=== PATIENT | male | born 1940 | race Caucasian/White ===

== ENCOUNTER 2017-12-04 09:25 | Inpatient (IN) ==
[2017-12-04] MEDS ORDERED: Bisacodyl 10 MG Supp RECTAL PRN (14:16)
[2017-12-04] MEDS ORDERED: Acetaminophen 325 MG Tablet PO PRN (14:16)
[2017-12-04] MEDS ORDERED: Morphine Inj 4 MG/ML Vial IV.PUSH PRN ×2 (14:16→15:23)
[2017-12-04 14:20] LABS: ABG Base Excess -2.4 mmol/L (-2-2); ABG PCO2 38 mmHg (38-42); ABG PO2 508 mmHg (61-120)
--- NOTE | 2017-12-04 15:12 | P.HPCC ---
<Joby Celaya P - Last Filed: 12/04/17 14:53> History of Present Illness Service: Critical care medicine. Primary Care Physician: UNKNOWN Chief Complaint: Cardiopulmonary arrest. History of Present Illness: This 77-year-old gentleman with coronary artery disease, chronic heart failure, glucose intolerance, recent pneumonia, and status post lobectomy for lung cancer develop respiratory acidosis culminating in brief cardiac arrest after transport to the [facility] emergency department. He was rapidly resuscitated after 1 amp of epinephrine but did require intubation and mechanical ventilation. He is been on home oxygen following his lobectomy and has underlying COPD which was likely exacerbated prior to this event. At the outside hospital troponin was minimally elevated at 0.15 and initial pH was arterial 7.16. He was transported to the [facility] at [facility] and I met him on his arrival. - Diagnosis (1) Cardiorespiratory arrest (2) COPD (chronic obstructive pulmonary disease) (3) Lung cancer (4) Elevated troponin I level (5) Leukocytosis Inpatient Certification: I certify that the inpatient services were ordered in accordance with Medicare regulations governing the order. This includes certification that hospital inpatient services are reasonable and necessary and in the case of services not specified as inpatient-only under 42 CFR 419.22(n), that they are appropriately provided as inpatient services in accordance to with the 2-midnight benchmark under 43 CFR 412.3(e) Estimated Total Length of Stay (Days): 3 Plans for Post Hospital Care: Home Review of Systems Unobtainable. Patient is intubated and sedated. Family has not arrived yet. [facility] - History History Provided By: Family Member - Medical History Medical History: Medical History (Last Updated 12/04/17 @ 11:47 by Tootie Ospina) Afib COPD (chronic obstructive pulmonary disease) Hypertension Lung cancer Oxygen dependent Pneumonia Port-A-Cath in place - Surgical History Surgical History: Surgical History (Last Updated 12/04/17 @ 11:47 by Tootie Ospina) History of lobectomy of lung - Tobacco History Smoking Status: Unknown if ever smoked - Alcohol History How Often Do You Have a Drink Containing Alcohol: Unable to Obtain - Substance Use History Substance History: No History of Abuse Medications and Allergies Allergies Allergy/AdvReac Type Severity Reaction Status Date / Time No Known Allergies Allergy Verified 12/04/17 09:42 Home Medications Medication Instructions Recorded Confirmed Type albuterol sulfate [ProAir HFA] 2 puff INHALATION Q4-6H PRN 12/04/17 12/04/17 History amlodipine 5 mg PO DAILY 12/04/17 12/04/17 History apixaban [Eliquis] 5 mg PO BID 12/04/17 12/04/17 History aspirin [Aspir-81] 81 mg PO DAILY 12/04/17 12/04/17 History folic acid 1 mg PO DAILY 12/04/17 12/04/17 History furosemide [Lasix] 40 mg PO DAILY 12/04/17 12/04/17 History ipratropium-albuterol 3 ml INHALATION Q6-8H PRN 12/04/17 12/04/17 History lisinopril 20 mg PO DAILY 12/04/17 12/04/17 History lisinopril-hydrochlorothiazide 1 tab PO DAILY 12/04/17 12/04/17 History meclizine 25 mg PO DAILY PRN 12/04/17 12/04/17 History nitroglycerin 0.4 mg SUBLINGUAL Q5-15M PRN 12/04/17 12/04/17 History potassium chloride 20 meq PO DAILY 12/04/17 12/04/17 History pravastatin 20 mg PO DAILY 12/04/17 12/04/17 History prednisone See Taper 12/04/17 History rabeprazole 20 mg PO DAILY 12/04/17 12/04/17 History Active Medications: Active Medications Acetaminophen (Tylenol) 650 mg PO Q6H PRN PRN Reason: PAIN 6-10 AND/OR FEVER >101F Hydrocodone Bitart/Acetaminophen ([place] 5/325) 1 tab PO Q4H PRN PRN Reason: PAIN SCALE 1 TO 5 Al Hydroxide/Mg Hydroxide (Milk Of Magnesia Liq) 30 ml PO Q12H PRN PRN Reason: Mild Constipation Albuterol (Duoneb Neb (Micaela)) 1 ampul NEB Q4HR NEB [facility] Bisacodyl (Dulcolax Supp) 10 mg RECTAL DAILY PRN PRN Reason: SEVERE CONSITIPATION Chlorhexidine Gluconate (Peridex 0.12% Oral Kit) 15 ml OROPHARYNG BID@0800, 2000 [facility] Chlorhexidine Gluconate (Chlorhexidine 2% Cloth) 3 pack TOPICAL DAILY@0400 [facility] Stop: 12/10/17 03:59 Chlorhexidine Gluconate (Chlorhexidine 2% Cloth) 3 pack TOPICAL DAILY@0400 PRN PRN Reason: Extra cloth needed Stop: 12/10/17 03:59 Famotidine (Pepcid Pf Inj) 10 mg IV.PUSH Q12HR MICAELA Potassium Chloride/Sodium Chloride (Ns + Kcl 20 Meq Inj) 1,000 mls @ 20 mls/hr IV.CONT .Q24H MICAELA Lactulose (Lactulose Liq) 30 ml PO DAILY PRN PRN Reason: SEVERE CONSITIPATION Morphine Sulfate (Morphine Inj) 2 mg IV.PUSH Q2H PRN PRN Reason: PAIN SCALE 6 TO 10 Ondansetron HCl (Zofran Odt) 4 mg PO Q6H PRN PRN Reason: NAUSEA OR VOMITING Senna/Docusate Sodium (Jamila-Colace) 1 tab PO BID [facility] Sennosides (Senokot) 17.2 mg PO Q12H PRN PRN Reason: Moderate Constipation Sodium Chloride (Ns Flush) 2 ml IV.FLUSH BID MICAELA Sodium Chloride (Ns Flush) 2 ml IV.FLUSH UNSCH PRN PRN Reason: FLUSH AFTER USING IV ACCESS Exam Vital signs: Vital Signs 12/04/17 14:00 Temperature 97.6 F Pulse Rate 67 Respiratory Rate 24 Blood Pressure 150/72 H Pulse Oximetry 99 Intake & Output 12/03/17 12/04/17 12/04/17 18:59 06:59 18:59 Weight 80.5 kg Other: Weight On Admission 80.5 kg Narrative: Physical exam: Head: Atraumatic, normal Neck: Supple orally intubated Lungs: Light wheezes but good bilateral air movement. Scattered crackles. Neck veins are full. Heart: Irregular regular, 3/6 systolic murmur heard throughout the precordium, present from childhood. Abdomen: Soft, nondistended, no guarding, bowel sounds are few, benign. Extremities: 2+ edema involving both lower legs. Otherwise warm and well- perfused. Neuro: Lightly sedated, opens eyes and nods head to commands. Moves 4 limbs spontaneously. Tracks with eyes. Appears alert. Caprini VTE Risk Assessment Caprini VTE Risk Assessment: Moderate/High Risk (score >= 2) Caprini Risk Assessment Model: Point Value = 1 Point Value = 2 Point Value = 3 Point Value = 5 Age 41-60 Minor surgery BMI > 25 kg/m2 Swollen legs Varicose veins or History of unexplained or recurrent spontaneous Oral contraceptives or hormone replacement Sepsis (< 1 month) Serious lung disease, including pneumonia (< 1 month) Abnormal pulmonary function Acute myocardial infarction Congestive heart failure (< 1 month) History of inflammatory bowel disease Medical patient at bed rest Age 61-74 Arthroscopic surgery Major open surgery (> 45 min) Laparoscopic surgery (> 45 min) Malignancy Confined to bed (> 72 hours) Immobilizing plaster cast Central venous access Age >= 75 History of VTE Family history of VTE Factor V Leiden Prothrombin [id number] Lupus anticoagulant Anticardiolipin antibodies Elevated serum homocysteine Heparin-induced thrombocytopenia Other congenital or acquired thrombophilia Stroke (< 1 month) Elective arthroplasty Hip, pelvis, or leg fracture Acute spinal cord injury (< 1 month) Prophylaxis Regimen: Total Risk Factor Score Risk Level Prophylaxis Regimen 0-1 Low Early ambulation 2 Moderate Order ONE of the following: *Sequential Compression Device (SCD) *Heparin 5000 units SQ BID 3-4 Higher Order ONE of the following medications: *Heparin 5000 units SQ TID *Enoxaparin/Lovenox 40 mg SQ daily (WT < 150 kg, CrCl > 30 mL/min) *Enoxaparin/Lovenox 30 mg SQ daily (WT < 150 kg, CrCl > 10-29 mL/min) *Enoxaparin/Lovenox 30 mg SQ BID (WT < 150 kg, CrCl > 30 mL/min) AND/OR *Sequential Compression Device (SCD) 5 or more Highest Order ONE of the following medications: *Heparin 5000 units SQ TID (Preferred with Epidurals) *Enoxaparin/Lovenox 40 mg SQ daily (WT < 150 kg, CrCl > 30 mL/min) *Enoxaparin/Lovenox 30 mg SQ daily (WT < 150 kg, CrCl > 10-29 mL/min) *Enoxaparin/Lovenox 30 mg SQ BID (WT < 150 kg, CrCl > 30 mL/min) AND *Sequential Compression Device (SCD) Assessment and Plan - Problem List (1) Cardiorespiratory arrest Code(s): I46.9 - Cardiac arrest, cause unspecified Status: Acute (2) COPD (chronic obstructive pulmonary disease) Code(s): J44.9 - Chronic obstructive pulmonary disease, unspecified Status: Acute (3) Lung cancer Code(s): C34.90 - Malignant neoplasm of unspecified part of unspecified bronchus or lung Status: Acute (4) Elevated troponin I level Code(s): R74.8 - Abnormal levels of other serum enzymes Status: Acute (5) Leukocytosis Code(s): D72.829 - Elevated white blood cell count, unspecified Status: Acute - Assessment and Plan Plan: Plan: Cardiovascular: Lasix 80 mg now continue oral diuretic and antihypertensive therapy. Continue antiplatelet therapy for coronary stent. Continue and NOAC for permanent atrial fibrillation. Follow-up troponin. Respiratory: Stat arterial blood gas. Review chest x-ray from outside hospital ; review for residual pneumonia. Bronchodilators. Short-term steroids. Start spontaneous breathing trials if more stable in a.m. Neuro: Serial neurologic exams, minimize sedation. GI: Nasogastric tube to low intermittent suction. : Calix to closed bag drainage. Try to get 2-3 L of urine off tonight. Follow electrolytes closely. Endocrine: Hyperglycemia probably related to his outpatient steroid bolus. [place] sliding scale insulin coverage, may require continuous infusion if he does not respond. Hematology: Leukocytosis now. Possibly related to steroids. He has been on prednisone 20 mg daily as an outpatient. More likely a stress response from today's events. Follow white cell count closely. ID: Continue antibiotic coverage for outpatient pneumonia until confirmed he is over it. Prophylaxis: Continue and NOAC and institute oral GI ulcer coverage. Overall impression: This man is critically ill having sustained a cardiac arrest following an episode of respiratory acidosis. I am trying to piece together the elements of his prehospital course at this time and will adjust my therapy accordingly. Presently: The respiratory acidosis has been corrected and oxygenation is acceptable. Work of breathing remains elevated. Critical CARE 50 minutes aside from procedures. <Josh Rosas - Last Filed: 12/05/17 08:40> History of Present Illness Primary Care Physician: UNKNOWN - Diagnosis (1) Cardiorespiratory arrest (2) COPD (chronic obstructive pulmonary disease) (3) Lung cancer (4) Elevated troponin I level (5) Leukocytosis Inpatient Certification: I certify that the inpatient services were ordered in accordance with Medicare regulations governing the order. This includes certification that hospital inpatient services are reasonable and necessary and in the case of services not specified as inpatient-only under 42 CFR 419.22(n), that they are appropriately provided as inpatient services in accordance to with the 2-midnight benchmark under 43 CFR 412.3(e) [facility] - Medical History Medical History: Medical History (Last Updated 12/04/17 @ 11:47 by Tootie Ospina) Afib COPD (chronic obstructive pulmonary disease) Hypertension Lung cancer Oxygen dependent Pneumonia Port-A-Cath in place - Surgical History Surgical History: Surgical History (Last Updated 12/04/17 @ 11:47 by Tootie Ospina) History of lobectomy of lung Medications and Allergies Active Medications: Active Medications Acetaminophen (Tylenol) 650 mg PO Q6H PRN PRN Reason: PAIN 6-10 AND/OR FEVER >101F Hydrocodone Bitart/Acetaminophen ([place] 5/325) 1 tab PO Q4H PRN PRN Reason: PAIN SCALE 1 TO 5 Al Hydroxide/Mg Hydroxide (Milk Of Magnsrini Liq) 30 ml PO Q12H PRN PRN Reason: Mild Constipation Albuterol (Duoneb Neb ([facility])) 1 ampul NEB Q4HR NEB [facility] Last Admin: 12/05/17 08:14 Dose: 1 ampul Amlodipine Besylate (Norvasc) 5 mg PO DAILY [facility] Last Admin: 12/05/17 08:30 Dose: 5 mg Apixaban (Eliquis) 5 mg PO BID [facility] Last Admin: 12/05/17 08:29 Dose: 5 mg Bisacodyl (Dulcolax Supp) 10 mg RECTAL DAILY PRN PRN Reason: SEVERE CONSITIPATION Chlorhexidine Gluconate (Peridex 0.12% Oral Kit) 15 ml OROPHARYNG BID@0800, 2000 [facility] Chlorhexidine Gluconate (Chlorhexidine 2% Cloth) 3 pack TOPICAL DAILY@0400 [facility] Stop: 12/10/17 03:59 Chlorhexidine Gluconate (Chlorhexidine 2% Cloth) 3 pack TOPICAL DAILY@0400 PRN PRN Reason: Extra cloth needed Stop: 12/10/17 03:59 Dextrose (D50w Vial) 50 ml IV.PUSH UNSCH PRN PRN Reason: PER HYPOGLYCEMIA PROTOCOL Famotidine (Pepcid Pf Inj) 10 mg IV.PUSH Q12HR [facility] Last Admin: 12/05/17 08:30 Dose: 10 mg Glucagon (Glucagon Inj) 1 mg OTHER PRN PRN PRN Reason: for Hypoglycemia Protocol Potassium Chloride/Sodium Chloride (Ns + Kcl 20 Meq Inj) 1,000 mls @ 20 mls/hr IV.CONT .Q24H [facility] Last Admin: 12/04/17 15:02 Dose: 20 mls/hr Insulin Aspart (Novolog Insulin Suppl Scale Inj) 0 unit SQ Q6HR [facility]; Protocol Last Admin: 12/04/17 18:17 Dose: Not Given Lactulose (Lactulose Liq) 30 ml PO DAILY PRN PRN Reason: SEVERE CONSITIPATION Lisinopril (Prinivil) 20 mg PO DAILY [facility] Last Admin: 12/05/17 08:30 Dose: 20 mg Methylprednisolone Sodium Succinate (Solumedrol Inj) 60 mg IV.PUSH Q8HR [facility] Last Admin: 12/05/17 05:43 Dose: 60 mg Morphine Sulfate (Morphine Inj) 2 mg IV.PUSH Q2H PRN PRN Reason: PAIN SCALE 6 TO 10 Morphine Sulfate (Morphine Inj) 2 mg IV.PUSH Q4H PRN PRN Reason: PAIN 6-10;IF UNABLE TO TAKE PO Ondansetron HCl (Zofran Odt) 4 mg PO Q6H PRN PRN Reason: NAUSEA OR VOMITING Senna/Docusate Sodium (Jamila-Colace) 1 tab PO BID [facility] Last Admin: 12/05/17 08:29 Dose: 1 tab Sennosides (Senokot) 17.2 mg PO Q12H PRN PRN Reason: Moderate Constipation Sodium Chloride (Ns Flush) 2 ml IV.FLUSH BID [facility] Last Admin: 12/05/17 08:30 Dose: 2 ml Sodium Chloride (Ns Flush) 2 ml IV.FLUSH UNSCH PRN PRN Reason: FLUSH AFTER USING IV ACCESS Results - Labs CBC & Chem 7: 12/05/17 03:30 12/05/17 03:30 Labs: Short CBC 12/05/17 Range/Units 03:30 WBC 25.9 H (4.0-11.0) th/mm3 Hgb 15.0 (13.0-17.0) gm/dL Hct 46.3 (39.0-51.0) % Plt Count 164 (150-450) th/mm3 BMP 12/04/17 12/05/17 23:16 03:30 Sodium 140 139 Potassium 3.7 3.9 Chloride 102 104 Carbon Dioxide 26.0 23.0 BUN 48 H 48 H Creatinine 1.42 H 1.43 H Calcium 8.1 L 8.0 L Cardiac Enzymes 12/04/17 12/04/17 Range/Units 17:08 23:16 Troponin I 0.12 H 0.11 H (0.02-0.05) ng/mL - Imaging Impressions Chest X-Ray 12/04/17 14:22 CONCLUSION: Bilateral alveolar edema versus pneumonia. There has been no significant change when compared to the prior exam. Enlarging right effusion Exam Vital signs: Vital Signs 12/04/17 14:00 12/04/17 15:24 12/04/17 16:00 Temperature 97.6 F 97.9 F Pulse Rate 67 66 66 Respiratory Rate 24 19 Blood Pressure 150/72 H 118/73 Pulse Oximetry 99 98 12/04/17 16:17 12/04/17 20:00 12/04/17 20:06 Temperature 97.6 F Pulse Rate 65 66 69 Respiratory Rate 14 20 19 Blood Pressure 92/59 L Pulse Oximetry 98 98 12/04/17 22:00 12/05/17 00:00 12/05/17 00:09 Temperature 97.8 F Pulse Rate 72 70 71 Respiratory Rate 18 20 Blood Pressure 126/74 Pulse Oximetry 98 12/05/17 02:00 12/05/17 03:51 12/05/17 04:00 Temperature 97.5 F L Pulse Rate 76 71 74 Respiratory Rate 21 18 Blood Pressure 114/73 Pulse Oximetry 100 12/05/17 08:15 Temperature Pulse Rate 82 Respiratory Rate 21 Blood Pressure Pulse Oximetry 96 Intake & Output 12/04/17 12/05/17 12/05/17 18:59 06:59 18:59 Intake Total 100 / 100 480 / 480 Output Total 2800 / 2800 1350 / 1350 Balance -2700 / -2700 -870 / -870 Weight 80.5 kg 80.7 kg Intake: Oral 100 / 100 480 / 480 Output: Urine Amount (Catheter) 2800 / 2800 1350 / 1350 Indwelling Urethral Catheter 2800 / 2800 1350 / 1350 Other: # Bowel Movements 0 Weight On Admission 80.5 kg Caprini VTE Risk Assessment Caprini Risk Assessment Model: Point Value = 1 Point Value = 2 Point Value = 3 Point Value = 5 Age 41-60 Minor surgery BMI > 25 kg/m2 Swollen legs Varicose veins or History of unexplained or recurrent spontaneous Oral contraceptives or hormone replacement Sepsis (< 1 month) Serious lung disease, including pneumonia (< 1 month) Abnormal pulmonary function Acute myocardial infarction Congestive heart failure (< 1 month) History of inflammatory bowel disease Medical patient at bed rest Age 61-74 Arthroscopic surgery Major open surgery (> 45 min) Laparoscopic surgery (> 45 min) Malignancy Confined to bed (> 72 hours) Immobilizing plaster cast Central venous access Age >= 75 History of VTE Family history of VTE Factor V Leiden Prothrombin [id number] Lupus anticoagulant Anticardiolipin antibodies Elevated serum homocysteine Heparin-induced thrombocytopenia Other congenital or acquired thrombophilia Stroke (< 1 month) Elective arthroplasty Hip, pelvis, or leg fracture Acute spinal cord injury (< 1 month) Prophylaxis Regimen: Total Risk Factor Score Risk Level Prophylaxis Regimen 0-1 Low Early ambulation 2 Moderate Order ONE of the following: *Sequential Compression Device (SCD) *Heparin 5000 units SQ BID 3-4 Higher Order ONE of the following medications: *Heparin 5000 units SQ TID *Enoxaparin/Lovenox 40 mg SQ daily (WT < 150 kg, CrCl > 30 mL/min) *Enoxaparin/Lovenox 30 mg SQ daily (WT < 150 kg, CrCl > 10-29 mL/min) *Enoxaparin/Lovenox 30 mg SQ BID (WT < 150 kg, CrCl > 30 mL/min) AND/OR *Sequential Compression Device (SCD) 5 or more Highest Order ONE of the following medications: *Heparin 5000 units SQ TID (Preferred with Epidurals) *Enoxaparin/Lovenox 40 mg SQ daily (WT < 150 kg, CrCl > 30 mL/min) *Enoxaparin/Lovenox 30 mg SQ daily (WT < 150 kg, CrCl > 10-29 mL/min) *Enoxaparin/Lovenox 30 mg SQ BID (WT < 150 kg, CrCl > 30 mL/min) AND *Sequential Compression Device (SCD) Assessment and Plan - Problem List (1) Cardiorespiratory arrest Code(s): I46.9 - Cardiac arrest, cause unspecified Status: Inactive (2) COPD (chronic obstructive pulmonary disease) Code(s): J44.9 - Chronic obstructive pulmonary disease, unspecified Status: Inactive (3) Lung cancer Code(s): C34.90 - Malignant neoplasm of unspecified part of unspecified bronchus or lung Status: Inactive (4) Elevated troponin I level Code(s): R74.8 - Abnormal levels of other serum enzymes Status: Inactive (5) Leukocytosis Code(s): D72.829 - Elevated white blood cell count, unspecified Status: Inactive
[2017-12-04] MEDS ORDERED: Dextrose 50% in Water 50 ML Vial IV.PUSH PRN (15:13)
[2017-12-04] MEDS: Oral Hygiene Kit OROPHARYNG SCH (15:20)
--- NOTE | 2017-12-04 15:25 | XR ---
EXAM DATE: 12/04/2017 3:05 PM EDT AGE/SEX: 77 years / Male INDICATIONS: Shortness of breath. CLINICAL DATA: This is the patient's subsequent encounter. Patient reports that signs and symptoms h ave been present for 1 day and indicates a pain score of 0/10. MEDICAL/SURGICAL HISTORY: Emphysema. Chronic obstructive pulmonary disease. Carcinoma, lung. . Port for chemotherapy. COMPARISON: [facility], CHEST 1V SINGLE AP, 12/04/2017. . FINDINGS: The cardiac silhouette is enlarged in transverse diameter. There is prominence of the aortic knob is with calcification characteristic of atherosclerotic vascular disease. [id number] is in place via right internal jugular approach with its tip in the superior vena cava. There is patchy alveolar dise ase bilaterally compatible with edema or pneumonia. There has been no significant change when compare d to the prior exam. A small right sided effusion is present. CONCLUSION: Bilateral alveolar edema versus pneumonia. There has been no significant change when compared to the prior exam. Enlarging right effusion Electronically signed by: Mac Bailey MD 12/04/2017 3:24 PM EDT
[2017-12-04] MEDS: MethylPREDNISolone Sod Succinate Inj 125 MG/2 ML Vial IV.PUSH SCH ×2 (15:51→21:37)
[2017-12-04] MEDS: Insulin NovoLOG Aspart Correctional Sugar Inj SQ SCH ×2 (15:53→18:17)
[2017-12-04] MEDS: Senna/Docusate Sodium 8.6/50 MG Tablet PO SCH (21:35)
[2017-12-04] MEDS: Famotidine PF Inj 20 MG/2 ML Vial IV.PUSH SCH (21:35)
[2017-12-05 00:18] LABS: Calcium 8.1 mg/dL (8.5-10.1); Potassium 3.7 meq/L (3.5-5.1)
[2017-12-05 00:22] LABS: Troponin I 0.11 ng/mL (0.02-0.05)
[2017-12-05 04:00] LABS: Baso # (Auto) 0.1 th/mm3 (0.0-0.2); Baso % (Auto) 0.3 % (0.0-2.0); Hematocrit 46.3 % (39.0-51.0); Lymph # (Auto) 0.6 th/mm3 (1.0-4.8); Lymph % (Auto) 2.3 % (9.0-44.0); Mean Corpuscular HGB Conc 32.4 % (32.0-36.0); Mean Corpuscular Hemoglobin 28.3 pg (27.0-34.0); Mean Corpuscular Volume 87.4 fL (80.0-100.0); Mean Platelet Volume 10.2 fL (7.0-11.0); Mono # (Auto) 0.2 th/mm3 (0.0-0.9); Neut % (Auto) 96.4 % (16.0-70.0); Platelet Count 164 th/mm3 (150-450); Red Cell Distribution Width 15.5 % (11.6-17.2); White Blood Count 25.9 th/mm3 (4.0-11.0)
[2017-12-05] MEDS ORDERED: Chlorhexidine Gluconate 2% 1 Pack (2 Cloths) TOPICAL PRN (04:00)
[2017-12-05 04:14] LABS: Phosphorus 3.9 mg/dL (2.5-4.9); Potassium 3.9 meq/L (3.5-5.1)
[2017-12-05] MEDS: MethylPREDNISolone Sod Succinate Inj 125 MG/2 ML Vial IV.PUSH SCH (05:43)
[2017-12-05] MEDS: Senna/Docusate Sodium 8.6/50 MG Tablet PO SCH ×2 (08:29→22:37)
[2017-12-05] MEDS: amLODIPine 5 MG Tablet PO SCH (08:30)
[2017-12-05] MEDS: Lisinopril 20 MG Tablet PO SCH (08:30)
[2017-12-05] MEDS: Famotidine PF Inj 20 MG/2 ML Vial IV.PUSH SCH ×2 (08:30→22:38)
--- NOTE | 2017-12-05 08:39 | P.PNCC ---
Subjective Subjective Remarks/Hospital Course: This 77-year-old gentleman with coronary artery disease, chronic heart failure, glucose intolerance, recent pneumonia, and status post lobectomy for lung cancer develop respiratory acidosis culminating in brief cardiac arrest after transport to the [facility] emergency department. He was rapidly resuscitated after 1 amp of epinephrine but did require intubation and mechanical ventilation. He is been on home oxygen following his lobectomy and has underlying COPD which was likely exacerbated prior to this event. At the outside hospital troponin was minimally elevated at 0.15 and initial pH was arterial 7.16. He was transported to the [facility] and I met him on his arrival. 12/05: Sitting up in bed extubated yesterday breathing comfortably. WBC count is elevated most likely stress related. No arrhythmias reported overnight Objective Vital Signs / I&O: Vital Signs 12/04/17 14:00 12/04/17 15:24 12/04/17 16:00 Temperature 97.6 F 97.9 F Pulse Rate 67 66 66 Respiratory Rate 24 19 Blood Pressure 150/72 H 118/73 Pulse Oximetry 99 98 12/04/17 16:17 12/04/17 20:00 12/04/17 20:06 Temperature 97.6 F Pulse Rate 65 66 69 Respiratory Rate 14 20 19 Blood Pressure 92/59 L Pulse Oximetry 98 98 12/04/17 22:00 12/05/17 00:00 12/05/17 00:09 Temperature 97.8 F Pulse Rate 72 70 71 Respiratory Rate 18 20 Blood Pressure 126/74 Pulse Oximetry 98 12/05/17 02:00 12/05/17 03:51 12/05/17 04:00 Temperature 97.5 F L Pulse Rate 76 71 74 Respiratory Rate 21 18 Blood Pressure 114/73 Pulse Oximetry 100 12/05/17 08:15 Temperature Pulse Rate 82 Respiratory Rate 21 Blood Pressure Pulse Oximetry 96 Intake & Output 12/04/17 12/05/17 12/05/17 18:59 06:59 18:59 Intake Total 100 / 100 480 / 480 Output Total 2800 / 2800 1350 / 1350 Balance -2700 / -2700 -870 / -870 Weight 80.5 kg 80.7 kg Intake: Oral 100 / 100 480 / 480 Output: Urine Amount (Catheter) 2800 / 2800 1350 / 1350 Indwelling Urethral Catheter 2800 / 2800 1350 / 1350 Other: # Bowel Movements 0 Weight On Admission 80.5 kg Result Diagrams: 12/05/17 03:30 12/05/17 03:30 Objective Remarks: Head: Atraumatic, normal Neck: Supple Lungs: Good bilateral air movement. Scattered crackles. Neck veins are full. Heart: I3/6 systolic murmur heard throughout the precordium, S1-S2 normal Abdomen: Soft, nondistended, no guarding, bowel sounds are few, benign. Extremities: 2+ edema involving both lower legs. Otherwise warm and well- perfused. Neuro: Alert awake oriented 3 no focal deficits Assessment and Plan - Problem List (1) Cardiorespiratory arrest Code(s): I46.9 - Cardiac arrest, cause unspecified Status: Acute (2) COPD (chronic obstructive pulmonary disease) Code(s): J44.9 - Chronic obstructive pulmonary disease, unspecified Status: Acute (3) Lung cancer Code(s): C34.90 - Malignant neoplasm of unspecified part of unspecified bronchus or lung Status: Chronic (4) Elevated troponin I level Code(s): R74.8 - Abnormal levels of other serum enzymes Status: Acute (5) Leukocytosis Code(s): D72.829 - Elevated white blood cell count, unspecified Status: Acute - Assessment and Plan Plan: Plan: Cardiovascular: Continue oral diuretic and antihypertensive therapy. Continue antiplatelet therapy for coronary stent. Continue and NOAC for permanent atrial fibrillation. Follow-up troponin-peaked 0.12. Respiratory: Extubated yesterday tolerating well. Bronchodilators. Short-term steroids. Neuro: Serial neurologic exams, minimize sedation. Neurologically remains intact GI: Heart healthy diet : Discontinue Calix. Electrolyte replacement per protocol Endocrine: Hyperglycemia probably related to his outpatient steroid bolus. Sliding scale insulin coverage Hematology: Leukocytosis. Possibly related to steroids and acute distress. He has been on prednisone 20 mg daily as an outpatient. ID: Continue antibiotic coverage for outpatient pneumonia. Prophylaxis: Continue and NOAC and institute oral GI ulcer coverage. Level 2 Consult hospitalist to assume care in a.m. Transferred to [facility] with telemetry Code Status: Full
[2017-12-05] MEDS ORDERED: Nitroglycerin SL (Override) 0.4 MG Tab SL PRN (08:54)
--- NOTE | 2017-12-05 09:33 | XR ---
EXAM DATE: 12/05/2017 9:21 AM EDT AGE/SEX: 77 years / Male INDICATIONS: . Shortness of breath. CLINICAL DATA: This is the patient's subsequent encounter. Patient reports that signs and symptoms h ave been present for 2 days and indicates a pain score of 0/10. MEDICAL/SURGICAL HISTORY: . Emphysema. Chronic obstructive pulmonary disease. Carcinoma, lung. . Port for chemotherapy. COMPARISON: [facility] [place], CHEST 1V SINGLE AP, 12/04/2017. . FINDINGS: Right lung base infiltrate is present with questionable small pleural effusion not significantly reeves ged. [id number] has not changed and is prominence of the interstitial markings not significantly c hanged. CONCLUSION: No appreciable change. Electronically signed by: Libertad Silverio MD 12/05/2017 9:32 AM EDT
[2017-12-05] MEDS: Furosemide 40 MG Tablet PO SCH (10:30)
[2017-12-05] MEDS: Insulin NovoLOG Aspart Correctional Sugar Inj SQ SCH ×3 (11:48→18:09)
[2017-12-05] MEDS: Oral Hygiene Kit OROPHARYNG SCH ×2 (11:48→17:00)
[2017-12-05] MEDS: MethylPREDNISolone Sod Succinate Inj 40 MG/ML Vial IV.PUSH SCH ×2 (13:20→22:37)
--- NOTE | 2017-12-05 18:23 | ECG ---
Date Performed: 12/04/2017 Time Performed: 16:51:58 PTAGE: 77 years EKG: Sinus rhythm Rightward axis Right bundle branch block Abnormal ECG Compared to PREVIOUS TRACING , QRS duration is slightly wider. PREVIOUS TRACIN12/04/2017 09.32.44 DOCTOR: Bill Rodríguez Interpretating Date/Time 12/05/2017 18:32:52
[2017-12-05] MEDS: Chlorhexidine 0.12% Oral Kit 15 ML UDC OROPHARYNG SCH (22:35)
[2017-12-06] MEDS: Insulin NovoLOG Aspart Correctional Sugar Inj SQ SCH ×5 (00:20→18:24)
--- NOTE | 2017-12-06 03:55 | XR ---
EXAM DATE: 12/06/2017 3:25 AM EDT AGE/SEX: 77 years / Male INDICATIONS: . Respiratory Disease. CLINICAL DATA: This is the patient's subsequent encounter. Patient reports that signs and symptoms h ave been present for 3 days and indicates a pain score of 0/10. MEDICAL/SURGICAL HISTORY: . Emphysema. Chronic obstructive pulmonary disease. Carcinoma, lung. . Port for chemotherapy. COMPARISON: . FINDINGS: [id number] in superior vena cava. Bilateral mostly basilar airspace disease and pleural effusions similar to December 05. No pneumothorax. Interstitial prominence stable. CONCLUSION: Bilateral mostly basilar airspace disease with pleural effusions. No pneumothorax. Electronically signed by: Stephen Ascencio MD 12/06/2017 3:53 AM EDT
[2017-12-06] MEDS: Oral Hygiene Kit OROPHARYNG SCH ×3 (04:42→17:13)
[2017-12-06] MEDS: Chlorhexidine Gluconate 2% 1 Pack (2 Cloths) TOPICAL SCH (04:43)
[2017-12-06] MEDS: MethylPREDNISolone Sod Succinate Inj 40 MG/ML Vial IV.PUSH SCH ×3 (05:31→21:43)
[2017-12-06 08:28] LABS: Hematocrit 46.7 % (39.0-51.0); Hemoglobin 14.8 gm/dL (13.0-17.0); Mean Corpuscular HGB Conc 31.8 % (32.0-36.0); Mean Corpuscular Volume 88.3 fL (80.0-100.0); Platelet Count 157 th/mm3 (150-450); Red Blood Count 5.29 mil/mm3 (4.50-5.90); Red Cell Distribution Width 15.7 % (11.6-17.2); White Blood Count 30.5 th/mm3 (4.0-11.0)
[2017-12-06 08:51] LABS: Alanine Aminotransferase 68 U/L (12-78); Albumin 3.1 g/dL (3.4-5.0); Anion Gap 13 meq/L (5-15); Aspartate Aminotransferase 12 U/L (15-37); Blood Urea Nitrogen 59 mg/dL (7-18); Calcium 9.2 mg/dL (8.5-10.1); Carbon Dioxide 25.4 meq/L (21.0-32.0); Chloride 102 meq/L (98-107); Glomerular Filtration Rate 42 mL/min (>89); Glucose,Random 204 mg/dL (74-106); Magnesium 2.6 mg/dL (1.5-2.5); Potassium 3.9 meq/L (3.5-5.1); Sodium 140 meq/L (136-145)
[2017-12-06 08:54] LABS: Alkaline Phosphatase 73 U/L (45-117); Total Protein 6.4 g/dL (6.4-8.2)
[2017-12-06] MEDS: Lisinopril 20 MG Tablet PO SCH (09:12)
[2017-12-06] MEDS: Furosemide 40 MG Tablet PO SCH (09:13)
[2017-12-06] MEDS: amLODIPine 5 MG Tablet PO SCH (09:13)
[2017-12-06] MEDS: Senna/Docusate Sodium 8.6/50 MG Tablet PO SCH ×2 (09:14→21:43)
[2017-12-06] MEDS: Famotidine PF Inj 20 MG/2 ML Vial IV.PUSH SCH ×2 (09:14→21:42)
--- NOTE | 2017-12-06 12:31 | P.PNIM ---
Subjective Interval history: This 77-year-old gentleman with coronary artery disease, chronic heart failure, glucose intolerance, recent pneumonia, and status post lobectomy for lung cancer develop respiratory acidosis culminating in brief cardiac arrest after transport to the [facility] emergency department. He was rapidly resuscitated after 1 amp of epinephrine but did require intubation and mechanical ventilation. He is been on home oxygen following his lobectomy and has underlying COPD which was likely exacerbated prior to this event. At the outside hospital troponin was minimally elevated at 0.15 and initial pH was arterial 7.16. He was transported to the [facility] and I met him on his arrival. 12/05: Sitting up in bed extubated yesterday breathing comfortably. WBC count is elevated most likely stress related. No arrhythmias reported overnight 12-06 TRANSFERRED TO OUR SERVICE TODAY STATES WAS ON HIS WAY HOME FROM [facility] WHEN THIS OCCURRED SHE STATES HE HAD ISSUES WITH BREATHING BEFORE THIS OCCURRED IS CHRONICALLY ON 3L BY NASAL CANULA AND HAD A THORACENTESIS PRIOR TO THEIR VACATION IN [facility] HOME AM LAB PT AND OT CONSULT PULMONARY DW RN AND PT AND CM HAS HOME OXYGEN ALREADY HAS TENDER CHEST FROM CPR HAS SORE THROAT FROM ET TUBE AND PRIOR IRRITATION CONSULT PULMONARY AND CARDIOLOGY GET ECHO PT AND OT AM LABS Physical Exam Vital signs: Vital Signs 12/05/17 13:43 12/05/17 15:15 12/05/17 15:16 Temperature 97.5 F L Pulse Rate 87 94 H Respiratory Rate 18 18 Blood Pressure 111/76 Pulse Oximetry 98 94 L 12/05/17 16:00 12/05/17 19:04 12/05/17 20:00 Temperature 97.3 F L 97.4 F L Pulse Rate 89 89 108 H Respiratory Rate 18 20 20 Blood Pressure 122/58 L 120/76 Pulse Oximetry 98 92 L 12/06/17 00:00 12/06/17 00:24 12/06/17 04:00 Temperature 97.3 F L 98.4 F Pulse Rate 96 H 96 H 64 Respiratory Rate 18 16 18 Blood Pressure 95/62 L 129/70 Pulse Oximetry 95 98 12/06/17 05:00 12/06/17 08:00 12/06/17 09:27 Temperature 97.3 F L Pulse Rate 68 85 90 Respiratory Rate 16 22 26 H Blood Pressure 114/74 Pulse Oximetry 93 L 93 L Intake & Output 07/16/18 07/17/18 07/17/18 18:59 06:59 18:59 Intake Total 360 / 360 120 / 120 Balance 360 / 360 120 / 120 Intake: Oral 360 / 360 120 / 120 Other: # Voids 3 1 # Bowel Movements 0 Narrative: GENERAL: AWAKE AND ALERT AND ORIENTED X3 TALKATIVE AND COOPERATIVE SKIN: Warm and dry. HEAD: Atraumatic. Normocephalic. EYES: Pupils equal and round. No scleral icterus. No injection or drainage. EOMI ENT: No nasal bleeding or discharge. Mucous membranes pink and moist. TONGUE IS MIDLINE NECK: Trachea midline. No JVD. SUPPLE CARDIOVASCULAR: IRRegular rate and rhythm. S1, S2 NO S3 OR S4 TENDER CHEST FROM CPR 2/6 GAB RESPIRATORY: No accessory muscle use. DECREASED BS BL AND SCATTED RHONCHI AND RALES AT BASES Breath sounds equal bilaterally. GASTROINTESTINAL: Abdomen soft, non-tender, nondistended. Hepatic and splenic margins not palpable. MUSCULOSKELETAL: Extremities without clubbing, cyanosis, or edema. No obvious deformities. NEUROLOGICAL: Awake and alert. No obvious cranial nerve deficits. Motor grossly within normal limits. 4 out of 5 muscle strength in the arms and legs. Normal speech. PSYCHIATRIC: Appropriate mood and affect; insight and judgment normal. - Urinary Catheter Management Indwelling Urethral Catheter Cath placed during this visit: no Results - Labs CBC & Chem 7: 12/06/17 07:43 12/06/17 07:43 Laboratory Results - last 24 hr 12/05/17 12/05/17 12/05/17 12:43 17:20 20:25 WBC RBC Hgb Hct MCV MCH MCHC RDW Plt Count MPV Sodium Potassium Chloride Carbon Dioxide Anion Gap BUN Creatinine Estimated GFR POC Glucose 368 H 318 H 302 H Random Glucose Calcium Magnesium Total Bilirubin AST ALT Alkaline Phosphatase Total Protein Albumin 12/05/17 12/06/17 12/06/17 23:45 05:30 07:43 WBC 30.5 H RBC 5.29 Hgb 14.8 Hct 46.7 MCV 88.3 MCH 28.0 MCHC 31.8 L RDW 15.7 Plt Count 157 MPV 11.0 Sodium Potassium Chloride Carbon Dioxide Anion Gap BUN Creatinine Estimated GFR POC Glucose 217 H 210 H Random Glucose Calcium Magnesium Total Bilirubin AST ALT Alkaline Phosphatase Total Protein Albumin 12/06/17 12/06/17 07:43 12:01 WBC RBC Hgb Hct MCV MCH MCHC RDW Plt Count MPV Sodium 140 Potassium 3.9 Chloride 102 Carbon Dioxide 25.4 Anion Gap 13 BUN 59 H Creatinine 1.60 H Estimated GFR 42 L POC Glucose 319 H Random Glucose 204 H Calcium 9.2 D Magnesium 2.6 H D Total Bilirubin 0.8 AST 12 L ALT 68 Alkaline Phosphatase 73 Total Protein 6.4 D Albumin 3.1 L - Imaging Impressions Chest X-Ray 12/06/17 06:00 CONCLUSION: Bilateral mostly basilar airspace disease with pleural effusions. No pneumothorax. Assessment and Plan - Plan Cardiovascular: Continue oral diuretic and antihypertensive therapy. Continue antiplatelet therapy for coronary stent. Continue and NOAC for permanent atrial fibrillation. Follow-up troponin-peaked 0.12. diurese CONSULT CARDIO Respiratory: Extubated on 15 tolerating well. Bronchodilators. Short-term steroids. MUCINEX Neuro: Serial neurologic exams, minimize sedation. Neurologically remains intact GI: Heart healthy diet : Discontinue Calix. Electrolyte replacement per protocol FOLLOW RENAL FUNCTIONS Endocrine: Hyperglycemia probably related to his outpatient steroid bolus. Sliding scale insulin coverage WITH ACCU CHECKS Hematology: Leukocytosis. Possibly related to steroids and acute distress. He has been on prednisone 20 mg daily as an outpatient. ID: Continue antibiotic coverage for outpatient pneumonia. LEUKOCYTOSIS DUE TO STEROIDS CONSULT CARDIO POSITIVE TROPONINS CONSULT PULMONARY FOR LUNG ISSUES Prophylaxis: Continue and NOAC and institute oral GI ulcer coverage. Code Status: FULL CODE Discussed Condition With: RN AND PT AND FAMILY AND CM Discharge Planning: PENDING IMPROVEMENT
[2017-12-06] MEDS: Folic Acid 1 MG Tablet PO SCH (14:39)
[2017-12-06] MEDS: Pantoprazole Sodium 20 MG DR Tablet PO SCH (14:39)
[2017-12-06] MEDS: guaiFENesin 600 MG ER Tablet PO SCH ×2 (14:39→21:42)
--- NOTE | 2017-12-06 16:05 | MB ---
cc: Damian Kim MD DATE: 12/06/2017 HISTORY OF PRESENT ILLNESS: Rodo is a very pleasant 77-year-old gentleman with history of COPD, lung cancer, status post resection. Has not received chemotherapy in the last 3 months. He had a complication from what sounds like a pulmonary artery bleed as described by his son-in-law several months ago. He was traveling en route to [place], developed severe shortness of breath and was seen in the [place] ER, had what was described as a cardiac arrest, received one dose of epinephrine. He was found to have severe respiratory acidosis with a pH of 7.1. Chest x-ray showed airspace disease, possibly pulmonary edema. Echo showed EF of 34%, mean aortic valve gradient of approximately 40 with a peak systolic pressure of around 70. Troponin was mildly elevated post-arrest. Currently, the patient is sitting in a wheelchair, comfortable, in no acute distress. Denies fever, chills, cough, GI or bleeding, orthopnea, syncope or dizziness. PAST MEDICAL HISTORY: As per history of present illness. He has a history of atrial fibrillation, COPD, hypertension, lung cancer, uses home O2, history of pneumonia. PAST SURGICAL HISTORY: Status post lobectomy of the lung. ALLERGIES: NONE. MEDICATIONS: In the hospital: 1. Amlodipine 5 mg a day. 2. Albuterol nebs. 3. Eliquis 5 mg b.i.d. 4. Aspirin 81 mg a day. 5. Folic acid 1 mg daily. 6. Lasix 40 mg daily. 7. Novolog. 8. Prinivil 20 mg daily. 9. Methylprednisolone. 10. Potassium 20 mEq daily. 11. Pravachol 20 mg daily. PHYSICAL EXAMINATION: VITAL SIGNS: Temperature 97.5, pulse 88, blood pressure 121/68, sats 93% on 3.5 liters nasal cannula. GENERAL: He is alert and oriented x3, in no acute distress. NECK: Supple. No JVD. No bruit. CARDIOVASCULAR: S1, S2. No murmurs, rubs or gallops. LUNGS: Clear to auscultation bilaterally. ABDOMEN: Soft, nontender, nondistended, positive bowel sounds. EXTREMITIES: No lower extremity edema. LABORATORY DATA: EKG shows normal sinus rhythm at 67 beats per minute, right bundle-branch block, nonspecific ST-T wave changes. The corrected QT interval was 454 milliseconds. Chest x-ray on 12/04/2017: Bilateral alveolar edema versus pneumonia. White count 30.5, hemoglobin 14.8, hematocrit 46.7, platelet count is 157. Blood gas pH of 7.3, pCO2 of 30, pO2 508 on 100% oxygen, BiPAP. Sodium 140, potassium 3.9, chloride 102, bicarbonate 25.4, BUN 59, creatinine 1.60, magnesium 2.6. DIAGNOSES: 1. Cardiac arrest. 2. Non-ST elevation myocardial infarction. 3. Severe aortic valve stenosis. 4. Severe pulmonary hypertension. 5. Lung cancer. 6. Chronic obstructive pulmonary disease. 7. Respiratory acidosis. 8. Atrial fibrillation. 9. Cardiomyopathy. 10. Decompensated congestive heart failure. 11. Elevated white count. 12. Chronic renal insufficiency. DISCUSSION: I explained to the patient the right heart catheterization, left heart catheterization are medically necessary. The patient is unsure what he wants to do. He asked me to discuss the case with his son-in-law, who is a retired former cafe team member. I explained that multiple etiologies may account for his cardiac arrest and elevated troponin, most likely, however, I suspect that it is the severe aortic valve stenosis. The patient denies any history of heart failure and currently his ejection fraction is 34%. Certainly at his age, he could be at risk for an ischemic etiology as well and he would need a right heart catheterization, left heart catheterization from a guideline standpoint. However, in the context of his lung cancer, it is uncertain what his prognosis is based on his history, so I have advised the son-in-law to get a consult with Dr. Lorenzana to determine risks and benefits of TAVR and also get an oncology consult to determine the patient's prognosis from his lung cancer standpoint. This will also give the patient time to decide whether he wants to stay for further management or leave against medical advice and be a high risk traveler and have his care done by his local physicians. Again, the patient's son-in-law and the patient are undecided. Damian Kim MD AWC/TL , 03:35 PM , 04:03 PM
--- NOTE | 2017-12-06 16:10 | ECHRPT ---
Indication: HYPERTENSIVE HEART DISEASE CONCLUSIONS Normal left ventricular size. Mild concentric left ventricular hypertrophy. The left ventricular systolic function is moderately reduced with an estimated ejection fraction in the range of 40-45%. The right ventricle is moderately dilated. Mild mitral valve regurgitation. Aortic valve sclerosis is present. Mild aortic valve stenosis. Aortic valve mean gradient is 23.6 mmHg. There is mild to moderate tricuspid valve regurgitation. The estimated pulmonary arterial pressure is 94.6 mmHg. BP: / HR: Rhythm: Sinus MEASUREMENTS (Male / Female) Normal Values Technical Quality:Fair 2D ECHO LV Diastolic Diameter PLAX 3.5 cm 4.2 - 5.9 / 3.9 - 5.3 cm LV Systolic Diameter PLAX 3.0 cm IVS Diastolic Thickness 1.3 cm 0.6 - 1.0 / 0.6 - 0.9 cm LVPW Diastolic Thickness 1.3 cm 0.6 - 1.0 / 0.6 - 0.9 cm LV Relative Wall Thickness 0.7 RV Internal Dim ED PLAX 4.2 cm LVOT Diameter 2.3 cm Aortic Root Diameter 3.2 cm LA Systolic Diameter LX 3.6 cm 3.0 - 4.0 / 2.7 - 3.8 cm DOPPLER AV Peak Velocity 330.0 cm/s AV Peak Gradient 43.6 mmHg AV Mean Gradient 23.6 mmHg AV Velocity Time Integral 57.0 cm LVOT Peak Velocity 64.3 cm/s LVOT Peak Gradient 1.7 mmHg LVOT Velocity Time Integral 8.8 cm AV Area Cont Eq vti 0.6 cm AV Area Cont Eq pk 0.8 cm Mitral E Point Velocity 72.1 cm/s LV E' Lateral Velocity 18.3 cm/s Mitral E to LV E' Lateral Ratio 3.9 LV E' Septal Velocity 8.0 cm/s Mitral E to LV E' Septal Ratio 9.0 TR Peak Velocity 460.0 cm/s TR Peak Gradient 85.0 mmHg Right Atrial Pressure 10.0 mmHg Pulmonary Artery Systolic Pressu 94.6 mmHg Right Ventricular Systolic Press 94.6 mmHg PV Peak Velocity 57.1 cm/s PV Peak Gradient 1.3 mmHg FINDINGS LEFT VENTRICLE Normal left ventricular size. Mild concentric left ventricular hypertrophy. The left ventricular systolic function is moderately reduced with an estimated ejection fraction in the range of 40-45%. RIGHT VENTRICLE The right ventricle is moderately dilated. LEFT ATRIUM The left atrial size is normal. RIGHT ATRIUM The right atrial size is normal. ATRIAL SEPTUM No atrial level shunt is demonstrated by color flow Doppler interrogation. AORTA The aortic root and proximal ascending aorta are normal in size on limited imaging. MITRAL VALVE Mild mitral valve regurgitation. AORTIC VALVE Aortic valve sclerosis is present. Mild aortic valve stenosis. Aortic valve mean gradient is 23.6 mmHg. TRICUSPID VALVE There is mild to moderate tricuspid valve regurgitation. The estimated pulmonary arterial pressure is 94.6 mmHg. PULMONARY VALVE No pulmonary valve regurgitation or stenosis. VESSELS The inferior vena cava was not well visualized. PERICARDIUM No pericardial effusion. Damian Kim MD, FACC, [facility] [place] (Electronically Signed) Final Date:06 December 2017 16:09
--- NOTE | 2017-12-06 18:33 | MB ---
cc: Nazario Newman MD DATE: 12/06/2017 REFERRING PHYSICIAN: Dr. Damian Kim REASON FOR CONSULTATION: Oncology consult, render an opinion regarding patient with history of lung cancer, admitted with cardiac arrest. HISTORY OF PRESENT ILLNESS: The patient is a very pleasant 77-year-old male brought into the hospital 2 days ago, after cardiac arrest. He has a very complicated medical history. His and multiple family members are in his room. Apparently, the whole family is vacationing in [place]. They were about to drive back to [place]. They stopped for a break and the patient suffered a cardiac arrest at that time. Apparently, the patient went into asystole and he was given epinephrine on the field. He was resuscitated and brought to the emergency room in [place]. He was then subsequently transferred to [place]. He was extubated on 12/04. Oncology was consulted for evaluation of the patient's lung cancer. Apparently, the patient was diagnosed with first lung cancer in 2009. He underwent left lower lobe lobectomy. Reportedly it was non-small cell lung cancer with involvement of lymph node and it was stage III. He was given adjuvant chemotherapy. Two years later, in 2011, he was found to have metastatic disease in the right upper lobe. He underwent a resection again. He was then started on chemotherapy and stay on chemotherapy until 10/2016. His oncologist is Dr. Hayes in [place]. The patient stated that his CAT scan in September did not show any evidence of recurrent disease. Earlier this month, he developed worsening shortness of breath, admitted to the hospital in [place]. He was thought to have pneumonia. Apparently, he was found to have a large left pleural effusion and had thoracentesis at that time. The patient did not know the result of the pleural fluid analysis. At this time, he denies any fever or chills. He has no constitutional symptoms. He has pain in the chest wall from the CPR. He still has dyspnea on exertion. He has occasional cough. Denies any nausea, vomiting. Has a headache. Denies any focal numbness or weakness. PAST MEDICAL HISTORY: 1. Non-small cell lung cancer metastasis. 2. Coronary artery disease. 3. Congestive heart failure, history of chronic obstructive pulmonary disease, oxygen dependent. 4. Chronic atrial fibrillation. 5. Hypertension. 6. Pneumonia. 7. History of cardiac arrest during his first lung surgery in 2009. PAST SURGICAL HISTORY: 1. Left lower lobectomy and resection of right upper lobe lung mass, port placement, left lung thoracentesis. 2. Coronary stent placement. FAMILY HISTORY: One brother had lung cancer. Two sister of some sort of cancer. Father had colon cancer. Mother had throat cancer. SOCIAL HISTORY: Quit smoking 30 years ago. Denies alcohol use. ALLERGIES: NO KNOWN DRUG ALLERGIES. CURRENT MEDICATIONS: Protonix, potassium, Pravachol, chandni-Colace, Senokot, DuoNebs, Norvasc, Eliquis, aspirin, folic acid, Lasix, Prinivil, Solu-Medrol. REVIEW OF SYSTEMS: CONSTITUTIONAL: Negative. EYES: Negative. ENT: Negative. CARDIOVASCULAR: As above. RESPIRATORY: As above. GASTROINTESTINAL: Denies nausea, vomiting, diarrhea, abdominal pain. GENITOURINARY: Negative. MUSCULOSKELETAL: As above. HEMATOLOGIC: Negative. ENDOCRINE: Negative. DERMATOLOGY: Negative. PSYCHIATRIC: Negative. NEUROLOGIC: Negative. PHYSICAL EXAMINATION: VITAL SIGNS: Temperature 97.5, pulse 104, blood pressure 121/68, O2 saturation 96% on oxygen. GENERAL: He is alert and oriented x 3, in no acute distress. He is sitting in a chair. HEENT: Atraumatic, normocephalic. Pupils are equal, round, reactive to light. Extraocular muscles intact. No scleral icterus. Oropharynx, dry mucosa. No lesion, no thrush or mucositis. NECK: No thyromegaly. No palpable mass. LYMPHATIC: No palpable cervical, clavicular, axillary lymph node. CARDIOVASCULAR: Irregularly irregular, S1, S2, has positive ejection murmur. LUNGS: Slight decreased breath sounds in lung bases. No significant wheezing. ABDOMEN: Soft, nontender. I could not palpate a . EXTREMITIES: No cyanosis. He has 2+ lower extremity edema. No calf tenderness. SKIN: No rash or petechiae. NEUROLOGIC: Nonfocal. LABORATORY DATA: Dated 12/06/2017 was reviewed. ASSESSMENT AND PLAN: 1. Metastatic lung cancer. He was first diagnosed with non-small cell lung cancer in 2009. He underwent left lower lobectomy. Reportedly, there were lymph node involvement and it was stage III lung cancer. During surgery, he developed bleeding from pulmonary artery and had a cardiac arrest, but was resuscitated. When he recovered, he received adjuvant chemotherapy. In 2011, he noted to have metastatic disease in the right upper lobe. The lesion was resected. He was then started on chemotherapy. He stayed on chemotherapy until 10/2016. His oncologist stopped the chemotherapy because the patient had no evidence of progression of disease. The patient stated that he saw Dr. Hayes, his oncologist, in September and CT scan did not show any evidence of recurrent disease. He stated that Dr. Hayes is concerned about his shortness of breath and she told him that his shortness of breath was not cancer related. The patient was admitted to the hospital earlier this month for shortness of breath and thought to have pneumonia. He was found to have a left pleural effusion, had thoracentesis. The patient, however, did not know the result of the fluid analysis. On admission this time, a chest x-ray showed right lung basilar infiltrate, with possible small pleural effusion, but no significant reaccumulation of pleural fluid noted. It is unclear at this point if the patient has recurring lung cancer. I am going to try to get in touch with Dr. Hayes tomorrow to see if she would have any result from the recent pleural fluid cytology. I doubt that the cardiac arrest is due to the lung cancer. The patient otherwise has good performance status. The history of lung cancer should not preclude him from his cardiac workup and intervention. 2. Cardiac arrest. He reportedly went into asystole. He was given epinephrine and was resuscitated. He was evaluated by Dr. Kim and felt that this could be possibly due to aortic stenosis versus ischemia. The patient and family have decided to proceed with further cardiac workup at [place]. 3. Chronic obstructive pulmonary disease, he is oxygen dependent. 4. Chronic atrial fibrillation, on anticoagulation. 5. Hypertension. RECOMMENDATIONS: 1. I had an extensive discussion with the patient and family. 2. We will try to get records and get in touch with the patient's oncologist, Dr. Hayes in [place]. 3. I think the patient's history of lung cancer should not preclude him from aggressive cardiac workup and intervention. I doubt that the cardiac arrest is due to his lung cancer. Thank you, Dr. Kim for asking to see this patient. MD CARRIE Dick/HALLIE , 05:44 PM , 06:32 PM ANIYAH
[2017-12-06] MEDS: Chlorhexidine 0.12% Oral Kit 15 ML UDC OROPHARYNG SCH (21:55)
[2017-12-07] MEDS: Insulin NovoLOG Aspart Correctional Sugar Inj SQ SCH ×4 (00:25→18:20)
[2017-12-07] MEDS: MethylPREDNISolone Sod Succinate Inj 40 MG/ML Vial IV.PUSH SCH ×3 (05:58→21:54)
[2017-12-07] MEDS: Chlorhexidine Gluconate 2% 1 Pack (2 Cloths) TOPICAL SCH (06:49)
[2017-12-07] MEDS: Oral Hygiene Kit OROPHARYNG SCH ×2 (06:50→17:19)
[2017-12-07 07:01] LABS: Baso % (Auto) 0.2 % (0.0-2.0); Hematocrit 44.1 % (39.0-51.0); Hemoglobin 14.1 gm/dL (13.0-17.0); Lymph # (Auto) 0.5 th/mm3 (1.0-4.8); Lymph % (Auto) 1.7 % (9.0-44.0); Mean Corpuscular Hemoglobin 28.5 pg (27.0-34.0); Mean Platelet Volume 10.7 fL (7.0-11.0); Mono # (Auto) 0.8 th/mm3 (0.0-0.9); Mono % (Auto) 2.9 % (0.0-8.0); Neut # (Auto) 25.3 th/mm3 (1.8-7.7); Neut % (Auto) 95.2 % (16.0-70.0); Platelet Count 120 th/mm3 (150-450); Red Blood Count 4.95 mil/mm3 (4.50-5.90); Red Cell Distribution Width 15.6 % (11.6-17.2); White Blood Count 26.6 th/mm3 (4.0-11.0)
[2017-12-07 07:35] LABS: Anion Gap 9 meq/L (5-15); Aspartate Aminotransferase 27 U/L (15-37); Blood Urea Nitrogen 59 mg/dL (7-18); Calcium 8.4 mg/dL (8.5-10.1); Carbon Dioxide 25.6 meq/L (21.0-32.0); Chloride 106 meq/L (98-107); Cholesterol 115 mg/dL (120-200); Glomerular Filtration Rate 45 mL/min (>89); Glucose,Random 238 mg/dL (74-106); Magnesium 2.4 mg/dL (1.5-2.5); Potassium 4.5 meq/L (3.5-5.1); Sodium 141 meq/L (136-145)
[2017-12-07 07:41] LABS: Alanine Aminotransferase 69 U/L (12-78); Alkaline Phosphatase 68 U/L (45-117); Chol/HDL Ratio 2.86 Ratio; Free T4 (Free Thyroxine) 0.89 ng/dL (0.76-1.46); HDL Cholesterol 40.2 mg/dL (40.0-60.0); LDL Cholesterol,Calculated 58 mg/dL (0-99); Thyroid Stimulating Hormone 0.282 uIU/mL (0.358-3.740); Total Protein 5.9 g/dL (6.4-8.2); Triglycerides 84 mg/dL (42-150)
--- NOTE | 2017-12-07 07:50 | MB ---
cc: Lino Dykes MD DATE: 12/06/2017 REQUESTING PHYSICIAN: Dr. Wheeler REASON FOR CONSULTATION: COPD and lung cancer. HISTORY OF PRESENT ILLNESS: Mr. Felix is a pleasant 77-year-old white male from [place]. He was vacationing at [place]. They were driving back when he certainly had a cardiac arrest. The patient was resuscitated, brought to the hospital. He is being seen by Cardiology, Dr. Vega, and he is being planned for cardiac catheterization. He has history of CA of the lung. He had resection of the lung done before and had recurrence of the cancer and had resection again. Recently was admitted at [facility]. He had a thoracentesis done and has significant improvement in his shortness of breath. He has history of COPD, uses oxygen most of the time, has laser treatment. PAST MEDICAL HISTORY: Non-small cell carcinoma of the lung, status post resection and metastatic disease, coronary artery disease, status post stent placed before, congestive heart failure, COPD, chronic atrial fibrillation, hypertension, now status post cardiac arrest. MEDICATIONS: He is currently [place] 5/325, DuoNeb nebulizer treatment, Norvasc 5 mg, Eliquis 5 mg twice a day, aspirin 81 mg a day, famotidine 10 mg q. 12 hours, folic acid 1 mg, Lasix 40 mg a day, he is on insulin, lisinopril 20 mg a day, Solu-Medrol 40 mg IV, morphine p.r.n., nitroglycerin sublingual, Protonix 40 mg a day, pravastatin 20 mg a day. ALLERGIES: NO KNOWN DRUG ALLERGIES. SOCIAL HISTORY: He is for 54 years. 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 History of smoking for 30 years, which he quit about 30 years ago. FAMILY HISTORY: He has 4 children. REVIEW OF SYSTEMS: Normally, he is up around and active. After thoracentesis, shortness of breath did improve. Weight is stable. No DVT or pulmonary embolism. No seizure, epilepsy. PHYSICAL EXAMINATION: GENERAL: Elderly male, mild short of breath. VITAL SIGNS: Blood pressure 116/71, heart rate 86, respirations , temperature 97.3. HEENT: Pupils are equal and reactive. He has bilateral cataracts. Oral mucosa and nasal mucosa normal. NECK: Supple. JVP not raised. CHEST: Equal air entry bilaterally, has a few basilar rales. CARDIOVASCULAR: S1, S2 normal. ABDOMEN: Benign. EXTREMITIES: No edema. IMPRESSION: 1. Chronic obstructive pulmonary disease . 2. Coronary artery disease, status post cardiac arrest. 3. Carcinoma of the lung with metastasis. 4. Recent pleural effusion, status post thoracentesis. 5. Atrial fibrillation. PLAN: I discussed with the patient and his family at the bedside. He is being planned for thoracentesis. We will continue aerosol treatments, supplement his oxygen. Cardiac workup is underway. When he is discharged, he will followup with his composition instructor when he goes back to [place]. Further treatment pending the course in the hospital. Thank you, Dr. Wheeler, for this consult. MD POLY Beal/HALLIE , 08:03 PM , 08:33 PM ANIYAH
--- NOTE | 2017-12-07 08:32 | P.PNONC ---
Subjective Interval history: Patient is feeling better. He denies any chest pain or shortness of breath. He denies any headache or bone pain. Objective Vital Signs/Intake & Output: Vital Signs 12/06/17 09:27 12/06/17 12:00 12/06/17 15:46 Temperature 97.5 F L Pulse Rate 90 102 H 104 H Respiratory Rate 26 H 20 Blood Pressure 121/68 Pulse Oximetry 93 L 96 12/06/17 16:00 12/06/17 19:59 12/06/17 20:00 Temperature 97.3 F L 97.1 F L Pulse Rate 86 81 98 H Respiratory Rate 20 22 20 Blood Pressure 116/71 119/65 Pulse Oximetry 94 L 93 L 12/07/17 00:00 12/07/17 04:00 Temperature 97.1 F L 97.2 F L Pulse Rate 107 H 74 Respiratory Rate 18 18 Blood Pressure 117/58 L 113/69 Pulse Oximetry 94 L 98 Intake & Output 12/06/17 12/07/17 12/07/17 18:59 06:59 18:59 Intake Total 380 / 380 480 / 480 Output Total 1800 / 1800 800 / 800 Balance -1420 / -1420 -320 / -320 Weight 81.6 kg Intake: Oral 380 / 380 480 / 480 Output: Urine 1800 / 1800 800 / 800 Other: Date of Last Bowel Movement 12/06/17 # Bowel Movements 0 1 Result Diagrams: 12/07/17 06:05 12/07/17 06:00 Laboratory Results: Laboratory Results - last 24 hr 12/06/17 12/06/17 12/06/17 07:43 07:43 12:01 WBC 30.5 H RBC 5.29 Hgb 14.8 Hct 46.7 MCV 88.3 MCH 28.0 MCHC 31.8 L RDW 15.7 Plt Count 157 MPV 11.0 Neut % (Auto) Lymph % (Auto) [place] % (Auto) Eos % (Auto) Baso % (Auto) Neut # (Auto) Lymph # (Auto) [place] # (Auto) Eos # (Auto) Baso # (Auto) WBC Differential Differential Comment Sodium 140 Potassium 3.9 Chloride 102 Carbon Dioxide 25.4 Anion Gap 13 BUN 59 H Creatinine 1.60 H Estimated GFR 42 L POC Glucose 319 H Random Glucose 204 H Calcium 9.2 D Phosphorus Magnesium 2.6 H D Total Bilirubin 0.8 AST 12 L ALT 68 Alkaline Phosphatase 73 Total Protein 6.4 D Albumin 3.1 L Triglycerides Cholesterol LDL Cholesterol, Calc HDL Cholesterol Cholesterol/HDL Ratio TSH Free T4 12/06/17 12/07/17 12/07/17 18:18 00:18 05:48 WBC RBC Hgb Hct MCV MCH MCHC RDW Plt Count MPV Neut % (Auto) Lymph % (Auto) [place] % (Auto) Eos % (Auto) Baso % (Auto) Neut # (Auto) Lymph # (Auto) [place] # (Auto) Eos # (Auto) Baso # (Auto) WBC Differential Differential Comment Sodium Potassium Chloride Carbon Dioxide Anion Gap BUN Creatinine Estimated GFR POC Glucose 237 H 194 H 222 H Random Glucose Calcium Phosphorus Magnesium Total Bilirubin AST ALT Alkaline Phosphatase Total Protein Albumin Triglycerides Cholesterol LDL Cholesterol, Calc HDL Cholesterol Cholesterol/HDL Ratio TSH Free T4 12/07/17 12/07/17 06:00 06:05 WBC 26.6 H RBC 4.95 Hgb 14.1 Hct 44.1 MCV 89.0 MCH 28.5 MCHC 32.0 RDW 15.6 Plt Count 120 L MPV 10.7 Neut % (Auto) 95.2 H Lymph % (Auto) 1.7 L [place] % (Auto) 2.9 Eos % (Auto) 0.0 Baso % (Auto) 0.2 Neut # (Auto) 25.3 H Lymph # (Auto) 0.5 L [place] # (Auto) 0.8 Eos # (Auto) 0.0 Baso # (Auto) 0.0 WBC Differential . Differential Comment Auto diff final Sodium 141 Potassium 4.5 Chloride 106 Carbon Dioxide 25.6 Anion Gap 9 BUN 59 H Creatinine 1.52 H Estimated GFR 45 L POC Glucose Random Glucose 238 H Calcium 8.4 L D Phosphorus 4.0 Magnesium 2.4 Total Bilirubin 0.9 AST 27 ALT 69 Alkaline Phosphatase 68 Total Protein 5.9 L Albumin 3.0 L Triglycerides 84 Cholesterol 115 L LDL Cholesterol, Calc 58 HDL Cholesterol 40.2 Cholesterol/HDL Ratio 2.86 TSH 0.282 L Free T4 0.89 Medications: Active Medications Generic Name Dose Route Start Last Admin Trade Name Freq PRN Reason Stop Dose Admin Albuterol 1 ampul 12/04/17 16:00 12/06/17 19:52 Duoneb Neb (Micaela) NEB 1 ampul Q4HR NEB MICAELA Administration Amlodipine Besylate 5 mg 12/05/17 09:00 12/06/17 09:13 Norvasc PO 5 mg DAILY MICAELA Administration Apixaban 5 mg 12/04/17 21:00 12/06/17 21:41 Eliquis PO 5 mg BID MICAELA Administration Aspirin 81 mg 12/05/17 09:00 12/06/17 09:11 Ecotrin PO 81 mg DAILY MICAELA Administration Chlorhexidine Gluconate 15 ml 12/04/17 20:00 12/06/17 21:55 Peridex 0.12% Oral Kit OROPHARYNG Not Given BID@0800,1999 [facility] Chlorhexidine Gluconate 3 pack 12/05/17 04:00 12/07/17 06:49 Chlorhexidine 2% Cloth TOPICAL 12/10/17 03:59 Not Given DAILY@0400 [facility] Famotidine 10 mg 12/04/17 21:00 12/06/17 21:42 Pepcid Pf Inj IV.PUSH 10 mg Q12HR MICAELA Administration Folic Acid 1 mg 12/06/17 12:30 12/06/17 14:39 Folic Acid PO 1 mg DAILY [facility] Administration Furosemide 40 mg 12/05/17 09:00 12/06/17 09:13 Lasix PO 40 mg DAILY [facility] Administration Guaifenesin 600 mg 12/06/17 12:30 12/06/17 21:42 Mucinex Er PO 600 mg BID [facility] Administration Insulin Aspart 0 unit 12/04/17 16:00 12/07/17 05:58 Novolog Insulin Suppl Scale Inj SQ 10 unit Q6HR [facility] Administration Protocol Lisinopril 20 mg 12/05/17 09:00 12/06/17 09:12 Prinivil PO 20 mg DAILY [facility] Administration Methylprednisolone Sodium Succinate 40 mg 12/05/17 08:53 12/07/17 05:58 Solumedrol Inj IV.PUSH 40 mg Q8HR [facility] Administration Pantoprazole Sodium 20 mg 12/06/17 12:30 12/06/17 14:39 Protonix PO 20 mg DAILY [facility] Administration Potassium Chloride 20 meq 12/05/17 09:00 12/06/17 09:13 K-Dur PO 20 meq DAILY MICAELA Administration Pravastatin Sodium 20 mg 12/05/17 09:00 12/06/17 09:13 Pravachol PO 20 mg DAILY [facility] Administration Senna/Docusate Sodium 1 tab 12/04/17 21:00 12/06/17 21:43 Jamila-Colace PO Not Given BID MICAELA Sodium Chloride 2 ml 12/04/17 21:00 12/06/17 21:55 Ns Flush IV.FLUSH 2 ml BID MICAELA Administration Objective Remarks: GENERAL: Well-nourished, well-developed patient. Sitting in the chair. SKIN: Warm and dry. HEAD: Normocephalic. EYES: No scleral icterus. No injection or drainage. NECK: Supple, trachea midline. No JVD or lymphadenopathy. LYMPHATIC: No adenopathy. CARDIOVASCULAR: Regular rate and rhythm without murmurs. RESPIRATORY: Breath sounds decreased bilateral bases. . No accessory muscle use. GASTROINTESTINAL: Abdomen soft, non-tender, nondistended. EXTREMITIES: No cyanosis, 1+ edema. MUSCULOSKELETAL: Adequate muscle tone. NEUROLOGICAL: No obvious focal deficit. Awake, alert, and oriented x3. PSYCHIATRIC: Appropriate mood and affect; insight and judgment normal. Assessment/Plan (1) Cardiorespiratory arrest Code(s): I46.9 - Cardiac arrest, cause unspecified Status: Acute (2) COPD (chronic obstructive pulmonary disease) Code(s): J44.9 - Chronic obstructive pulmonary disease, unspecified Status: Acute (3) Lung cancer Code(s): C34.90 - Malignant neoplasm of unspecified part of unspecified bronchus or lung Status: Chronic (4) Leukocytosis Code(s): D72.829 - Elevated white blood cell count, unspecified Status: Acute - Plan 1. Metastatic lung cancer. He was first diagnosed with non-small cell lung cancer in 2009. He underwent left lower lobectomy. Reportedly, there were lymph node involvement and it was stage III lung cancer. During surgery, he developed bleeding from pulmonary artery and had a cardiac arrest, but was resuscitated. When he recovered, he received adjuvant chemotherapy. In 2011, he noted to have metastatic disease in the right upper lobe. The lesion was resected. He was then started on chemotherapy. He stayed on chemotherapy until 10/2016. His oncologist stopped the chemotherapy because the patient had no evidence of progression of disease. The patient stated that he saw Dr. Hayes, his oncologist, in September and CT scan did not show any evidence of recurrent disease. He stated that Dr. Hayes is concerned about his shortness of breath and she told him that his shortness of breath was not cancer related. The patient was admitted to the hospital earlier this month for shortness of breath and thought to have pneumonia. He was found to have a left pleural effusion, had thoracentesis. The patient, however, did not know the result of the fluid analysis. On admission this time, a chest x-ray showed right lung basilar infiltrate, with possible small pleural effusion, but no significant reaccumulation of pleural fluid noted. It is unclear at this point if the patient has recurring lung cancer. I am going to try to get in touch with Dr. Hayes tomorrow to see if she would have any result from the recent pleural fluid cytology. I doubt that the cardiac arrest is due to the lung cancer. The patient otherwise has good performance status. The history of lung cancer should not preclude him from his cardiac workup and intervention. 2. Cardiac arrest. He reportedly went into asystole. He was given epinephrine and was resuscitated. He was evaluated by Dr. Kim and felt that this could be possibly due to aortic stenosis versus ischemia. The patient and family have decided to proceed with further cardiac workup at [facility]. 3. Chronic obstructive pulmonary disease, he is oxygen dependent. 4. Chronic atrial fibrillation, on anticoagulation. 5. Hypertension. December 07, 2017: Patient is feeling better and has no new pulmonary symptom. Pleural fluid has not reaccumulated. I will try to reach his oncologist Dr. Hayes to get more information regarding his lung cancer status. Patient can proceed with cardiac workup from oncology standpoint.
[2017-12-07] MEDS: Famotidine PF Inj 20 MG/2 ML Vial IV.PUSH SCH ×2 (09:01→21:55)
[2017-12-07] MEDS: Furosemide 40 MG Tablet PO SCH (09:01)
[2017-12-07] MEDS: guaiFENesin 600 MG ER Tablet PO SCH ×2 (09:02→21:54)
[2017-12-07] MEDS: Lisinopril 20 MG Tablet PO SCH (09:02)
[2017-12-07] MEDS: Pantoprazole Sodium 20 MG DR Tablet PO SCH (09:03)
[2017-12-07] MEDS: Folic Acid 1 MG Tablet PO SCH (09:03)
[2017-12-07] MEDS: amLODIPine 5 MG Tablet PO SCH (09:03)
[2017-12-07] MEDS: Senna/Docusate Sodium 8.6/50 MG Tablet PO SCH ×2 (09:03→21:54)
[2017-12-07] MEDS: Chlorhexidine 0.12% Oral Kit 15 ML UDC OROPHARYNG SCH ×2 (12:19→20:07)
--- NOTE | 2017-12-07 12:40 | P.PNCA ---
Subjective Interval history: alert in nad Physical Exam Vital signs: Vital Signs 12/06/17 15:46 12/06/17 16:00 12/06/17 19:59 Temperature 97.3 F L Pulse Rate 104 H 86 81 Respiratory Rate 20 22 Blood Pressure 116/71 Pulse Oximetry 94 L 12/06/17 20:00 12/07/17 00:00 12/07/17 04:00 Temperature 97.1 F L 97.1 F L 97.2 F L Pulse Rate 98 H 107 H 74 Respiratory Rate 20 18 18 Blood Pressure 119/65 117/58 L 113/69 Pulse Oximetry 93 L 94 L 98 12/07/17 08:00 12/07/17 09:36 Temperature 97.2 F L Pulse Rate 87 81 Respiratory Rate 14 18 Blood Pressure 125/70 Pulse Oximetry 95 92 L Intake & Output 12/06/17 12/07/17 12/07/17 18:59 06:59 18:59 Intake Total 380 / 380 480 / 480 Output Total 1800 / 1800 800 / 800 Balance -1420 / -1420 -320 / -320 Weight 81.6 kg Intake: Oral 380 / 380 480 / 480 Output: Urine 1800 / 1800 800 / 800 Other: Date of Last Bowel Movement 12/06/17 # Bowel Movements 0 1 - Urinary Catheter Management Indwelling Urethral Catheter Cath placed during this visit: no Assessment and Plan - Assessment (1) Aortic stenosis Code(s): I35.0 - Nonrheumatic aortic (valve) stenosis Status: Acute (2) Cardiomyopathy Code(s): I42.9 - Cardiomyopathy, unspecified Status: Acute (3) CHF (congestive heart failure) Code(s): I50.9 - Heart failure, unspecified Status: Acute (4) Atrial fibrillation Code(s): I48.91 - Unspecified atrial fibrillation Status: Acute (5) NSTEMI (non-ST elevated myocardial infarction) Code(s): I21.4 - Non-ST elevation (NSTEMI) myocardial infarction Status: Acute (6) COPD (chronic obstructive pulmonary disease) Code(s): J44.9 - Chronic obstructive pulmonary disease, unspecified Status: Acute (7) Cardiorespiratory arrest Code(s): I46.9 - Cardiac arrest, cause unspecified Status: Acute (8) Elevated troponin I level Code(s): R74.8 - Abnormal levels of other serum enzymes Status: Acute (9) Lung cancer Code(s): C34.90 - Malignant neoplasm of unspecified part of unspecified bronchus or lung Status: Chronic - Plan 1.) NSTEMI - cath 12/08/17, eliquis held 2.) CHF - rhc 12/08/17
--- NOTE | 2017-12-07 14:21 | P.PNIM ---
Subjective Interval history: This 77-year-old gentleman with coronary artery disease, chronic heart failure, glucose intolerance, recent pneumonia, and status post lobectomy for lung cancer develop respiratory acidosis culminating in brief cardiac arrest after transport to the [facility] emergency department. He was rapidly resuscitated after 1 amp of epinephrine but did require intubation and mechanical ventilation. He is been on home oxygen following his lobectomy and has underlying COPD which was likely exacerbated prior to this event. At the outside hospital troponin was minimally elevated at 0.15 and initial pH was arterial 7.16. He was transported to the [facility] and I met him on his arrival. 12/05: Sitting up in bed extubated yesterday breathing comfortably. WBC count is elevated most likely stress related. No arrhythmias reported overnight 12-06 TRANSFERRED TO OUR SERVICE TODAY STATES WAS ON HIS WAY HOME FROM [facility] WHEN THIS OCCURRED SHE STATES HE HAD ISSUES WITH BREATHING BEFORE THIS OCCURRED IS CHRONICALLY ON 3L BY NASAL CANULA AND HAD A THORACENTESIS PRIOR TO THEIR VACATION IN [place] AT HOME AM LAB PT AND OT CONSULT PULMONARY DW RN AND PT AND CM HAS HOME OXYGEN ALREADY HAS TENDER CHEST FROM CPR HAS SORE THROAT FROM ET TUBE AND PRIOR IRRITATION CONSULT PULMONARY AND CARDIOLOGY GET ECHO PT AND OT AM LABS 12-07 TO HAVE CARDIAC CATH TOMORROW DW CARDIOLOGY AND FAMILY AND CM AND RN AM LABS BREATHING MUCH BETTER SEEN BY PULMONARY, ONCOLOGY AND CARDIOLOGY Physical Exam Vital signs: Vital Signs 12/06/17 15:46 12/06/17 16:00 12/06/17 19:59 Temperature 97.3 F L Pulse Rate 104 H 86 81 Respiratory Rate 20 22 Blood Pressure 116/71 Pulse Oximetry 94 L 12/06/17 20:00 12/07/17 00:00 12/07/17 04:00 Temperature 97.1 F L 97.1 F L 97.2 F L Pulse Rate 98 H 107 H 74 Respiratory Rate 20 18 18 Blood Pressure 119/65 117/58 L 113/69 Pulse Oximetry 93 L 94 L 98 12/07/17 08:00 12/07/17 09:36 12/07/17 12:00 Temperature 97.2 F L 97.0 F L Pulse Rate 87 81 88 Respiratory Rate 14 18 14 Blood Pressure 125/70 138/94 H Pulse Oximetry 95 92 L 96 12/07/17 12:57 Temperature Pulse Rate 89 Respiratory Rate 18 Blood Pressure Pulse Oximetry Intake & Output 12/06/17 12/07/17 12/07/17 18:59 06:59 18:59 Intake Total 380 / 380 480 / 480 Output Total 1800 / 1800 800 / 800 Balance -1420 / -1420 -320 / -320 Weight 81.6 kg Intake: Oral 380 / 380 480 / 480 Output: Urine 1800 / 1800 800 / 800 Other: Date of Last Bowel Movement 12/06/17 # Bowel Movements 0 1 Narrative: GENERAL: AWAKE AND ALERT AND ORIENTED X3 TALKATIVE AND COOPERATIVE SKIN: Warm and dry. HEAD: Atraumatic. Normocephalic. EYES: Pupils equal and round. No scleral icterus. No injection or drainage. EOMI ENT: No nasal bleeding or discharge. Mucous membranes pink and moist. TONGUE IS MIDLINE NECK: Trachea midline. No JVD. SUPPLE CARDIOVASCULAR: IRRegular rate and rhythm. S1, S2 NO S3 OR S4 TENDER CHEST FROM CPR 2/6 GAB RESPIRATORY: No accessory muscle use. DECREASED BS BL AND SCATTED RHONCHI AND RALES AT BASES Breath sounds equal bilaterally. GASTROINTESTINAL: Abdomen soft, non-tender, nondistended. Hepatic and splenic margins not palpable. MUSCULOSKELETAL: Extremities without clubbing, cyanosis, or edema. No obvious deformities. NEUROLOGICAL: Awake and alert. No obvious cranial nerve deficits. Motor grossly within normal limits. 4 out of 5 muscle strength in the arms and legs. Normal speech. PSYCHIATRIC: Appropriate mood and affect; insight and judgment normal. - Urinary Catheter Management Indwelling Urethral Catheter Cath placed during this visit: no Results - Labs CBC & Chem 7: 12/07/17 06:05 12/07/17 06:00 Laboratory Results - last 24 hr 12/06/17 12/07/17 12/07/17 18:18 00:18 05:48 WBC RBC Hgb Hct MCV MCH MCHC RDW Plt Count MPV Neut % (Auto) Lymph % (Auto) [place] % (Auto) Eos % (Auto) Baso % (Auto) Neut # (Auto) Lymph # (Auto) [place] # (Auto) Eos # (Auto) Baso # (Auto) WBC Differential Differential Comment Sodium Potassium Chloride Carbon Dioxide Anion Gap BUN Creatinine Estimated GFR POC Glucose 237 H 194 H 222 H Random Glucose Calcium Phosphorus Magnesium Total Bilirubin AST ALT Alkaline Phosphatase Total Protein Albumin Triglycerides Cholesterol LDL Cholesterol, Calc HDL Cholesterol Cholesterol/HDL Ratio TSH Free T4 12/07/17 12/07/17 12/07/17 06:00 06:05 12:31 WBC 26.6 H RBC 4.95 Hgb 14.1 Hct 44.1 MCV 89.0 MCH 28.5 MCHC 32.0 RDW 15.6 Plt Count 120 L MPV 10.7 Neut % (Auto) 95.2 H Lymph % (Auto) 1.7 L [place] % (Auto) 2.9 Eos % (Auto) 0.0 Baso % (Auto) 0.2 Neut # (Auto) 25.3 H Lymph # (Auto) 0.5 L [place] # (Auto) 0.8 Eos # (Auto) 0.0 Baso # (Auto) 0.0 WBC Differential . Differential Comment Auto diff final Sodium 141 Potassium 4.5 Chloride 106 Carbon Dioxide 25.6 Anion Gap 9 BUN 59 H Creatinine 1.52 H Estimated GFR 45 L POC Glucose 177 H Random Glucose 238 H Calcium 8.4 L D Phosphorus 4.0 Magnesium 2.4 Total Bilirubin 0.9 AST 27 ALT 69 Alkaline Phosphatase 68 Total Protein 5.9 L Albumin 3.0 L Triglycerides 84 Cholesterol 115 L LDL Cholesterol, Calc 58 HDL Cholesterol 40.2 Cholesterol/HDL Ratio 2.86 TSH 0.282 L Free T4 0.89 - Imaging Chest X-Ray 12/04/17 14:22 CONCLUSION: Bilateral alveolar edema versus pneumonia. There has been no significant change when compared to the prior exam. Enlarging right effusion Chest X-Ray 12/05/17 11:20 CONCLUSION: No appreciable change. Chest X-Ray 12/06/17 06:00 CONCLUSION: Bilateral mostly basilar airspace disease with pleural effusions. No pneumothorax. Assessment and Plan - Plan Cardiovascular: Continue oral diuretic and antihypertensive therapy. Continue antiplatelet therapy for coronary stent. Continue and NOAC for permanent atrial fibrillation. Follow-up troponin-peaked 0.12. [email or web address] CONSULT CARDIO FOR CARDIAC CATH 12-08 HAD ECHO EF 45 % Respiratory: Extubated on 12-04 tolerating well. Bronchodilators. Short-term steroids. MUCINEX CONTINUE CURRENT MEDS Neuro: Serial neurologic exams, minimize sedation. Neurologically remains intact GI: Heart healthy diet : Discontinue Calix. Electrolyte replacement per protocol FOLLOW RENAL FUNCTIONS Endocrine: Hyperglycemia probably related to his outpatient steroid bolus. Sliding scale insulin coverage WITH ACCU CHECKS Hematology: Leukocytosis. Possibly related to steroids and acute distress. He has been on prednisone 20 mg daily as an outpatient. ID: Continue antibiotic coverage for outpatient pneumonia. LEUKOCYTOSIS DUE TO STEROIDS CONSULT CARDIO POSITIVE TROPONINS CONSULT PULMONARY FOR LUNG ISSUES Prophylaxis: Continue and NOAC and institute oral GI ulcer coverage. Code Status: FULL CODE Discussed Condition With: RN AND PATIENT AND FAMILY AND CASE MANAGEMENT Discharge Planning: PENDING IMPROVEMENT
[2017-12-07 19:06] LABS: Hemoglobin A1c 8.9 % (4.3-6.0)
--- NOTE | 2017-12-07 20:55 | P.PNPL ---
Subjective Interval history: 77 YOWM from [place] with cardiac arrest,ca lung Breathing better Mild sob No CP Physical Exam Vital signs: Vital Signs 12/07/17 00:00 12/07/17 04:00 12/07/17 08:00 Temperature 97.1 F L 97.2 F L 97.2 F L Pulse Rate 107 H 74 87 Respiratory Rate 18 18 14 Blood Pressure 117/58 L 113/69 125/70 Pulse Oximetry 94 L 98 95 12/07/17 09:36 12/07/17 12:00 12/07/17 12:57 Temperature 97.0 F L Pulse Rate 81 88 89 Respiratory Rate 18 14 18 Blood Pressure 138/94 H Pulse Oximetry 92 L 96 12/07/17 16:00 12/07/17 19:25 12/07/17 19:26 Temperature 97.2 F L Pulse Rate 92 H 82 Respiratory Rate 14 20 Blood Pressure 146/76 H Pulse Oximetry 93 L 93 L Intake & Output 12/07/17 12/07/17 12/08/17 06:59 18:59 06:59 Intake Total 480 / 480 Output Total 800 / 800 600 / 600 Balance -320 / -320 -600 / -600 Weight 81.6 kg Intake: Oral 480 / 480 Output: Urine 800 / 800 600 / 600 Other: # Voids 3 Date of Last Bowel Movement 12/07/17 # Bowel Movements 1 2 GENERAL: Elderly WM,NAD SKIN: Warm and dry. HEAD: Normocephalic. EYES: No scleral icterus. No injection or drainage. NECK: Supple, trachea midline. No JVD or lymphadenopathy. CARDIOVASCULAR: Regular rate and rhythm without murmurs, gallops, or rubs. RESPIRATORY: Breath sounds equal bilaterally. No accessory muscle use. GASTROINTESTINAL: Abdomen soft, non-tender, nondistended. MUSCULOSKELETAL: No cyanosis, or edema. BACK: Nontender without obvious deformity. No CVA tenderness. - Urinary Catheter Management Indwelling Urethral Catheter Cath placed during this visit: no Assessment and Plan - Plan IMPRESSION: 1. Chronic obstructive pulmonary disease . 2. Coronary artery disease, status post cardiac arrest. 3. Carcinoma of the lung with metastasis. 4. Recent pleural effusion, status post thoracentesis. 5. Atrial fibrillation. PLAN: Aerosol nebs Supplement 02 Plans for cardiac cath in AM monitor pl eff
[2017-12-08] MEDS: Insulin NovoLOG Aspart Correctional Sugar Inj SQ SCH ×5 (00:08→23:46)
[2017-12-08] MEDS: Oral Hygiene Kit OROPHARYNG SCH ×4 (00:09→19:04)
[2017-12-08] MEDS: Chlorhexidine Gluconate 2% 1 Pack (2 Cloths) TOPICAL SCH (05:32)
[2017-12-08] MEDS: MethylPREDNISolone Sod Succinate Inj 40 MG/ML Vial IV.PUSH SCH ×2 (05:49→21:18)
[2017-12-08] MEDS: Chlorhexidine 0.12% Oral Kit 15 ML UDC OROPHARYNG SCH ×2 (07:33→23:48)
--- NOTE | 2017-12-08 07:42 | P.PNONC ---
Subjective Interval history: Patient denies any chest pain. His shortness of breath is stable. He has mild cough. He is awaiting to go down for cardiac catheterization. Objective Vital Signs/Intake & Output: Vital Signs 12/07/17 08:00 12/07/17 09:36 12/07/17 12:00 Temperature 97.2 F L 97.0 F L Pulse Rate 87 81 88 Respiratory Rate 14 18 14 Blood Pressure 125/70 138/94 H Pulse Oximetry 95 92 L 96 12/07/17 12:57 12/07/17 16:00 12/07/17 19:25 Temperature 97.2 F L Pulse Rate 89 92 H 82 Respiratory Rate 18 14 20 Blood Pressure 146/76 H Pulse Oximetry 93 L 12/07/17 19:26 12/07/17 20:00 12/08/17 00:00 Temperature 97.1 F L 97.5 F L Pulse Rate 88 80 Respiratory Rate 20 20 Blood Pressure 121/70 Pulse Oximetry 93 L 96 12/08/17 00:33 12/08/17 04:00 Temperature 97.2 F L Pulse Rate 80 82 Respiratory Rate 20 Blood Pressure 134/83 Pulse Oximetry 95 Intake & Output 12/07/17 12/08/17 12/08/17 18:59 06:59 18:59 Output Total 600 / 600 Balance -600 / -600 Weight 81.2 kg Output: Urine 600 / 600 Other: # Voids 3 Date of Last Bowel Movement 12/07/17 12/07/17 # Bowel Movements 2 Result Diagrams: 12/07/17 06:05 12/07/17 06:00 Laboratory Results: Laboratory Results - last 24 hr 12/07/17 12/07/17 12/07/17 06:00 06:05 12:31 POC Glucose 177 H Hemoglobin A1c 8.9 H Phosphorus 4.0 Total Bilirubin 0.9 ALT 69 Alkaline Phosphatase 68 Total Protein 5.9 L Triglycerides 84 LDL Cholesterol, Calc 58 HDL Cholesterol 40.2 Cholesterol/HDL Ratio 2.86 TSH 0.282 L Free T4 0.89 12/07/17 12/07/17 12/08/17 18:15 23:34 05:40 POC Glucose 270 H 308 H 158 H Hemoglobin A1c Phosphorus Total Bilirubin ALT Alkaline Phosphatase Total Protein Triglycerides LDL Cholesterol, Calc HDL Cholesterol Cholesterol/HDL Ratio TSH Free T4 Medications: Active Medications Generic Name Dose Route Start Last Admin Trade Name Freq PRN Reason Stop Dose Admin Albuterol 1 ampul 12/06/17 14:00 12/07/17 19:23 Duoneb Neb ([facility]) NEB 1 ampul Q6HR WHILE AWAKE NEB [facility] Administration Amlodipine Besylate 5 mg 12/05/17 09:00 12/07/17 09:03 Norvasc PO 5 mg DAILY [facility] Administration Aspirin 81 mg 12/05/17 09:00 12/07/17 09:03 Ecotrin PO 81 mg DAILY [facility] Administration Chlorhexidine Gluconate 15 ml 12/04/17 20:00 12/08/17 07:33 Peridex 0.12% Oral Kit OROPHARYNG Not Given BID@0800,1999 [facility] Chlorhexidine Gluconate 3 pack 12/05/17 04:00 12/08/17 05:32 Chlorhexidine 2% Cloth TOPICAL 12/10/17 03:59 Not Given DAILY@0400 [facility] Famotidine 10 mg 12/04/17 21:00 12/07/17 21:55 Pepcid Pf Inj IV.PUSH 10 mg Q12HR [facility] Administration Folic Acid 1 mg 12/06/17 12:30 12/07/17 09:03 Folic Acid PO 1 mg DAILY [facility] Administration Furosemide 40 mg 12/05/17 09:00 12/07/17 09:01 Lasix PO 40 mg DAILY [facility] Administration Guaifenesin 600 mg 12/06/17 12:30 12/07/17 21:54 Mucinex Er PO 600 mg BID [facility] Administration Insulin Aspart 0 unit 12/04/17 16:00 12/08/17 05:48 Novolog Insulin Suppl Scale Inj SQ 5 unit Q6HR [facility] Administration Protocol Lisinopril 20 mg 12/05/17 09:00 12/07/17 09:02 Prinivil PO 20 mg DAILY [facility] Administration Methylprednisolone Sodium Succinate 40 mg 12/05/17 08:53 12/08/17 05:49 Solumedrol Inj IV.PUSH 40 mg Q8HR [facility] Administration Pantoprazole Sodium 20 mg 12/06/17 12:30 12/07/17 09:03 Protonix PO 20 mg DAILY [facility] Administration Potassium Chloride 20 meq 12/05/17 09:00 12/07/17 09:02 K-Dur PO 20 meq DAILY [facility] Administration Pravastatin Sodium 20 mg 12/05/17 09:00 12/07/17 09:03 Pravachol PO 20 mg DAILY [facility] Administration Senna/Docusate Sodium 1 tab 12/04/17 21:00 12/07/17 21:54 Jamila-Colace PO 1 tab BID [facility] Administration Sodium Chloride 2 ml 12/04/17 21:00 12/07/17 23:16 Ns Flush IV.FLUSH 2 ml BID [facility] Administration Objective Remarks: GENERAL: Well-nourished, well-developed patient. SKIN: Warm and dry. HEAD: Normocephalic. EYES: No scleral icterus. No injection or drainage. NECK: Supple, trachea midline. No JVD or lymphadenopathy. LYMPHATIC: No adenopathy. CARDIOVASCULAR: Irregular rate and rhythm,+ murmurs. RESPIRATORY: Breath sounds decreased at bases. No accessory muscle use. On oxygen. GASTROINTESTINAL: Abdomen soft, non-tender, nondistended. EXTREMITIES: No cyanosis, or edema. MUSCULOSKELETAL: Adequate muscle tone. NEUROLOGICAL: No obvious focal deficit. Awake, alert, and oriented x3. PSYCHIATRIC: Appropriate mood and affect; insight and judgment normal. Assessment/Plan (1) Cardiorespiratory arrest Code(s): I46.9 - Cardiac arrest, cause unspecified Status: Acute (2) COPD (chronic obstructive pulmonary disease) Code(s): J44.9 - Chronic obstructive pulmonary disease, unspecified Status: Acute (3) Lung cancer Code(s): C34.90 - Malignant neoplasm of unspecified part of unspecified bronchus or lung Status: Chronic (4) Leukocytosis Code(s): D72.829 - Elevated white blood cell count, unspecified Status: Acute - Plan 1. Metastatic lung cancer. He was first diagnosed with non-small cell lung cancer in 2009. He underwent left lower lobectomy. Reportedly, there were lymph node involvement and it was stage III lung cancer. During surgery, he developed bleeding from pulmonary artery and had a cardiac arrest, but was resuscitated. When he recovered, he received adjuvant chemotherapy. In 2011, he noted to have metastatic disease in the right upper lobe. The lesion was resected. He was then started on chemotherapy. He stayed on chemotherapy until 10/2016. His oncologist stopped the chemotherapy because the patient had no evidence of progression of disease. The patient stated that he saw Dr. Hayes, his oncologist, in September and CT scan did not show any evidence of recurrent disease. He stated that Dr. Hayes is concerned about his shortness of breath and she told him that his shortness of breath was not cancer related. The patient was admitted to the hospital earlier this month for shortness of breath and thought to have pneumonia. He was found to have a left pleural effusion, had thoracentesis. The patient, however, did not know the result of the fluid analysis. On admission this time, a chest x-ray showed right lung basilar infiltrate, with possible small pleural effusion, but no significant reaccumulation of pleural fluid noted. It is unclear at this point if the patient has recurring lung cancer. I am going to try to get in touch with Dr. Hayes tomorrow to see if she would have any result from the recent pleural fluid cytology. I doubt that the cardiac arrest is due to the lung cancer. The patient otherwise has good performance status. The history of lung cancer should not preclude him from his cardiac workup and intervention. 2. Cardiac arrest. He reportedly went into asystole. He was given epinephrine and was resuscitated. He was evaluated by Dr. Kim and felt that this could be possibly due to aortic stenosis versus ischemia. The patient and family have decided to proceed with further cardiac workup at [place]. 3. Chronic obstructive pulmonary disease, he is oxygen dependent. 4. Chronic atrial fibrillation, on anticoagulation. 5. Hypertension. December 07, 2017: Patient is feeling better and has no new pulmonary symptom. Pleural fluid has not reaccumulated. I will try to reach his oncologist Dr. Hayes to get more information regarding his lung cancer status. Patient can proceed with cardiac workup from oncology standpoint. December 08, 2017: Patient has no new symptom. No obvious reaccumulation of pleural fluid noted. He is awaiting for cardiac catheterization. I have called his primary oncologist Dr. Hayes and left message, but I have not hear from her office yet. I do not thing his lung cancer is the cause of his cardiac symptoms.
[2017-12-08 07:45] LABS: Baso % (Auto) 0.1 % (0.0-2.0); Eos % (Auto) 0.1 % (0.0-4.0); Hemoglobin 14.2 gm/dL (13.0-17.0); Lymph # (Auto) 0.4 th/mm3 (1.0-4.8); Lymph % (Auto) 1.7 % (9.0-44.0); Mean Corpuscular HGB Conc 32.3 % (32.0-36.0); Mean Corpuscular Hemoglobin 28.8 pg (27.0-34.0); Mean Corpuscular Volume 89.1 fL (80.0-100.0); Mean Platelet Volume 10.6 fL (7.0-11.0); Mono # (Auto) 0.6 th/mm3 (0.0-0.9); Mono % (Auto) 2.8 % (0.0-8.0); Neut # (Auto) 20.1 th/mm3 (1.8-7.7); Neut % (Auto) 95.3 % (16.0-70.0); Platelet Count 111 th/mm3 (150-450); Red Blood Count 4.94 mil/mm3 (4.50-5.90); Red Cell Distribution Width 15.8 % (11.6-17.2); White Blood Count 21.1 th/mm3 (4.0-11.0)
[2017-12-08 08:27] LABS: Alanine Aminotransferase 69 U/L (12-78); Albumin 2.7 g/dL (3.4-5.0); Alkaline Phosphatase 67 U/L (45-117); Anion Gap 6 meq/L (5-15); Aspartate Aminotransferase 16 U/L (15-37); Blood Urea Nitrogen 57 mg/dL (7-18); Calcium 8.4 mg/dL (8.5-10.1); Chloride 109 meq/L (98-107); Glomerular Filtration Rate 52 mL/min (>89); Glucose,Random 135 mg/dL (74-106); Magnesium 2.5 mg/dL (1.5-2.5); Phosphorus 3.4 mg/dL (2.5-4.9); Potassium 4.2 meq/L (3.5-5.1); Sodium 144 meq/L (136-145); Total Protein 5.9 g/dL (6.4-8.2)
[2017-12-08] MEDS: Furosemide 40 MG Tablet PO SCH (09:44)
[2017-12-08] MEDS: Pantoprazole Sodium 20 MG DR Tablet PO SCH (09:44)
[2017-12-08] MEDS: guaiFENesin 600 MG ER Tablet PO SCH ×2 (09:44→21:18)
[2017-12-08] MEDS: Famotidine PF Inj 20 MG/2 ML Vial IV.PUSH SCH ×2 (09:44→21:17)
[2017-12-08] MEDS: Folic Acid 1 MG Tablet PO SCH (09:44)
[2017-12-08] MEDS: amLODIPine 5 MG Tablet PO SCH (09:44)
[2017-12-08] MEDS: Lisinopril 20 MG Tablet PO SCH (09:44)
[2017-12-08] MEDS: Senna/Docusate Sodium 8.6/50 MG Tablet PO SCH ×2 (09:44→21:18)
--- NOTE | 2017-12-08 11:57 | P.PNIM ---
Subjective Interval history: This 77-year-old gentleman with coronary artery disease, chronic heart failure, glucose intolerance, recent pneumonia, and status post lobectomy for lung cancer develop respiratory acidosis culminating in brief cardiac arrest after transport to the [facility] emergency department. He was rapidly resuscitated after 1 amp of epinephrine but did require intubation and mechanical ventilation. He is been on home oxygen following his lobectomy and has underlying COPD which was likely exacerbated prior to this event. At the outside hospital troponin was minimally elevated at 0.15 and initial pH was arterial 7.16. He was transported to the [facility] at [facility] and I met him on his arrival. 12/05: Sitting up in bed extubated yesterday breathing comfortably. WBC count is elevated most likely stress related. No arrhythmias reported overnight - TRANSFERRED TO OUR SERVICE TODAY STATES WAS ON HIS WAY HOME FROM [facility] WHEN THIS OCCURRED SHE STATES HE HAD ISSUES WITH BREATHING BEFORE THIS OCCURRED IS CHRONICALLY ON 3L BY NASAL CANULA AND HAD A THORACENTESIS PRIOR TO THEIR VACATION [place] AM LAB PT AND OT CONSULT PULMONARY DW RN AND PT AND CM HAS HOME OXYGEN ALREADY HAS TENDER CHEST FROM CPR HAS SORE THROAT FROM ET TU[place] AND PRIOR IRRITATION CONSULT PULMONARY AND CARDIOLOGY GET ECHO PT AND OT AM LABS 12-07 TO HAVE CARDIAC CATH TOMORROW DW CARDIOLOGY AND FAMILY AND CM AND RN AM LABS BREATHING MUCH BETTER SEEN BY PULMONARY, ONCOLOGY AND CARDIOLOGY 12-08 TO HAVE CARDIAC CATH TODAY BREATHING MUCH BETTER SEEN BY PULMONARY AND CARDIOLOGY AND ONCOLOGY AM LABS DEPENDING ON RESULTS OF CATH HOME IN NEXT 24 TO 48 HOURS Physical Exam Vital signs: Vital Signs 12/07/17 12:00 12/07/17 12:57 12/07/17 16:00 Temperature 97.0 F L 97.2 F L Pulse Rate 88 89 92 H Respiratory Rate 14 18 14 Blood Pressure 138/94 H 146/76 H Pulse Oximetry 96 93 L 12/07/17 19:25 12/07/17 19:26 12/07/17 20:00 Temperature 97.1 F L Pulse Rate 82 88 Respiratory Rate 20 20 Blood Pressure 121/70 Pulse Oximetry 93 L 96 12/08/17 00:00 12/08/17 00:33 12/08/17 04:00 Temperature 97.5 F L 97.2 F L Pulse Rate 80 80 82 Respiratory Rate 20 20 Blood Pressure 134/83 Pulse Oximetry 95 07/19/18 07:52 12/08/17 08:00 Temperature 97.1 F L Pulse Rate 89 Respiratory Rate 22 Blood Pressure 157/94 H Pulse Oximetry 97 95 Intake & Output 12/07/17 12/08/17 12/08/17 18:59 06:59 18:59 Intake Total 240 / 240 Output Total 600 / 600 400 / 400 Balance -600 / -600 -160 / -160 Weight 81.2 kg Intake: Oral 240 / 240 Output: Urine 600 / 600 400 / 400 Other: # Voids 3 Date of Last Bowel Movement 12/07/17 12/07/17 # Bowel Movements 2 0 Narrative: GENERAL: AWAKE AND ALERT AND ORIENTED X3 TALKATIVE AND COOPERATIVE SKIN: Warm and dry. HEAD: Atraumatic. Normocephalic. EYES: Pupils equal and round. No scleral icterus. No injection or drainage. EOMI ENT: No nasal bleeding or discharge. Mucous membranes pink and moist. TONGUE IS MIDLINE NECK: Trachea midline. No JVD. SUPPLE CARDIOVASCULAR: IRRegular rate and rhythm. S1, S2 NO S3 OR S4 TENDER CHEST FROM CPR 2/6 GAB RESPIRATORY: No accessory muscle use. DECREASED BS BL AND SCATTED RHONCHI Breath sounds equal bilaterally. GASTROINTESTINAL: Abdomen soft, non-tender, nondistended. Hepatic and splenic margins not palpable. MUSCULOSKELETAL: Extremities without clubbing, cyanosis, or edema. No obvious deformities. NEUROLOGICAL: Awake and alert. No obvious cranial nerve deficits. Motor grossly within normal limits. 4 out of 5 muscle strength in the arms and legs. Normal speech. PSYCHIATRIC: Appropriate mood and affect; insight and judgment normal. - Urinary Catheter Management Indwelling Urethral Catheter Cath placed during this visit: no Results - Labs CBC & Chem 7: 12/08/17 07:00 12/08/17 07:00 Laboratory Results - last 24 hr 12/07/17 12/07/17 12/07/17 06:05 12:31 18:15 WBC RBC Hgb Hct MCV MCH MCHC RDW Plt Count MPV Neut % (Auto) Lymph % (Auto) [place] % (Auto) Eos % (Auto) Baso % (Auto) Neut # (Auto) Lymph # (Auto) [place] # (Auto) Eos # (Auto) Baso # (Auto) WBC Differential Differential Comment Sodium Potassium Chloride Carbon Dioxide Anion Gap BUN Creatinine Estimated GFR POC Glucose 177 H 270 H Random Glucose Hemoglobin A1c 8.9 H Calcium Phosphorus Magnesium Total Bilirubin AST ALT Alkaline Phosphatase Total Protein Albumin 12/07/17 12/08/17 12/08/17 23:34 05:40 07:00 WBC 21.1 H RBC 4.94 Hgb 14.2 Hct 44.0 MCV 89.1 MCH 28.8 MCHC 32.3 RDW 15.8 Plt Count 111 L MPV 10.6 Neut % (Auto) 95.3 H Lymph % (Auto) 1.7 L [place] % (Auto) 2.8 Eos % (Auto) 0.1 Baso % (Auto) 0.1 Neut # (Auto) 20.1 H Lymph # (Auto) 0.4 L [place] # (Auto) 0.6 Eos # (Auto) 0.0 Baso # (Auto) 0.0 WBC Differential . Differential Comment Auto diff final Sodium Potassium Chloride Carbon Dioxide Anion Gap BUN Creatinine Estimated GFR POC Glucose 308 H 158 H Random Glucose Hemoglobin A1c Calcium Phosphorus Magnesium Total Bilirubin AST ALT Alkaline Phosphatase Total Protein Albumin 12/08/17 07:00 WBC RBC Hgb Hct MCV MCH MCHC RDW Plt Count MPV Neut % (Auto) Lymph % (Auto) [place] % (Auto) Eos % (Auto) Baso % (Auto) Neut # (Auto) Lymph # (Auto) [place] # (Auto) Eos # (Auto) Baso # (Auto) WBC Differential Differential Comment Sodium 144 Potassium 4.2 Chloride 109 H Carbon Dioxide 29.0 Anion Gap 6 BUN 57 H Creatinine 1.33 H Estimated GFR 52 L POC Glucose Random Glucose 135 H D Hemoglobin A1c Calcium 8.4 L Phosphorus 3.4 Magnesium 2.5 Total Bilirubin 0.7 AST 16 ALT 69 Alkaline Phosphatase 67 Total Protein 5.9 L Albumin 2.7 L - Imaging Chest X-Ray 12/04/17 14:22 CONCLUSION: Bilateral alveolar edema versus pneumonia. There has been no significant change when compared to the prior exam. Enlarging right effusion Chest X-Ray 12/05/17 11:20 CONCLUSION: No appreciable change. Chest X-Ray 12/06/17 06:00 CONCLUSION: Bilateral mostly basilar airspace disease with pleural effusions. No pneumothorax. Assessment and Plan - Plan Cardiovascular: Continue oral diuretic and antihypertensive therapy. Continue antiplatelet therapy for coronary stent. Continue and NOAC for permanent atrial fibrillation. Follow-up troponin-peaked 0.12. diurese CONSULT CARDIO FOR CARDIAC CATH 7-19 HAD ECHO EF 45 % Respiratory: Extubated on 12-04 tolerating well. Bronchodilators. Short-term steroids. MUCINEX CONTINUE CURRENT MEDS Neuro: Serial neurologic exams, minimize sedation. Neurologically remains intact GI: Heart healthy diet : Discontinue Calix. Electrolyte replacement per protocol FOLLOW RENAL FUNCTIONS Endocrine: Hyperglycemia probably related to his outpatient steroid bolus. Sliding scale insulin coverage WITH ACCU CHECKS Hematology: Leukocytosis. Possibly related to steroids and acute distress. He has been on prednisone 20 mg daily as an outpatient. ID: Continue antibiotic coverage for outpatient pneumonia. LEUKOCYTOSIS DUE TO STEROIDS CONSULT CARDIO POSITIVE TROPONINS CONSULT PULMONARY FOR LUNG ISSUES Prophylaxis: Continue ON NOAC and institute oral GI ulcer coverage. Code Status: FULL CODE Discussed Condition With: RN AND PT AND FAMILY Discharge Planning: PENDING IMPROVEMENT AWAIT CARDIAC CATH
[2017-12-08] MEDS ORDERED: fentaNYL Citrate Inj 100 MCG/2 ML Ampul ONE (16:21)
[2017-12-08] MEDS ORDERED: Heparin/NS PF Inj 1,000 ML ONE (16:21)
[2017-12-08] MEDS ORDERED: Iohexol 350 MG/ML 100 ML Vial (for Cath Lab) IVCONTRAST ONE (17:15)
--- NOTE | 2017-12-08 17:27 | CATHPROC ---
"[employer] HIS Report Study Information Study Number Admission Scheduled Start Study Start [id number] Dec 04 2017 1:41PM 12/08/2017 Dec 08 2017 4:09PM [place] Service Cardiac Catheterization Admit Source Facility Department Other [facility] - Pool Cleaner Physician and Clinical Staff Initial Damian Smith [employer] Anette Grover,RN Recorder Hali Alonzo ,RT(R) Scrub Abhishek Stevens,RT(R) Procedures Performed Procedure Location (Site) Vessel Name Coronary Angiograms LCA Left Coronary Coronary Angiograms RCA Right Coronary LV Gram-hand inj. LV LV Ventricle Equipment Time President And Ceo Description Size Mfg Part Number Used/Scraped CATHETER, FR5 SWAN VICTORIANO 16:13 Mik[employer] Odeme | 3pay FR 5 [id number] *[id number] Used MONITOR TRANSDUCER, TRUWAVE [id number] 16:13 [employer] MACK * Used W/STOCKCOCK *[id number] [id number] *[id number] [id number] *[id number] [id number] *[id number] 16:13 [employer] BLANKET,WARM AIR CCL * Used *[id number] 16:13 [employer] PACK, CCL CUSTOM * Used *[id number] 16:13 [employer] PACER PEN, SKIN DUAL W/ RULER * Used *[id number] 16:13 [employer] MEDICAL SHEATH, FR5.5 PRELUDE 11CM FR 5.5 Used 038ACT# [id number] 16:13 [employer] MEDICAL WIRE, 3MMJ .035 180CM 180CM Used *[id number] 16:13 NAMIC MANIFOLD, 4 PORT * Used *[id number] 16:13 [employer] OMNIPAQUE, 350 MG, 150ML 150ML [id number] Used [id number] 16:13 TERUMO MEDICAL SHEATH, FR4 TERUMO (10CM) FR 4 Used *[id number] History: Current Medications Medication Dosage/Unit Route Frequency Last Date/Time Taken Statins (any) NORVASC ASA ELIQUIS LISINOPRIL History: Allergies Allergy Reaction No Known Allergies History: Risk Factors Family History of Hypertension Dyslipidemia Previous [place] Previous Heart Failure Premature CAD Yes No No No Yes Prior Valve Prior PCI Prior CABG Surgery No No No Cerebrovascular Peripheral Artery Chronic Lung On Dialysis Diabetes Disease Disease Disease No No No Yes No History: Other Current Smoker Quit Packs a Day Years Used Pack Years No 30 Years Ago 1 30 30 Labs Hgb (g/dl) Hct (%) WBC (l/cumm) Platelets (thousands) 11.60-17.00 35.00-51.00 4.00-11.00 150.00-450.00 14.2 44 21.1 111 Glucose (mg/dl) BUN (mg/dl) Creatinine (mg/dl) BUN:Creatinine (1:x) 74.00-106.00 7.00-18.00 0.50-1.30 10.00-20.00 135 57 1.3 43.8 Na (meq/l) K (meq/l) 136.00-145.00 3.50-5.10 144 4.2 Troponin I (ng/ml) CPK-MB (ng/ML) 0.02-0.05 0.50-3.60 0.11 Not Drawn Medication Medication Total Dose (Bolus/Oral) Medication Total Dosage/Unit 1% XYLOCAINE 20 mL Medications (Bolus/Oral) Medication Time Given Dosage/Unit Administered By Reason 1% XYLOCAINE 12/08/2017 4:39:22 PM 20 mL Damian Kim 20 mL 1% XYLOCAINE given in lab by Damian Kim in Right Groin via Subcutaneous. Ordered by Damian Diggs. Medication (Drip) Medication Time Given Dosage/Unit Concentration/Unit Diluent (ml) Solution IV Solutions 12/08/2017 4:13:13 PM 50 mL (IV) NaCl .9 Patient arrived on IV Solutions via Peripheral IV. Pump/Drip Flow using NaCl .9. Initial Case Assessment Cardiovascular HR NIBP Chest Pain 88 121/90 0 Edema Present Skin color Skin None Normal Warm Dry Circulatory - Right Pulses Dorsalis Pedis Femoral 1 1 Scale (0,1,2,3,4,d) Circulatory - Left Pulses Dorsalis Pedis Femoral 1 1 Scale (0,1,2,3,4,d) Neurological State Oriented to time-place- Alert Moves all extremities person Respiration - General Respiration Rate SpO2 (%) (B/min) 23 93 Final Case Assessment Cardiovascular HR NIBP Chest Pain 88 121/90 0 Edema Present Skin color Skin None Normal Warm Dry Circulatory - Right Pulses Dorsalis Pedis Femoral 1 1 Scale (0,1,2,3,4,d) Circulatory - Left Pulses Dorsalis Pedis Femoral 1 1 Scale (0,1,2,3,4,d) Neurological State Oriented to time-place- Alert Moves all extremities person Respiration - General Respiration Rate SpO2 (%) (B/min) 23 93 Chronological Log Time Study Chronological Log 16:11:10 Patient arrived via Bed. 16:11:10 Patient Name, D.O.B, / Armband Verified By R.N. 16:13:04 Consent signed by the physician and the patient and verified by the Pool Cleaner staff. 16:13:05 Pre-op and post- op instructions given; patient acknowledges understanding of instructions. 16:13:06 Verbal Stimulation=2 Physical Stimulation=2 Airway=2 Respiration=2 TOTAL=8. (0=absent, 1=li mited, 2=present) 16:13:08 Patient has been NPO for More than 6Hrs. 16:13:09 Skin Breakdown- none per patient 16:13:10 Patient Warmer Placed on the Table. 16:13:12 Pradip Prominences Protected 16:13:13 A # 18 IV was noted in the Hand (left). Grade = 0 16:13:13 Patient arrived on IV Solutions via Peripheral IV. Pump/Drip Flow using NaCl .9. 16:13:15 History and physical on the chart or being dictated. Assessment: Initial Case, HR=88 BPM, QXZF=079/90 mmhg, Chest Pain=0, Edema=None, Color=Normal, Skin = Warm, Dry Right Pulses: Flavio Ped=1, Femoral=1 16:13:16 Left Pulses: Flavio Ped=1, Femoral=1 Neurological: State=Alert, Ox3, SULTANA Respiration: Resp=23 B/min, SpO2=93 % 16:13:39 MD arrived. 16:14:27 A # 20 IV was noted in the Antecubital (left). Grade = 0 Vitals capture started with the following parameters, Patient=Adult, Interval=5 min, Initial Pr xxsztd=212 mmHg, 16:18:05 Deflation Rate=5 mmHg, Cuff placed on Left Arm 16:18:44 HR=77 bpm, WFQQ=568/80 mmhg, SpO2=90.0 %, Pain=0, Steffi=10, Moncada=2 16:21:34 Reference ECG taken 16:23:26 Bilateral groins prepped with 2% chlorhexidine, and draped after a 3 minute waiting time. 16:23:45 UU=030 bpm, ZZMS=930/90 mmhg, SpO2=93.0 %, Resp=23 B/min, Pain=0, Steffi=10, Moncada=2 16:28:40 Pressure channel 1 zeroed. 16:29:12 HR=91 bpm, INYR=416/95 mmhg, SpO2=98.0 %, Resp=17 B/min, Pain=0, Steffi=10, Moncada=2 16:34:15 HR=96 bpm, MZTP=698/88 mmhg, SpO2=99.0 %, Resp=19 B/min, Pain=0, Steffi=10, Moncada=2 Time Out. Correct patient, correct procedure, correct physician, labs, allergies, and equipment verified with blood bank laboratory professional 16:36:52 team present. Fire risk assesment completed (see hard stop sheet for coding). Time Out Conc urred by MD and individual staff in procedure. 16:38:46 HR=90 bpm, BHQX=622/91 mmhg, SpO2=99.0 %, Resp=20 B/min, Pain=0, Steffi=10, Moncada=2 16:39:19 Case Start 20 mL 1% XYLOCAINE given in lab by Damian Kim in Right Groin via Subcutaneous. Ordered by Julio, 16:39:22 Damian. 16:41:26 Access site was Right Femoral Artery. 16:41:50 A SHEATH, FR4 TERUMO (10CM) FR 4 was advanced into the Fem Art (right) using the Percutaneo us technique. 16:42:21 Saturation: Site=Ao (Aorta) , O2=92.6 %, Hgb=14.2 gm/dl, Condition=Condition 1. Used in tamara culation. 16:43:45 HR=91 bpm, IWIG=014/104 mmhg, SpO2=95.0 %, Resp=29 B/min, Pain=0, Steffi=10, Moncada=2 16:43:45 Access site was Right Femoral Vein. 16:43:51 A SHEATH, FR5.5 PRELUDE 11CM FR 5.5 was advanced into the Fem Vein (right) using the Percut aneous technique. A CATHETER, FR5 SWAN VICTORIANO MONITOR FR 5 was advanced over a wire. OMNIPAQUE, 350 MG, 150ML 150ML was 16:44:50 used for injections. Recorded Pressure: MPA, HR=99, Condition=Condition 1 16:46:10 (Main Pulmonary Artery) MPA 92/41/64 16:46:41 Saturation: Site=PA (Pulmonary Artery) , O2=62.6 %, Hgb=14.2 gm/dl, Condition=Condition 1. Used in calculation. Recorded Pressure: RV, HR=97, Condition=Condition 1 16:47:30 (Right Ventricle) RV 76/2/21 Recorded Pressure: RA, HR=91, Condition=Condition 1 16:47:44 (Right Atrium) RA 29/23/20 16:48:20 Saturation: Site=RA (Right Atrium) , O2=62.3 %, Hgb=14.2 gm/dl, Condition=Condition 1. Used in calculation. 16:48:36 [place] Victoriano Catheter Removed A JR 4.0 INFINITI CATHETER FR 4 was advanced over a wire. OMNIPAQUE, 350 MG, 150ML 150ML was us ed for 16:48:38 injections. 16:48:48 HR=85 bpm, OFJM=748/87 mmhg, SpO2=97.0 %, Resp=30 B/min, Pain=0, Steffi=10, Moncada=2 Recorded Pressure: LV, MN=882, Condition=Condition 1 16:49:46 (Left Ventricle) LV 166/16/25 Recorded Pressure: LV, Ao, HR=84, Condition=Condition 1 16:51:35 (Left Ventricle) LV 158/3/26, (Aorta) Ao 159/79/122 16:51:44 The LV was manually injected with 10 cc's and visualized. OMNIPAQUE, 350 MG, 150ML 150ML us ed. 16:52:20 The RCA was injected and visualized at various angles. OMNIPAQUE, 350 MG, 150ML 150ML used . After removing the current catheter a JL 4.0 INFINITI CATHETER FR 4 was advanced over a WIRE, 3 MMJ .035 180CM 16:52:29 180CM. 16:53:49 FP=737 bpm, HIJF=642/81 mmhg, SpO2=98.0 %, Resp=20 B/min Recorded Pressure: Ao, SM=279, Condition=Condition 1 16:53:58 (Aorta) Ao 139/89/111 16:54:45 The LCA was injected and visualized at various angles. OMNIPAQUE, 350 MG, 150ML 150ML used . 16:56:10 Catheter was removed A JL 5.0 INFINITI CATHETER FR 4 was advanced over a wire. OMNIPAQUE, 350 MG, 150ML 150ML was u sed for 16:56:45 injections. 16:58:46 HR=97 bpm, ONOU=458/98 mmhg, SpO2=99.0 %, Resp=15 B/min 17:03:45 HR=89 bpm, JSOY=886/88 mmhg, IjR0=644.0 %, Resp=20 B/min 17:05:09 Catheter was removed 17:05:13 Case End (Physician broke scrub) Assessment: Final Case, HR=88 BPM, ENLU=037/90 mmhg, Chest Pain=0, Edema=None, Color=Normal, S kin = Warm, Dry Right Pulses: Flaivo Ped=1, Femoral=1 17:11:11 Left Pulses: Flavio Ped=1, Femoral=1 Neurological: State=Alert, Ox3, SULTANA Respiration: Resp=23 B/min, SpO2=93 % 17:11:19 Catheter(s) removed without difficulty 17:11:22 Sheath(s) left in place, will be removed in Holding Area 17:11:26 Sterile dressing applied to site 17:11:26 No case complications noted. 17:11:27 Cine recording checked. 17:11:28 Bedside Report will be given. 17:11:33 A Left and Right Heart Cath was performed. 17:13:40 Patient moved to [facility] End Study - Contrast Media Used In Study Contrast Total Opened (mL) Total Used (mL) Total Wasted (mL) Omnipaque 80 80 0 End Study - Maximum Contrast Load Max Contrast Load (mL) 312.9 End Study - Radiation Exposure Fluoro Time (minutes) 4.5 End Study - Patient Disposition Complications Transferred To Interventional Outcome No Critical Care Bed No attempt made"
--- NOTE | 2017-12-08 19:17 | P.PNPL ---
Subjective Interval history: 77 YOWM from [place] with cardiac arrest,ca lung Breathing better Mild sob No CP Had cardiac cath Physical Exam Vital signs: Vital Signs 12/07/17 19:25 12/07/17 19:26 12/07/17 20:00 Temperature 97.1 F L Pulse Rate 82 88 Respiratory Rate 20 20 Blood Pressure 121/70 Pulse Oximetry 93 L 96 12/08/17 00:00 12/08/17 00:33 12/08/17 04:00 Temperature 97.5 F L 97.2 F L Pulse Rate 80 80 82 Respiratory Rate 20 20 Blood Pressure 134/83 Pulse Oximetry 95 12/08/17 07:52 12/08/17 08:00 12/08/17 12:00 Temperature 97.1 F L 97.1 F L Pulse Rate 89 94 H Respiratory Rate 22 20 Blood Pressure 157/94 H 152/95 H Pulse Oximetry 97 95 91 L Intake & Output 12/08/17 12/08/17 12/09/17 06:59 18:59 06:59 Intake Total 240 / 240 100 / 100 Output Total 400 / 400 Balance -160 / -160 100 / 100 Weight 81.2 kg Intake: IV 100 / 100 Heparin/NS PF Inj 1,000 ML @ 0 100 / 100 mls/hr .ROUTE .[employer] [facility] ONE Rx#: [id number] Oral 240 / 240 Output: Urine 400 / 400 Other: Date of Last Bowel Movement 12/07/17 # Bowel Movements 0 GENERAL: Elderly WM,NAD SKIN: Warm and dry. HEAD: Normocephalic. EYES: No scleral icterus. No injection or drainage. NECK: Supple, trachea midline. No JVD or lymphadenopathy. CARDIOVASCULAR: Regular rate and rhythm without murmurs, gallops, or rubs. RESPIRATORY: Breath sounds equal bilaterally. No accessory muscle use. GASTROINTESTINAL: Abdomen soft, non-tender, nondistended. MUSCULOSKELETAL: No cyanosis, or edema. BACK: Nontender without obvious deformity. No CVA tenderness. - Urinary Catheter Management Indwelling Urethral Catheter Cath placed during this visit: no Assessment and Plan - Plan IMPRESSION: 1. Chronic obstructive pulmonary disease . 2. Coronary artery disease, status post cardiac arrest. 3. Carcinoma of the lung with metastasis. 4. Recent pleural effusion, status post thoracentesis. 5. Atrial fibrillation. PLAN: Aerosol nebs Supplement [address] eff DW CTS consulted
[2017-12-09] MEDS: Oral Hygiene Kit OROPHARYNG SCH ×5 (02:12→23:25)
[2017-12-09] MEDS: Chlorhexidine Gluconate 2% 1 Pack (2 Cloths) TOPICAL SCH (03:30)
[2017-12-09] MEDS: MethylPREDNISolone Sod Succinate Inj 40 MG/ML Vial IV.PUSH SCH ×4 (05:46→21:03)
[2017-12-09] MEDS: Insulin NovoLOG Aspart Correctional Sugar Inj SQ SCH ×2 (05:47→14:12)
--- NOTE | 2017-12-09 07:03 | MA ---
cc: Damian Kim MD, Arthur W MD DATE: 12/08/2017 PROCEDURE: Right heart catheterization, left heart catheterization, left ventriculography, coronary angiography INDICATION: Non-STEMI, cardiomyopathy, cardiac arrest, pulmonary hypertension, congestive heart failure, decompensated congestive heart failure, coronary artery disease. PROCEDURAL STATEMENT: The patient was brought to the cardiac catheterization lab. He was prepped and draped in the usual sterile fashion. 10 mL of 1% lidocaine was used to locally anesthetize the right common femoral artery. A 4-Malay sheath placed in right common femoral artery. A 5.5 sheath was placed in the right common femoral vein. Right heart catheterization was performed first with the following findings. LV pressure 92/41/64, RV pressure 76-2-21, RA pressure of 29/23/20. The patient was on oxygen. His FA sat was 92.6%, PA sat 62.6%, RA sat 62.3%, cardiac output 4.2 liters per minute by El. Cardiac index was 2.2 liters per meter square per minute by El. SVR is 1748 Dynes Left heart catheterization was then performed with a 4-Malay JR4 and JL5 catheter with the following findings: The LV pressure is 58/5/18, EF 50%. No wall motion abnormality. Right coronary artery is dominant, has mild disease in the distal segment up to 10-20% angiographically. Left main coronary artery has no significant disease angiographically. The left circumflex vessel has 50% stenosis in the ostium, first obtuse marginal vessel is a small vessel 1.5-2 mm in diameter, mild disease in the proximal segment up to 20% angiographically. Second obtuse marginal vessel has an ostial bifurcation. In the more medial branch there is a 2.75 to 3 mm reference vessel diameter with mild diffuse disease in the proximal segment up to about 20% angiographically. The more lateral branch is a 1.5 mm vessel with a proximal 40-50% stenosis. In one of the caudal views, there does appear to be an AV fistula to what appears to be an aneurysm measuring about 10 mm in diameter. LAD is transapical. There is again what appears to be an aneurysm in the proximal segment measuring about 10 mm in diameter at least, appears to be relatively circular. The shortness diameter is probably 7 or 8 mm. It is very difficult to image, but in the extreme AP caudal view at about 45 degrees there appears to be a 60% to 70% stenosis just proximal to this aneurysm. There is also a medium to large diagonal vessel just at the origin of the aneurysm, which is probably 3 mm reference vessel diameter. CONCLUSION: 1. Angiographically moderate to severe 2 vessel coronary artery disease in a right dominant system as detailed above. 2. 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 3. Low and normal left ventricular systolic function, ejection fraction 50% with cardiac index of 2.2 liters per meters square per minute. 4. Coronary aneurysmal disease as detailed above. RECOMMENDATIONS: Recommend CT surgery consult to consider risks and benefits of bypassing the left anterior descending and diagonal vessel. I discussed the case on the phone with Dr. Newsome. Otherwise, recommend continued medical management of coronary artery disease, cardiac risk factor modification. MD TIMBO Seymour/ , 05:41 PM , 06:13 PM
[2017-12-09] MEDS: Pantoprazole Sodium 20 MG DR Tablet PO SCH (09:52)
[2017-12-09] MEDS: amLODIPine 5 MG Tablet PO SCH (09:52)
[2017-12-09] MEDS: guaiFENesin 600 MG ER Tablet PO SCH ×2 (09:53→21:04)
[2017-12-09] MEDS: Folic Acid 1 MG Tablet PO SCH (09:53)
[2017-12-09] MEDS: Lisinopril 20 MG Tablet PO SCH (09:53)
[2017-12-09] MEDS: Furosemide 40 MG Tablet PO SCH (09:53)
[2017-12-09] MEDS: Famotidine PF Inj 20 MG/2 ML Vial IV.PUSH SCH ×2 (09:53→21:04)
[2017-12-09] MEDS: Chlorhexidine 0.12% Oral Kit 15 ML UDC OROPHARYNG SCH ×2 (09:55→21:00)
[2017-12-09 10:13] LABS: Baso % (Auto) 0.1 % (0.0-2.0); Eos % (Auto) 0.1 % (0.0-4.0); Hematocrit 47.5 % (39.0-51.0); Lymph # (Auto) 0.4 th/mm3 (1.0-4.8); Lymph % (Auto) 1.9 % (9.0-44.0); Mean Corpuscular HGB Conc 31.7 % (32.0-36.0); Mean Corpuscular Hemoglobin 28.4 pg (27.0-34.0); Mean Corpuscular Volume 89.6 fL (80.0-100.0); Mean Platelet Volume 10.9 fL (7.0-11.0); Mono # (Auto) 0.5 th/mm3 (0.0-0.9); Mono % (Auto) 2.6 % (0.0-8.0); Neut # (Auto) 19.8 th/mm3 (1.8-7.7); Neut % (Auto) 95.3 % (16.0-70.0); Platelet Count 114 th/mm3 (150-450); Red Blood Count 5.29 mil/mm3 (4.50-5.90); Red Cell Distribution Width 16.5 % (11.6-17.2); White Blood Count 20.8 th/mm3 (4.0-11.0)
--- NOTE | 2017-12-09 10:47 | P.PNIM ---
Subjective Interval history: f/u; CAD/lung cancer with some sob/ on oxygen via N/C. denies chest pain. no other new complaints. d/w at the bedside. Physical Exam Vital signs: Vital Signs 12/08/17 12:00 12/08/17 18:00 12/08/17 19:58 Temperature 97.1 F L 97.2 F L Pulse Rate 78 95 H 93 H Respiratory Rate 20 20 16 Blood Pressure 152/95 H 156/84 H Pulse Oximetry 91 L 92 L 12/08/17 19:59 12/08/17 20:00 12/09/17 00:00 Temperature 98.2 F 98.3 F Pulse Rate 82 91 H Respiratory Rate 20 20 Blood Pressure 130/76 165/63 H Pulse Oximetry 92 L 91 L 97 12/09/17 04:00 12/09/17 07:40 Temperature 98.1 F Pulse Rate 98 H 81 Respiratory Rate 20 20 Blood Pressure 145/96 H Pulse Oximetry 92 L 90 L Intake & Output 12/08/17 12/09/17 12/09/17 18:59 06:59 18:59 Intake Total 100 / 100 120 / 120 Output Total 425 / 425 500 / 500 Balance -325 / -325 -380 / -380 Weight 82.8 kg Intake: IV 100 / 100 Heparin/NS PF Inj 1,000 ML @ 0 100 / 100 mls/hr .ROUTE .STK-MED ONE Rx#: [id number] Oral 0 / 0 120 / 120 Output: Urine 425 / 425 500 / 500 Stool 0 / 0 Other: Date of Last Bowel Movement 12/07/17 # Bowel Movements 0 - Constitutional mild distress - Routine Respiratory Exam Present: diminished air movement (in bases.) - Routine Cardiovascular Exam Present: RRR - Routine Abdominal Exam Present: soft - Routine Extremities Exam Comments: no pedal edema. - Routine Neurological Exam Present: alert, oriented X3 - Urinary Catheter Management Indwelling Urethral Catheter Cath placed during this visit: no Results - Labs CBC & Chem 7: 12/09/17 08:33 12/08/17 07:00 Laboratory Results - last 24 hr 12/08/17 12/08/17 12/08/17 12:24 19:01 23:21 WBC RBC Hgb Hct MCV MCH MCHC RDW Plt Count MPV Neut % (Auto) Lymph % (Auto) [place] % (Auto) Eos % (Auto) Baso % (Auto) Neut # (Auto) Lymph # (Auto) [place] # (Auto) Eos # (Auto) Baso # (Auto) WBC Differential Differential Comment POC Glucose 129 H 291 H 259 H 12/09/17 12/09/17 05:25 08:33 WBC 20.8 H RBC 5.29 Hgb 15.0 Hct 47.5 MCV 89.6 MCH 28.4 MCHC 31.7 L RDW 16.5 Plt Count 114 L MPV 10.9 Neut % (Auto) 95.3 H Lymph % (Auto) 1.9 L [place] % (Auto) 2.6 Eos % (Auto) 0.1 Baso % (Auto) 0.1 Neut # (Auto) 19.8 H Lymph # (Auto) 0.4 L [place] # (Auto) 0.5 Eos # (Auto) 0.0 Baso # (Auto) 0.0 WBC Differential . Differential Comment Auto diff final POC Glucose 153 H Assessment and Plan - Plan A/P CAD- s/p cardiac cath with moderate to severe two-vessel disease continue aspirin and statin-oral anticoagulation oh hold till CT surgery evaluation. CT surgery consulted. respiratory failure/ with history of lung cancer- keep on oxygen to keep O2 sat >90%-continue Bronchodilators. Short-term steroids. MUCINEX continue neb treatment pulmonary and oncology following. Hyperglycemia probably related to his outpatient steroid bolus. Sliding scale insulin coverage . Continue ON NOAC and institute oral GI ulcer coverage. Discharge Planning: awaiting CT surgery evaluation. not ready for discharge.
[2017-12-09 10:48] LABS: Alanine Aminotransferase 64 U/L (12-78); Albumin 3.1 g/dL (3.4-5.0); Alkaline Phosphatase 69 U/L (45-117); Anion Gap 8 meq/L (5-15); Aspartate Aminotransferase 14 U/L (15-37); Blood Urea Nitrogen 57 mg/dL (7-18); Calcium 8.6 mg/dL (8.5-10.1); Chloride 109 meq/L (98-107); Glomerular Filtration Rate 51 mL/min (>89); Glucose,Random 97 mg/dL (74-106); Magnesium 2.6 mg/dL (1.5-2.5); Phosphorus 3.3 mg/dL (2.5-4.9); Potassium 5.2 meq/L (3.5-5.1); Sodium 146 meq/L (136-145); Total Protein 6.3 g/dL (6.4-8.2)
--- NOTE | 2017-12-09 11:02 | P.PNPL ---
Subjective Interval history: 77 YOWM from [place] with cardiac arrest,ca lung Breathing better Mild sob No CP Had cardiac cath Up in chair,anxious Physical Exam Vital signs: Vital Signs 12/08/17 12:00 12/08/17 18:00 12/08/17 19:58 Temperature 97.1 F L 97.2 F L Pulse Rate 78 95 H 93 H Respiratory Rate 20 20 16 Blood Pressure 152/95 H 156/84 H Pulse Oximetry 91 L 92 L 12/08/17 19:59 12/08/17 20:00 12/09/17 00:00 Temperature 98.2 F 98.3 F Pulse Rate 82 91 H Respiratory Rate 20 20 Blood Pressure 130/76 165/63 H Pulse Oximetry 92 L 91 L 97 12/09/17 04:00 12/09/17 07:40 12/09/17 08:00 Temperature 98.1 F 97.4 F L Pulse Rate 98 H 81 104 H Respiratory Rate 20 20 20 Blood Pressure 145/96 H 144/78 H Pulse Oximetry 92 L 90 L 94 L Intake & Output 12/08/17 12/09/17 12/09/17 18:59 06:59 18:59 Intake Total 100 / 100 120 / 120 Output Total 425 / 425 500 / 500 Balance -325 / -325 -380 / -380 Weight 82.8 kg Intake: IV 100 / 100 Heparin/NS PF Inj 1,000 ML @ 0 100 / 100 mls/hr .ROUTE .[email or web address] ONE Rx#: [id number] Oral 0 / 0 120 / 120 Output: Urine 425 / 425 500 / 500 Stool 0 / 0 Other: Date of Last Bowel Movement 12/07/17 # Bowel Movements 0 GENERAL: Elderly Wm. NAD SKIN: Warm and dry. HEAD: Normocephalic. EYES: No scleral icterus. No injection or drainage. NECK: Supple, trachea midline. No JVD or lymphadenopathy. CARDIOVASCULAR: Regular rate and rhythm without murmurs, gallops, or rubs. RESPIRATORY: Breath sounds equal bilaterally. No accessory muscle use. GASTROINTESTINAL: Abdomen soft, non-tender, nondistended. MUSCULOSKELETAL: No cyanosis, or edema. BACK: Nontender without obvious deformity. No CVA tenderness. - Urinary Catheter Management Indwelling Urethral Catheter Cath placed during this visit: no Assessment and Plan - Plan IMPRESSION: 1. Chronic obstructive pulmonary disease . 2. Coronary artery disease, status post cardiac arrest. 3. Carcinoma of the lung with metastasis. 4. Recent pleural effusion, status post thoracentesis. 5. Atrial fibrillation. PLAN: Aerosol nebs Supplement [address] eff CTS consulted DW pt and his
--- NOTE | 2017-12-09 12:12 | P.PNONC ---
Subjective Interval history: Afebrile Patient sitting up in chair at bedside talking with visitors in no obvious distress Denies chest pain Reports his breathing feels about the same No bleeding Still waiting to speak with CV surgeon Objective Vital Signs/Intake & Output: Vital Signs 12/08/17 18:00 12/08/17 19:58 12/08/17 19:59 Temperature 97.2 F L Pulse Rate 95 H 93 H Respiratory Rate 20 16 Blood Pressure 156/84 H Pulse Oximetry 92 L 92 L 12/08/17 20:00 12/09/17 00:00 12/09/17 04:00 Temperature 98.2 F 98.3 F 98.1 F Pulse Rate 82 91 H 98 H Respiratory Rate 20 20 20 Blood Pressure 130/76 165/63 H 145/96 H Pulse Oximetry 91 L 97 92 L 12/09/17 07:40 12/09/17 08:00 Temperature 97.4 F L Pulse Rate 81 104 H Respiratory Rate 20 20 Blood Pressure 144/78 H Pulse Oximetry 90 L 94 L Intake & Output 12/08/17 12/09/17 12/09/17 18:59 06:59 18:59 Intake Total 100 / 100 120 / 120 Output Total 425 / 425 500 / 500 Balance -325 / -325 -380 / -380 Weight 182 lb 8.684 oz Intake: IV 100 / 100 Heparin/NS PF Inj 1,000 ML @ 0 100 / 100 mls/hr .ROUTE .[facility] ONE Rx#: [id number] Oral 0 / 0 120 / 120 Output: Urine 425 / 425 500 / 500 Stool 0 / 0 Other: Date of Last Bowel Movement 12/07/17 # Bowel Movements 0 Result Diagrams: 12/09/17 08:33 12/09/17 08:33 Laboratory Results: Laboratory Results - last 24 hr 12/08/17 12/08/17 12/08/17 12:24 19:01 23:21 WBC RBC Hgb Hct MCV MCH MCHC RDW Plt Count MPV Neut % (Auto) Lymph % (Auto) [place] % (Auto) Eos % (Auto) Baso % (Auto) Neut # (Auto) Lymph # (Auto) [place] # (Auto) Eos # (Auto) Baso # (Auto) WBC Differential Differential Comment Sodium Potassium Chloride Carbon Dioxide Anion Gap BUN Creatinine Estimated GFR POC Glucose 129 H 291 H 259 H Random Glucose Calcium Phosphorus Magnesium Total Bilirubin AST ALT Alkaline Phosphatase Total Protein Albumin 12/09/17 12/09/17 12/09/17 05:25 08:33 08:33 WBC 20.8 H RBC 5.29 Hgb 15.0 Hct 47.5 MCV 89.6 MCH 28.4 MCHC 31.7 L RDW 16.5 Plt Count 114 L MPV 10.9 Neut % (Auto) 95.3 H Lymph % (Auto) 1.9 L [place] % (Auto) 2.6 Eos % (Auto) 0.1 Baso % (Auto) 0.1 Neut # (Auto) 19.8 H Lymph # (Auto) 0.4 L [place] # (Auto) 0.5 Eos # (Auto) 0.0 Baso # (Auto) 0.0 WBC Differential . Differential Comment Auto diff final Sodium 146 H Potassium 5.2 H D Chloride 109 H Carbon Dioxide 29.0 Anion Gap 8 BUN 57 H Creatinine 1.36 H Estimated GFR 51 L POC Glucose 153 H Random Glucose 97 Calcium 8.6 Phosphorus 3.3 Magnesium 2.6 H Total Bilirubin 1.0 AST 14 L ALT 64 Alkaline Phosphatase 69 Total Protein 6.3 L Albumin 3.1 L Medications: Active Medications Generic Name Dose Route Start Last Admin Trade Name Freq PRN Reason Stop Dose Admin Albuterol 1 ampul 12/06/17 14:00 12/08/17 19:55 Duoneb Neb ([facility]) NEB 1 ampul Q6HR WHILE AWAKE NEB [facility] Administration Amlodipine Besylate 5 mg 12/05/17 09:00 12/09/17 09:52 Norvasc PO 5 mg DAILY SAJI Administration Aspirin 81 mg 12/05/17 09:00 12/09/17 09:54 Ecotrin PO 81 mg DAILY [facility] Administration Chlorhexidine Gluconate 15 ml 12/04/17 20:00 12/09/17 09:55 Peridex 0.12% Oral Kit OROPHARYNG Not Given BID@0800,2000 [facility] Chlorhexidine Gluconate 3 pack 12/05/17 04:00 12/09/17 03:30 Chlorhexidine 2% Cloth TOPICAL 12/10/17 03:59 Not Given DAILY@0400 [facility] Famotidine 10 mg 12/04/17 21:00 12/09/17 09:53 Pepcid Pf Inj IV.PUSH 10 mg Q12HR SAJI Administration Folic Acid 1 mg 12/06/17 12:30 07/20/18 09:53 Folic Acid PO 1 mg DAILY SAJI Administration Furosemide 40 mg 12/05/17 09:00 12/09/17 09:53 Lasix PO 40 mg DAILY SAJI Administration Guaifenesin 600 mg 12/06/17 12:30 12/09/17 09:53 Mucinex Er PO 600 mg BID SAJI Administration Insulin Aspart 0 unit 12/04/17 16:00 12/09/17 05:47 Novolog Insulin Suppl Scale Inj SQ 5 unit Q6HR SAJI Administration Protocol Lisinopril 20 mg 12/05/17 09:00 12/09/17 09:53 Prinivil PO 20 mg DAILY SAJI Administration Meclizine HCl 25 mg 12/08/17 11:58 12/09/17 09:58 Antivert PO 25 mg Q8HR PRN Administration Dizziness Methylprednisolone Sodium Succinate 40 mg 12/05/17 08:53 12/09/17 06:50 Solumedrol Inj IV.PUSH 40 mg Q8HR SAJI Administration Pantoprazole Sodium 20 mg 12/06/17 12:30 12/09/17 09:52 Protonix PO 20 mg DAILY SAJI Administration Potassium Chloride 20 meq 12/05/17 09:00 12/09/17 09:52 K-Dur PO 20 meq DAILY SAJI Administration Pravastatin Sodium 20 mg 12/05/17 09:00 12/09/17 09:53 Pravachol PO 20 mg DAILY SAJI Administration Senna/Docusate Sodium 1 tab 12/04/17 21:00 12/08/17 21:18 Jamila-Colace PO 1 tab BID SAJI Administration Sodium Chloride 2 ml 12/04/17 21:00 12/09/17 09:54 Ns Flush IV.FLUSH 2 ml BID SAJI Administration Sodium Chloride 2 ml 12/08/17 21:00 12/09/17 09:58 Ns Flush IV.FLUSH Not Given BID [facility] Objective Remarks: GENERAL: Elderly male sitting in chair at bedside in no obvious distress. He is smiling and joking throughout exam. HEAD: Normocephalic. EYES: No scleral icterus. No injection or drainage. NECK: Supple, trachea midline. No JVD or lymphadenopathy. CARDIOVASCULAR: Irregular rhythm. Tachycardic. RESPIRATORY: Clear but diminished posteriorly. On 3 L nasal cannula. GASTROINTESTINAL: Abdomen soft, non-tender, nondistended. EXTREMITIES: No cyanosis, or edema. MUSCULOSKELETAL: Adequate muscle tone. NEUROLOGICAL: No obvious focal deficit. Awake, alert, and oriented x3. Assessment/Plan (1) Cardiorespiratory arrest Code(s): I46.9 - Cardiac arrest, cause unspecified Status: Acute (2) COPD (chronic obstructive pulmonary disease) Code(s): J44.9 - Chronic obstructive pulmonary disease, unspecified Status: Acute (3) Lung cancer Code(s): C34.90 - Malignant neoplasm of unspecified part of unspecified bronchus or lung Status: Chronic (4) Leukocytosis Code(s): D72.829 - Elevated white blood cell count, unspecified Status: Acute - Plan 1. Metastatic lung cancer. He was first diagnosed with non-small cell lung cancer in 2009. He underwent left lower lobectomy. Reportedly, there were lymph node involvement and it was stage III lung cancer. During surgery, he developed bleeding from pulmonary artery and had a cardiac arrest, but was resuscitated. When he recovered, he received adjuvant chemotherapy. In 2011, he noted to have metastatic disease in the right upper lobe. The lesion was resected. He was then started on chemotherapy. He stayed on chemotherapy until 10/2016. His oncologist stopped the chemotherapy because the patient had no evidence of progression of disease. The patient stated that he saw Dr. Hayes, his oncologist, in September and CT scan did not show any evidence of recurrent disease. He stated that Dr. Hayes is concerned about his shortness of breath and she told him that his shortness of breath was not cancer related. The patient was admitted to the hospital earlier this month for shortness of breath and thought to have pneumonia. He was found to have a left pleural effusion, had thoracentesis. The patient, however, did not know the result of the fluid analysis. On admission this time, a chest x-ray showed right lung basilar infiltrate, with possible small pleural effusion, but no significant reaccumulation of pleural fluid noted. It is unclear at this point if the patient has recurring lung cancer. I am going to try to get in touch with Dr. Hayes tomorrow to see if she would have any result from the recent pleural fluid cytology. I doubt that the cardiac arrest is due to the lung cancer. The patient otherwise has good performance status. The history of lung cancer should not preclude him from his cardiac workup and intervention. 2. Cardiac arrest. He reportedly went into asystole. He was given epinephrine and was resuscitated. He was evaluated by Dr. Kim and felt that this could be possibly due to aortic stenosis versus ischemia. The patient and family have decided to proceed with further cardiac workup at [place]. 3. Chronic obstructive pulmonary disease, he is oxygen dependent. 4. Chronic atrial fibrillation, on anticoagulation. 5. Hypertension. December 07, 2017: Patient is feeling better and has no new pulmonary symptom. Pleural fluid has not reaccumulated. I will try to reach his oncologist Dr. Hayes to get more information regarding his lung cancer status. Patient can proceed with cardiac workup from oncology standpoint. December 08, 2017: Patient has no new symptom. No obvious reaccumulation of pleural fluid noted. He is awaiting for cardiac catheterization. I have called his primary oncologist Dr. Hayes and left message, but I have not hear from her office yet. I do not thing his lung cancer is the cause of his cardiac symptoms. 12/09/17: The patient is doing well in good spirits after cardiac catheterization yesterday. He was found to have moderate to severe 2 vessel coronary artery disease and cardiovascular surgery has been consulted for their recommendation. In terms of his lung cancer no therapy is needed at this time. Patient can follow-up with his oncologist after discharge. Continue supportive care. - Attending Statement The exam, history, and the medical decision-making described in the above note were completed with the assistance of the mid-level provider. I reviewed and agree with the findings presented. I attest that I had a [id number] encounter with the patient on the same day, and personally performed and documented my assessment and findings in the medical record. Denies CP. SOB stable. Cardiac cath showed mod CAD and await CT surgery evaluation. No oncologic intervention at this time. He can f/u with his primary oncologist after d/c. (2) 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
--- NOTE | 2017-12-09 12:23 | P.PNCA ---
Subjective Interval history: alert in nad Physical Exam Vital signs: Vital Signs 12/08/17 18:00 12/08/17 19:58 12/08/17 19:59 Temperature 97.2 F L Pulse Rate 95 H 93 H Respiratory Rate 20 16 Blood Pressure 156/84 H Pulse Oximetry 92 L 92 L 12/08/17 20:00 12/09/17 00:00 12/09/17 04:00 Temperature 98.2 F 98.3 F 98.1 F Pulse Rate 82 91 H 98 H Respiratory Rate 20 20 20 Blood Pressure 130/76 165/63 H 145/96 H Pulse Oximetry 91 L 97 92 L 12/09/17 07:40 12/09/17 08:00 Temperature 97.4 F L Pulse Rate 81 104 H Respiratory Rate 20 20 Blood Pressure 144/78 H Pulse Oximetry 90 L 94 L Intake & Output 12/08/17 12/09/17 12/09/17 18:59 06:59 18:59 Intake Total 100 / 100 120 / 120 Output Total 425 / 425 500 / 500 Balance -325 / -325 -380 / -380 Weight 82.8 kg Intake: IV 100 / 100 Heparin/NS PF Inj 1,000 ML @ 0 100 / 100 mls/hr .ROUTE .K-[facility] ONE Rx#: [id number] Oral 0 / 0 120 / 120 Output: Urine 425 / 425 500 / 500 Stool 0 / 0 Other: Date of Last Bowel Movement 12/07/17 # Bowel Movements 0 - Urinary Catheter Management Indwelling Urethral Catheter Cath placed during this visit: no Assessment and Plan - Assessment (1) Aortic stenosis Code(s): I35.0 - Nonrheumatic aortic (valve) stenosis Status: Acute (2) Cardiomyopathy Code(s): I42.9 - Cardiomyopathy, unspecified Status: Acute (3) CHF (congestive heart failure) Code(s): I50.9 - Heart failure, unspecified Status: Acute (4) Atrial fibrillation Code(s): I48.91 - Unspecified atrial fibrillation Status: Acute (5) NSTEMI (non-ST elevated myocardial infarction) Code(s): I21.4 - Non-ST elevation (NSTEMI) myocardial infarction Status: Acute (6) COPD (chronic obstructive pulmonary disease) Code(s): J44.9 - Chronic obstructive pulmonary disease, unspecified Status: Acute (7) Cardiorespiratory arrest Code(s): I46.9 - Cardiac arrest, cause unspecified Status: Acute (8) Elevated troponin I level Code(s): R74.8 - Abnormal levels of other serum enzymes Status: Acute (9) Lung cancer Code(s): C34.90 - Malignant neoplasm of unspecified part of unspecified bronchus or lung Status: Chronic - Plan 1.) NSTEMI - 70% prox lad @ 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
[2017-12-09] MEDS ORDERED: Dextrose 50% in Water 50 ML Vial IV.PUSH PRN (14:04)
[2017-12-09] MEDS: Senna/Docusate Sodium 8.6/50 MG Tablet PO SCH ×2 (14:13→21:05)
--- NOTE | 2017-12-09 14:54 | P.CON ---
History of Present Illness Service: CT Surgery Consult date: 12/09/17 Requesting Physician: Damian Kim Reason for Consult: Shortness of breath, CAD, syncope Primary Care Provider: UNKNOWN Chief Complaint: Cardiopulmonary arrest. History of Present Illness: 77y/o male visiting from [place], [place] experienced a syncopal episode while stopping at a rest room near [place]. He was reported to be in asystole at some point. He presented to [facility] and ruled-in for NSTEMI based on troponin of 0.11. He underwent ECHO and LHC/RHC. He has a h/o LAD stent placement in the past. He has a h/o lung cancer s/p lung resection x 2 6 and 8 yrs ago. He has class 4 symptoms with dyspnea after walking ~8 feet. He smoked in the past , but quit ~20 yrs ago. His LHC/RHC is remarkable for moderate pulmonary HTN with an EF ~40%. He has ~50% stenosis in the LCx and ~60-70% lesion in the LAD. His ECHO is notable for severe with a calculated JOSE~0.6-0.8cm2. He has a h/o chronic AFIB and takes Eliquis. He denies chest pain, PND, orthopnea. The patient has significant COPD and is on steroids. He denies diabetes, but has been very hyperglycemic here. His HbA1c is ~9%. Review of Systems Constitutional: Reports fatigue, Denies anorexia, Denies body ache(s), Denies chills, Denies daytime sleepiness, Denies excessive sweating, Denies fever(s), Denies headache(s), Denies increased appetite, Denies lack of energy, Denies malaise, Denies night sweats, Denies weakness, Denies weight gain, Denies weight loss, Denies other Eyes: Denies blind spots, Denies blurry vision, Denies bulging eyes, Denies change in vision, Denies double vision, Denies discharge, Denies dry eyes, Denies floaters, Denies irritation, Denies itchy eyes, Denies loss of vision, Denies pain, Denies requires corrective lenses, Denies sensitivity to light, Denies other Ears, Nose, Mouth, and Throat: Denies abnormal hearing, Denies bleeding gums, Denies bad breath, Denies change in voice, Denies dental pain, Denies difficulty swallowing, Denies dizziness, Denies dry mouth, Denies ear discharge , Denies ear pain, Denies facial pain, Denies headache(s), Denies hearing loss, Denies hoarseness, Denies lip swelling, Denies nosebleed, Denies mouth lesions, Denies mouth pain, Denies nasal congestion, Denies nasal discharge, Denies nasal obstruction, Denies nasal trauma, Denies neck lump, Denies neck pain, Denies nose pain, Denies pain with swallowing, Denies poor balance, Denies post nasal drip, Denies ringing in the ears, Denies sinus pain, Denies sinus pressure , Denies sore throat, Denies throat swelling, Denies tongue swelling, Denies other Cardiovascular: Reports shortness of breath, Reports shortness of breath with activity, Denies chest pain, Denies chest pain at rest, Denies chest pain with activity, Denies excessive sweating, Denies fainting, Denies fast heart rate, Denies foot swelling, Denies generalized swelling, Denies irregular heart rhythm , Denies leg pain with activity, Denies leg sores, Denies leg swelling, Denies lightheadedness, Denies radiating jaw, neck or arm pain, Denies rapid, pounding , or irregular heartbeat, Denies shortness of breath when lying down, Denies shortness of breath causing sudden awakening, Denies slow heart rate, Denies other Respiratory: Reports cough, Reports shortness of breath, Reports shortness of breath with activity, Denies change in phlegm color, Denies chest congestion, Denies coughing up blood, Denies excessive phlegm production, Denies pain on inspiration, Denies pain with cough, Denies snoring, Denies stridor, Denies wheezing, Denies other Gastrointestinal: Denies abdominal pain, Denies belching, Denies black, tarry stools, Denies bloating, Denies bright, red blood in stools, Denies change in bowel habits, Denies constant urge to pass stool, Denies change in stools, Denies coffee ground vomit, Denies constipation, Denies cramping, Denies difficulty swallowing, Denies excessive passing of gas, Denies feeling full early, Denies heartburn, Denies incontinent of stools, Denies loose stools, Denies nausea, Denies pain with swallowing, Denies vomiting, Denies vomiting blood, Denies other Genitourinary: Denies blood in semen, Denies blood in urine, Denies decreased urination, Denies difficulty urinating, Denies difficulty with ejaculations, Denies erectile dysfunction, Denies genital lesions, Denies genital pain, Denies painful urination, Denies side pain, Denies frequent nighttime urination , Denies painful ejaculations, Denies penile discharge, Denies scrotal swelling , Denies testicle lump, Denies testicle pain, Denies urinary frequency, Denies urinary hesitancy, Denies urinary incontinence, Denies urinary urgency, Denies other Musculoskeletal: Denies abnormal walking, Denies back pain, Denies body aches, Denies decreased muscle mass, Denies deformity, Denies joint pain, Denies joint swelling, Denies limited joint movement, Denies loss of height, Denies muscle cramps, Denies muscle weakness, Denies neck pain, Denies numbness, Denies radiating pain into limb, Denies stiffness, Denies tingling, Denies other Skin/Breast: Denies acne, Denies bleeding lesions, Denies boil, Denies breast swelling, Denies breast skin changes, Denies breast pain, Denies breast lump, Denies change in breast shape, Denies change in hair, Denies change in skin color, Denies changing lesions, Denies dry skin, Denies excessive hair growth, Denies hair loss, Denies itching, Denies lesions, Denies nail changes, Denies new lesions, Denies nipple discharge, Denies non-healing lesions, Denies redness , Denies sensitivity to light, Denies rash, Denies skin pain, Denies skin ulcer , Denies sores, Denies stretch ahuja, Denies unusual bruising, Denies wounds, Denies yellowing of the skin, Denies other Neurologic: Denies abnormal hearing, Denies abnormal movements, Denies abnormal speech, Denies abnormal walking, Denies behavioral changes, Denies burning sensations, Denies confusion, Denies dizziness, Denies fainting, Denies frequent falls, Denies headache(s), Denies lack of coordination, Denies localized weakness, Denies loss of vision, Denies memory loss, Denies numbness, Denies other visual disturbances, Denies radiating pain, Denies restless legs, Denies convulsions, Denies seizure-like activity, Denies sensory deficit, Denies tingling, Denies tingling/numbness/burning sensations, Denies tremor(s), Denies unsteadiness, Denies weakness, Denies other Psychiatric: Denies abnormal sleep pattern, Denies anxiety, Denies behavioral changes, Denies change in appetite, Denies change in sex drive, Denies confusion , Denies depression, Denies difficulty concentrating, Denies hearing things others do not hear, Denies hopelessness, Denies irritability, Denies lack of enjoyment, Denies memory loss, Denies mood swings, Denies panic attacks, Denies paranoia, Denies seeing things others do not see, Denies sensing things others do not sense, Denies tactile hallucinations, Denies thoughts of hurting/killing others, Denies thoughts of hurting/killing yourself, Denies other Endocrine: Denies cold intolerance, Denies excessive sweating, Denies flushing, Denies heat intolerance, Denies increased hunger, Denies increased thirst, Denies increased urination, Denies rapid, pounding, or irregular heartbeat, Denies other Hematologic/Lymphatic: Denies easy bleeding, Denies easy bruising, Denies enlarged lymph nodes, Denies other Allergic/Immunologic: Denies GI upset with certain foods, Denies hives, Denies itchy eyes, Denies lip swelling, Denies seasonal runny nose, Denies throat swelling, Denies tongue swelling, Denies wheezing, Denies other PMFSH - History History Provided By: Patient - Medical History Medical History: Medical History (Last Updated 12/09/17 @ 14:38 by Venus Newsome MD) CAD (coronary artery disease) CHF (congestive heart failure) Chronic atrial fibrillation Diabetes mellitus Port-A-Cath in place Afib COPD (chronic obstructive pulmonary disease) Hypertension Lung cancer Oxygen dependent Pneumonia - Surgical History Surgical History: Surgical History (Last Reviewed 12/09/17 @ 14:33 by Venus Newsome MD) History of lobectomy of lung - Tobacco History Second Hand Smoke Exposure: No Tobacco Use In Past 30 Days: No Smoking Status: Former smoker Tobacco Type: Cigarettes - Alcohol History How Often Do You Have a Drink Containing Alcohol: Never - Substance Use History Substance History: No History of Abuse - Travel History History of Recent Travel: Yes Recent Travel in the [place] Within the Last 8 Weeks: Yes Recent Travel Out of the Country Within the Last 8 Weeks: No Medications and Allergies Active Medications: Active Medications Acetaminophen (Tylenol) 650 mg PO Q6H PRN PRN Reason: PAIN 6-10 AND/OR FEVER >101F Hydrocodone Bitart/Acetaminophen ([place] 5/325) 1 tab PO Q4H PRN PRN Reason: PAIN SCALE 1 TO 5 Al Hydroxide/Mg Hydroxide (Milk Of Alejandro Liq) 30 ml PO Q12H PRN PRN Reason: Mild Constipation Albuterol (Duoneb Neb (Micaela)) 1 ampul NEB Q6HR WHILE AWAKE NEB [facility] Last Admin: 12/09/17 13:12 Dose: 1 ampul Albuterol (Duoneb Neb (Prn)) 1 ampul NEB Q2HR NEB PRN PRN Reason: SHORTNESS OF BREATH/WHEEZING Amlodipine Besylate (Norvasc) 5 mg PO DAILY [facility] Last Admin: 12/09/17 09:52 Dose: 5 mg Aspirin (Ecotrin) 81 mg PO DAILY [facility] Last Admin: 12/09/17 09:54 Dose: 81 mg Bisacodyl (Dulcolax Supp) 10 mg RECTAL DAILY PRN PRN Reason: SEVERE CONSITIPATION Chlorhexidine Gluconate (Peridex 0.12% Oral Kit) 15 ml OROPHARYNG BID@0800, 2000 [facility] Last Admin: 12/09/17 09:55 Dose: Not Given Chlorhexidine Gluconate (Chlorhexidine 2% Cloth) 3 pack TOPICAL DAILY@0400 [facility] Stop: 12/10/17 03:59 Last Admin: 12/09/17 03:30 Dose: Not Given Chlorhexidine Gluconate (Chlorhexidine 2% Cloth) 3 pack TOPICAL DAILY@0400 PRN PRN Reason: Extra cloth needed Stop: 12/10/17 03:59 Dextrose (D50w Vial) 50 ml IV.PUSH UNSCH PRN PRN Reason: PER HYPOGLYCEMIA PROTOCOL Dextrose (D50w Vial) 50 ml IV.PUSH UNSCH PRN PRN Reason: PER HYPOGLYCEMIA PROTOCOL Famotidine (Pepcid Pf Inj) 10 mg IV.PUSH Q12HR [facility] Last Admin: 12/09/17 09:53 Dose: 10 mg Folic Acid (Folic Acid) 1 mg PO DAILY [facility] Last Admin: 12/09/17 09:53 Dose: 1 mg Furosemide (Lasix) 40 mg PO DAILY [facility] Last Admin: 12/09/17 09:53 Dose: 40 mg Glucagon (Glucagon Inj) 1 mg OTHER PRN PRN PRN Reason: for Hypoglycemia Protocol Guaifenesin (Mucinex Er) 600 mg PO BID [facility] Last Admin: 12/09/17 09:53 Dose: 600 mg Insulin Aspart (Novolog Insulin Suppl Scale Inj) 0 unit SQ Q6HR [facility]; Protocol Last Admin: 12/09/17 14:12 Dose: 15 unit Lactulose (Lactulose Liq) 30 ml PO DAILY PRN PRN Reason: SEVERE CONSITIPATION Lisinopril (Prinivil) 20 mg PO DAILY [facility] Last Admin: 12/09/17 09:53 Dose: 20 mg Meclizine HCl (Antivert) 25 mg PO Q8HR PRN PRN Reason: Dizziness Last Admin: 12/09/17 09:58 Dose: 25 mg Methylprednisolone Sodium Succinate (Solumedrol Inj) 40 mg IV.PUSH Q8HR [facility] Last Admin: 12/09/17 14:11 Dose: 40 mg Morphine Sulfate (Morphine Inj) 2 mg IV.PUSH Q2H PRN PRN Reason: PAIN SCALE 6 TO 10 Morphine Sulfate (Morphine Inj) 2 mg IV.PUSH Q4H PRN PRN Reason: PAIN 6-10;IF UNABLE TO TAKE PO Nitroglycerin (Nitrostat Sl (Override)) 0.4 mg SL Q5M PRN PRN Reason: Chest Pain Ondansetron HCl (Zofran Odt) 4 mg PO Q6H PRN PRN Reason: NAUSEA OR VOMITING Pantoprazole Sodium (Protonix) 20 mg PO DAILY [facility] Last Admin: 12/09/17 09:52 Dose: 20 mg Potassium Chloride (K-Dur) 20 meq PO DAILY [facility] Last Admin: 12/09/17 09:52 Dose: 20 meq Pravastatin Sodium (Pravachol) 20 mg PO DAILY [facility] Last Admin: 12/09/17 09:53 Dose: 20 mg Senna/Docusate Sodium (Jamila-Colace) 1 tab PO BID [facility] Last Admin: 12/09/17 14:13 Dose: Not Given Sennosides (Senokot) 17.2 mg PO Q12H PRN PRN Reason: Moderate Constipation Sodium Chloride (Ns Flush) 2 ml IV.FLUSH BID [facility] Last Admin: 12/09/17 09:54 Dose: 2 ml Sodium Chloride (Ns Flush) 2 ml IV.FLUSH UNSCH PRN PRN Reason: FLUSH AFTER USING IV ACCESS Sodium Chloride (Ns Flush) 2 ml IV.FLUSH BID [facility] Last Admin: 12/09/17 09:58 Dose: Not Given Sodium Chloride (Ns Flush) 2 ml IV.FLUSH PRN PRN PRN Reason: FLUSH AFTER USING IV ACCESS Sodium Chloride (Ns Flush) 2 ml IV.FLUSH PRN PRN PRN Reason: FLUSH AFTER USING IV ACCESS Sodium Chloride (Ns Flush) 2 ml IV.FLUSH BID [facility] Allergies Allergy/AdvReac Type Severity Reaction Status Date / Time No Known Allergies Allergy Verified 12/04/17 09:42 Home Medications Medication Instructions Recorded Confirmed Type albuterol sulfate [ProAir HFA] 2 puff INHALATION Q4-6H PRN 12/04/17 12/08/17 History amlodipine 5 mg PO DAILY 12/04/17 12/05/17 History apixaban [Eliquis] 5 mg PO BID 12/04/17 12/08/17 History aspirin [Aspir-81] 81 mg PO DAILY 12/04/17 12/05/17 History folic acid 1 mg PO DAILY 12/04/17 12/05/17 History furosemide [Lasix] 40 mg PO DAILY 12/04/17 12/08/17 History ipratropium-albuterol 3 ml INHALATION Q6-8H PRN 12/04/17 12/08/17 History lisinopril 20 mg PO HS 12/04/17 12/05/17 History lisinopril-hydrochlorothiazide 1 tab PO DAILY 12/04/17 12/05/17 History meclizine 25 mg PO DAILY PRN 12/04/17 12/05/17 History nitroglycerin 0.4 mg SUBLINGUAL Q5-15M PRN 12/04/17 12/08/17 History potassium chloride 20 meq PO DAILY 12/04/17 12/05/17 History pravastatin 20 mg PO HS 12/04/17 12/05/17 History prednisone See Taper PO DIRECTED 12/04/17 12/08/17 History rabeprazole 20 mg PO DAILY 12/04/17 12/05/17 History Physical Exam Vital signs: Vital Signs 12/08/17 18:00 12/08/17 19:58 12/08/17 19:59 Temperature 97.2 F L Pulse Rate 95 H 93 H Respiratory Rate 20 16 Blood Pressure 156/84 H Pulse Oximetry 92 L 92 L 12/08/17 20:00 12/09/17 00:00 12/09/17 04:00 Temperature 98.2 F 98.3 F 98.1 F Pulse Rate 82 91 H 98 H Respiratory Rate 20 20 20 Blood Pressure 130/76 165/63 H 145/96 H Pulse Oximetry 91 L 97 92 L 12/09/17 07:40 12/09/17 08:00 12/09/17 13:13 Temperature 97.4 F L Pulse Rate 81 104 H 99 H Respiratory Rate 20 20 20 Blood Pressure 144/78 H Pulse Oximetry 90 L 94 L Intake & Output 12/08/17 12/09/17 12/09/17 18:59 06:59 18:59 Intake Total 100 / 100 120 / 120 Output Total 425 / 425 500 / 500 Balance -325 / -325 -380 / -380 Weight 82.8 kg Intake: IV 100 / 100 Heparin/NS PF Inj 1,000 ML @ 0 100 / 100 mls/hr .ROUTE .Spot formerly [facility] ONE Rx#: [id number] Oral 0 / 0 120 / 120 Output: Urine 425 / 425 500 / 500 Stool 0 / 0 Other: Date of Last Bowel Movement 12/07/17 # Bowel Movements 0 - Constitutional no acute distress - Routine HEENT Exam Head: Present: normocephalic, atraumatic Eye: Present: EOMI, PERRL, normal accommodation. Absent: conjunctival icterus ENT: Present: mucous membranes moist - Routine Neck Exam Present: supple, full ROM, trachea midline. Absent: JVD, carotid bruit - Routine Respiratory Exam Present: decreased breath sounds, rales, diminished air movement - Routine Cardiovascular Exam Present: irregularly irregular - Detailed Cardiovascular Exam: Murmur 1 Type: Present: holosystolic Location: Present: right sternal border Characteristics: Present: soft - Routine Abdominal Exam Present: soft, normoactive bowel sounds. Absent: tenderness, distended - Routine Extremities Exam Present: pulses intact. Absent: cyanosis, clubbing, edema - Routine Neurological Exam Present: alert, oriented X3, CN II-XII intact, vision grossly intact, hearing grossly intact - Routine Psychiatric Exam Present: normal affect, normal thought process - Urinary Catheter Management Indwelling Urethral Catheter Cath placed during this visit: no Assessment and Plan - Assessment (1) CAD (coronary artery disease) Code(s): I25.10 - Atherosclerotic heart disease of [place] coronary artery without angina pectoris Status: Acute (2) Combined systolic and diastolic congestive heart failure, NYHA class 4 Code(s): I50.40 - Unspecified combined systolic (congestive) and diastolic ( congestive) heart failure Status: Acute (3) Diabetes mellitus Code(s): E11.9 - Type 2 diabetes mellitus without complications Status: Acute (4) Pulmonary hypertension Code(s): I27.20 - Pulmonary hypertension, unspecified Status: Acute (5) COPD (chronic obstructive pulmonary disease) Code(s): J44.9 - Chronic obstructive pulmonary disease, unspecified Status: Acute (6) Aortic stenosis Code(s): I35.0 - Nonrheumatic aortic (valve) stenosis Status: Acute (7) Atrial fibrillation Code(s): I48.91 - Unspecified atrial fibrillation Status: Acute (8) NSTEMI (non-ST elevated myocardial infarction) Code(s): I21.4 - Non-ST elevation (NSTEMI) myocardial infarction Status: Acute - Plan Complex 77y/o male presents with NSTEMI and syncopal episode (? arrest). He has significant dyspnea with minimal exertion and is very frail. He also has significant COPD with steroid requirement, new Diabetes mellitus, and severe As on recent ECHO. His CAD is largely not obstructive with the LAD being the worst at 60-70%. His STS Risk for open AVR/CABG is: Risk Model and Variables - STS Adult Cardiac Surgery Database Version 2.81 RISK SCORES About the STS Risk Calculator Procedure: AV Replacement + CAB Risk of Mortality: 14.244% Morbidity or Mortality: 54.612% Long Length of Stay: 36.205% Short Length of Stay: 5.54% Permanent Stroke: 2.618% Prolonged Ventilation: 44.554% DSW Infection: 1.487% Renal Failure: 25.079% Reoperation: 18.567% Based on this risk assessment and his frailty, I would not consider open AVR/ CABG initially. I have requested PFTs. I will discuss further with Drs. Kim and Salomón, with regard to TAVR. Will follow. (1) CAD (coronary artery disease) Qualifiers: Coronary Disease-Associated Artery/Lesion type: [place] artery [place] vs. transplanted heart: [place] heart Associated angina: with other forms of angina Qualified Code(s): I25.118 - Atherosclerotic heart disease of [place] coronary artery with other forms of angina pectoris (2) Combined systolic and diastolic congestive heart failure, NYHA class 4 Qualifiers: Congestive heart failure chronicity: acute on chronic Qualified Code(s): I50.43 - Acute on chronic combined systolic (congestive) and diastolic ( congestive) heart failure (3) Diabetes mellitus Qualifiers: Diabetes mellitus type: type 2 Diabetes mellitus complication status: with hyperglycemia (5) 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 (6) Aortic stenosis Qualifiers: Cardiac valve disease etiology: etiology unspecified Qualified Code(s): I35.0 - Nonrheumatic aortic (valve) stenosis (7) Atrial fibrillation Qualifiers: Atrial fibrillation type: chronic Qualified Code(s): I48.2 - Chronic atrial fibrillation
--- NOTE | 2017-12-09 19:35 | US ---
EXAM DATE: 12/09/2017 6:53 PM EDT AGE/SEX: 77 years / Male INDICATIONS: Preop cardiac surgery. CLINICAL DATA: This is the patient's initial encounter. Patient reports that signs and symptoms have been present for 1 day and indicates a pain score of 0/10. MEDICAL/SURGICAL HISTORY: . CAD. CHF. Afib. COPD. HTN. Lung cancer. . Port a cath. Lobe ctomy; lung. COMPARISON: No prior exams available for comparison. TECHNIQUE: Venous ultrasound of both lower extremities was performed from the inguinal ligament to t he proximal calf. Real-time, color Doppler and spectral tracing, compression and augmentation techni ques were used. FINDINGS: Right Leg: Normal compression of the deep venous system from the inguinal region to the proximal tamara f. No echogenic clot is seen. Normal response of the venous system to augmentation and respiration. Left Leg: Normal compression of the deep venous system from the inguinal region to the proximal calf . No echogenic clot is seen. Normal response of the venous system to augmentation and respiration. Other: None. CONCLUSION: 1. The study is negative for bilateral lower extremity deep venous thrombosis. Electronically signed by: Andrez Gentile MD 12/09/2017 7:34 PM EDT
--- NOTE | 2017-12-09 19:36 | US ---
EXAM DATE: 12/09/2017 7:00 PM EDT AGE/SEX: 77 years / Male INDICATIONS: Preop cardiac surgery. CLINICAL DATA: This is the patient's initial encounter. Patient reports that signs and symptoms have been present for 1 day and indicates a pain score of 0/10. MEDICAL/SURGICAL HISTORY: . CAD. CHF. Afib. COPD. HTN. Lung cancer. . Port a cath. Lobe ctomy; lung. COMPARISON: No prior exams available for comparison. MEASUREMENTS: RIGHT THIGH: Proximal:__9 mm Mid:__ 4 mm Distal:__2 mm LEFT THIGH: Proximal:__8 mm Mid:__3 mm Distal:__2 mm RIGHT CALF: Proximal:__1 mm Mid:__Non-visualized Distal:__Non-visualized LEFT CALF: Proximal:__Non-visualized Mid:__Non-visualized Distal:__Non-visualized FINDINGS: The venous system of the lower extremities are patent by color Doppler imaging. Measurements of the leg veins (in mm) are listed above. CONCLUSION: 1. Greater saphenous vein venous mapping with measurements as above. Electronically signed by: Andrez Gentile MD 12/09/2017 7:35 PM EDT
[2017-12-09 19:54] LABS: Bilirubin,Urine Negative (Negative); Clarity,Urine Clear (Clear); Color,Urine Yellow (Yellw/Straw); Glucose,Urine (UA) 50 mg/dL (Negative); Leukocyte Esterase,Urine Negative (Negative); Nitrite,Urine Negative (Negative)
--- NOTE | 2017-12-09 19:54 | US ---
EXAM DATE: 12/09/2017 6:58 PM EDT AGE/SEX: 77 years / Male INDICATIONS: Occlusion. Preop cardiac surgery. CLINICAL DATA: This is the patient's initial encounter. Patient reports that signs and symptoms have been present for 1 day and indicates a pain score of 0/10. MEDICAL/SURGICAL HISTORY: . CAD. CHF. Afib. COPD. HTN. Lung cancer. . Port a cath. Lobe ctomy; lung. COMPARISON: No prior exams available for comparison. VELOCITY PARAMETERS: ICA/CCA Ratio: Right 1.0 , Left 1.3 ICA: Right 54.5 cm/sec, Left 61.5 cm/sec CCA: Right 52.8 cm/sec, Left 46.6 cm/sec ECA: Right 39.3 cm/sec, Left 46.6 cm/sec Vertebral: Right Not visualized. , Left 34.5 cm/sec antegrade FINDINGS: Right Carotid: Mild arteriosclerotic plaque is visualized.The waveforms are within normal limits. Left Carotid: Mild arteriosclerotic plaque is visualized. The waveforms are within normal limits. Other: None. CONCLUSION: 1. Right Internal Carotid Artery: Findings indicate <50% stenosis. 2. Left Internal Carotid Artery: Findings indicate <50% stenosis. 3. No flow documented in the right vertebral artery. Electronically signed by: Andrez Gentile MD 12/09/2017 7:52 PM EDT
[2017-12-10] MEDS: Oral Hygiene Kit OROPHARYNG SCH ×2 (04:55→21:15)
[2017-12-10] MEDS: MethylPREDNISolone Sod Succinate Inj 40 MG/ML Vial IV.PUSH SCH ×3 (05:14→21:17)
[2017-12-10 07:40] LABS: Calcium 8.6 mg/dL (8.5-10.1); Carbon Dioxide 26.5 meq/L (21.0-32.0)
[2017-12-10] MEDS: Furosemide 40 MG Tablet PO SCH (10:01)
[2017-12-10] MEDS: Senna/Docusate Sodium 8.6/50 MG Tablet PO SCH ×2 (10:01→21:17)
[2017-12-10] MEDS: amLODIPine 5 MG Tablet PO SCH (10:01)
[2017-12-10] MEDS: Folic Acid 1 MG Tablet PO SCH (10:01)
[2017-12-10] MEDS: Lisinopril 20 MG Tablet PO SCH (10:01)
[2017-12-10] MEDS: guaiFENesin 600 MG ER Tablet PO SCH ×2 (10:01→21:17)
[2017-12-10] MEDS: Famotidine PF Inj 20 MG/2 ML Vial IV.PUSH SCH ×2 (10:02→21:17)
[2017-12-10] MEDS: Pantoprazole Sodium 20 MG DR Tablet PO SCH (10:02)
--- NOTE | 2017-12-10 10:56 | P.PNIM ---
Subjective Interval history: f/u; CAD in no acute distress but still with some sob. denies chest pain. no fever. no new complaints. Physical Exam Vital signs: Vital Signs 12/09/17 12:00 12/09/17 13:13 12/09/17 16:00 Temperature 97.1 F L 97.3 F L Pulse Rate 108 H 99 H 111 H Respiratory Rate 20 20 20 Blood Pressure 124/70 130/62 Pulse Oximetry 92 L 91 L 12/09/17 20:00 12/10/17 00:00 12/10/17 04:00 Temperature 97.3 F L 97.1 F L 97.5 F L Pulse Rate 97 H 101 H 88 Respiratory Rate 20 20 20 Blood Pressure 114/61 108/63 114/72 Pulse Oximetry 95 92 L 92 L 12/10/17 07:53 12/10/17 08:00 Temperature 97.5 F L Pulse Rate 53 L 97 H Respiratory Rate 18 20 Blood Pressure 120/69 Pulse Oximetry 97 91 L Intake & Output 12/09/17 12/10/17 12/10/17 18:59 06:59 18:59 Intake Total 1200 / 1200 120 / 120 Output Total 300 / 300 600 / 600 Balance 900 / 900 -480 / -480 Weight 82.1 kg Intake: Oral 1200 / 1200 120 / 120 Output: Urine 300 / 300 600 / 600 Other: # Voids 1 Date of Last Bowel Movement 12/07/17 # Bowel Movements 1 - Constitutional mild distress - Routine Respiratory Exam Present: diminished air movement (bases bilaterally.) - Routine Cardiovascular Exam Present: RRR - Routine Abdominal Exam Present: soft - Routine Extremities Exam Comments: no pedal edema. - Routine Neurological Exam Present: alert, oriented X3 - Urinary Catheter Management Indwelling Urethral Catheter Cath placed during this visit: no Results - Labs CBC & Chem 7: 12/09/17 08:33 12/10/17 06:25 Laboratory Results - last 24 hr 12/09/17 12/09/17 12/09/17 12:38 18:54 19:28 Sodium Potassium Chloride Carbon Dioxide Anion Gap BUN Creatinine Estimated GFR POC Glucose 295 H 236 H Random Glucose Calcium Urine Color Yellow Urine Clarity Clear Urine pH 5.0 Ur Specific [place] 1.020 Urine Protein Negative Urine Glucose (UA) 50 Urine Ketones Negative Urine Occult Blood Negative Urine Nitrate Negative Urine Bilirubin Negative Urine Urobilinogen Less than 2 Ur Leukocyte Esterase Negative Urine RBC 1 Urine WBC 2 Micro UA Comment Culture not ind Urine Culture Comments Culture not ind Nasal Screen MRSA (PCR) 12/09/17 12/09/17 12/10/17 19:48 21:00 06:25 Sodium 141 Potassium 5.0 Chloride 105 Carbon Dioxide 26.5 Anion Gap 10 BUN 52 H Creatinine 1.79 H Estimated GFR 37 L POC Glucose 258 H Random Glucose 359 H D Calcium 8.6 Urine Color Urine Clarity Urine pH Ur Specific [place] Urine Protein Urine Glucose (UA) Urine Ketones Urine Occult Blood Urine Nitrate Urine Bilirubin Urine Urobilinogen Ur Leukocyte Esterase Urine RBC Urine WBC Micro UA Comment Urine Culture Comments Nasal Screen MRSA (PCR) Not detected - Imaging Impressions Carotid Doppler Study 12/09/17 14:04 CONCLUSION: 1. Right Internal Carotid Artery: Findings indicate <50% stenosis. 2. Left Internal Carotid Artery: Findings indicate <50% stenosis. 3. No flow documented in the right vertebral artery. Lower Extremity Ultrasound 12/09/17 14:04 CONCLUSION: 1. Greater saphenous vein venous mapping with measurements as above. Venous Doppler Study 12/09/17 14:04 CONCLUSION: 1. The study is negative for bilateral lower extremity deep venous thrombosis. Assessment and Plan - Plan A/P CAD- cardiomyopathy/ s/p cardiac cath with moderate to severe two-vessel disease / aortic stenosis on echo continue aspirin and statin-oral anticoagulation oh hold till CT surgery recommendations. CT surgery consult appreciated; possible TAVR. respiratory failure/ with history of lung cancer- keep on oxygen to keep O2 sat >90%-continue Bronchodilators. Short-term steroids. MUCINEX continue neb treatment pulmonary and oncology following. Hyperglycemia probably related to his outpatient steroid bolus. Sliding scale insulin coverage . leukocytosis- likely due to steroids- no fever- will monitor. resume NOAC - pending CT surgery recommendations- Discharge Planning: awaiting CT surgery recommendations. not ready for discharge.
--- NOTE | 2017-12-10 13:06 | P.PNCA ---
Subjective Interval history: alert in nad Physical Exam Vital signs: Vital Signs 12/09/17 13:13 12/09/17 16:00 12/09/17 20:00 Temperature 97.3 F L 97.3 F L Pulse Rate 99 H 111 H 97 H Respiratory Rate 20 20 20 Blood Pressure 130/62 114/61 Pulse Oximetry 91 L 95 12/10/17 00:00 12/10/17 04:00 12/10/17 07:53 Temperature 97.1 F L 97.5 F L Pulse Rate 101 H 88 53 L Respiratory Rate 20 20 18 Blood Pressure 108/63 114/72 Pulse Oximetry 92 L 92 L 97 12/10/17 08:00 Temperature 97.5 F L Pulse Rate 97 H Respiratory Rate 20 Blood Pressure 120/69 Pulse Oximetry 91 L Intake & Output 12/09/17 12/10/17 12/10/17 18:59 06:59 18:59 Intake Total 1200 / 1200 120 / 120 Output Total 300 / 300 600 / 600 Balance 900 / 900 -480 / -480 Weight 82.1 kg Intake: Oral 1200 / 1200 120 / 120 Output: Urine 300 / 300 600 / 600 Other: # Voids 1 Date of Last Bowel Movement 12/07/17 # Bowel Movements 1 - Urinary Catheter Management Indwelling Urethral Catheter Cath placed during this visit: no Assessment and Plan - Assessment (1) Aortic stenosis Code(s): I35.0 - Nonrheumatic aortic (valve) stenosis Status: Acute (2) Cardiomyopathy Code(s): I42.9 - Cardiomyopathy, unspecified Status: Acute (3) CHF (congestive heart failure) Code(s): I50.9 - Heart failure, unspecified Status: Acute (4) Atrial fibrillation Code(s): I48.91 - Unspecified atrial fibrillation Status: Acute (5) NSTEMI (non-ST elevated myocardial infarction) Code(s): I21.4 - Non-ST elevation (NSTEMI) myocardial infarction Status: Acute (6) COPD (chronic obstructive pulmonary disease) Code(s): J44.9 - Chronic obstructive pulmonary disease, unspecified Status: Acute (7) Cardiorespiratory arrest Code(s): I46.9 - Cardiac arrest, cause unspecified Status: Acute (8) Elevated troponin I level Code(s): R74.8 - Abnormal levels of other serum enzymes Status: Acute (9) Lung cancer Code(s): C34.90 - Malignant neoplasm of unspecified part of unspecified bronchus or lung Status: Chronic - Plan 1.) NSTEMI - 70% prox lad @ 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 2.) CHF - euvolemic 3.) - mean gradient on echo =23 mmhg, pull back gradient @ 20 on cath, difficult to ascertain due frequent ectopy; i alex d/w Minor echo findings and a mean av gradient =20 is moderate as and therefore tavr not indicated (1) Aortic stenosis Qualifiers: Cardiac valve disease etiology: etiology unspecified Qualified Code(s): I35.0 - Nonrheumatic aortic (valve) stenosis (4) Atrial fibrillation Qualifiers: Atrial fibrillation type: chronic Qualified Code(s): I48.2 - Chronic atrial fibrillation (6) 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
--- NOTE | 2017-12-10 13:43 | P.PNPL ---
Subjective Interval history: 77 YOWM from [place] with cardiac arrest,ca lung Breathing better Mild sob No CP Had cardiac cath Seen by Up in chair,anxious Physical Exam Vital signs: Vital Signs 12/09/17 16:00 12/09/17 20:00 12/10/17 00:00 Temperature 97.3 F L 97.3 F L 97.1 F L Pulse Rate 111 H 97 H 101 H Respiratory Rate 20 20 20 Blood Pressure 130/62 114/61 108/63 Pulse Oximetry 91 L 95 92 L 12/10/17 04:00 12/10/17 07:53 12/10/17 08:00 Temperature 97.5 F L 97.5 F L Pulse Rate 88 53 L 97 H Respiratory Rate 20 18 20 Blood Pressure 114/72 120/69 Pulse Oximetry 92 L 97 91 L 12/10/17 12:00 Temperature 97.2 F L Pulse Rate 78 Respiratory Rate 20 Blood Pressure 126/67 Pulse Oximetry 98 Intake & Output 12/09/17 12/10/17 12/10/17 18:59 06:59 18:59 Intake Total 1200 / 1200 120 / 120 Output Total 300 / 300 600 / 600 Balance 900 / 900 -480 / -480 Weight 82.1 kg Intake: Oral 1200 / 1200 120 / 120 Output: Urine 300 / 300 600 / 600 Other: # Voids 1 Date of Last Bowel Movement 12/07/17 # Bowel Movements 1 GENERAL: Eldelry WM,NAD SKIN: Warm and dry. HEAD: Normocephalic. EYES: No scleral icterus. No injection or drainage. NECK: Supple, trachea midline. No JVD or lymphadenopathy. CARDIOVASCULAR: Regular rate and rhythm without murmurs, gallops, or rubs. RESPIRATORY: Breath sounds equal bilaterally. No accessory muscle use. GASTROINTESTINAL: Abdomen soft, non-tender, nondistended. MUSCULOSKELETAL: No cyanosis, or edema. BACK: Nontender without obvious deformity. No CVA tenderness. - Urinary Catheter Management Indwelling Urethral Catheter Cath placed during this visit: no Assessment and Plan - Plan IMPRESSION: 1. Chronic obstructive pulmonary disease . 2. Coronary artery disease, status post cardiac arrest. 3. Carcinoma of the lung with metastasis. 4. Recent pleural effusion, status post thoracentesis. 5. Atrial fibrillation. PLAN: Aerosol nebs Supplement [address] eff Check PFT DW pt and his
[2017-12-10] MEDS: Nystatin Liq 500,000 UNIT/5 ML UDC SWISH-SWAL SCH ×2 (19:39→21:17)
[2017-12-10] MEDS: Chlorhexidine 0.12% Oral Kit 15 ML UDC OROPHARYNG SCH (21:16)
[2017-12-11] MEDS: Oral Hygiene Kit OROPHARYNG SCH ×3 (03:43→13:23)
[2017-12-11] MEDS: MethylPREDNISolone Sod Succinate Inj 40 MG/ML Vial IV.PUSH SCH (05:25)
[2017-12-11] MEDS: guaiFENesin 600 MG ER Tablet PO SCH ×2 (09:42→20:56)
[2017-12-11] MEDS: Nystatin Liq 500,000 UNIT/5 ML UDC SWISH-SWAL SCH ×4 (09:42→20:57)
[2017-12-11] MEDS: Lisinopril 20 MG Tablet PO SCH (09:42)
[2017-12-11] MEDS: amLODIPine 5 MG Tablet PO SCH (09:42)
[2017-12-11] MEDS: Pantoprazole Sodium 20 MG DR Tablet PO SCH (09:42)
[2017-12-11] MEDS: Folic Acid 1 MG Tablet PO SCH (09:43)
[2017-12-11] MEDS: Famotidine PF Inj 20 MG/2 ML Vial IV.PUSH SCH ×2 (09:43→20:57)
[2017-12-11] MEDS: Furosemide 40 MG Tablet PO SCH (09:43)
--- NOTE | 2017-12-11 10:22 | P.PNCA ---
Subjective Interval history: alert in nad Physical Exam Vital signs: Vital Signs 12/10/17 12:00 12/10/17 16:00 12/10/17 20:00 Temperature 97.2 F L 97.2 F L 97.9 F Pulse Rate 78 104 H 112 H Respiratory Rate 20 20 19 Blood Pressure 126/67 106/75 117/87 Pulse Oximetry 98 92 L 93 L 12/11/17 00:00 12/11/17 04:00 12/11/17 08:00 Temperature 97.8 F 97.6 F 96.5 F L Pulse Rate 89 82 85 Respiratory Rate 18 18 20 Blood Pressure 116/76 103/83 114/57 L Pulse Oximetry 97 95 99 Intake & Output 12/10/17 12/11/17 12/11/17 18:59 06:59 18:59 Intake Total 420 / 420 Output Total 400 / 400 1400 / 1400 Balance -400 / -400 -980 / -980 Weight 84.7 kg Intake: Oral 420 / 420 Output: Urine 400 / 400 1400 / 1400 - Urinary Catheter Management Indwelling Urethral Catheter Cath placed during this visit: no Assessment and Plan - Assessment (1) Aortic stenosis Code(s): I35.0 - Nonrheumatic aortic (valve) stenosis Status: Acute (2) Cardiomyopathy Code(s): I42.9 - Cardiomyopathy, unspecified Status: Acute (3) CHF (congestive heart failure) Code(s): I50.9 - Heart failure, unspecified Status: Acute (4) Atrial fibrillation Code(s): I48.91 - Unspecified atrial fibrillation Status: Acute (5) NSTEMI (non-ST elevated myocardial infarction) Code(s): I21.4 - Non-ST elevation (NSTEMI) myocardial infarction Status: Acute (6) COPD (chronic obstructive pulmonary disease) Code(s): J44.9 - Chronic obstructive pulmonary disease, unspecified Status: Acute (7) Cardiorespiratory arrest Code(s): I46.9 - Cardiac arrest, cause unspecified Status: Acute (8) Elevated troponin I level Code(s): R74.8 - Abnormal levels of other serum enzymes Status: Acute (9) Lung cancer Code(s): C34.90 - Malignant neoplasm of unspecified part of unspecified bronchus or lung Status: Chronic - Plan 1.) NSTEMI - 70% prox lad @ 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, f/u CT surgery final recommendations for cabg to lad and diagonal 2.) CHF - euvolemic, continue lasix and lisinopril, beta william held due to copd, f/u bmp, bnp 3.) - mean gradient on echo =23 mmhg, pull back gradient @ 20 on cath, difficult to ascertain due frequent ectopy; taz johnson d/w Minor echo findings and a mean av gradient =20 is moderate as and therefore tavr not indicated (1) Aortic stenosis Qualifiers: Cardiac valve disease etiology: etiology unspecified Qualified Code(s): I35.0 - Nonrheumatic aortic (valve) stenosis (4) Atrial fibrillation Qualifiers: Atrial fibrillation type: chronic Qualified Code(s): I48.2 - Chronic atrial fibrillation (6) 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
--- NOTE | 2017-12-11 10:30 | P.PNIM ---
Subjective Interval history: with mild sob/ on three liters of oxygen via [place]. denies chest pain. no fever. no new complaints. Physical Exam Vital signs: Vital Signs 12/10/17 12:00 12/10/17 16:00 12/10/17 20:00 Temperature 97.2 F L 97.2 F L 97.9 F Pulse Rate 78 104 H 112 H Respiratory Rate 20 20 19 Blood Pressure 126/67 106/75 117/87 Pulse Oximetry 98 92 L 93 L 12/11/17 00:00 12/11/17 04:00 12/11/17 08:00 Temperature 97.8 F 97.6 F 96.5 F L Pulse Rate 89 82 85 Respiratory Rate 18 18 20 Blood Pressure 116/76 103/83 114/57 L Pulse Oximetry 97 95 99 12/11/17 10:20 Temperature Pulse Rate Respiratory Rate Blood Pressure Pulse Oximetry 92 L Intake & Output 12/10/17 12/11/17 12/11/17 18:59 06:59 18:59 Intake Total 420 / 420 Output Total 400 / 400 1400 / 1400 Balance -400 / -400 -980 / -980 Weight 84.7 kg Intake: Oral 420 / 420 Output: Urine 400 / 400 1400 / 1400 - Constitutional mild distress - Routine Respiratory Exam Present: CTA bilaterally - Routine Cardiovascular Exam Present: RRR - Routine Abdominal Exam Present: soft - Routine Extremities Exam Comments: no pedal edema. - Routine Neurological Exam Present: alert, oriented X3 - Urinary Catheter Management Indwelling Urethral Catheter Cath placed during this visit: no Results - Labs CBC & Chem 7: 12/09/17 08:33 12/10/17 06:25 Laboratory Results - last 24 hr 12/11/17 05:27 POC Glucose 453 H* Assessment and Plan - Plan A/P CAD- cardiomyopathy/ s/p cardiac cath with moderate to severe two-vessel disease / aortic stenosis on echo continue aspirin and statin-oral anticoagulation oh hold till CT surgery recommendations. cardiology following. respiratory failure/ with history of lung cancer- keep on oxygen to keep O2 sat >90%-continue Bronchodilators. Short-term steroids; will taper down the IV steroids. continue neb treatment pulmonary and oncology following. Hyperglycemia probably related to his outpatient steroid bolus. Sliding scale insulin coverage . blood sugar levels expected to improve as steroid is being tapered down. leukocytosis- likely due to steroids- no fever- will monitor. resume NOAC - pending CT surgery recommendations- Discharge Planning: awaiting CT surgery recommendations.
--- NOTE | 2017-12-11 11:15 | P.PNPL ---
Subjective Interval history: 77 YOWM from [place] with cardiac arrest,ca lung Breathing better Mild sob No CP Up in chair,anxious No new complaint Physical Exam Vital signs: Vital Signs 12/10/17 12:00 12/10/17 16:00 12/10/17 20:00 Temperature 97.2 F L 97.2 F L 97.9 F Pulse Rate 78 104 H 112 H Respiratory Rate 20 20 19 Blood Pressure 126/67 106/75 117/87 Pulse Oximetry 98 92 L 93 L 12/11/17 00:00 12/11/17 04:00 12/11/17 08:00 Temperature 97.8 F 97.6 F 96.5 F L Pulse Rate 89 82 85 Respiratory Rate 18 18 20 Blood Pressure 116/76 103/83 114/57 L Pulse Oximetry 97 95 99 12/11/17 10:20 Temperature Pulse Rate Respiratory Rate Blood Pressure Pulse Oximetry 92 L Intake & Output 12/10/17 12/11/17 12/11/17 18:59 06:59 18:59 Intake Total 420 / 420 Output Total 400 / 400 1400 / 1400 Balance -400 / -400 -980 / -980 Weight 84.7 kg Intake: Oral 420 / 420 Output: Urine 400 / 400 1400 / 1400 GENERAL: Eldely Wm,NAD SKIN: Warm and dry. HEAD: Normocephalic. EYES: No scleral icterus. No injection or drainage. NECK: Supple, trachea midline. No JVD or lymphadenopathy. CARDIOVASCULAR: Regular rate and rhythm without murmurs, gallops, or rubs. RESPIRATORY: Breath sounds equal bilaterally. No accessory muscle use. GASTROINTESTINAL: Abdomen soft, non-tender, nondistended. MUSCULOSKELETAL: No cyanosis, or edema. BACK: Nontender without obvious deformity. No CVA tenderness. - Urinary Catheter Management Indwelling Urethral Catheter Cath placed during this visit: no Assessment and Plan - Plan IMPRESSION: 1. Chronic obstructive pulmonary disease . 2. Coronary artery disease, status post cardiac arrest. 3. Carcinoma of the lung with metastasis. 4. Recent pleural effusion, status post thoracentesis. 5. Atrial fibrillation. PLAN: Aerosol nebs Supplement [address] eff Check PFT DW pt and his
[2017-12-11] MEDS: Senna/Docusate Sodium 8.6/50 MG Tablet PO SCH ×2 (12:17→21:01)
[2017-12-11] MEDS: Chlorhexidine 0.12% Oral Kit 15 ML UDC OROPHARYNG SCH ×2 (12:17→21:00)
[2017-12-11] MEDS: Insulin NovoLOG Aspart Correctional Sugar Inj SQ SCH ×2 (13:19→18:47)
[2017-12-11] MEDS ORDERED: MethylPREDNISolone Sod Succinate Inj 40 MG/ML Vial IV.PUSH SCH (18:00)
[2017-12-12] MEDS: Oral Hygiene Kit OROPHARYNG SCH ×5 (00:11→23:03)
[2017-12-12] MEDS: Insulin NovoLOG Aspart Correctional Sugar Inj SQ SCH ×5 (03:52→23:30)
[2017-12-12] MEDS: Chlorhexidine 0.12% Oral Kit 15 ML UDC OROPHARYNG SCH ×2 (09:40→20:20)
[2017-12-12] MEDS: Folic Acid 1 MG Tablet PO SCH (09:43)
[2017-12-12] MEDS: Pantoprazole Sodium 20 MG DR Tablet PO SCH (09:43)
[2017-12-12] MEDS: Nystatin Liq 500,000 UNIT/5 ML UDC SWISH-SWAL SCH ×4 (09:43→20:21)
[2017-12-12] MEDS: Lisinopril 20 MG Tablet PO SCH (09:44)
[2017-12-12] MEDS: amLODIPine 5 MG Tablet PO SCH (09:44)
[2017-12-12] MEDS: guaiFENesin 600 MG ER Tablet PO SCH ×2 (09:44→20:21)
[2017-12-12] MEDS: Senna/Docusate Sodium 8.6/50 MG Tablet PO SCH ×2 (09:45→20:24)
[2017-12-12] MEDS: Famotidine PF Inj 20 MG/2 ML Vial IV.PUSH SCH ×2 (09:45→20:20)
[2017-12-12] MEDS: Furosemide 40 MG Tablet PO SCH (09:46)
--- NOTE | 2017-12-12 11:02 | P.PNIM ---
Subjective Interval history: in no acute distress. looks and feels better today. sob seems better. no chest pain. no new complaints. Physical Exam Vital signs: Vital Signs 12/11/17 12:00 12/11/17 12:59 12/11/17 16:00 Temperature 97.1 F L 97.1 F L 97.3 F L Pulse Rate 86 86 90 Respiratory Rate 20 20 20 Blood Pressure 111/65 111/65 127/78 Pulse Oximetry 92 L 92 L 95 12/11/17 17:31 12/11/17 20:00 12/11/17 20:45 Temperature 97.3 F L Pulse Rate 95 H 95 H Respiratory Rate 21 Blood Pressure 141/75 H Pulse Oximetry 95 93 L 12/12/17 00:00 12/12/17 04:00 Temperature 97.2 F L 97.6 F Pulse Rate 71 77 Respiratory Rate 18 19 Blood Pressure 106/70 145/72 H Pulse Oximetry 97 94 L Intake & Output 12/11/17 12/12/17 12/12/17 18:59 06:59 18:59 Intake Total 240 / 240 Output Total 1401 / 1401 450 / 450 Balance -1401 / -1401 -210 / -210 Weight 83.1 kg Intake: Oral 240 / 240 Output: Urine 1400 / 1400 450 / 450 Stool 1 / Other: Date of Last Bowel Movement 12/11/17 - Constitutional no acute distress - Routine Respiratory Exam Present: CTA bilaterally - Routine Cardiovascular Exam Present: RRR - Routine Abdominal Exam Present: soft - Routine Extremities Exam Comments: mild bilateral pedal edema. - Routine Neurological Exam Present: alert, oriented X3 - Urinary Catheter Management Indwelling Urethral Catheter Cath placed during this visit: no Results - Labs CBC & Chem 7: 12/12/17 12:30 12/10/17 06:25 Laboratory Results - last 24 hr 12/11/17 12/11/17 12/11/17 06:25 12:13 16:46 POC Glucose 372 H 253 H Magnesium 2.5 B-Natriuretic Peptide 12/11/17 12/12/17 12/12/17 23:41 05:10 05:52 POC Glucose 178 H 135 H Magnesium B-Natriuretic Peptide 524 H Assessment and Plan - Plan A/P CAD- cardiomyopathy/ s/p cardiac cath with moderate to severe two-vessel disease / aortic stenosis on echo continue aspirin and statin-oral anticoagulation oh hold till CT surgery recommendations. cardiology following; spoke with and plan for stress-echo tomorrow. CT surgery following. respiratory failure/ with history of lung cancer- keep on oxygen to keep O2 sat >90%-continue Bronchodilators. will continue to taper down the IV steroids. continue neb treatment pulmonary and oncology following. diabetes mellitis; A1c 8.9 Sliding scale insulin coverage . will consider adding Levemir- blood sugar levels expected to improve as steroid is being tapered down. will continue to monitor. will consult critical care educator. leukocytosis- likely due to steroids- no fever- will monitor. resume NOAC - pending CT surgery recommendations- Discharge Planning: awaiting CT surgery f/u and recommendations.
[2017-12-12 12:56] LABS: Baso % (Auto) 0.1 % (0.0-2.0); Eos % (Auto) 0.2 % (0.0-4.0); Lymph # (Auto) 0.5 th/mm3 (1.0-4.8); Lymph % (Auto) 2.9 % (9.0-44.0); Mean Corpuscular HGB Conc 32.6 % (32.0-36.0); Mean Corpuscular Hemoglobin 28.9 pg (27.0-34.0); Mean Corpuscular Volume 88.6 fL (80.0-100.0); Mean Platelet Volume 10.7 fL (7.0-11.0); Mono # (Auto) 0.3 th/mm3 (0.0-0.9); Neut # (Auto) 15.2 th/mm3 (1.8-7.7); Neut % (Auto) 94.8 % (16.0-70.0); Platelet Count 111 th/mm3 (150-450); Red Blood Count 5.19 mil/mm3 (4.50-5.90); Red Cell Distribution Width 16.1 % (11.6-17.2)
--- NOTE | 2017-12-12 12:56 | MB ---
cc: Jasvir Lorenzana MD DATE: 12/12/2017 INDICATIONS: Aortic stenosis. REQUESTING PHYSICIAN: Dr. Venus Newsome. HISTORY OF PRESENT ILLNESS: This is a 77-year-old gentleman who is visiting here on vacation from [place], [place]. The patient has what sounds like a complicated past medical history with lung cancer, status post resection about 6 and 8 years ago. The patient has severe pulmonary hypertension in addition to known aortic stenosis. 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 Apparently, the patient was at a [employer] in [place]. He began to develop worsening shortness of breath walking in and out, sat down on a bench and that is the last thing he remembers. Apparently, there was a witnessed syncopal/cardiac arrest. He was reportedly in asystole and had to be resuscitated. He was brought directly to [facility]. There, he had a small troponin elevation. A transthoracic echocardiogram was performed, which showed reduced left ventricular systolic function and reduced aortic valve area. The patient was seen by Dr. Damian Kim of cardiology. He briefly discussed the case with me at the time of presentation. The patient has a history of chronic atrial fibrillation, on anticoagulation. 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 Dr. Venus Newsome, cardiothoracic surgery, was consulted for consideration of coronary artery bypass surgery. On evaluation of the patient, he was found to have very severe progressive shortness of breath over the course of the past few months and now can only walk about 8 feet without becoming terribly dyspneic. He also had at least moderate pulmonary hypertension noted. He reviewed the echocardiogram and felt that his aortic valve stenosis was more consistent with severe stenosis along with the reduced calculated aortic valve area. We were consulted for consideration of transcatheter aortic valve replacement. PAST MEDICAL HISTORY: 1. History of coronary artery disease as mentioned above. 2. History of acute on chronic systolic and diastolic congestive heart failure. 3. Chronic atrial fibrillation on anticoagulation. 4. Diabetes. 5. Atrial fibrillation. 6. COPD. 7. Hypertension. 8. Lung cancer, oxygen dependent. 9. Pneumonia. 10. Cardiac arrest as mentioned in history of present illness. SOCIAL HISTORY: Longtime tobacco user, but quit about 20 years ago. Denies any drug use or alcohol use. FAMILY HISTORY: Denies any family history of early coronary disease or sudden cardiac . MEDICATIONS: Please see medication reconciliation. ALLERGIES: NO KNOWN DRUG ALLERGIES. REVIEW OF SYSTEMS: A 12-point review of systems was performed and is negative otherwise as noted in the history of present illness. PHYSICAL EXAMINATION: VITAL SIGNS: Temperature is 97, pulse is 77, blood pressure 145/72 mmHg. GENERAL: Alert and oriented x 3, no acute distress. HEENT: Exam shows pupils reactive to light and accommodation. Extraocular movements are intact. NECK: Jugular veins minimally distended. No carotid bruits. No carotid bruits or lymphadenopathy. LUNGS: Clear to auscultation bilaterally. Decreased breath sounds throughout. No significant wheeze. CARDIOVASCULAR: Irregularly irregular with a 2/6 crescendo/decrescendo murmur at the right sternal border. ABDOMEN: Nontender, nondistended. Good bowel sounds. No hepatosplenomegaly. EXTREMITIES: Show no clubbing, cyanosis or edema. Good peripheral pulses. NEUROLOGIC: Cranial nerves intact. Motor and sensory grossly intact. LABORATORY DATA: WBC 20.7, hemoglobin 15.0, platelet count 114. Sodium 141, potassium 5.0, BUN 52, creatinine is 1.79. Electrocardiogram, normal sinus rhythm, incomplete right bundle branch block, nonspecific inferior T-wave abnormality. ASSESSMENT: 1. Aortic stenosis. 2. Coronary artery disease. 3. Coronary aneurysm. 4. Acute on chronic systolic/diastolic congestive heart failure. 5. Chronic obstructive pulmonary disease and lung cancer. 6. Pulmonary hypertension. PLAN: This is a complicated case. From an aortic valve perspective, the patient appears to have low flow, low gradient aortic valve stenosis. It is unclear whether the aortic valve severity is moderate or severe based on the aortic valve area alone due to decreased ejection fraction. A dobutamine echo would help to identify whether there is an increased gradient with augmented contractility consistent with severe aortic valve stenosis or whether the aortic valve area improves with increased stroke volume. We will make him n.p.o. and plan for a dobutamine echo tomorrow. We will have to monitor him closely given his atrial fibrillation and known coronary disease, but I think it is critical for decision making whether or not he has significant aortic valve stenosis, which requires intervention. From a transcatheter aortic valve replacement perspective, he obviously is not a good surgical candidate for either coronary bypass or aortic valve surgery due to his pulmonary hypertension and comorbidities, but his coronary artery disease is not amenable to percutaneous coronary intervention given the bifurcation location right at the level of the moderate to size aneurysm. Not repairing the coronary aneurysm does leave him at an increased risk for coronary rupture and/or thromboembolism. I discussed the case briefly with Dr. Newsome, in addition to Dr. Batista whether he would be a candidate at all for coronary bypass surgery without aortic valve replacement at that time. I think if his aortic valve has severe stenosis, we may have to consider transcatheter aortic valve replacement and a staged coronary bypass surgery down the road, which may be potentially a consideration in [place]. We will have to have a further discussion in the structural heart committee meeting tomorrow morning and help to decide what would be the best plan for this gentleman. Lastly, as a final alternative, we would optimize his medical regimen and have him try to get back to [place] for surgery or intervention given the anticipated long recovery time. He also may have to be a candidate for consideration of hospice or palliative type care. MD GAB Bradshaw/DL , 12:01 PM , 12:55 PM
--- NOTE | 2017-12-12 13:31 | P.PNCA ---
Subjective Interval history: alert in nad Physical Exam Vital signs: Vital Signs 12/11/17 16:00 12/11/17 17:31 12/11/17 20:00 Temperature 97.3 F L 97.3 F L Pulse Rate 90 95 H Respiratory Rate 20 21 Blood Pressure 127/78 141/75 H Pulse Oximetry 95 95 93 L 12/11/17 20:45 12/12/17 00:00 12/12/17 04:00 Temperature 97.2 F L 97.6 F Pulse Rate 95 H 71 77 Respiratory Rate 18 19 Blood Pressure 106/70 145/72 H Pulse Oximetry 97 94 L 12/12/17 08:00 12/12/17 12:34 Temperature 97.3 F L Pulse Rate 92 H Respiratory Rate 18 Blood Pressure 124/72 Pulse Oximetry 94 L 94 L Intake & Output 12/11/17 12/12/17 12/12/17 18:59 06:59 18:59 Intake Total 240 / 240 Output Total 1401 / 1401 450 / 450 Balance -1401 / -1401 -210 / -210 Weight 83.1 kg Intake: Oral 240 / 240 Output: Urine 1400 / 1400 450 / 450 Stool Other: Date of Last Bowel Movement 12/11/17 - Urinary Catheter Management Indwelling Urethral Catheter Cath placed during this visit: no Assessment and Plan - Assessment (1) Aortic stenosis Code(s): I35.0 - Nonrheumatic aortic (valve) stenosis Status: Acute (2) Cardiomyopathy Code(s): I42.9 - Cardiomyopathy, unspecified Status: Acute (3) CHF (congestive heart failure) Code(s): I50.9 - Heart failure, unspecified Status: Acute (4) Atrial fibrillation Code(s): I48.91 - Unspecified atrial fibrillation Status: Acute (5) NSTEMI (non-ST elevated myocardial infarction) Code(s): I21.4 - Non-ST elevation (NSTEMI) myocardial infarction Status: Acute (6) COPD (chronic obstructive pulmonary disease) Code(s): J44.9 - Chronic obstructive pulmonary disease, unspecified Status: Acute (7) Cardiorespiratory arrest Code(s): I46.9 - Cardiac arrest, cause unspecified Status: Acute (8) Elevated troponin I level Code(s): R74.8 - Abnormal levels of other serum enzymes Status: Acute (9) Lung cancer Code(s): C34.90 - Malignant neoplasm of unspecified part of unspecified bronchus or lung Status: Chronic - Plan 1.) NSTEMI - 70% prox lad @ 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, f/u CT surgery final recommendations for cabg to lad and diagonal 2.) CHF - euvolemic, continue lasix and lisinopril, beta william held due to copd, f/u bmp, bnp 3.) - mean gradient on echo =23 mmhg, pull back gradient @ 20 on cath, difficult to ascertain due frequent ectopy; taz johnson d/w Minor echo findings and a mean av gradient =20 is moderate as and therefore tavr not indicated (1) Aortic stenosis Qualifiers: Cardiac valve disease etiology: etiology unspecified Qualified Code(s): I35.0 - Nonrheumatic aortic (valve) stenosis (4) Atrial fibrillation Qualifiers: Atrial fibrillation type: chronic Qualified Code(s): I48.2 - Chronic atrial fibrillation (6) 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
[2017-12-12] MEDS: MethylPREDNISolone Sod Succinate Inj 40 MG/ML Vial IV.PUSH SCH (17:38)
--- NOTE | 2017-12-12 18:57 | P.PNPL ---
Subjective Interval history: 77 YOWM from [place] with cardiac arrest,ca lung Breathing better Mild sob No CP Family at BS Physical Exam Vital signs: Vital Signs 12/11/17 20:00 12/11/17 20:45 12/12/17 00:00 Temperature 97.3 F L 97.2 F L Pulse Rate 95 H 95 H 71 Respiratory Rate 21 18 Blood Pressure 141/75 H 106/70 Pulse Oximetry 93 L 97 12/12/17 04:00 12/12/17 08:00 12/12/17 12:00 Temperature 97.6 F Pulse Rate 77 103 H Respiratory Rate 19 Blood Pressure 145/72 H Pulse Oximetry 94 L 94 L 12/12/17 12:34 12/12/17 16:00 12/12/17 16:15 Temperature 97.3 F L 97.5 F L Pulse Rate 92 H 86 75 Respiratory Rate 18 18 Blood Pressure 124/72 115/68 Pulse Oximetry 94 L 91 L Intake & Output 12/11/17 12/12/17 12/12/17 18:59 06:59 18:59 Intake Total 240 / 240 240 / 240 Output Total 1401 / 1401 450 / 450 800 / 800 Balance -1401 / -1401 -210 / -210 -560 / -560 Weight 83.1 kg Intake: Oral 240 / 240 240 / 240 Output: Urine 1400 / 1400 450 / 450 800 / 800 Stool / Other: Date of Last Bowel Movement 12/11/17 GENERAL: Elderly WM,Mild sob SKIN: Warm and dry. HEAD: Normocephalic. EYES: No scleral icterus. No injection or drainage. NECK: Supple, trachea midline. No JVD or lymphadenopathy. CARDIOVASCULAR: Regular rate and rhythm without murmurs, gallops, or rubs. RESPIRATORY: Breath sounds equal bilaterally. No accessory muscle use. GASTROINTESTINAL: Abdomen soft, non-tender, nondistended. MUSCULOSKELETAL: No cyanosis, or edema. BACK: Nontender without obvious deformity. No CVA tenderness. - Urinary Catheter Management Indwelling Urethral Catheter Cath placed during this visit: no Assessment and Plan - Plan IMPRESSION: 1. Chronic obstructive pulmonary disease . 2. Coronary artery disease, status post cardiac arrest. 3. Carcinoma of the lung with metastasis. 4. Recent pleural effusion, status post thoracentesis. 5. Atrial fibrillation. PLAN: Aerosol nebs Supplement [address] eff Check PFT DW pt and his Cardiac gregorio underway.
[2017-12-13] MEDS: Oral Hygiene Kit OROPHARYNG SCH ×3 (04:30→18:03)
[2017-12-13] MEDS: MethylPREDNISolone Sod Succinate Inj 40 MG/ML Vial IV.PUSH SCH ×2 (04:46→18:17)
[2017-12-13] MEDS: Insulin NovoLOG Aspart Correctional Sugar Inj SQ SCH ×3 (05:03→18:17)
[2017-12-13 10:11] LABS: Calcium 8.1 mg/dL (8.5-10.1); Carbon Dioxide 28.3 meq/L (21.0-32.0); Potassium 4.2 meq/L (3.5-5.1)
[2017-12-13] MEDS ORDERED: DOBUTamine 250 MG/250 ML Premx 250 MG/250 ML BAG IV.CONT ONE (10:37)
[2017-12-13] MEDS ORDERED: Labetalol HCl Inj 100 MG/20 ML Vial ONE (10:40)
[2017-12-13] MEDS ORDERED: Nitroglycerin SL (Override) 0.4 MG Tab SL ONE (10:40)
--- NOTE | 2017-12-13 12:17 | ECHRPT ---
Indication: SHORTNESS OF BREATH, SEVERITY OF CONCLUSIONS Severe aortic valve stenosis confirmed with dobutamine stress echocardiography in the setting of low flow, low gradient aortic stenosis with reduced resting left ventricular systolic function. STRESS TEST Protocol: Dobutamine Duration (m:s): Dobutamine Dose: 5 mcg/kg/min Atropine Dose: Resting HR (bpm): Resting BP (mmHg): / MPHR: 143 Target HR: 122 Peak HR (bpm): Peak BP (mmHg): / % MPHR: Double Product: Target HR Summary: Test was terminated after reaching target heart rate (85% max predicted) BP Response: Normal blood pressure augementation Termination Reason:Target heart rate response was reached Cardiac Symptoms: None ECG ANALYSIS Resting ECG: Atrial fibrillation Stress ECG: No abnormal ST/T wave changes with exercise Arrhythmias: Atrial fibrillation REST ECHO FINDINGS Reduced left ventricular ejection fraction visually estimated between 40 and 45%. Aortic valve is t rileaflet and heavily calcified with reduced mobility. Resting mean gradient between 20 and 25 mmHg with a calculated aortic valve area less than 0.8 cm. STRESS ECHO FINDINGS Administration of dobutamine continuous drip was performed. There was appropriate augmentation of c ontractility and heart rate. We were able to obtain a peak velocity greater than 4.0 m/s with calculated aortic valve area less than 0.5 cm. Findings consistent with severe aortic valve stenosis. MEASUREMENTS (Male/Female) Normal Values 2D ECHO LV Diastolic Diameter EDIN 3.9 cm 4.2 - 5.9 / 3 RV Internal Dim ED PLAX 5.0 cm LV Systolic Diameter PLAX 3.5 cm LVOT Diameter 1.8 cm IVS Diastolic Thickness 1.0 cm 0.6 - 1.0 / 0 Aortic Root Diameter 3.1 cm LVPW Diastolic Thickness 1.0 cm 0.6 - 1.0 / 0 LA Systolic Diameter LX 3.6 cm 3.0 - 4 .0 / 2.7 - 3.8 cm LV Relative Wall Thicknes 0.5 DOPPLER AV Peak Velocity 371.6 cm/s LVOT Peak Gradient 0.8 mmHg AV Peak Gradient 55.2 mmHg LVOT Velocity Time Integr 7.3 cm AV Mean Gradient 26.6 mmHg AV Area Cont Eq vti 0.2 cm AV Velocity Time Integral 75.8 cm AV Area Cont Eq pk 0.3 cm LVOT Peak Velocity 43.4 cm/s Jasvir Lorenzana MD, FACC (Electronically Signed) Final Date:13 December 2017 12:16
[2017-12-13] MEDS: Chlorhexidine 0.12% Oral Kit 15 ML UDC OROPHARYNG SCH ×2 (12:50→21:35)
[2017-12-13] MEDS: Famotidine PF Inj 20 MG/2 ML Vial IV.PUSH SCH ×2 (13:09→21:34)
[2017-12-13] MEDS: Nystatin Liq 500,000 UNIT/5 ML UDC SWISH-SWAL SCH ×4 (13:09→21:32)
[2017-12-13] MEDS: Pantoprazole Sodium 20 MG DR Tablet PO SCH (13:10)
[2017-12-13] MEDS: Lisinopril 20 MG Tablet PO SCH (13:10)
[2017-12-13] MEDS: amLODIPine 5 MG Tablet PO SCH (13:10)
[2017-12-13] MEDS: guaiFENesin 600 MG ER Tablet PO SCH ×2 (13:10→21:32)
[2017-12-13] MEDS: Folic Acid 1 MG Tablet PO SCH (13:10)
[2017-12-13] MEDS: Furosemide 40 MG Tablet PO SCH (13:10)
[2017-12-13] MEDS: Senna/Docusate Sodium 8.6/50 MG Tablet PO SCH ×2 (13:11→21:33)
--- NOTE | 2017-12-13 13:41 | P.PNIM ---
Subjective Interval history: in no acute distress. sob seems to be improving. no chest pain. family at the bedside. d/w the RN. Physical Exam Vital signs: Vital Signs 12/12/17 16:00 12/12/17 16:15 12/12/17 19:50 Temperature 97.5 F L Pulse Rate 86 75 88 Respiratory Rate 18 Blood Pressure 115/68 Pulse Oximetry 91 L 12/12/17 20:00 12/13/17 00:00 12/13/17 03:50 Temperature 97.3 F L 98.1 F Pulse Rate 70 74 84 Respiratory Rate 20 20 Blood Pressure 115/79 130/74 Pulse Oximetry 98 98 12/13/17 04:00 12/13/17 08:00 Temperature 98.5 F 97.2 F L Pulse Rate 75 88 Respiratory Rate 20 18 Blood Pressure 120/86 136/90 Pulse Oximetry 96 98 Intake & Output 12/12/17 12/13/17 12/13/17 18:59 06:59 18:59 Intake Total 240 / 240 120 / 120 Output Total 800 / 800 550 / 550 Balance -560 / -560 -430 / -430 Weight 82 kg Intake: Oral 240 / 240 120 / 120 Output: Urine 800 / 800 550 / 550 Other: Date of Last Bowel Movement 12/12/17 - Constitutional no acute distress - Routine Respiratory Exam Present: CTA bilaterally - Routine Cardiovascular Exam Present: RRR - Routine Abdominal Exam Present: soft - Routine Extremities Exam Comments: no pedal edema. swelling of the left upper extremity. - Routine Neurological Exam Present: alert, oriented X3 - Urinary Catheter Management Indwelling Urethral Catheter Cath placed during this visit: no Results - Labs CBC & Chem 7: 12/12/17 12:30 12/13/17 08:50 Laboratory Results - last 24 hr 12/12/17 12/12/17 12/13/17 16:50 23:07 04:43 Sodium Potassium Chloride Carbon Dioxide Anion Gap BUN Creatinine Estimated GFR POC Glucose 291 H 258 H 205 H Random Glucose Calcium 12/13/17 12/13/17 08:50 12:36 Sodium 141 Potassium 4.2 Chloride 105 Carbon Dioxide 28.3 Anion Gap 8 BUN 47 H Creatinine 0.95 Estimated GFR 77 L POC Glucose 191 H Random Glucose 198 H Calcium 8.1 L Assessment and Plan - Plan A/P CAD- cardiomyopathy/ s/p cardiac cath with moderate to severe two-vessel disease / aortic stenosis on echo continue aspirin and statin-oral anticoagulation oh hold till CT surgery recommendations. cardiology following; follow the stress-echo . CT surgery following. respiratory failure/ with history of lung cancer- keep on oxygen to keep O2 sat >90%-continue Bronchodilators. will continue with IV steroids today; will switch to po tomorrow. continue neb treatment pulmonary and oncology following. swelling of the left upper extremity; will check venous doppler. diabetes mellitis; A1c 8.9 Sliding scale insulin coverage . blood sugar levels expected to improve as steroid is being tapered down. will continue to monitor. breastfeeding educator consulted. leukocytosis-improving- likely due to steroids- no fever- will monitor. resume NOAC - pending CT surgery recommendations- Discharge Planning: awaiting CT surgery f/u and recommendations.
--- NOTE | 2017-12-13 13:56 | P.PNCA ---
Subjective Interval history: symptoms stable still SOB Physical Exam Vital signs: Vital Signs 12/12/17 16:00 12/12/17 16:15 12/12/17 19:50 Temperature 97.5 F L Pulse Rate 86 75 88 Respiratory Rate 18 Blood Pressure 115/68 Pulse Oximetry 91 L 12/12/17 20:00 12/13/17 00:00 12/13/17 03:50 Temperature 97.3 F L 98.1 F Pulse Rate 70 74 84 Respiratory Rate 20 20 Blood Pressure 115/79 130/74 Pulse Oximetry 98 98 12/13/17 04:00 12/13/17 08:00 Temperature 98.5 F 97.2 F L Pulse Rate 75 88 Respiratory Rate 20 18 Blood Pressure 120/86 136/90 Pulse Oximetry 96 98 Intake & Output 12/12/17 12/13/17 12/13/17 18:59 06:59 18:59 Intake Total 240 / 240 120 / 120 Output Total 800 / 800 550 / 550 Balance -560 / -560 -430 / -430 Weight 82 kg Intake: Oral 240 / 240 120 / 120 Output: Urine 800 / 800 550 / 550 Other: Date of Last Bowel Movement 12/12/17 - Constitutional no acute distress - Routine HEENT Exam Eye: Present: PERRL ENT: Present: mucous membranes moist - Routine Neck Exam Present: JVD - Routine Respiratory Exam Present: CTA bilaterally - Routine Cardiovascular Exam Present: irregularly irregular - Urinary Catheter Management Indwelling Urethral Catheter Cath placed during this visit: no Assessment and Plan - Plan dobutamine echo consistent with severe aortic valve stenosis 2 vessel CAD with coronary aneurysm CT chest pending PFTs noted will discuss consideration TAVR CABG
--- NOTE | 2017-12-13 14:21 | CT ---
EXAM DATE: 12/13/2017 1:59 PM EDT AGE/SEX: 77 years / Male INDICATIONS: Transaortic valve replacement work up CLINICAL DATA: This is the patient's initial encounter. Patient reports that signs and symptoms have been present for 1 day and indicates a pain score of 1/10. MEDICAL/SURGICAL HISTORY: Hypertension. Cardiovascular disease. Chronic obstructive pulmonary dis ease. Lung cancer a-fib Lobectomy. RADIATION DOSE: 36.79 CTDI (mGy) COMPARISON: None. TECHNIQUE: Volumetric scanning was performed using a multi-row detector CT scanner during bolus infu alice of 74 ml Omnipaque 350 (iohexol) nonionic water-soluble contrast as a single exam dose. The da ta was post processed with a variety of visualization algorithms including full volume maximum intens ity projection, multi-planar sliding thin slab reformation, curved planar reformation, and surface re ndering techniques. Using automated exposure control and adjustment of the mA and/or kV according to patient size, radiation dose was kept as low as reasonably achievable to obtain optimal diagnostic q uality images. DICOM format image data is available electronically for review and comparison. FINDINGS: CARDIAC: The coronary system is right dominant. Significant atherosclerotic calcifications noted mos t pronounced within the proximal LAD. There is no pericardial effusion AORTIC ROOT/VALVE: 3 cusps are evident with significant calcifications. The aortic root measures 3.1 cm. Mid thoracic aorta measures 2.8 cm with scattered calcifications. THORACIC AORTA: The thoracic aortic root is normal with normal branching of the great vessels. Ther e is no evidence of aneurysm or dissection. ABDOMINAL AORTA: The aorta is normal in caliber without aneurysm or dissection. The renal arteries are patent bilaterally. The proximal celiac and superior mesenteric arteries are patent and normal i n diameter. CELIAC ARTERY: Celiac artery is widely patent. SMA: Superior mesenteric artery is widely patent. RIGHT RENAL ARTERY: A main right renal artery with a small accessory lower pole renal artery. Both a re patent.. LEFT RENAL ARTERY: Left renal artery shows calcified plaque at its origin generating a 10% stenosis. . RIGHT COMMON ILIAC: No evidence of aneurysm, mural thrombus, dissection, or stenosis. The common femoral measures 9 mm with moderate calcified plaque. LEFT COMMON ILIAC: No evidence of aneurysm, mural thrombus, dissection, or stenosis. The common f emoral measures 9 mm with moderate calcified plaque. THORAX: Prior left upper lobe lobectomy. Multiple pulmonary nodules worrisome for metastatic disease scattered throughout both lungs. These measure between 5 and 12 mm. Underlying emphysematous change and chronic interstitial change. Small posterior layering pleural effusions bilaterally. Tiny anterio r mediastinal lymph nodes. No bulky adenopathy. ABDOMEN: A small cortical cyst involving the upper pole the right kidney. Scattered sigmoid divertic sil without acute inflammation. A degenerative lumbar spine. PELVIS: The prostate is normal in size. Urinary bladder is unremarkable. CONCLUSION: 1. Significant coronary artery atherosclerotic calcifications. 2. Multiple pulmonary masses consistent with metastatic disease. 3. Pronounced emphysematous change with prior left upper lobe lobectomy. 4. Small bilateral pleural effusions. Electronically signed by: Andrez Marley MD 12/13/2017 2:20 PM EDT
--- NOTE | 2017-12-13 14:40 | P.PNCA ---
Subjective Interval history: alert in nad Physical Exam Vital signs: Vital Signs 12/12/17 16:00 12/12/17 16:15 12/12/17 19:50 Temperature 97.5 F L Pulse Rate 86 75 88 Respiratory Rate 18 Blood Pressure 115/68 Pulse Oximetry 91 L 12/12/17 20:00 12/13/17 00:00 12/13/17 03:50 Temperature 97.3 F L 98.1 F Pulse Rate 70 74 84 Respiratory Rate 20 20 Blood Pressure 115/79 130/74 Pulse Oximetry 98 98 12/13/17 04:00 12/13/17 08:00 Temperature 98.5 F 97.2 F L Pulse Rate 75 88 Respiratory Rate 20 18 Blood Pressure 120/86 136/90 Pulse Oximetry 96 98 Intake & Output 12/12/17 12/13/17 12/13/17 18:59 06:59 18:59 Intake Total 240 / 240 120 / 120 Output Total 800 / 800 550 / 550 Balance -560 / -560 -430 / -430 Weight 82 kg Intake: Oral 240 / 240 120 / 120 Output: Urine 800 / 800 550 / 550 Other: Date of Last Bowel Movement 12/12/17 - Urinary Catheter Management Indwelling Urethral Catheter Cath placed during this visit: no Assessment and Plan - Assessment (1) Aortic stenosis Code(s): I35.0 - Nonrheumatic aortic (valve) stenosis Status: Acute (2) Cardiomyopathy Code(s): I42.9 - Cardiomyopathy, unspecified Status: Acute (3) CHF (congestive heart failure) Code(s): I50.9 - Heart failure, unspecified Status: Acute (4) Atrial fibrillation Code(s): I48.91 - Unspecified atrial fibrillation Status: Acute (5) NSTEMI (non-ST elevated myocardial infarction) Code(s): I21.4 - Non-ST elevation (NSTEMI) myocardial infarction Status: Acute (6) COPD (chronic obstructive pulmonary disease) Code(s): J44.9 - Chronic obstructive pulmonary disease, unspecified Status: Acute (7) Cardiorespiratory arrest Code(s): I46.9 - Cardiac arrest, cause unspecified Status: Acute (8) Elevated troponin I level Code(s): R74.8 - Abnormal levels of other serum enzymes Status: Acute (9) Lung cancer Code(s): C34.90 - Malignant neoplasm of unspecified part of unspecified bronchus or lung Status: Chronic - Plan dobutamine echo consistent with severe aortic valve stenosis 2 vessel CAD with coronary aneurysm CT chest pending PFTs noted will discuss consideration TAVR CABG (1) Aortic stenosis Qualifiers: Cardiac valve disease etiology: etiology unspecified Qualified Code(s): I35.0 - Nonrheumatic aortic (valve) stenosis (4) Atrial fibrillation Qualifiers: Atrial fibrillation type: chronic Qualified Code(s): I48.2 - Chronic atrial fibrillation (6) 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
--- NOTE | 2017-12-13 15:58 | US ---
EXAM DATE: 12/13/2017 3:51 PM EDT AGE/SEX: 77 years / Male INDICATIONS: Edema. CLINICAL DATA: This is the patient's initial encounter. Patient reports that signs and symptoms have been present for 2 days and indicates a pain score of 0/10. MEDICAL/SURGICAL HISTORY: Congestive heart failure. Chronic obstructive pulmonary disease. Cor onary artery disease. Chronic atrial fibrillation. Diabetes. Hypertension. Lung cancer. Oxygen depend ent. Pneumonia. Port-A-Cath in place. . . Lung lobectomy. Right heart catheterization. Left heart c atheterization. Left ventriculography. Coronary angiography. COMPARISON: No prior exams available for comparison. FINDINGS: There is superficial venous thrombosis in the cephalic vein. The jugular vein, subclavian vein and axillary veins are patent and demonstrate normal venous waveforms. The basilic, brachial and radial veins are patent. Other: None. CONCLUSION: 1. Superficial venous thrombosis in the cephalic vein. Electronically signed by: Ridge Sparks MD 12/13/2017 3:57 PM EDT
--- NOTE | 2017-12-13 18:18 | P.PNPL ---
Subjective Interval history: 77 YOWM from [place] with cardiac arrest,ca lung Breathing better Mild sob No CP Family at Had Dobutamine stress test PFT Severe COPD Physical Exam Vital signs: Vital Signs 12/12/17 19:50 12/12/17 20:00 12/13/17 00:00 Temperature 97.3 F L 98.1 F Pulse Rate 88 70 74 Respiratory Rate 20 20 Blood Pressure 115/79 130/74 Pulse Oximetry 98 98 12/13/17 03:50 12/13/17 04:00 12/13/17 08:00 Temperature 98.5 F 97.2 F L Pulse Rate 84 75 88 Respiratory Rate 20 18 Blood Pressure 120/86 136/90 Pulse Oximetry 96 98 12/13/17 16:00 Temperature Pulse Rate 93 H Respiratory Rate Blood Pressure Pulse Oximetry Intake & Output 12/12/17 12/13/17 12/13/17 18:59 06:59 18:59 Intake Total 240 / 240 120 / 120 Output Total 800 / 800 550 / 550 Balance -560 / -560 -430 / -430 Weight 82 kg Intake: Oral 240 / 240 120 / 120 Output: Urine 800 / 800 550 / 550 Other: Date of Last Bowel Movement 12/12/17 12/12/17 GENERAL: Elderly WM,NAD SKIN: Warm and dry. HEAD: Normocephalic. EYES: No scleral icterus. No injection or drainage. NECK: Supple, trachea midline. No JVD or lymphadenopathy. CARDIOVASCULAR: Regular rate and rhythm without murmurs, gallops, or rubs. RESPIRATORY: Breath sounds equal bilaterally. No accessory muscle use. GASTROINTESTINAL: Abdomen soft, non-tender, nondistended. MUSCULOSKELETAL: No cyanosis, or edema. BACK: Nontender without obvious deformity. No CVA tenderness. - Urinary Catheter Management Indwelling Urethral Catheter Cath placed during this visit: no Assessment and Plan - Plan IMPRESSION: 1. Chronic obstructive pulmonary disease . 2. Coronary artery disease, status post cardiac arrest. 3. Carcinoma of the lung with metastasis. 4. Recent pleural effusion, status post thoracentesis. 5. Atrial fibrillation. 6. Aortic Stenosis PLAN: Aerosol nebs Supplement [address] eff Check PFT DW pt and his Cardiac gregorio underway.
[2017-12-14] MEDS: Insulin NovoLOG Aspart Correctional Sugar Inj SQ SCH ×4 (00:58→18:06)
[2017-12-14] MEDS: Oral Hygiene Kit OROPHARYNG SCH ×4 (01:01→17:38)
[2017-12-14] MEDS: MethylPREDNISolone Sod Succinate Inj 40 MG/ML Vial IV.PUSH SCH ×2 (03:28→17:31)
--- NOTE | 2017-12-14 08:28 | P.PNCA ---
Subjective Interval history: still short of breath no new complaints no chest pain eager to have something done so he can go home Physical Exam Vital signs: Vital Signs 12/13/17 12:00 12/13/17 16:00 12/13/17 19:50 Temperature 97.3 F L 97.4 F L Pulse Rate 96 H 73 79 Respiratory Rate 18 18 Blood Pressure 123/84 141/79 H Pulse Oximetry 94 L 97 12/13/17 20:00 12/13/17 23:53 12/14/17 00:00 Temperature 97.5 F L 98.4 F Pulse Rate 64 82 76 Respiratory Rate 18 18 Blood Pressure 118/84 133/89 Pulse Oximetry 97 97 12/14/17 03:44 12/14/17 04:00 Temperature 98.0 F Pulse Rate 84 58 L Respiratory Rate 18 Blood Pressure 131/88 Pulse Oximetry 95 Intake & Output 12/13/17 12/14/17 12/14/17 18:59 06:59 18:59 Intake Total 0 / 0 Output Total 800 / 800 500 / 500 Balance -800 / -800 -500 / -500 Weight 81.5 kg Intake: Oral 0 / 0 Output: Urine 800 / 800 500 / 500 Other: Date of Last Bowel Movement 12/12/17 # Bowel Movements 1 - Constitutional mild distress - Routine HEENT Exam Head: Present: normocephalic Eye: Present: EOMI, PERRL - Routine Neck Exam Present: JVD - Routine Cardiovascular Exam Present: RRR, murmur - Routine Abdominal Exam Present: normoactive bowel sounds - Routine Neurological Exam Present: alert. Absent: sensory deficit, motor deficit - Urinary Catheter Management Indwelling Urethral Catheter Cath placed during this visit: no Assessment and Plan - Plan dobutamine echo consistent with severe aortic valve stenosis 2 vessel CAD with coronary aneurysm CT chest shows multiple nodule consistent with lung cancer. Apparently, patient states this is unchanged compared to prior scans. Will contact outside hospital desizing machine back tender to obtain report for comparison. If unchanged, will consider moving forward. PFTs noted Depending upon remaining workup, may consider TAVR followed by staged CABG ( which will likely be done in [place]) Will discuss further with Dr. Batista. Possible TAVR tuesday?
[2017-12-14] MEDS: Chlorhexidine 0.12% Oral Kit 15 ML UDC OROPHARYNG SCH ×2 (08:34→21:12)
[2017-12-14] MEDS: Lisinopril 20 MG Tablet PO SCH (08:35)
[2017-12-14] MEDS: Pantoprazole Sodium 20 MG DR Tablet PO SCH (08:36)
[2017-12-14] MEDS: amLODIPine 5 MG Tablet PO SCH (08:36)
[2017-12-14] MEDS: Senna/Docusate Sodium 8.6/50 MG Tablet PO SCH ×2 (08:36→21:13)
[2017-12-14] MEDS: Folic Acid 1 MG Tablet PO SCH (08:36)
[2017-12-14] MEDS: Nystatin Liq 500,000 UNIT/5 ML UDC SWISH-SWAL SCH ×4 (08:36→21:12)
[2017-12-14] MEDS: guaiFENesin 600 MG ER Tablet PO SCH ×2 (08:37→21:12)
[2017-12-14] MEDS: Famotidine PF Inj 20 MG/2 ML Vial IV.PUSH SCH ×2 (08:38→21:12)
--- NOTE | 2017-12-14 10:14 | P.PNIM ---
Subjective Interval history: f/u; aortic stenosis in no acute distress. but he says that ' he's frustrated'. no chest pain. afebrile. family at the bedside. Physical Exam Vital signs: Vital Signs 12/13/17 12:00 12/13/17 16:00 12/13/17 19:50 Temperature 97.3 F L 97.4 F L Pulse Rate 96 H 73 79 Respiratory Rate 18 18 Blood Pressure 123/84 141/79 H Pulse Oximetry 94 L 97 12/13/17 20:00 12/13/17 23:53 12/14/17 00:00 Temperature 97.5 F L 98.4 F Pulse Rate 64 82 76 Respiratory Rate 18 18 Blood Pressure 118/84 133/89 Pulse Oximetry 97 97 12/14/17 03:44 12/14/17 04:00 12/14/17 08:00 Temperature 98.0 F 97.2 F L Pulse Rate 84 58 L 78 Respiratory Rate 18 18 Blood Pressure 131/88 138/75 Pulse Oximetry 95 92 L Intake & Output 12/13/17 12/14/17 12/14/17 18:59 06:59 18:59 Intake Total 0 / 0 Output Total 800 / 800 500 / 500 Balance -800 / -800 -500 / -500 Weight 81.5 kg Intake: Oral 0 / 0 Output: Urine 800 / 800 500 / 500 Other: Date of Last Bowel Movement 12/12/17 # Bowel Movements 1 - Constitutional no acute distress - Routine Respiratory Exam Present: CTA bilaterally, diminished air movement - Routine Cardiovascular Exam Present: RRR - Routine Abdominal Exam Present: soft - Routine Extremities Exam Comments: no pedal edema. - Routine Neurological Exam Present: alert, oriented X3 - Urinary Catheter Management Indwelling Urethral Catheter Cath placed during this visit: no Results - Labs CBC & Chem 7: 12/12/17 12:30 12/13/17 08:50 Laboratory Results - last 24 hr 12/13/17 12/13/17 12/13/17 08:50 12:36 16:39 Sodium 141 Potassium 4.2 Chloride 105 Carbon Dioxide 28.3 Anion Gap 8 BUN 47 H Creatinine 0.95 Estimated GFR 77 L POC Glucose 191 H 205 H Random Glucose 198 H Calcium 8.1 L 12/14/17 12/14/17 00:23 05:29 Sodium Potassium Chloride Carbon Dioxide Anion Gap BUN Creatinine Estimated GFR POC Glucose 207 H 191 H Random Glucose Calcium - Imaging Impressions Chest CT 12/13/17 00:00 CONCLUSION: 1. Significant coronary artery atherosclerotic calcifications. 2. Multiple pulmonary masses consistent with metastatic disease. 3. Pronounced emphysematous change with prior left upper lobe lobectomy. 4. Small bilateral pleural effusions. Venous Doppler Study 12/13/17 00:00 CONCLUSION: 1. Superficial venous thrombosis in the cephalic vein. Assessment and Plan - Plan A/P CAD- cardiomyopathy/ s/p cardiac cath with moderate to severe two-vessel disease / severe aortic stenosis continue aspirin and statin-oral anticoagulation oh hold till CT surgery recommendations. cardiology and CT surgery following. possible TAVR on Tuesday. d/w . respiratory failure/ with history of lung cancer- keep on oxygen to keep O2 sat >90%-continue Bronchodilators. will continue with IV steroids today; will switch to po tomorrow. continue neb treatment pulmonary and oncology following. superficial phlebitis of the left upper extremity- continue supportive care. diabetes mellitis; A1c 8.9 Sliding scale insulin coverage . blood sugar levels expected to improve as steroid is being tapered down. will continue to monitor. [place] machine operator consulted. leukocytosis-improving- likely due to steroids- no fever- will monitor. resume NOAC - pending CT surgery recommendations- Discharge Planning: awaiting CT surgery f/u and recommendations; possible TAVR on Tuesday.
--- NOTE | 2017-12-14 11:58 | P.CON ---
History of Present Illness Service: Cardiothoracic surgery Primary Care Provider: UNKNOWN Chief Complaint: Cardiopulmonary arrest. History of Present Illness: 77-year-old gentleman with a known history of coronary artery disease status post previous angioplasty and stenting, cardiomyopathy with moderate left ventricular dysfunction, as well as severe oxygen dependent COPD, stage IV lung cancer status post previous left upper lobectomy, who presents with new syncopal episode with questionable cardiac arrest. Patient was admitted and has undergone further workup including evaluation by Dr. Diaz and Dr. mendze for his cardiac pathology. Workup has included an echocardiogram as well as a coronary angiography which has revealed severe aortic stenosis, moderate left ventricular dysfunction, as well as LAD-diagonal stenosis following an aneurysmal portion. I am now being consulted for a second surgical opinion regarding his valvular pathology. At the present time he remains hemodynamically stable, with no evidence of ongoing ischemia or decompensation. He is comfortable on supplemental oxygen therapy with no progressive dyspnea. CT of his chest does reveal bilateral multiple pulmonary nodules suspicious for underlying metastatic disease from his initial malignancy. The patient and his family report that this is not a new finding and he has had these multiple nodules for quite some time which have been stable in the prior 2 CTs examinations of his chest. The TAVR team has communicated with the patient's primary oncologist, Dr. Hayes, in [place] and it appears that, in fact, they are aware of these multiple nodules, and that they have remained stable from the prior CTs. He does have stage IV disease however there is no progression of his disease at this point. He is presently on no chemotherapy. Review of Systems All other systems reviewed negative except as stated in HPI PMFSH - History History Provided By: Patient, Family Member - Medical History Medical History: Medical History (Last Reviewed 12/14/17 @ 11:19 by Carolina Naranjo) CAD (coronary artery disease) CHF (congestive heart failure) Chronic atrial fibrillation Diabetes mellitus Port-A-Cath in place Afib COPD (chronic obstructive pulmonary disease) Hypertension Lung cancer Oxygen dependent Pneumonia - Surgical History Surgical History: Surgical History (Last Reviewed 12/12/17 @ 12:13 by Carolina Naranjo) History of lobectomy of lung - Tobacco History Second Hand Smoke Exposure: No Tobacco Use In Past 30 Days: No Smoking Status: Former smoker Tobacco Type: Cigarettes - Alcohol History How Often Do You Have a Drink Containing Alcohol: Never - Substance Use History Substance History: No History of Abuse - Travel History History of Recent Travel: Yes Recent Travel in the [place] Within the Last 8 Weeks: Yes Recent Travel Out of the Country Within the Last 8 Weeks: No Medications and Allergies Active Medications: Active Medications Acetaminophen (Tylenol) 650 mg PO Q6H PRN PRN Reason: PAIN 6-10 AND/OR FEVER >101F Hydrocodone Bitart/Acetaminophen (Arma 5/325) 1 tab PO Q4H PRN PRN Reason: PAIN SCALE 1 TO 5 Al Hydroxide/Mg Hydroxide (Milk Of Magnesia Liq) 30 ml PO Q12H PRN PRN Reason: Mild Constipation Albuterol (Duoneb Neb (Prn)) 1 ampul NEB Q2HR NEB PRN PRN Reason: SHORTNESS OF BREATH/WHEEZING Amlodipine Besylate (Norvasc) 5 mg PO DAILY [facility] Last Admin: 12/14/17 08:36 Dose: 5 mg Aspirin (Ecotrin) 81 mg PO DAILY [facility] Last Admin: 12/14/17 08:37 Dose: 81 mg Bisacodyl (Dulcolax Supp) 10 mg RECTAL DAILY PRN PRN Reason: SEVERE CONSITIPATION Chlorhexidine Gluconate (Peridex 0.12% Oral Kit) 15 ml OROPHARYNG BID@0800, 2000 [facility] Last Admin: 12/14/17 08:34 Dose: Not Given Dextrose (D50w Vial) 50 ml IV.PUSH UNSCH PRN PRN Reason: PER HYPOGLYCEMIA PROTOCOL Famotidine (Pepcid Pf Inj) 20 mg IV.PUSH Q12HR [facility] Folic Acid (Folic Acid) 1 mg PO DAILY [facility] Last Admin: 12/14/17 08:36 Dose: 1 mg Furosemide (Lasix) 40 mg PO DAILY [facility] Last Admin: 12/13/17 13:10 Dose: 40 mg Glucagon (Glucagon Inj) 1 mg IV.PUSH PRN PRN PRN Reason: for Hypoglycemia Protocol Guaifenesin (Mucinex Er) 600 mg PO BID [facility] Last Admin: 12/14/17 08:37 Dose: 600 mg Insulin Aspart (Novolog Insulin Correctional Sugar Inj) 0 unit SQ Q6HR [facility]; Protocol Last Admin: 12/14/17 05:34 Dose: 1 unit Lactulose (Lactulose Liq) 30 ml PO DAILY PRN PRN Reason: SEVERE CONSITIPATION Lisinopril (Prinivil) 20 mg PO DAILY [facility] Last Admin: 12/14/17 08:35 Dose: 20 mg Meclizine HCl (Antivert) 25 mg PO Q8HR PRN PRN Reason: Dizziness Last Admin: 12/13/17 08:30 Dose: 25 mg Methylprednisolone Sodium Succinate (Solumedrol Inj) 20 mg IV.PUSH Q12H [facility] Last Admin: 12/14/17 03:28 Dose: 20 mg Morphine Sulfate (Morphine Inj) 2 mg IV.PUSH Q2H PRN PRN Reason: PAIN SCALE 6 TO 10 Morphine Sulfate (Morphine Inj) 2 mg IV.PUSH Q4H PRN PRN Reason: PAIN 6-10;IF UNABLE TO TAKE PO Nitroglycerin (Nitrostat Sl (Override)) 0.4 mg SL Q5M PRN PRN Reason: Chest Pain Nystatin (Mycostatin Liq) 5 ml SWISH-SWAL QID [facility] Last Admin: 12/14/17 08:36 Dose: 5 ml Ondansetron HCl (Zofran Odt) 4 mg PO Q6H PRN PRN Reason: NAUSEA OR VOMITING Pantoprazole Sodium (Protonix) 20 mg PO DAILY [facility] Last Admin: 12/14/17 08:36 Dose: 20 mg Potassium Chloride (K-Dur) 20 meq PO DAILY [facility] Last Admin: 12/09/17 09:52 Dose: 20 meq Pravastatin Sodium (Pravachol) 20 mg PO DAILY [facility] Last Admin: 12/14/17 08:36 Dose: 20 mg Senna/Docusate Sodium (Jamila-Colace) 1 tab PO BID [facility] Last Admin: 12/14/17 08:36 Dose: Not Given Sennosides (Senokot) 17.2 mg PO Q12H PRN PRN Reason: Moderate Constipation Sodium Chloride (Ns Flush) 2 ml IV.FLUSH BID [facility] Last Admin: 12/14/17 08:37 Dose: 2 ml Sodium Chloride (Ns Flush) 2 ml IV.FLUSH PRN PRN PRN Reason: FLUSH AFTER USING IV ACCESS Last Admin: 12/14/17 03:28 Dose: 2 ml Sodium Chloride (Ns Flush) 2 ml IV.FLUSH PRN PRN PRN Reason: FLUSH AFTER USING IV ACCESS Sodium Chloride (Ns Flush) 2 ml IV.FLUSH BID [facility] Last Admin: 12/14/17 08:38 Dose: Not Given Allergies Allergy/AdvReac Type Severity Reaction Status Date / Time No Known Allergies Allergy Verified 12/04/17 09:42 Home Medications Medication Instructions Recorded Confirmed Type albuterol sulfate [ProAir HFA] 2 puff INHALATION Q4-6H PRN 12/04/17 12/08/17 History amlodipine 5 mg PO DAILY 12/04/17 12/05/17 History apixaban [Eliquis] 5 mg PO BID 12/04/17 12/08/17 History aspirin [Aspir-81] 81 mg PO DAILY 12/04/17 12/05/17 History folic acid 1 mg PO DAILY 12/04/17 12/05/17 History furosemide [Lasix] 40 mg PO DAILY 12/04/17 12/08/17 History ipratropium-albuterol 3 ml INHALATION Q6-8H PRN 12/04/17 12/08/17 History lisinopril 20 mg PO HS 12/04/17 12/05/17 History lisinopril-hydrochlorothiazide 1 tab PO DAILY 12/04/17 12/05/17 History meclizine 25 mg PO DAILY PRN 12/04/17 12/05/17 History nitroglycerin 0.4 mg SUBLINGUAL Q5-15M PRN 12/04/17 12/08/17 History potassium chloride 20 meq PO DAILY 12/04/17 12/05/17 History pravastatin 20 mg PO HS 12/04/17 12/05/17 History prednisone See Taper PO DIRECTED 12/04/17 12/08/17 History rabeprazole 20 mg PO DAILY 12/04/17 12/05/17 History Physical Exam Vital signs: Vital Signs 12/13/17 12:00 12/13/17 16:00 12/13/17 19:50 Temperature 97.3 F L 97.4 F L Pulse Rate 96 H 73 79 Respiratory Rate 18 18 Blood Pressure 123/84 141/79 H Pulse Oximetry 94 L 97 12/13/17 20:00 12/13/17 23:53 12/14/17 00:00 Temperature 97.5 F L 98.4 F Pulse Rate 64 82 76 Respiratory Rate 18 18 Blood Pressure 118/84 133/89 Pulse Oximetry 97 97 12/14/17 03:44 12/14/17 04:00 12/14/17 08:00 Temperature 98.0 F 97.2 F L Pulse Rate 84 58 L 78 Respiratory Rate 18 18 Blood Pressure 131/88 138/75 Pulse Oximetry 95 92 L 12/14/17 10:19 Temperature Pulse Rate 76 Respiratory Rate Blood Pressure Pulse Oximetry Intake & Output 12/13/17 12/14/17 12/14/17 18:59 06:59 18:59 Intake Total 0 / 0 Output Total 800 / 800 500 / 500 Balance -800 / -800 -500 / -500 Weight 81.5 kg Intake: Oral 0 / 0 Output: Urine 800 / 800 500 / 500 Other: Date of Last Bowel Movement 12/12/17 # Bowel Movements 1 - Constitutional no acute distress - Routine HEENT Exam Head: Present: normocephalic, atraumatic - Routine Neck Exam Present: supple, full ROM. Absent: JVD, carotid bruit, lymphadenopathy - Routine Respiratory Exam Present: rhonchi. Absent: wheezes - Routine Cardiovascular Exam Present: S1, S2, murmur, irregularly irregular - Detailed Cardiovascular Exam: Murmur 4 Type: Present: systolic Location: Present: right sternal border Characteristics: Present: crescendo - Routine Abdominal Exam Present: soft, normoactive bowel sounds. Absent: tenderness, distended - Routine Extremities Exam Present: full ROM, pulses intact. Absent: cyanosis, clubbing, edema - Routine Skin Exam Present: intact. Absent: cyanosis, erythema - Routine Neurological Exam Present: alert, oriented X3, CN II-XII intact - Routine Psychiatric Exam Present: normal affect, normal thought process, cooperative - Urinary Catheter Management Indwelling Urethral Catheter Cath placed during this visit: no Assessment and Plan - Assessment (1) Aortic stenosis Code(s): I35.0 - Nonrheumatic aortic (valve) stenosis Status: Acute (2) CAD (coronary artery disease) Code(s): I25.10 - Atherosclerotic heart disease of [place] coronary artery without angina pectoris Status: Acute (3) Combined systolic and diastolic congestive heart failure, NYHA class 4 Code(s): I50.40 - Unspecified combined systolic (congestive) and diastolic ( congestive) heart failure Status: Acute (4) Diabetes mellitus Code(s): E11.9 - Type 2 diabetes mellitus without complications Status: Acute (5) Pulmonary hypertension Code(s): I27.20 - Pulmonary hypertension, unspecified Status: Acute (6) COPD (chronic obstructive pulmonary disease) Code(s): J44.9 - Chronic obstructive pulmonary disease, unspecified Status: Acute (7) Atrial fibrillation Code(s): I48.91 - Unspecified atrial fibrillation Status: Acute (8) NSTEMI (non-ST elevated myocardial infarction) Code(s): I21.4 - Non-ST elevation (NSTEMI) myocardial infarction Status: Acute - Plan The clinical and ECHO findings were discussed in detail with the patient and family. Therapeutic options available including TAVR versus SAVR was discussed. I agree that he will maximally benefit from TAVR given his frailty and significant medical comorbidities. The risks, complications including but not limited to bleeding, infection, stroke, myocardial injury and , and benefits of the procedure were discussed in details and all questions answered. The patient understands the provided information and agrees to proceed with the planned operation. Proceed with TAVR on Tuesday as planned. Thank you allowing me to participate in the care of this patient. (1) Aortic stenosis Qualifiers: Cardiac valve disease etiology: etiology unspecified Qualified Code(s): I35.0 - Nonrheumatic aortic (valve) stenosis (2) CAD (coronary artery disease) Qualifiers: Coronary Disease-Associated Artery/Lesion type: [place] artery [place] vs. transplanted heart: [place] heart Associated angina: with other forms of angina Qualified Code(s): I25.118 - Atherosclerotic heart disease of [place] coronary artery with other forms of angina pectoris (3) Combined systolic and diastolic congestive heart failure, NYHA class 4 Qualifiers: Congestive heart failure chronicity: acute on chronic Qualified Code(s): I50.43 - Acute on chronic combined systolic (congestive) and diastolic ( congestive) heart failure (4) Diabetes mellitus Qualifiers: Diabetes mellitus type: type 2 Diabetes mellitus complication status: with hyperglycemia (6) 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 (7) Atrial fibrillation Qualifiers: Atrial fibrillation type: chronic Qualified Code(s): I48.2 - Chronic atrial fibrillation
[2017-12-14] MEDS: Furosemide 40 MG Tablet PO SCH (12:51)
--- NOTE | 2017-12-14 15:55 | P.PNCA ---
Subjective Interval history: alert in nad Physical Exam Vital signs: Vital Signs 12/13/17 16:00 12/13/17 19:50 12/13/17 20:00 Temperature 97.4 F L 97.5 F L Pulse Rate 73 79 64 Respiratory Rate 18 18 Blood Pressure 141/79 H 118/84 Pulse Oximetry 97 97 12/13/17 23:53 12/14/17 00:00 12/14/17 03:44 Temperature 98.4 F Pulse Rate 82 76 84 Respiratory Rate 18 Blood Pressure 133/89 Pulse Oximetry 97 12/14/17 04:00 12/14/17 08:00 12/14/17 10:19 Temperature 98.0 F 97.2 F L Pulse Rate 58 L 78 76 Respiratory Rate 18 18 Blood Pressure 131/88 138/75 Pulse Oximetry 95 92 L 12/14/17 12:00 Temperature 98.0 F Pulse Rate 89 Respiratory Rate 18 Blood Pressure 110/56 L Pulse Oximetry 91 L Intake & Output 12/13/17 12/14/17 12/14/17 18:59 06:59 18:59 Intake Total 0 / 0 Output Total 800 / 800 500 / 500 Balance -800 / -800 -500 / -500 Weight 81.5 kg Intake: Oral 0 / 0 Output: Urine 800 / 800 500 / 500 Other: Date of Last Bowel Movement 12/12/17 # Bowel Movements 1 - Urinary Catheter Management Indwelling Urethral Catheter Cath placed during this visit: no Assessment and Plan - Assessment (1) Aortic stenosis Code(s): I35.0 - Nonrheumatic aortic (valve) stenosis Status: Acute (2) Cardiomyopathy Code(s): I42.9 - Cardiomyopathy, unspecified Status: Acute (3) CHF (congestive heart failure) Code(s): I50.9 - Heart failure, unspecified Status: Acute (4) Atrial fibrillation Code(s): I48.91 - Unspecified atrial fibrillation Status: Acute (5) NSTEMI (non-ST elevated myocardial infarction) Code(s): I21.4 - Non-ST elevation (NSTEMI) myocardial infarction Status: Acute (6) COPD (chronic obstructive pulmonary disease) Code(s): J44.9 - Chronic obstructive pulmonary disease, unspecified Status: Acute (7) Cardiorespiratory arrest Code(s): I46.9 - Cardiac arrest, cause unspecified Status: Acute (8) Elevated troponin I level Code(s): R74.8 - Abnormal levels of other serum enzymes Status: Acute (9) Lung cancer Code(s): C34.90 - Malignant neoplasm of unspecified part of unspecified bronchus or lung Status: Chronic - Plan dobutamine echo consistent with severe aortic valve stenosis 2 vessel CAD with coronary aneurysm CT chest shows multiple nodule consistent with lung cancer. Apparently, patient states this is unchanged compared to prior scans. Will contact outside hospital tribunal member to obtain report for comparison. If unchanged, will consider moving forward. PFTs noted Depending upon remaining workup, may consider TAVR followed by staged CABG ( which will likely be done in [place]) Will discuss further with Dr. Batista. Possible TAVR tuesday? (1) Aortic stenosis Qualifiers: Cardiac valve disease etiology: etiology unspecified Qualified Code(s): I35.0 - Nonrheumatic aortic (valve) stenosis (4) Atrial fibrillation Qualifiers: Atrial fibrillation type: chronic Qualified Code(s): I48.2 - Chronic atrial fibrillation (6) 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
--- NOTE | 2017-12-14 17:12 | P.PNWCN ---
Wound Care Nurse Consult Description: Verbal Consult for Pressure Ulcer of buttocks per Dr Batista/Emre Arango Communicated with: TEO Mccormick Patient Sarah Peguero RN Recommendation: Strongly encourage patient to reposition himself frequently while in bed, mostly from left to right sides only Apply Calazime skin protectant paste BID and PRN for moisture and tearing of skin. Additional information: Patient seen on [facility] for wounds on bilateral buttocks and gluteal cleft. Wound/Pressure Injury - Wound Gluteal Cleft Is This a Chronic Wound: Yes Requested from Provider a Wound Care Consult: Yes Length: 0.7 (cm) Width: 0.3 (cm) Depth: 0.3 (cm) Wound Bed Appearance: Mamers, White Wound Bed Appearance: Gluteal fissure is full thickness skin loss Surrounding Tissue Appearance: Erythema (blanching erythema noted to bilateral buttocks with moisture related partial thickness skin loss ) Surrounding Tissue Temperature: Warm Drainage Amount: None Drainage Odor: No Odor Dressing Status: Open to Air Topical: Calazime
--- NOTE | 2017-12-14 17:30 | P.PNPL ---
Subjective Interval history: 77 YOWM from [place] with cardiac arrest,ca lung Breathing better Mild sob No CP Family at Had Dobutamine stress test PFT Severe COPD Seen By Dr.Sohit Batista, plans for TAVR Physical Exam Vital signs: Vital Signs 12/13/17 19:50 12/13/17 20:00 12/13/17 23:53 Temperature 97.5 F L Pulse Rate 79 64 82 Respiratory Rate 18 Blood Pressure 118/84 Pulse Oximetry 97 12/14/17 00:00 12/14/17 03:44 12/14/17 04:00 Temperature 98.4 F 98.0 F Pulse Rate 76 84 58 L Respiratory Rate 18 18 Blood Pressure 133/89 131/88 Pulse Oximetry 97 95 12/14/17 08:00 12/14/17 10:19 12/14/17 12:00 Temperature 97.2 F L 98.0 F Pulse Rate 78 76 89 Respiratory Rate 18 18 Blood Pressure 138/75 110/56 L Pulse Oximetry 92 L 91 L 12/14/17 16:00 Temperature Pulse Rate 81 Respiratory Rate Blood Pressure Pulse Oximetry Intake & Output 12/13/17 12/14/17 12/14/17 18:59 06:59 18:59 Intake Total 0 / 0 Output Total 800 / 800 500 / 500 Balance -800 / -800 -500 / -500 Weight 81.5 kg Intake: Oral 0 / 0 Output: Urine 800 / 800 500 / 500 Other: Date of Last Bowel Movement 12/12/17 # Bowel Movements 1 GENERAL: Elderly WM, mild sob SKIN: Warm and dry. HEAD: Normocephalic. EYES: No scleral icterus. No injection or drainage. NECK: Supple, trachea midline. No JVD or lymphadenopathy. CARDIOVASCULAR: Regular rate and rhythm without murmurs, gallops, or rubs. RESPIRATORY: Breath sounds equal bilaterally. No accessory muscle use. GASTROINTESTINAL: Abdomen soft, non-tender, nondistended. MUSCULOSKELETAL: No cyanosis, or edema. BACK: Nontender without obvious deformity. No CVA tenderness. - Urinary Catheter Management Indwelling Urethral Catheter Cath placed during this visit: no Assessment and Plan - Plan IMPRESSION: 1. Chronic obstructive pulmonary disease . 2. Coronary artery disease, status post cardiac arrest. 3. Carcinoma of the lung with metastasis. 4. Recent pleural effusion, status post thoracentesis. 5. Atrial fibrillation. 6. Aortic Stenosis PLAN: Aerosol nebs Supplement [address] eff Check PFT DW pt and his Plans for TAVR on Tuesday.
[2017-12-15] MEDS: Insulin NovoLOG Aspart Correctional Sugar Inj SQ SCH ×4 (00:42→18:21)
[2017-12-15] MEDS: Oral Hygiene Kit OROPHARYNG SCH ×3 (04:36→16:09)
[2017-12-15] MEDS: MethylPREDNISolone Sod Succinate Inj 40 MG/ML Vial IV.PUSH SCH ×2 (05:16→16:51)
--- NOTE | 2017-12-15 09:15 | P.PNCA ---
Subjective Interval history: symptomatically unchanged frustrated "things are taking so long" Physical Exam Vital signs: Vital Signs 12/14/17 10:19 12/14/17 12:00 12/14/17 16:00 Temperature 98.0 F 97.5 F L Pulse Rate 76 89 89 Respiratory Rate 18 18 Blood Pressure 110/56 L 118/74 Pulse Oximetry 91 L 96 12/14/17 20:00 12/14/17 20:03 12/15/17 00:00 Temperature 97.6 F 97.6 F Pulse Rate 84 78 Respiratory Rate 16 18 Blood Pressure 111/81 132/85 Pulse Oximetry 97 97 97 12/15/17 04:00 Temperature 97.4 F L Pulse Rate 86 Respiratory Rate 16 Blood Pressure 120/80 Pulse Oximetry 94 L Intake & Output 12/14/17 12/15/17 12/15/17 18:59 06:59 18:59 Intake Total 120 / 120 480 / 480 Output Total 1000 / 1000 900 / 900 Balance -880 / -880 -420 / -420 Weight 79.4 kg Intake: Oral 120 / 120 480 / 480 Output: Urine 1000 / 1000 900 / 900 Other: Date of Last Bowel Movement 12/14/17 # Bowel Movements 1 0 - Constitutional mild distress - Routine HEENT Exam Head: Present: normocephalic Eye: Present: EOMI, PERRL ENT: Present: mucous membranes moist - Routine Neck Exam Present: JVD - Routine Respiratory Exam Present: decreased breath sounds, CTA bilaterally - Routine Cardiovascular Exam Present: RRR, murmur - Routine Abdominal Exam Present: normoactive bowel sounds - Routine Extremities Exam Absent: edema - Urinary Catheter Management Indwelling Urethral Catheter Cath placed during this visit: no Assessment and Plan - Plan dobutamine echo consistent with severe aortic valve stenosis 2 vessel CAD with coronary aneurysm CT chest shows multiple nodule consistent with lung cancer. Discussed case with oncologist Dr. Hayes. She confirmed his cancer has been relatively stable over the course of 4 years and he is no longer receiving therapy. She is going to overnight deliver his most recent CT chest images to my office to review in comparison to our study. Discussed his case in detail with the TAVR team including anesthesia and CT surgery. His pulmonary hypertension is a concern for anesthesia. It is also likely contributing to his symptoms in addition to the severe aortic valve stenosis. Plan for transfer to CVICU for monitoring and bedside swan placement. LVEDP on [facility] was 20-30 mmHg. Will consider pulmonary vasoreactivity challenge with inhaled flolan to reduce perioperative risk and contribute to future treatment strategy (correction oral agent). Tenative plan is for TAVR tuesday.
[2017-12-15] MEDS: Chlorhexidine 0.12% Oral Kit 15 ML UDC OROPHARYNG SCH ×2 (09:23→21:01)
[2017-12-15] MEDS: amLODIPine 5 MG Tablet PO SCH (09:24)
[2017-12-15] MEDS: Lisinopril 20 MG Tablet PO SCH (09:24)
[2017-12-15] MEDS: Folic Acid 1 MG Tablet PO SCH (09:24)
[2017-12-15] MEDS: Furosemide 40 MG Tablet PO SCH (09:24)
[2017-12-15] MEDS: Pantoprazole Sodium 20 MG DR Tablet PO SCH (09:24)
[2017-12-15] MEDS: guaiFENesin 600 MG ER Tablet PO SCH ×2 (09:24→21:35)
[2017-12-15] MEDS: Famotidine PF Inj 20 MG/2 ML Vial IV.PUSH SCH ×2 (09:25→21:36)
[2017-12-15] MEDS: Senna/Docusate Sodium 8.6/50 MG Tablet PO SCH ×2 (09:25→21:37)
[2017-12-15] MEDS: Nystatin Liq 500,000 UNIT/5 ML UDC SWISH-SWAL SCH ×4 (09:31→21:35)
--- NOTE | 2017-12-15 10:40 | P.PNIM ---
Subjective Interval history: f/u; aortic stenosis in no acute distress. no chest pain or worsening sob. no new complaints. Physical Exam Vital signs: Vital Signs 12/14/17 12:00 12/14/17 16:00 12/14/17 20:00 Temperature 98.0 F 97.5 F L 97.6 F Pulse Rate 89 89 84 Respiratory Rate 18 18 16 Blood Pressure 110/56 L 118/74 111/81 Pulse Oximetry 91 L 96 97 12/14/17 20:03 12/15/17 00:00 12/15/17 04:00 Temperature 97.6 F 97.4 F L Pulse Rate 78 86 Respiratory Rate 18 16 Blood Pressure 132/85 120/80 Pulse Oximetry 97 97 94 L 12/15/17 08:00 Temperature Pulse Rate 87 Respiratory Rate Blood Pressure Pulse Oximetry Intake & Output 12/14/17 12/15/17 12/15/17 18:59 06:59 18:59 Intake Total 120 / 120 480 / 480 Output Total 1000 / 1000 900 / 900 Balance -880 / -880 -420 / -420 Weight 79.4 kg Intake: Oral 120 / 120 480 / 480 Output: Urine 1000 / 1000 900 / 900 Other: Date of Last Bowel Movement 12/14/17 # Bowel Movements 1 0 - Constitutional no acute distress - Routine Respiratory Exam Present: CTA bilaterally - Routine Cardiovascular Exam Present: RRR - Routine Abdominal Exam Present: soft - Routine Extremities Exam Comments: no pedal edema. - Routine Neurological Exam Present: alert, oriented X3 - Urinary Catheter Management Indwelling Urethral Catheter Cath placed during this visit: no Results - Labs CBC & Chem 7: 12/12/17 12:30 12/13/17 08:50 Laboratory Results - last 24 hr 12/14/17 12/14/17 12/15/17 11:41 17:05 00:36 POC Glucose 183 H 205 H 300 H 12/15/17 12/15/17 05:15 05:17 POC Glucose 162 H 166 H Assessment and Plan - Plan A/P CAD- cardiomyopathy/ s/p cardiac cath with moderate to severe two-vessel disease / severe aortic stenosis continue aspirin and statin-oral anticoagulation oh hold till CT surgery recommendations. cardiology and CT surgery following. possible TAVR on Tuesday. respiratory failure/pulmonary hypertension/ with history of lung cancer- keep on oxygen to keep O2 sat >90%-continue Bronchodilators. will continue with IV steroids today. continue neb treatment patient to be transferred to CVICU today for bedside Bentley placement. pulmonary following. evaluated by oncology. superficial phlebitis of the left upper extremity- continue supportive care. diabetes mellitis; A1c 8.9 Sliding scale insulin coverage . blood sugar levels expected to improve as steroid is being tapered down. will continue to monitor. nurse informatics educator consulted. leukocytosis-improving- likely due to steroids- no fever- will monitor. resume NOAC - pending CT surgery intervention. Discharge Planning: awaiting CT surgery f/u and recommendations; possible TAVR on Tuesday.
[2017-12-15] MEDS ORDERED: Heparin/NS PF Inj 1,000 ML ONE (12:25)
[2017-12-15] MEDS ORDERED: EPOPROSTENOL NEB SCH ×2 (15:00)
[2017-12-15] MEDS ORDERED: SODIUM CHLOR 0.9% NEB SCH ×2 (15:00)
[2017-12-15 15:28] LABS: Baso % (Auto) 0.2 % (0.0-2.0); Eos % (Auto) 0.2 % (0.0-4.0); Hematocrit 47.5 % (39.0-51.0); Hemoglobin 15.3 gm/dL (13.0-17.0); Lymph # (Auto) 0.7 th/mm3 (1.0-4.8); Lymph % (Auto) 3.6 % (9.0-44.0); Mean Corpuscular HGB Conc 32.2 % (32.0-36.0); Mean Corpuscular Hemoglobin 28.5 pg (27.0-34.0); Mean Corpuscular Volume 88.6 fL (80.0-100.0); Mean Platelet Volume 10.3 fL (7.0-11.0); Mono # (Auto) 0.7 th/mm3 (0.0-0.9); Mono % (Auto) 3.7 % (0.0-8.0); Neut # (Auto) 17.8 th/mm3 (1.8-7.7); Neut % (Auto) 92.3 % (16.0-70.0); Platelet Count 127 th/mm3 (150-450); Red Blood Count 5.36 mil/mm3 (4.50-5.90); White Blood Count 19.3 th/mm3 (4.0-11.0)
[2017-12-15] MEDS: SODIUM CHLOR NEB SCH ×2 (15:56→17:11)
[2017-12-15] MEDS: EPOPROSTENOL NEB SCH ×2 (15:56→17:11)
[2017-12-15 16:01] LABS: Activated Partial Thrombo Time 20.7 sec (24.3-30.1); INR 1.1 Ratio; Prothrombin Time 11.6 sec (9.8-11.6)
[2017-12-15] MEDS: Milrinone Inj 20 MG in Sodium Chlor 0.9% Inj 80 ML IV.CONT SCH (16:05)
[2017-12-15 16:07] LABS: Calcium 8.3 mg/dL (8.5-10.1); Potassium 3.8 meq/L (3.5-5.1)
--- NOTE | 2017-12-15 18:55 | P.CONCC ---
History of Present Illness Service: Critical Care Medicine Consult date: 12/15/17 Requesting Physician: Jasvir Mendez Reason for Consult: perioperative optimization of medical comorbidities Primary Care Provider: UNKNOWN Chief Complaint: Cardiopulmonary arrest. History of Present Illness: This is a 77-year-old male with a history of oxygen dependent COPD on 3 L nasal cannula at home. In addition, he has a diagnosis of stage IV lung cancer that he was diagnosed with 4 years ago and is now status post left upper lobectomy. Of note, his left upper lobectomy thoracotomy operation was complicated by a pulmonary artery injury and emergent repair with significant blood loss at that time. After his operation he underwent chemotherapy. Although he carries a diagnosis of stage IV lung cancer, it is been for years and he has had no progression of his pulmonary nodules or infiltrates, and is very likely that the radiographic findings were not consistent with metastatic disease, and that he is in remission. He was visiting us from [place] where he had a cardiac arrest/ventricular fibrillation episode and was brought into the emergency department. 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 In addition, the patient has low flow/low gradient aortic stenosis which on dobutamine stress echo proves to be critical aortic stenosis with a peak velocity greater than 4 m/s and a calculated valve area less than 0.5. 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 This was unknown to the patient had never been diagnosed with this before. The patient has severe dyspnea symptoms at rest which have been unchanged over many days despite forced diuresis. Structural heart team met and recommends him for transcatheter aortic valve replacement, however our recommendations also that he be medically optimized prior to undertaking such an operation. I was asked to evaluate the patient and additionally to perform right heart catheterization to evaluate central pressures and medically optimized patient. The patient was taken to the [facility] where I performed right heart catheterization, please see separate procedure note for the details of this operation. From here the PA catheter was left in place and the patient was taken to the cardiovascular intensive care unit for further optimization. I started the patient on milrinone 0.25 mcg/kg/min IV and inhaled Flolan at 50 ng/kg/min through a facemask. Patient has no additional symptoms or complaints and his review of systems is unchanged from prior days. Review of Systems All other systems reviewed negative except as stated in HPI [facility] - History History Provided By: Patient, Family Member - Medical History Medical History: Medical History (Last Reviewed 12/14/17 @ 11:19 by Carolina Naranjo) CAD (coronary artery disease) CHF (congestive heart failure) Chronic atrial fibrillation Diabetes mellitus Port-A-Cath in place Afib COPD (chronic obstructive pulmonary disease) Hypertension Lung cancer Oxygen dependent Pneumonia - Surgical History Surgical History: Surgical History (Last Reviewed 12/12/17 @ 12:13 by Carolina Naranjo) History of lobectomy of lung - Tobacco History Second Hand Smoke Exposure: No Tobacco Use In Past 30 Days: No Smoking Status: Former smoker Tobacco Type: Cigarettes - Alcohol History How Often Do You Have a Drink Containing Alcohol: Never - Substance Use History Substance History: No History of Abuse - Travel History History of Recent Travel: Yes Recent Travel in the [place] Within the Last 8 Weeks: Yes Recent Travel Out of the Country Within the Last 8 Weeks: No Medications and Allergies Active Medications: Active Medications Acetaminophen (Tylenol) 650 mg PO Q6H PRN PRN Reason: PAIN 6-10 AND/OR FEVER >101F Hydrocodone Bitart/Acetaminophen (Hamilton 5/325) 1 tab PO Q4H PRN PRN Reason: PAIN SCALE 1 TO 5 Al Hydroxide/Mg Hydroxide (Milk Of Alejandro Graham) 30 ml PO Q12H PRN PRN Reason: Mild Constipation Albuterol (Duoneb Neb (Prn)) 1 ampul NEB Q2HR NEB PRN PRN Reason: SHORTNESS OF BREATH/WHEEZING Amlodipine Besylate (Norvasc) 5 mg PO DAILY [facility] Last Admin: 12/15/17 09:24 Dose: 5 mg Aspirin (Ecotrin) 81 mg PO DAILY [facility] Last Admin: 12/15/17 09:24 Dose: 81 mg Bisacodyl (Dulcolax Supp) 10 mg RECTAL DAILY PRN PRN Reason: SEVERE CONSITIPATION Chlorhexidine Gluconate (Peridex 0.12% Oral Kit) 15 ml OROPHARYNG BID@0800, 2000 [facility] Last Admin: 12/15/17 09:23 Dose: Not Given Dextrose (D50w Vial) 50 ml IV.PUSH UNSCH PRN PRN Reason: PER HYPOGLYCEMIA PROTOCOL Famotidine (Pepcid Pf Inj) 20 mg IV.PUSH Q12HR [facility] Last Admin: 12/15/17 09:25 Dose: 20 mg Folic Acid (Folic Acid) 1 mg PO DAILY [facility] Last Admin: 12/15/17 09:24 Dose: 1 mg Furosemide (Lasix) 40 mg PO DAILY [facility] Last Admin: 12/15/17 09:24 Dose: 40 mg Glucagon (Glucagon Inj) 1 mg IV.PUSH PRN PRN PRN Reason: for Hypoglycemia Protocol Guaifenesin (Mucinex Er) 600 mg PO BID [facility] Last Admin: 12/15/17 09:24 Dose: 600 mg Milrinone Lactate 20 mg/ (Sodium Chloride) 100 mls @ 5.95 mls/hr IV.CONT .[id number] [facility]; Protocol Last Admin: 12/15/17 16:05 Dose: 0.25 mcg/kg/min, 5.95 mls/hr Epoprostenol Sodium 87.5 ml/ (Sodium Chloride) 100 mls @ 5 mls/hr NEB Q8H [facility] Last Admin: 12/15/17 17:11 Dose: Not Given Insulin Aspart (Novolog Insulin Correctional Sugar Inj) 0 unit SQ Q6HR [facility]; Protocol Last Admin: 12/15/17 18:21 Dose: 1 unit Lactulose (Lactulose Liq) 30 ml PO DAILY PRN PRN Reason: SEVERE CONSITIPATION Lisinopril (Prinivil) 20 mg PO DAILY [facility] Last Admin: 12/15/17 09:24 Dose: 20 mg Meclizine HCl (Antivert) 25 mg PO Q8HR PRN PRN Reason: Dizziness Last Admin: 12/13/17 08:30 Dose: 25 mg Methylprednisolone Sodium Succinate (Solumedrol Inj) 20 mg IV.PUSH Q12H [facility] Last Admin: 12/15/17 16:51 Dose: 20 mg Morphine Sulfate (Morphine Inj) 2 mg IV.PUSH Q2H PRN PRN Reason: PAIN SCALE 6 TO 10 Morphine Sulfate (Morphine Inj) 2 mg IV.PUSH Q4H PRN PRN Reason: PAIN 6-10;IF UNABLE TO TAKE PO Nitroglycerin (Nitrostat Sl (Override)) 0.4 mg SL Q5M PRN PRN Reason: Chest Pain Nystatin (Mycostatin Liq) 5 ml SWISH-SWAL QID [facility] Last Admin: 12/15/17 17:12 Dose: Not Given Ondansetron HCl (Zofran Odt) 4 mg PO Q6H PRN PRN Reason: NAUSEA OR VOMITING Pantoprazole Sodium (Protonix) 20 mg PO DAILY [facility] Last Admin: 12/15/17 09:24 Dose: 20 mg Potassium Chloride (K-Dur) 20 meq PO DAILY [facility] Last Admin: 12/09/17 09:52 Dose: 20 meq Pravastatin Sodium (Pravachol) 20 mg PO DAILY [facility] Last Admin: 12/15/17 09:24 Dose: 20 mg Senna/Docusate Sodium (Jamila-Colace) 1 tab PO BID [facility] Last Admin: 12/15/17 09:25 Dose: Not Given Sennosides (Senokot) 17.2 mg PO Q12H PRN PRN Reason: Moderate Constipation Sodium Chloride (Ns Flush) 2 ml IV.FLUSH BID [facility] Last Admin: 12/15/17 09:25 Dose: 2 ml Sodium Chloride (Ns Flush) 2 ml IV.FLUSH PRN PRN PRN Reason: FLUSH AFTER USING IV ACCESS Last Admin: 12/14/17 03:28 Dose: 2 ml Sodium Chloride (Ns Flush) 2 ml IV.FLUSH PRN PRN PRN Reason: FLUSH AFTER USING IV ACCESS Sodium Chloride (Ns Flush) 2 ml IV.FLUSH BID [facility] Last Admin: 12/15/17 09:25 Dose: 2 ml Allergies Allergy/AdvReac Type Severity Reaction Status Date / Time No Known Allergies Allergy Verified 12/04/17 09:42 Home Medications Medication Instructions Recorded Confirmed Type albuterol sulfate [ProAir HFA] 2 puff INHALATION Q4-6H PRN 12/04/17 12/08/17 History amlodipine 5 mg PO DAILY 12/04/17 12/05/17 History apixaban [Eliquis] 5 mg PO BID 12/04/17 12/08/17 History aspirin [Aspir-81] 81 mg PO DAILY 12/04/17 12/05/17 History folic acid 1 mg PO DAILY 12/04/17 12/05/17 History furosemide [Lasix] 40 mg PO DAILY 12/04/17 12/08/17 History ipratropium-albuterol 3 ml INHALATION Q6-8H PRN 12/04/17 12/08/17 History lisinopril 20 mg PO HS 12/04/17 12/05/17 History lisinopril-hydrochlorothiazide 1 tab PO DAILY 12/04/17 12/05/17 History meclizine 25 mg PO DAILY PRN 12/04/17 12/05/17 History nitroglycerin 0.4 mg SUBLINGUAL Q5-15M PRN 12/04/17 12/08/17 History potassium chloride 20 meq PO DAILY 12/04/17 12/05/17 History pravastatin 20 mg PO HS 12/04/17 12/05/17 History prednisone See Taper PO DIRECTED 12/04/17 12/08/17 History rabeprazole 20 mg PO DAILY 12/04/17 12/05/17 History Physical Exam Vital signs: Vital Signs 12/14/17 20:00 12/14/17 20:03 12/15/17 00:00 Temperature 36.4 C 36.4 C Pulse Rate 84 78 Respiratory Rate 16 18 Blood Pressure 111/81 132/85 Pulse Oximetry 97 97 97 12/15/17 04:00 12/15/17 08:00 12/15/17 14:40 Temperature 36.3 C L 36.3 C L Pulse Rate 86 87 96 H Respiratory Rate 16 20 Blood Pressure 120/80 122/82 Pulse Oximetry 94 L 92 L 12/15/17 15:20 12/15/17 16:00 12/15/17 16:57 Temperature 36.4 C Pulse Rate 89 90 97 H Respiratory Rate 20 18 Blood Pressure 136/87 Pulse Oximetry 96 100 Intake & Output 12/14/17 12/15/17 12/15/17 18:59 06:59 18:59 Intake Total 120 / 120 480 / 480 Output Total 1000 / 1000 900 / 900 2451 / 2451 Balance -880 / -880 -420 / -420 -2451 / -2451 Weight 79.4 kg Intake: Oral 120 / 120 480 / 480 Output: Urine 1000 / 1000 900 / 900 1100 / 1100 Stool 1 / Urine Amount (Catheter) 1350 / 1350 Indwelling Urethral Catheter 1350 / 1350 Other: # Voids 1 Date of Last Bowel Movement 12/14/17 12/14/17 # Bowel Movements 1 0 0 Narrative: GENERAL: Elderly male, lying in bed, mildly tachypneic. HEENT: Normocephalic. Atraumatic. Pupils equal, round, reactive, conjugate. Mucous membranes are moist NECK: Trachea is midline. Slight JVD. Right IJ 9 Ghanaian introducer sheath with PA catheter in place, site clean dry and intact. CHEST: Facemask Flolan in place. Evidence of right chest wall port in place, not currently accessed. Only mildly tachypneic. 3 L nasal cannula oxygen. SPO2 96%. CARDIOVASCULAR: Normal rate, irregularly irregular rhythm. A. fib by telemetry. ABDOMEN: Soft, nontender, nondistended. No guarding. MUSCULOSKELETAL: Pulses 2+. 1+ edema. NEUROLOGICAL: RASS 0. CAM -. Follows commands. - Urinary Catheter Management Indwelling Urethral Catheter Cath placed during this visit: no Assessment and Plan - Problem List (1) Cardiorespiratory arrest Code(s): I46.9 - Cardiac arrest, cause unspecified Status: Acute (2) COPD (chronic obstructive pulmonary disease) Code(s): J44.9 - Chronic obstructive pulmonary disease, unspecified Status: Acute (3) Lung cancer Code(s): C34.90 - Malignant neoplasm of unspecified part of unspecified bronchus or lung Status: Chronic (4) Elevated troponin I level Code(s): R74.8 - Abnormal levels of other serum enzymes Status: Acute (5) Leukocytosis Code(s): D72.829 - Elevated white blood cell count, unspecified Status: Acute - Assessment and Plan Plan: Assessment: 77-year-old male with critical aortic stenosis which is complicated by a depressed left ventricular systolic function and severe right ventricular dysfunction with dilation. By right heart cath numbers, he has severe pulmonary hypertension with a severely elevated PVR at 9 Mccray units. We will attempt to improve his pulmonary hypertension and at least get him down to half systemic or two thirds systemic pressures in an effort to mitigate his anesthesia risk. At this point, his CVP is right around 10 and his wedge is 16 and I do not think we will get significantly more diuresis out of him. I think he is very close to being optimized from a volume standpoint. Will make patient n.p.o. and plan on transcatheter aortic valve replacement in the morning. Of note, I do not think that the transcatheter aortic valve replacement will significantly improve his dyspnea symptoms, and I think the greatest part of his dyspnea is his right ventricular dysfunction and pulmonary hypertension. However, all the therapies that we can offer the patient for his right heart dysfunction and pulmonary hypertension will likely negatively impact to severe aortic stenosis and his coronary artery lesion, and I think without fixing his aortic valve lesion, we will not have any options to treat his pulmonary hypertension. In addition, I do think we may get some mild improvements in dyspnea from the valve alone, and I think it is worthwhile to proceed with valve replacement, understanding that our biggest benefit in valve replacement is the opportunity to medically manage his pulmonary hypertension more aggressively. He is very clearly high risk for any procedures given his multiple medical comorbidities, and the patient has had a discussion with myself , Dr. mendez, Dr. Batista, and other members of the structural heart team, and the patient and his family are fully aware of the high risks of any operation for this patient. They have expressed to me on more than one occasion that they understand the risks, and they wish to proceed with any procedure that will offer them the hope of symptomatic relief from his current severe dyspnea. Plan: near-Systemic severe Pulmonary Hypertension severe Right heart dysfunction - milrinone 0.25 mcg/kg/min - flolan 50 ng/kg/min - mild additional diuresis - leave PA catheter in place - will need sildenafil in the future when he is s/p TAVR Severe aortic stenosis - now that his volume status is optimized, after we optimize his PVR as best we can, he is stable and cleared for TAVR LV systolic dysfunction - diuresis as above - LVEDP ~16mmHg: he appears reasonably euvolemic at this time Atrial fibrillation - rate controlled - anticoagulation per Dr. Mendez COPD - o2 as needed for goal spo2 > 90% - nebs NPO @ [place] for procedure SCDs Discussed at length with the entire structural heart team. (2) 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
--- NOTE | 2017-12-15 18:59 | P.PCN ---
Date of procedure: 12/15/17 Pre-op diagnosis: Severe right ventricular dysfunction Post-op diagnosis: same Procedure: Right heart catheterization procedure Note Diagnosis: Severe right ventricular dysfunction with near systemic pulmonary hypertension Indications: Perioperative optimization for transcatheter aortic valve replacement, and diagnosis of etiology for severe pulmonary hypertension and right ventricular dysfunction. In brief, this is a 77-year-old male with severe aortic stenosis who also presents with newly diagnosed severe right ventricular dysfunction. The structural heart team has met and prior to proceeding with transcatheter aortic valve replacement, recommends evaluation of the patient's pulmonary hypertension and right ventricular dysfunction to rule out reversible and fixable causes prior to replacing the patient's aortic valve, and in addition medically optimizing the patient for undergoing the aforementioned procedure. Consent: Consent was obtained by the patient. Anesthesia: Due to near systemic nature of the patient's pulmonary hypertension , no anesthesia was given intravenously. The patient remained calm. The patient was given 1% lidocaine locally for local anesthetic. Description of the Procedure: The patient was transported to the heart catheterization lab. The patient was placed in the supine, mild-Reverse- Trendelenburg position. The area was prepped and draped sterilely. A 9 Libyan introducer sheath was placed, see separate procedure note for these details. Through this sheath, a 6 Fr pulmonary artery catheter was flushed, and all ports were checked, including PA, CVP, infusion port. The balloon was tested and inflated and deflated easily. Through an existing introducer sheath, the catheter was inserted to a depth of 20 cm and the balloon was inflated without resistance. The PA catheter was advanced under continuous waveform hemodynamic monitoring and appropriate RA, RV, PA, and PCWP waveforms were achieved. The balloon was deflated. The line was secured to the introducer sheath using a sterile cover. There were no immediate complications noted. There was minimal EBL. The patient tolerated the procedure well. PA catheter secured at: 56 cm. Hemodynamic Data: RAP: 11 mmHg RV: 76/7(11) mmHg PAP: 76/29(47) mmHg PCWP: 16 mmHg achieved at 59 cm Mixed Venous SvO2: 63 % Cardiac Output: 3.3 L/min (El) Cardiac Index: 1.8 A Chest x-ray has been ordered. I personally performed the procedure. Anesthesia: local Surgeon: Kristian Bhatti Estimated blood loss (mL): 5 Pathology: none sent Condition: stable Disposition: ICU
--- NOTE | 2017-12-15 19:01 | P.PCN ---
Date of procedure: 12/15/17 Pre-op diagnosis: Severe aortic stenosis Post-op diagnosis: same Procedure: Central Line Procedure Note Right IJ 9 Greenlandic introducer sheath Diagnosis: Severe aortic stenosis Indications: Need for central pressure monitoring Consent: Obtained from the patient Anesthesia: 1% lidocaine locally Description of the Procedure: The patient was placed in the supine, mild- Trendelenburg position. The area was prepped and draped sterilely. A 19g needle was inserted under negative pressure aspiration and dark venous blood was obtained. A guidewire was inserted easily without resistance. A small incision was made using a #11 blade. Using a modified Seldinger technique, the dilator and 9 Greenlandic, 10 cm catheter were advanced over the guidewire without resistance. All ports were aspirated and flushed, and had brisk blood return. The line was secured at the skin using 2-0 silk interrupted sutures. Suture was used instead of a non-suture StatLock device due to the configuration of the introducer sheath. A Biopatch and Transparent sterile dressing were applied. There were no immediate complications noted. There was minimal EBL. The patient tolerated the procedure well. Ultrasound Guidance: Ultrasound guidance was used to identify the right internal jugular vein. The vascular anatomy of the right anterior neck was normal. The vessel was cannulated under direct, real-time ultrasound visualization. After placement of the guidewire, confirmation of the guidewire was made using fluoroscopic visualization, before dilation of the tract. A Chest x-ray has been ordered. I personally performed the procedure.
--- NOTE | 2017-12-15 19:09 | P.PNPL ---
Subjective Interval history: 77 YOWM from [place] with cardiac arrest,ca lung Breathing better Mild sob No CP Family at PFT Severe COPD Had RHC,Severe PHTN Started on Flolan On Milrinone drip Physical Exam Vital signs: Vital Signs 12/14/17 20:00 12/14/17 20:03 12/15/17 00:00 Temperature 97.6 F 97.6 F Pulse Rate 84 78 Respiratory Rate 16 18 Blood Pressure 111/81 132/85 Pulse Oximetry 97 97 97 12/15/17 04:00 12/15/17 08:00 12/15/17 14:40 Temperature 97.4 F L 97.4 F L Pulse Rate 86 87 96 H Respiratory Rate 16 20 Blood Pressure 120/80 122/82 Pulse Oximetry 94 L 92 L 12/15/17 15:20 12/15/17 16:00 12/15/17 16:57 Temperature 97.6 F Pulse Rate 89 90 97 H Respiratory Rate 20 18 Blood Pressure 136/87 Pulse Oximetry 96 100 Intake & Output 12/15/17 12/15/17 12/16/17 06:59 18:59 06:59 Intake Total 480 / 480 Output Total 900 / 900 2451 / 2451 Balance -420 / -420 -2451 / -2451 Weight 79.4 kg Intake: Oral 480 / 480 Output: Urine 900 / 900 1100 / 1100 Stool 1 / 1 Urine Amount (Catheter) 1350 / 1350 Indwelling Urethral Catheter 1350 / 1350 Other: # Voids 1 Date of Last Bowel Movement 12/14/17 12/14/17 # Bowel Movements 0 0 GENERAL: Elderly Wm, Mild sob SKIN: Warm and dry. HEAD: Normocephalic. EYES: No scleral icterus. No injection or drainage. NECK: Supple, trachea midline. No JVD or lymphadenopathy. CARDIOVASCULAR: Regular rate and rhythm without murmurs, gallops, or rubs. RESPIRATORY: Breath sounds equal bilaterally. No accessory muscle use. GASTROINTESTINAL: Abdomen soft, non-tender, nondistended. MUSCULOSKELETAL: No cyanosis, or edema. BACK: Nontender without obvious deformity. No CVA tenderness. - Urinary Catheter Management Indwelling Urethral Catheter Cath placed during this visit: no Assessment and Plan - Plan IMPRESSION: 1. Chronic obstructive pulmonary disease . 2. Coronary artery disease, status post cardiac arrest. 3. Carcinoma of the lung with metastasis. 4. Recent pleural effusion, status post thoracentesis. 5. Atrial fibrillation. 6. Aortic Stenosis PLAN: Aerosol nebs Supplement [address] eff On Milrinone drip and Flolan via Face mask DW pt and his Plans for TAVR on Tuesday.
--- NOTE | 2017-12-15 20:50 | P.PNCA ---
Subjective Interval history: alert in nad Physical Exam Vital signs: Vital Signs 12/15/17 00:00 12/15/17 04:00 12/15/17 08:00 Temperature 97.6 F 97.4 F L Pulse Rate 78 86 87 Respiratory Rate 18 16 Blood Pressure 132/85 120/80 Pulse Oximetry 97 94 L 12/15/17 14:40 12/15/17 15:20 12/15/17 16:00 Temperature 97.4 F L 97.6 F Pulse Rate 96 H 89 90 Respiratory Rate 20 20 Blood Pressure 122/82 136/87 Pulse Oximetry 92 L 96 12/15/17 16:57 Temperature Pulse Rate 97 H Respiratory Rate 18 Blood Pressure Pulse Oximetry 100 Intake & Output 12/15/17 12/15/17 12/16/17 06:59 18:59 06:59 Intake Total 480 / 480 Output Total 900 / 900 2451 / 2451 Balance -420 / -420 -2451 / -2451 Weight 79.4 kg Intake: Oral 480 / 480 Output: Urine 900 / 900 1100 / 1100 Stool 1 / 1 Urine Amount (Catheter) 1350 / 1350 Indwelling Urethral Catheter 1350 / 1350 Other: # Voids 1 Date of Last Bowel Movement 12/14/17 12/14/17 # Bowel Movements 0 0 - Urinary Catheter Management Indwelling Urethral Catheter Cath placed during this visit: no Assessment and Plan - Assessment (1) Aortic stenosis Code(s): I35.0 - Nonrheumatic aortic (valve) stenosis Status: Acute (2) Cardiomyopathy Code(s): I42.9 - Cardiomyopathy, unspecified Status: Acute (3) CHF (congestive heart failure) Code(s): I50.9 - Heart failure, unspecified Status: Acute (4) Atrial fibrillation Code(s): I48.91 - Unspecified atrial fibrillation Status: Acute (5) NSTEMI (non-ST elevated myocardial infarction) Code(s): I21.4 - Non-ST elevation (NSTEMI) myocardial infarction Status: Acute (6) COPD (chronic obstructive pulmonary disease) Code(s): J44.9 - Chronic obstructive pulmonary disease, unspecified Status: Acute (7) Cardiorespiratory arrest Code(s): I46.9 - Cardiac arrest, cause unspecified Status: Acute (8) Elevated troponin I level Code(s): R74.8 - Abnormal levels of other serum enzymes Status: Acute (9) Lung cancer Code(s): C34.90 - Malignant neoplasm of unspecified part of unspecified bronchus or lung Status: Chronic - Plan dobutamine echo consistent with severe aortic valve stenosis 2 vessel CAD with coronary aneurysm CT chest shows multiple nodule consistent with lung cancer. Discussed case with oncologist Dr. Hayes. She confirmed his cancer has been relatively stable over the course of 4 years and he is no longer receiving therapy. She is going to overnight deliver his most recent CT chest images to my office to review in comparison to our study. Discussed his case in detail with the TAVR team including anesthesia and CT surgery. His pulmonary hypertension is a concern for anesthesia. It is also likely contributing to his symptoms in addition to the severe aortic valve stenosis. Plan for transfer to CVICU for monitoring and bedside swan placement. LVEDP on [facility] was 20-30 mmHg. Will consider pulmonary vasoreactivity challenge with inhaled flolan to reduce perioperative risk and contribute to future treatment strategy (halfway oral agent). Tenative plan is for TAVR tuesday. (1) Aortic stenosis Qualifiers: Cardiac valve disease etiology: etiology unspecified Qualified Code(s): I35.0 - Nonrheumatic aortic (valve) stenosis (4) Atrial fibrillation Qualifiers: Atrial fibrillation type: chronic Qualified Code(s): I48.2 - Chronic atrial fibrillation (6) 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
[2017-12-16] MEDS: Insulin NovoLOG Aspart Correctional Sugar Inj SQ SCH ×3 (00:18→19:19)
[2017-12-16] MEDS: Oral Hygiene Kit OROPHARYNG SCH ×4 (00:19→16:34)
[2017-12-16] MEDS: EPOPROSTENOL NEB SCH ×2 (00:54→14:08)
[2017-12-16] MEDS: SODIUM CHLOR NEB SCH ×2 (00:54→14:08)
[2017-12-16] MEDS ORDERED: EPINEPHrine (1:1000) Inj 2 MG in Sodium Chlor 0.9% Inj 248 ML IV.CONT PRN (05:06)
[2017-12-16] MEDS ORDERED: Vasopressin Inj 40 UNIT in Sodium Chlor 0.9% Inj 98 ML IV.CONT PRN (05:06)
[2017-12-16] MEDS: MethylPREDNISolone Sod Succinate Inj 40 MG/ML Vial IV.PUSH SCH ×2 (05:13→16:36)
[2017-12-16] MEDS ORDERED: Chlorhexidine Gluconate 2% 1 Pack (2 Cloths) TOPICAL SCH (05:15)
[2017-12-16] MEDS ORDERED: Sodium Chlor 0.9% Inj 500 ML IV.SIG SCH (06:00)
--- NOTE | 2017-12-16 06:14 | P.PCN ---
Date of procedure: 12/16/17 Pre-op diagnosis: Severe aortic stenosis Post-op diagnosis: same Procedure: Procedure: Arterial Line Placement Right radial arterial line Diagnosis: Severe aortic stenosis Indications: Need for beat to beat hemodynamic monitoring Consent: Obtained from the patient Description of the Procedure: The right wrist was prepped and draped sterilely. 1% lidocaine was used for local anesthesia. The pulse was located and a needle was advanced into the artery. A 20 gauge, 12 cm catheter was advanced into the artery using a modified Seldinger technique. The catheter was sutured to the skin and a sterile dressing was applied. The catheter was connected to a pressure transducer and an arterial waveform was noted. There were no immediate complications noted. There was minimal EBL. I personally performed the procedure.
[2017-12-16] MEDS ORDERED: Protamine Sulfate Inj 50 MG/5 ML Vial ONE ×3 (06:37→09:05)
[2017-12-16] MEDS ORDERED: Heparin 10,000 UNITS/10 ML Vial (for IV use) ONE ×3 (06:37→09:21)
[2017-12-16] MEDS ORDERED: fentaNYL Citrate Inj 100 MCG/2 ML Ampul ONE (07:25)
[2017-12-16] MEDS ORDERED: Etomidate Inj 40 MG/20 ML Vial IV.PUSH ONE (07:38)
--- NOTE | 2017-12-16 08:15 | P.PNCA ---
Subjective Interval history: Events from yesterday noted. Patient was moved to the cardiovascular intensive care unit and initiated on milrinone continuous infusion and inhaled epoprostenol with right heart catheterization to document pulmonary arterial pressures in anticipation of upcoming anesthesia. Computed tomography scan from outside hospital was received from his oncologist at home and reviewed in detail. The results of the CT scan were similar to the observe results from the CAT scan personally reviewed with the TAVR team No new complaints. Patient states breathing is slightly improved. Physical Exam Vital signs: Vital Signs 12/15/17 14:40 12/15/17 15:20 12/15/17 16:00 Temperature 97.4 F L 97.6 F Pulse Rate 96 H 89 90 Respiratory Rate 20 20 Blood Pressure 122/82 136/87 Pulse Oximetry 92 L 96 12/15/17 16:57 12/15/17 19:00 12/15/17 20:00 Temperature 97.1 F L Pulse Rate 97 H 96 H 98 H Respiratory Rate 18 28 H Blood Pressure 107/73 Pulse Oximetry 100 98 12/15/17 21:41 12/15/17 23:50 12/16/17 00:00 Temperature 97.0 F L Pulse Rate 96 H 104 H Respiratory Rate 24 Blood Pressure 115/69 Pulse Oximetry 98 97 12/16/17 03:00 12/16/17 03:45 12/16/17 04:00 Temperature 96.4 F L Pulse Rate 81 79 Respiratory Rate 24 Blood Pressure 115/76 Pulse Oximetry 98 98 Intake & Output 12/15/17 12/16/17 12/16/17 18:59 06:59 18:59 Intake Total 340 / 340 Output Total 2451 / 2451 700 / 700 Balance -2451 / -2451 -360 / -360 Weight 74.5 kg Intake: IV 100 / 100 Flolan (30,000 ng/mL) Neb 87.5 100 / 100 ML In NS Inj 12.5 ML @ 5 mls/hr NEB Q8H [facility] Rx#:[id number] Oral 240 / 240 Output: Urine 1100 / 1100 700 / 700 Stool 1 / 1 Urine Amount (Catheter) 1350 / 1350 Indwelling Urethral Catheter 1350 / 1350 Other: # Voids 1 Date of Last Bowel Movement 12/14/17 # Bowel Movements 0 0 - Constitutional mild distress - Routine HEENT Exam Head: Present: normocephalic Eye: Present: EOMI, PERRL ENT: Present: mucous membranes moist - Routine Neck Exam Absent: JVD - Routine Respiratory Exam Present: decreased breath sounds, CTA bilaterally - Routine Cardiovascular Exam Present: RRR, murmur - Routine Abdominal Exam Present: soft, normoactive bowel sounds - Routine Neurological Exam Present: alert, oriented X3, sensory deficit, motor deficit - Urinary Catheter Management Indwelling Urethral Catheter Cath placed during this visit: no Assessment and Plan - Plan Dobutamine stress echocardiogram confirms low gradient, low flow severe aortic valve stenosis Hernia catheterization reveals moderate to severe bifurcation left anterior descending and diagonal branch disease with 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 Computed tomography scan of the chest was compared to prior scan earlier this year without significant change. Patient has underlying severe pulmonary hypertension and was taken to the cardiovascular intensive care unit for preoperative optimization with inhaled epoprostenol and milrinone continuous infusion. Preoperative evaluation STS score 14.2% [place] [employer] functional class IV Body mass index 28.1 Frailty score 1 out of 4 Electrocardiogram shows normal sinus rhythm with right axis deviation and incomplete right bundle branch block Pulmonary function testing from October 24, 2017 shows FEV1 of 0.9 consistent with severe restrictive disease Dobutamine stress echo from December 13, 2017 at 5 mcg of dobutamine infusion reveals a jet velocity of 4.2 m/s, mean gradient 34 mmHg, calculated aortic valve area 0.25 cm with an ejection fraction between 40 and 45%. There is mild aortic and mitral regurgitation with moderate tricuspid regurgitation. 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 The sinus of Valsalva diameter is 30.0 mm and sinotubular junction is 28.3 mm. Left coronary height is 12.2 mm and right coronary height is 15.7 mm. There is an adequate aortic arch implant angle of right anterior oblique 4 an caudal 15 Computed tomography angiography of bilateral lower extremities reveals minimal luminal diameter of 6.5 mm on the right and 7.6 mm on the left. Is a 77-year-old gentleman with history of coronary artery disease, cardiomyopathy, diabetes, non-small cell lung cancer, prior left wedge and lobectomy, COPD oxygen dependence, chronic atrial fibrillation, hypertension, and recent cardiac arrest with severe aortic valve stenosis and [place] [employer] functional class IV symptoms. After lengthy review and discussion with the transcatheter aortic valve replacement team, given his critical valve stenosis in the setting of cardiomyopathy, it was felt that this was significantly contributing to his symptoms and also his cardiovascular sudden cardiac risk. There is an obvious pulmonary component with underlying pulmonary hypertension, which appears to be combined intrinsic (possibly related to his lobectomy) & left sided disease related to his aortic valve stenosis. Patient is considered very high risk for any surgical intervention and also would be considered a high risk for transcatheter aortic valve replacement. After lengthy discussion with the patient and family, the patient is agreeable to proceed forward with attempted transcatheter aortic valve replacement. We have taken all precautions to optimize his right ventricle in anticipation of undergoing anesthesia. Patient is aware of high surgical risk and risk for , bleeding , and stroke, and prolonged ventilatory requirement. For any unforeseen catastrophic intraoperative events, patient does not wish to proceed with open sternotomy. Following transcatheter aortic valve replacement, patient may potentially benefit from a pulmonary vasodilator during recovery. At some point in the future, patient would have to consider staged surgical intervention for his coronary aneurysm should his clinical status improved, which [place].
[2017-12-16] MEDS: Milrinone Inj 20 MG in Sodium Chlor 0.9% Inj 80 ML IV.CONT SCH (08:54)
[2017-12-16] MEDS ORDERED: Sugammadex Inj 200 MG/2 ML Vial IV.PUSH ONE (09:11)
[2017-12-16] MEDS ORDERED: Heparin - SQ 10,000 UNITS/ML Vial ONE (09:20)
--- NOTE | 2017-12-16 09:28 | P.OP ---
Date of procedure: 12/16/17 Anesthesia: GETA Surgeon: Connor Batista MD Operation and Findings: PREOPERATIVE DIAGNOSIS: 1. Severe Symptomatic Aortic stenosis. 2. CHF 3. Mild aortic Insufficiency 4. Stage IV lung cancer 5. Moderate left ventricular dysfunction 6. Severe pulmonary hypertension 7. Severe pulmonary insufficiency POSTOPERATIVE DIAGNOSIS: Same OPERATION PERFORMED: 1. Transcatheter Aortic Valve Replacement (TAVR) with a Medtronic 29 mm Evolut Pro Tissue Valve. 2. Aortogram. 3. Percutaneous left femoral Vein Access and Bilateral Common Femoral Artery Access 4. Perclose (x2) closure of right common Femoral artery. 5. Vascade closure of left common femoral Artery and Vein. 6. Fluoroscopy SURGEON: Connor Batista MD CO-SURGEON: Jasvir Lorenznaa MD PATIENT CARE TECHNICIAN SURGEON: None SALES APPRENTICE: EMELIA Rodriguez MD ANESTHESIA: GETA PROCEDURE: The risks, benefits, complications, treatment options, and expected outcomes were discussed with the patient. The possibilities of reaction to medication, pulmonary aspiration, perforation of viscus, bleeding, recurrent infection, the need for additional procedures, failure to diagnose a condition, and creating a complication requiring transfusion or operation were discussed with the patient. The patient concurred with the proposed plan, giving informed consent. The site of surgery properly noted/marked. The patient was taken to the hybrid operating room and the procedure verified as Transcatheter Aortic Valve Replacement. A Time Out was held and the above information confirmed. Standard monitoring lines and Calix catheter were placed. General anesthesia was induced. The patient was prepped and draped in a sterile fashion. Initially, the left femoral arterial and venous access was acquired using a Seldinger percutaneous technique. The details of this procedure were dictated under separate note by cardiology. Once a pigtail was positioned in the aortic annulus and a temporary transvenous pacemaker wire was placed in the right ventricular apex and tested, the right femoral artery was accessed using a needle followed by a guidewire under fluoroscopic guidance. The patient was heparinized and two Perclose devices deployed at a 45 degree angle for later closure. Serial dilators were used to dilate the left femoral artery to 16 Prydeinig caliber. The Medtronic sheath was then inserted into the external iliac artery up to the distal abdominal aorta. Arch aortography was performed to define the implant view. A 29 mm Medtronic Evolut Pro transcatheter aortic valve was then positioned in the annulus and deployed with the patient being rapidly paced. Following deployment, the valve apparatus was withdrawn and arch aortography and HILTON were performed to assess the valve. The valve had no perivalvular leak. Gradients were then measured and the sheath was removed with securing the Perclose sutures for hemostasis. Protamine was administered. The left arterial and Venous access sites were closed using the Vascade device. Sterile dressings were placed. At the end of the operation, all sponge, instruments, and needle counts were correct. The patient was transferred to the CVICU in stable condition. Findings: No PVL Implants: 29 Evolut Pro Medtronic Valve Complications: None Disposition: CVICU in stable condition
[2017-12-16] MEDS ORDERED: Iohexol Inj 350 MG/ML 100 ML Bottle (for RAD Diag) IVCONTRAST ONE (09:43)
--- NOTE | 2017-12-16 10:31 | P.PNCA ---
Subjective Interval history: sedated in nad Physical Exam Vital signs: Vital Signs 12/15/17 14:40 12/15/17 15:20 12/15/17 16:00 Temperature 97.4 F L 97.6 F Pulse Rate 96 H 89 90 Respiratory Rate 20 20 Blood Pressure 122/82 136/87 Pulse Oximetry 92 L 96 12/15/17 16:57 12/15/17 19:00 12/15/17 20:00 Temperature 97.1 F L Pulse Rate 97 H 96 H 98 H Respiratory Rate 18 28 H Blood Pressure 107/73 Pulse Oximetry 100 98 12/15/17 21:41 12/15/17 23:50 12/16/17 00:00 Temperature 97.0 F L Pulse Rate 96 H 104 H Respiratory Rate 24 Blood Pressure 115/69 Pulse Oximetry 98 97 12/16/17 03:00 12/16/17 03:45 12/16/17 04:00 Temperature 96.4 F L Pulse Rate 81 79 Respiratory Rate 24 Blood Pressure 115/76 Pulse Oximetry 98 98 Intake & Output 12/15/17 12/16/17 12/16/17 18:59 06:59 18:59 Intake Total 340 / 340 1100 / 1100 Output Total 2451 / 2451 700 / 700 375 / 375 Balance -2451 / -2451 -360 / -360 725 / 725 Weight 74.5 kg Intake: IV 100 / 100 Flolan (30,000 ng/mL) Neb 87.5 100 / 100 ML In NS Inj 12.5 ML @ 5 mls/hr NEB Q8H [facility] Rx#:[id number] Oral 240 / 240 Anesthesia Amount 1100 / 1100 Output: Urine 1100 / 1100 700 / 700 Stool 1 / 1 Estimated Blood Loss 50 / 50 Urine Amount (Catheter) 1350 / 1350 325 / 325 Indwelling Temp Sensing 325 / 325 Catheter Indwelling Urethral Catheter 1350 / 1350 Other: # Voids 1 Date of Last Bowel Movement 12/14/17 # Bowel Movements 0 0 - Urinary Catheter Management Indwelling Temp Sensing Catheter Cath placed during this visit: yes Reason for continuing: Hourly intake/output Insertion date: 12/16/17 Insertion time: 08:00 Indwelling Urethral Catheter Cath placed during this visit: no Reason for continuing: Hourly intake/output Assessment and Plan - Assessment (1) Aortic stenosis Code(s): I35.0 - Nonrheumatic aortic (valve) stenosis Status: Acute (2) Cardiomyopathy Code(s): I42.9 - Cardiomyopathy, unspecified Status: Acute (3) CHF (congestive heart failure) Code(s): I50.9 - Heart failure, unspecified Status: Acute (4) Atrial fibrillation Code(s): I48.91 - Unspecified atrial fibrillation Status: Acute (5) NSTEMI (non-ST elevated myocardial infarction) Code(s): I21.4 - Non-ST elevation (NSTEMI) myocardial infarction Status: Acute (6) COPD (chronic obstructive pulmonary disease) Code(s): J44.9 - Chronic obstructive pulmonary disease, unspecified Status: Acute (7) Cardiorespiratory arrest Code(s): I46.9 - Cardiac arrest, cause unspecified Status: Acute (8) Elevated troponin I level Code(s): R74.8 - Abnormal levels of other serum enzymes Status: Acute (9) Lung cancer Code(s): C34.90 - Malignant neoplasm of unspecified part of unspecified bronchus or lung Status: Chronic - Plan Dobutamine stress echocardiogram confirms low gradient, low flow severe aortic valve stenosis Hernia catheterization reveals moderate to severe bifurcation left anterior descending and diagonal branch disease with 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 Computed tomography scan of the chest was compared to prior scan earlier this year without significant change. Patient has underlying severe pulmonary hypertension and was taken to the cardiovascular intensive care unit for preoperative optimization with inhaled epoprostenol and milrinone continuous infusion. Preoperative evaluation STS score 14.2% [place] [employer] functional class IV Body mass index 28.1 Frailty score 1 out of 4 Electrocardiogram shows normal sinus rhythm with right axis deviation and incomplete right bundle branch block Pulmonary function testing from October 24, 2017 shows FEV1 of 0.9 consistent with severe restrictive disease Dobutamine stress echo from December 13, 2017 at 5 mcg of dobutamine infusion reveals a jet velocity of 4.2 m/s, mean gradient 34 mmHg, calculated aortic valve area 0.25 cm with an ejection fraction between 40 and 45%. There is mild aortic and mitral regurgitation with moderate tricuspid regurgitation. 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 The sinus of Valsalva diameter is 30.0 mm and sinotubular junction is 28.3 mm. Left coronary height is 12.2 mm and right coronary height is 15.7 mm. There is an adequate aortic arch implant angle of right anterior oblique 4 an caudal 15 Computed tomography angiography of bilateral lower extremities reveals minimal luminal diameter of 6.5 mm on the right and 7.6 mm on the left. Is a 77-year-old gentleman with history of coronary artery disease, cardiomyopathy, diabetes, non-small cell lung cancer, prior left wedge and lobectomy, COPD oxygen dependence, chronic atrial fibrillation, hypertension, and recent cardiac arrest with severe aortic valve stenosis and [place] [employer] functional class IV symptoms. After lengthy review and discussion with the transcatheter aortic valve replacement team, given his critical valve stenosis in the setting of cardiomyopathy, it was felt that this was significantly contributing to his symptoms and also his cardiovascular sudden cardiac risk. There is an obvious pulmonary component with underlying pulmonary hypertension, which appears to be combined intrinsic (possibly related to his lobectomy) & left sided disease related to his aortic valve stenosis. Patient is considered very high risk for any surgical intervention and also would be considered a high risk for transcatheter aortic valve replacement. After lengthy discussion with the patient and family, the patient is agreeable to proceed forward with attempted transcatheter aortic valve replacement. We have taken all precautions to optimize his right ventricle in anticipation of undergoing anesthesia. Patient is aware of high surgical risk and risk for , bleeding , and stroke, and prolonged ventilatory requirement. For any unforeseen catastrophic intraoperative events, patient does not wish to proceed with open sternotomy. Following transcatheter aortic valve replacement, patient may potentially benefit from a pulmonary vasodilator during recovery. At some point in the future, patient would have to consider staged surgical intervention for his coronary aneurysm should his clinical status improved, [place] (1) Aortic stenosis Qualifiers: Cardiac valve disease etiology: etiology unspecified Qualified Code(s): I35.0 - Nonrheumatic aortic (valve) stenosis (4) Atrial fibrillation Qualifiers: Atrial fibrillation type: chronic Qualified Code(s): I48.2 - Chronic atrial fibrillation (6) 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
[2017-12-16] MEDS: Chlorhexidine 0.12% Oral Kit 15 ML UDC OROPHARYNG SCH (10:53)
[2017-12-16] MEDS: guaiFENesin 600 MG ER Tablet PO SCH ×2 (11:09→22:17)
[2017-12-16] MEDS: Folic Acid 1 MG Tablet PO SCH (11:09)
[2017-12-16] MEDS: Senna/Docusate Sodium 8.6/50 MG Tablet PO SCH ×2 (11:10→22:17)
[2017-12-16] MEDS ORDERED: Phenylephrine/NS 1000 MCG/10ML Syringe IV.PUSH ONE (12:00)
[2017-12-16] MEDS ORDERED: Lidocaine PF 1% Inj 5 ML Syringe INFILTRATN ONE (12:00)
[2017-12-16] MEDS ORDERED: EPINEPHrine (1:1000) Inj 4 MG in Sodium Chlor 0.9% Inj 246 ML IV.CONT PRN (12:03)
--- NOTE | 2017-12-16 12:24 | ECG ---
Date Performed: 12/15/2017 Time Performed: 18:01:32 PTAGE: 77 years EKG: Atrial fibrillation with PVC(s) or aberrant ventricular conduction Indeterminate axis Right bundle branch block Lateral T wave changes are nonspecific Abnormal ECG PREVIOUS TRACING : 12/04/2017 16.51 Since the previous tracing, no significant change noted DOCTOR: Fran Glover Interpretating Date/Time 12/16/2017 12:23:50
[2017-12-16] MEDS: Furosemide 40 MG Tablet PO SCH (13:26)
[2017-12-16] MEDS: Nystatin Liq 500,000 UNIT/5 ML UDC SWISH-SWAL SCH ×4 (13:26→22:17)
[2017-12-16] MEDS: EPINEPHrine (1:1000) Inj 4 MG in Sodium Chlor 0.9% Inj 246 ML IV.CONT PRN (13:42)
--- NOTE | 2017-12-16 13:48 | P.PNCC ---
Subjective Subjective Remarks/Hospital Course: This 77-year-old gentleman with coronary artery disease, chronic heart failure, glucose intolerance, recent pneumonia, and status post lobectomy for lung cancer develop respiratory acidosis culminating in brief cardiac arrest after transport to the [facility] emergency department. He was rapidly resuscitated after 1 amp of epinephrine but did require intubation and mechanical ventilation. He is been on home oxygen following his lobectomy and has underlying COPD which was likely exacerbated prior to this event. At the outside hospital troponin was minimally elevated at 0.15 and initial pH was arterial 7.16. He was transported to the [facility] at [facility] and I met him on his arrival. 12/05: Sitting up in bed extubated yesterday breathing comfortably. WBC count is elevated most likely stress related. No arrhythmias reported overnight This is a 77-year-old male with a history of oxygen dependent COPD on 3 L nasal cannula at home. In addition, he has a diagnosis of stage IV lung cancer that he was diagnosed with 4 years ago and is now status post left upper lobectomy. Of note, his left upper lobectomy thoracotomy operation was complicated by a pulmonary artery injury and emergent repair with significant blood loss at that time. After his operation he underwent chemotherapy. Although he carries a diagnosis of stage IV lung cancer, it is been for years and he has had no progression of his pulmonary nodules or infiltrates, and is very likely that the radiographic findings were not consistent with metastatic disease, and that he is in remission. He was visiting us from [place] where he had a cardiac arrest/ventricular fibrillation episode and was brought into the emergency department. 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 In addition, the patient has low flow/low gradient aortic stenosis which on dobutamine stress echo proves to be critical aortic stenosis with a peak velocity greater than 4 m/s and a calculated valve area less than 0.5. 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 This was unknown to the patient had never been diagnosed with this before. The patient has severe dyspnea symptoms at rest which have been unchanged over many days despite forced diuresis. Structural heart team met and recommends him for transcatheter aortic valve replacement, however our recommendations also that he be medically optimized prior to undertaking such an operation. I was asked to evaluate the patient and additionally to perform right heart catheterization to evaluate central pressures and medically optimized patient. The patient was taken to the [facility] where I performed right heart catheterization, please see separate procedure note for the details of this operation. From here the PA catheter was left in place and the patient was taken to the cardiovascular intensive care unit for further optimization. I started the patient on milrinone 0.25 mcg/kg/min IV and inhaled Flolan at 50 ng/kg/min through a facemask. Patient has no additional symptoms or complaints and his review of systems is unchanged from prior days. 12/16: no changes in PVR with initiation of milrinone or inhaled flolan. successfully underwent TAVR. extubated at the conclusion of the case. hemodynamics appear to be back to baseline, however, in the perioperative period , now on epinephrine at 3mcg/min, vasopressin at 0.02 units/min, milrinone 0.25 mcg/kg/min. received 40mg lasix iv in the OR. Objective Vital Signs / I&O: Vital Signs 12/15/17 14:40 12/15/17 15:20 12/15/17 16:00 Temperature 36.3 C L 36.4 C Pulse Rate 96 H 89 90 Respiratory Rate 20 20 Blood Pressure 122/82 136/87 Pulse Oximetry 92 L 96 12/15/17 16:57 12/15/17 19:00 12/15/17 20:00 Temperature 36.2 C L Pulse Rate 97 H 96 H 98 H Respiratory Rate 18 28 H Blood Pressure 107/73 Pulse Oximetry 100 98 12/15/17 21:41 12/15/17 23:50 12/16/17 00:00 Temperature 36.1 C L Pulse Rate 96 H 104 H Respiratory Rate 24 Blood Pressure 115/69 Pulse Oximetry 98 97 12/16/17 03:00 12/16/17 03:45 12/16/17 04:00 Temperature 35.8 C L Pulse Rate 81 79 Respiratory Rate 24 Blood Pressure 115/76 Pulse Oximetry 98 98 12/16/17 10:00 12/16/17 10:15 12/16/17 10:36 Temperature 36.1 C L Pulse Rate 87 Respiratory Rate Blood Pressure 119/48 L Pulse Oximetry 100 97 12/16/17 11:55 12/16/17 12:03 12/16/17 12:04 Temperature 36.5 C Pulse Rate 110 H 108 H Respiratory Rate 14 Blood Pressure 98/48 L 95/43 L Pulse Oximetry 99 98 Intake & Output 12/15/17 12/16/17 12/16/17 18:59 06:59 18:59 Intake Total 340 / 340 1700 / 1700 Output Total 2451 / 2451 700 / 700 375 / 375 Balance -2451 / -2451 -360 / -360 1325 / 1325 Weight 74.5 kg Intake: IV 100 / 100 600 / 600 Primacor Inj 20 MG In NS Inj 80 100 / 100 ML @ 0.25 MCG/KG/MIN 5.95 mls/ hr IV.CONT .[id number] [facility] Rx#: [id number] LR 1000 mL Inj 1,000 ML @ 30 500 / 500 mls/hr IV.SIG .Q24H [facility] Rx#: [id number] Flolan (30,000 ng/mL) Neb 87.5 100 / 100 ML In NS Inj 12.5 ML @ 5 mls/hr NEB Q8H [facility] Rx#:[id number] Oral 240 / 240 Anesthesia Amount 1100 / 1100 Output: Urine 1100 / 1100 700 / 700 Stool 1 / 1 Estimated Blood Loss 50 / 50 Urine Amount (Catheter) 1350 / 1350 325 / 325 Indwelling Temp Sensing 325 / 325 Catheter Indwelling Urethral Catheter 1350 / 1350 Other: # Voids 1 Date of Last Bowel Movement 12/14/17 12/14/17 # Bowel Movements 0 0 Result Diagrams: 12/15/17 15:12 12/15/17 14:55 Objective Remarks: GENERAL: Elderly male, lying in bed, arousing from anesthesia. HEENT: Normocephalic. Atraumatic. Pupils equal, round, reactive, conjugate. Mucous membranes are moist NECK: Trachea is midline. Slight JVD. Right IJ 9 Bulgarian introducer sheath with PA catheter in place, site clean dry and intact. left IJ 6Fr sheath in place with transvenous pacer, site c/d/i. CHEST: Facemask Flolan in place. Evidence of right chest wall port in place, not currently accessed. 3 L nasal cannula oxygen. SPO2 96%. CARDIOVASCULAR: Normal rate, irregularly irregular rhythm. A. fib by telemetry. epi @ 3 mcg/min, milrinone at 0.25mcg/kg/min, vaso at 0.02 units/min ABDOMEN: Soft, nontender, nondistended. No guarding. MUSCULOSKELETAL: Pulses 2+. 1+ edema. bilateral groin sites with dressings intact, no evidence of hematoma. NEUROLOGICAL: RASS -1/-2. CAM -. arousing from anesthesia. Follows commands. Assessment and Plan - Problem List (1) Cardiorespiratory arrest Code(s): I46.9 - Cardiac arrest, cause unspecified Status: Acute (2) COPD (chronic obstructive pulmonary disease) Code(s): J44.9 - Chronic obstructive pulmonary disease, unspecified Status: Acute (3) Lung cancer Code(s): C34.90 - Malignant neoplasm of unspecified part of unspecified bronchus or lung Status: Chronic (4) Elevated troponin I level Code(s): R74.8 - Abnormal levels of other serum enzymes Status: Acute (5) Leukocytosis Code(s): D72.829 - Elevated white blood cell count, unspecified Status: Acute - Assessment and Plan Plan: Assessment: 77-year-old male with critical aortic stenosis which is complicated by a depressed left ventricular systolic function and severe right ventricular dysfunction with dilation. POD 0 s/p TAVR, complicated by ongoing right ventricular dysfunction and cor pulmonale. highly complex and high risk. critically ill with high risk of from RV failure. needs to remain on inotropes in the setting of recent aortic valve replacement percutaneously. Plan: near-Systemic severe Pulmonary Hypertension severe Right heart dysfunction Cor pulmonale - milrinone 0.25 mcg/kg/min - flolan 50 ng/kg/min - continue epi - wean vaso as needed for goal map > 65 mmHg. - lasix: goal diuresis to improve PCWP and CVP. - leave PA catheter in place - will need sildenafil in the future when he is s/p TAVR, though to be honest, does not appear to have any reversibility component to his pulmonary hypertension. Severe aortic stenosis s/p TAVR 12/16 - anticoagulation per Dr. Lorenzana - no mivf today - diuresis as above - OOB after flat time - frequent neurovascular checks LV systolic dysfunction - diuresis as above - LVEDP ~28 mmHg post op (from 16 yesterday). required some element of volume loading during the intra-operative course and general anesthesia. will now pursue forced diuresis to optimize filling pressures. Atrial fibrillation - rate controlled - anticoagulation per Dr. Lorenzana COPD - o2 as needed for goal spo2 > 90% - nebs advance diet after flat time. SCDs Discussed at length with the entire structural heart team. Critical care time: 69 minutes, exclusive of separately billable procedures. this includes time I spent in active hemodynamic management of the patient during the pre-op, intra-op, and post-operative course. I was present for the entire operation to assist the structural heart team. (2) 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
[2017-12-16] MEDS: Sod Chloride 0.9% Inj 1,000 ML IV.SIG SCH (13:49)
[2017-12-16] MEDS: Famotidine PF Inj 20 MG/2 ML Vial IV.PUSH SCH ×2 (13:50→22:16)
[2017-12-16] MEDS: Pantoprazole Sodium 20 MG DR Tablet PO SCH (13:51)
--- NOTE | 2017-12-16 13:52 | P.PCN ---
Date of procedure: 12/16/17 Pre-op diagnosis: Severe aortic stenosis Post-op diagnosis: same Procedure: Procedure: Transesophageal Echocardiography Diagnosis: Severe aortic stenosis Indications: Need for perioperative planning for transcatheter aortic valve replacement Consent: Obtained from the patient Anesthesia: General endotracheal anesthesia Description of the Procedure: The patient was sedated and mechanically ventilated. The echo probe was inserted easily and without resistance. At the conclusion of the procedure, the echo probe was removed. Please see detailed echocardiogram report for formal findings. Preliminary Findings (not confirmed): pre-procedure: 1) mildly reduced LV systolic function 2) [id number] reduced RV systolic function 3) severely dilated RV 4) severe aortic stenosis 5) mild aortic insufficiency 6) mild mitral regurgitation 7) no evidence of intra-atrial shunting by color flow Doppler 8) no pericardial effusion Post-procedure: 1) s/p successful placement of transcatheter aortic valve 2) no evidence of bioprosthetic valve stenosis 3) no perivalvular leak 4) it should be noted that during the course of the operation, RV function worsened and at one point was severe, however at the conclusion of the case, the RV function appeared to be back to baseline, described as [id number] dysfunction, as above. 5) no pericardial effusion The patient tolerated the procedure well. There were no immediate complications noted. There was minimal EBL. I personally performed the procedure.
[2017-12-16] MEDS ORDERED: Iohexol 350 MG/ML 50 ML Vial (for Cath Lab) IV.SIG ONE (14:06)
[2017-12-16] MEDS ORDERED: Iohexol 350 MG/ML 100 ML Vial (for Cath Lab) IV.SIG ONE (14:06)
--- NOTE | 2017-12-16 14:57 | MA ---
cc: Jasvir Lorenzana MD, Sohit K MD DATE: 12/16/2017 PROCEDURE: Transcatheter aortic valve replacement. YARD STOCKER: Jasvir Lorenzana MD, [facility] PRIMARY SURGEON: Connor Batista MD PROCEDURES PERFORMED: 1. Fluoroscopy with interpretation. 2. Ascending aortography. 3. Left heart catheterization. 4. Transvenous temporary pacemaker placement. 5. Transesophageal echocardiogram. METHOD: Risks, benefits, and alternatives discussed with the patient. The patient understood and consented to the procedure. The patient was brought to the catheterization lab and placed on the catheterization table. Bilateral groins were prepped and draped in sterile fashion. The left groin was anesthetized with 2% lidocaine. Left common femoral artery was cannulated and a 5-[place] Islander, 11 cm sheath was placed without difficulty. Left femoral vein was accessed and a 5-[place] Islander, 11 cm sheath was placed without difficulty. Right common femoral artery was accessed under fluoroscopic and angiographic guidance and an 8-[place] Islander sheath was initially placed, followed by upsizing to a 16-[place] Islander sheath advanced to the descending aorta without difficulty. Mobile-Jessica pulmonary arterial catheter was in place. The patient had milrinone running as a continuous infusion monitored by anesthesia. Heparin was administered throughout the entire procedure to maintain appropriate anticoagulation. TEMPORARY TRANSVENOUS PACEMAKER PLACEMENT: Left internal jugular vein was accessed and a 5-[place] Islander balloon tipped temporary transvenous pacemaker was advanced across the tricuspid valve into the right ventricle posteriorly. Appropriate pacing was confirmed with capture. ASCENDING AORTOGRAPHY: Ascending aortography was performed in a right anterior oblique caudal view. Ascending aorta was not significantly dilated. All 3 aortic cusps were visualized and in parallel plane. TRANSCATHETER AORTIC VALVE REPLACEMENT: A J wire was advanced to ascending aorta. A 5-[place] Islander AL1 catheter was advanced to the ascending aorta. Amplatz stiff wire straight tip 260 cm was advanced across the aortic valve with some difficulty. AL1 catheter advanced into the right ventricle. A 0.035-inch 260 cm J wire was advanced to the apex. AL1 catheter removed. A 5-[place] Island[place] pigtail catheter was advanced into the left ventricular apex and a 0.035-inch, 260 cm Confida wire was advanced through the pigtail catheter to the apex and the pigtail catheter removed. The 16-[place] Islander sheath was removed. The 29 mm Medtronic Evolut R valve was then advanced into the right common femoral artery with [address] The sheath was advanced without difficulty. The device was advanced up and over the arch. Rapid pacing was placed at 120 beats per minute. The bioprosthetic aortic valve was advanced across the aortic valve in position and slowly deployed. The device was then released and rapid pacing discontinued. A transesophageal echocardiogram confirmed good appropriate placement with no aortic paravalvular leak. There was no significant gradient. Two Perclose devices were then deployed successfully in the right common femoral artery without difficulty. Left common femoral artery and vein were closed with 5-[place] Islander VASCADE devices with good hemostasis. TRANSESOPHAGEAL ECHOCARDIOGRAM: To be reported separately. CONCLUSIONS: Successful bioprosthetic Medtronic 29 mm Evolut R transcatheter aortic valve replacement. PLAN: The patient will be monitored closely for any postprocedural complications and recovered from anesthesia. Hopefully, will be extubated in a short period of time. We will consult electrophysiology although hemodynamic and heart rhythm remained stable. The patient still has residual severe pulmonary hypertension, but hopefully this will improve somewhat over time. We will initiate Plavix and continue aspirin for now. MD GAB Bradshaw/lh/ll , 10:29 AM , 10:40 AM
--- NOTE | 2017-12-16 15:09 | MA ---
cc: Jasvir Lorenzana MD DATE: 12/16/2017 ADDENDUM TO CARDIAC CATHETERIZATION: Intraoperative transesophageal echocardiogram immediate post-valve replacement: 1. Aortic valve area 1.93 cm2. 2. Mean gradient 3 mmHg. 3. Peak velocity 1.4 m2. 4. No perivalvular aortic regurgitation. Jasvir Lorenzana MD GAB/SB , 10:31 AM , 10:36 AM
[2017-12-16] MEDS ORDERED: Digoxin Inj 500 MCG/2 ML Ampul IV.PUSH ONE (16:10)
[2017-12-16] MEDS ORDERED: Midazolam Inj 5 MG/ML 1 ML Vial ONE (16:53)
[2017-12-16 18:41] LABS: Calcium 7.8 mg/dL (8.5-10.1); Carbon Dioxide 29.7 meq/L (21.0-32.0); Magnesium 2.2 mg/dL (1.5-2.5); Potassium 4.4 meq/L (3.5-5.1)
[2017-12-17] MEDS: Insulin NovoLOG Aspart Correctional Sugar Inj SQ SCH ×5 (01:29→17:17)
[2017-12-17] MEDS: Chlorhexidine 0.12% Oral Kit 15 ML UDC OROPHARYNG SCH ×3 (01:31→21:56)
[2017-12-17] MEDS: Milrinone Inj 20 MG in Sodium Chlor 0.9% Inj 80 ML IV.CONT SCH ×2 (01:46→17:23)
[2017-12-17] MEDS: Oral Hygiene Kit OROPHARYNG SCH ×4 (01:54→15:27)
[2017-12-17] MEDS: EPOPROSTENOL NEB SCH ×2 (04:10→17:19)
[2017-12-17] MEDS: SODIUM CHLOR NEB SCH ×2 (04:10→17:19)
[2017-12-17 04:16] LABS: Hematocrit 39.3 % (39.0-51.0); Hemoglobin 12.9 gm/dL (13.0-17.0); Mean Corpuscular HGB Conc 32.7 % (32.0-36.0); Mean Corpuscular Volume 88.8 fL (80.0-100.0); Mean Platelet Volume 9.4 fL (7.0-11.0); Platelet Count 70 th/mm3 (150-450); Red Blood Count 4.43 mil/mm3 (4.50-5.90); Red Cell Distribution Width 16.1 % (11.6-17.2); White Blood Count 24.9 th/mm3 (4.0-11.0)
[2017-12-17 04:34] LABS: Calcium 7.8 mg/dL (8.5-10.1); Carbon Dioxide 33.5 meq/L (21.0-32.0); Potassium 3.9 meq/L (3.5-5.1)
[2017-12-17] MEDS: MethylPREDNISolone Sod Succinate Inj 40 MG/ML Vial IV.PUSH SCH ×3 (05:30→15:27)
[2017-12-17] MEDS: EPINEPHrine (1:1000) Inj 4 MG in Sodium Chlor 0.9% Inj 246 ML IV.CONT PRN (06:37)
--- NOTE | 2017-12-17 06:46 | P.PNCC ---
Subjective Subjective Remarks/Hospital Course: This 77-year-old gentleman with coronary artery disease, chronic heart failure, glucose intolerance, recent pneumonia, and status post lobectomy for lung cancer develop respiratory acidosis culminating in brief cardiac arrest after transport to the [facility] emergency department. He was rapidly resuscitated after 1 amp of epinephrine but did require intubation and mechanical ventilation. He is been on home oxygen following his lobectomy and has underlying COPD which was likely exacerbated prior to this event. At the outside hospital troponin was minimally elevated at 0.15 and initial pH was arterial 7.16. He was transported to the [facility] at [facility] and I met him on his arrival. 12/05: Sitting up in bed extubated yesterday breathing comfortably. WBC count is elevated most likely stress related. No arrhythmias reported overnight This is a 77-year-old male with a history of oxygen dependent COPD on 3 L nasal cannula at home. In addition, he has a diagnosis of stage IV lung cancer that he was diagnosed with 4 years ago and is now status post left upper lobectomy. Of note, his left upper lobectomy thoracotomy operation was complicated by a pulmonary artery injury and emergent repair with significant blood loss at that time. After his operation he underwent chemotherapy. Although he carries a diagnosis of stage IV lung cancer, it is been for years and he has had no progression of his pulmonary nodules or infiltrates, and is very likely that the radiographic findings were not consistent with metastatic disease, and that he is in remission. He was visiting us from [place] where he had a cardiac arrest/ventricular fibrillation episode and was brought into the emergency department. 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 In addition, the patient has low flow/low gradient aortic stenosis which on dobutamine stress echo proves to be critical aortic stenosis with a peak velocity greater than 4 m/s and a calculated valve area less than 0.5. 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 This was unknown to the patient had never been diagnosed with this before. The patient has severe dyspnea symptoms at rest which have been unchanged over many days despite forced diuresis. Structural heart team met and recommends him for transcatheter aortic valve replacement, however our recommendations also that he be medically optimized prior to undertaking such an operation. I was asked to evaluate the patient and additionally to perform right heart catheterization to evaluate central pressures and medically optimized patient. The patient was taken to the [facility] where I performed right heart catheterization, please see separate procedure note for the details of this operation. From here the PA catheter was left in place and the patient was taken to the cardiovascular intensive care unit for further optimization. I started the patient on milrinone 0.25 mcg/kg/min IV and inhaled Flolan at 50 ng/kg/min through a facemask. Patient has no additional symptoms or complaints and his review of systems is unchanged from prior days. 12/16: no changes in PVR with initiation of milrinone or inhaled flolan. successfully underwent TAVR. extubated at the conclusion of the case. hemodynamics appear to be back to baseline, however, in the perioperative period , now on epinephrine at 3mcg/min, vasopressin at 0.02 units/min, milrinone 0.25 mcg/kg/min. received 40mg lasix iv in the OR. 12/17: PA port clotted from swan, unable to evaluate PA pressures. patient symptomatically continues to improve. positive fluid balance yesterday, which is necessary POD 0 s/p TAVR to ensure adequate LV cavity filling immediately s/ p TAVR. now need to start additional forced diuresis. CVP 2 this AM. remains on epi, vaso, milrinone, inhaled flolan. will need to start slowly weaning these off. Objective Vital Signs / I&O: Vital Signs 12/16/17 10:00 12/16/17 10:15 12/16/17 10:36 Temperature 36.1 C L Pulse Rate 87 Respiratory Rate Blood Pressure 119/48 L Pulse Oximetry 100 97 12/16/17 11:55 12/16/17 12:00 12/16/17 12:03 Temperature Pulse Rate 110 H 107 H Respiratory Rate Blood Pressure 98/48 L Pulse Oximetry 99 12/16/17 12:04 12/16/17 14:28 12/16/17 14:29 Temperature 36.5 C Pulse Rate 108 H Respiratory Rate 14 Blood Pressure 95/43 L Pulse Oximetry 98 97 98 12/16/17 14:31 12/16/17 15:00 12/16/17 15:14 Temperature 36.6 C Pulse Rate 97 H 118 H 117 H Respiratory Rate 16 Blood Pressure 115/53 L 115/53 L Pulse Oximetry 99 12/16/17 16:00 12/16/17 17:00 12/16/17 18:00 Temperature 37.2 C 37.2 C 36.6 C Pulse Rate 99 H 99 H 103 H Respiratory Rate 16 16 Blood Pressure 101/47 L 112/47 L 122/56 L Pulse Oximetry 99 99 94 L 12/16/17 18:34 12/16/17 19:00 12/16/17 20:00 Temperature 36.9 C 36.9 C Pulse Rate 94 H 94 H Respiratory Rate 18 18 Blood Pressure 114/56 L 112/58 L Pulse Oximetry 94 L 98 98 12/16/17 21:00 12/16/17 22:00 12/16/17 23:00 Temperature 36.9 C Pulse Rate 102 H Respiratory Rate 18 Blood Pressure 114/50 L Pulse Oximetry 98 99 99 12/17/17 00:00 12/17/17 02:00 12/17/17 03:00 Temperature Pulse Rate 101 H 99 H Respiratory Rate 20 Blood Pressure 124/54 L Pulse Oximetry 97 97 97 12/17/17 04:00 Temperature 37.0 C Pulse Rate 100 H Respiratory Rate 22 Blood Pressure 146/61 H Pulse Oximetry 99 Intake & Output 12/16/17 12/16/17 12/17/17 06:59 18:59 06:59 Intake Total 340 / 340 1900 / 1900 955 / 955 Output Total 700 / 700 1175 / 1175 Balance -360 / -360 725 / 725 955 / 955 Weight 74.5 kg Intake: IV 100 / 100 700 / 700 955 / 955 EPINEPHrine (1:1000) Inj 4 MG 370 / 370 In NS Inj 246 ML @ 3 MCG/MIN 11 .25 mls/hr IV.CONT TITRATE PRN Rx#:[id number] Primacor Inj 20 MG In NS Inj 80 100 / 100 160 / 160 ML @ 0.25 MCG/KG/MIN 5.95 mls/ hr IV.CONT .[id number] [facility] Rx#: [id number] Pitressin Inj 40 UNIT In NS Inj 45 / 45 98 ML @ 0.01 UNITS/MIN 1.5 mls /hr IV.CONT TITRATE PRN Rx#: [id number] LR 1000 mL Inj 1,000 ML @ 30 500 / 500 mls/hr IV.SIG .Q24H [facility] Rx#: [id number] NS Inj 1,000 ML @ 30 mls/hr IV. 269 / 269 SIG .Q24H [facility] Rx#:[id number] Flolan (30,000 ng/mL) Neb 87.5 100 / 100 100 / 100 111 / 111 ML In NS Inj 12.5 ML @ 5 mls/hr NEB Q8H [facility] Rx#:[id number] Oral 240 / 240 100 / 100 Anesthesia Amount 1100 / 1100 Output: Urine 700 / 700 Estimated Blood Loss 50 / 50 Urine Amount (Catheter) 1125 / 1125 Indwelling Temp Sensing 325 / 325 Catheter Indwelling Urethral Catheter 800 / 800 Other: Date of Last Bowel Movement 12/14/17 12/14/17 # Bowel Movements 0 0 Result Diagrams: 12/17/17 03:29 12/17/17 03:29 Objective Remarks: GENERAL: Elderly male, lying in bed, awake and alert. HEENT: Normocephalic. Atraumatic. Pupils equal, round, reactive, conjugate. Mucous membranes are moist NECK: Trachea is midline. Slight JVD. Right IJ 9 Croatian introducer sheath with PA catheter in place, site clean dry and intact. left IJ 6Fr sheath in place with transvenous pacer, site c/d/i. CHEST: Facemask Flolan in place. Evidence of right chest wall port in place, not currently accessed. 3 L nasal cannula oxygen. SPO2 99%. CARDIOVASCULAR: Normal rate, irregularly irregular rhythm. A. fib by telemetry. epi @ 3 mcg/min, milrinone at 0.25mcg/kg/min, vaso at 0.02 units/min ABDOMEN: Soft, nontender, nondistended. No guarding. MUSCULOSKELETAL: Pulses 2+. 1+ edema. bilateral groin sites with dressings intact, no evidence of hematoma. NEUROLOGICAL: RASS 0. CAM -. Follows commands. Assessment and Plan - Problem List (1) Cardiorespiratory arrest Code(s): I46.9 - Cardiac arrest, cause unspecified Status: Acute (2) COPD (chronic obstructive pulmonary disease) Code(s): J44.9 - Chronic obstructive pulmonary disease, unspecified Status: Acute (3) Lung cancer Code(s): C34.90 - Malignant neoplasm of unspecified part of unspecified bronchus or lung Status: Chronic (4) Elevated troponin I level Code(s): R74.8 - Abnormal levels of other serum enzymes Status: Acute (5) Leukocytosis Code(s): D72.829 - Elevated white blood cell count, unspecified Status: Acute - Assessment and Plan Plan: Assessment: 77-year-old male with critical aortic stenosis which is complicated by a depressed left ventricular systolic function and severe right ventricular dysfunction with dilation. POD 1 s/p TAVR, complicated by ongoing right ventricular dysfunction and cor pulmonale. highly complex and high risk. wean inotropes and continue forced diuresis. can d/c PA catheter and TV pacer today. keep at least [address] for today for inotropes. needs to remain in ICU. Plan: near-Systemic severe Pulmonary Hypertension severe Right heart dysfunction Cor pulmonale - milrinone 0.25 mcg/kg/min: keep today during diuresis. - flolan 50 ng/kg/min: wean to 25 ng/kg/min today. continue to wean if stable. - start weaning epi today with a plan to be off epi throughout the day if tolerated. - wean vaso as needed for goal map > 65 mmHg. - increase lasix to 40mg iv q8h. - d/c PA catheter. - will need sildenafil in the future when he is s/p TAVR, though to be honest, does not appear to have any reversibility component to his pulmonary hypertension. will hold off today: still on vasopressors. - may be forced to use concentrated albumin to assist with intravascular volume expansion Metabolic alkalosis - likely secondary to contraction - add 3 doses of diamox. Severe aortic stenosis s/p TAVR 12/16 - anticoagulation per Dr. Lorenzana - diuresis as above - OOB - frequent neurovascular checks LV systolic dysfunction - diuresis as above - LVEDP ~28 mmHg post op, unable to get accurate PCWP today. d/c swan. continue forced diuresis. Atrial fibrillation - rate controlled - anticoagulation per Dr. Lorenzana Hypokalemia Hypomagnesemia - ICU electrolyte protocol - check afternoon BMP, Mg - Daily BMP, Mg COPD - o2 as needed for goal spo2 > 90% - nebs advance diet as tolerated. SCDs Discussed at length with the entire structural heart team. (2) 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
[2017-12-17] MEDS ORDERED: EPOPROSTENOL NEB SCH ×7 (07:15→17:00)
[2017-12-17] MEDS ORDERED: SODIUM CHLOR 0.9% NEB SCH ×6 (07:15→17:00)
[2017-12-17] MEDS: Nystatin Liq 500,000 UNIT/5 ML UDC SWISH-SWAL SCH ×4 (08:25→21:56)
[2017-12-17] MEDS: guaiFENesin 600 MG ER Tablet PO SCH ×2 (08:25→21:56)
[2017-12-17] MEDS: Senna/Docusate Sodium 8.6/50 MG Tablet PO SCH ×2 (08:25→21:58)
[2017-12-17] MEDS: Digoxin 250 MCG Tablet PO SCH (08:25)
[2017-12-17] MEDS: Pantoprazole Sodium 20 MG DR Tablet PO SCH (08:25)
[2017-12-17] MEDS: Lisinopril 10 MG Tablet PO SCH (08:25)
[2017-12-17] MEDS: Folic Acid 1 MG Tablet PO SCH (08:25)
[2017-12-17] MEDS: Famotidine PF Inj 20 MG/2 ML Vial IV.PUSH SCH ×2 (08:26→21:57)
[2017-12-17] MEDS ORDERED: SODIUM CHLOR NEB SCH (09:00)
--- NOTE | 2017-12-17 10:19 | P.PNCA ---
Subjective Interval history: breathing is much improved sleeping comfortably no arrhythmias Physical Exam Vital signs: Vital Signs 12/16/17 10:15 12/16/17 10:36 12/16/17 11:55 Temperature Pulse Rate 110 H Respiratory Rate Blood Pressure 98/48 L Pulse Oximetry 100 97 12/16/17 12:00 12/16/17 12:03 12/16/17 12:04 Temperature 97.7 F Pulse Rate 107 H 108 H Respiratory Rate 14 Blood Pressure 95/43 L Pulse Oximetry 99 98 12/16/17 14:28 12/16/17 14:29 12/16/17 14:31 Temperature Pulse Rate 97 H Respiratory Rate Blood Pressure 115/53 L Pulse Oximetry 97 98 12/16/17 15:00 12/16/17 15:14 12/16/17 16:00 Temperature 97.9 F 99 F Pulse Rate 118 H 117 H 99 H Respiratory Rate 16 16 Blood Pressure 115/53 L 101/47 L Pulse Oximetry 99 99 12/16/17 17:00 12/16/17 18:00 12/16/17 18:34 Temperature 99 F 98 F Pulse Rate 99 H 103 H Respiratory Rate 16 Blood Pressure 112/47 L 122/56 L Pulse Oximetry 99 94 L 94 L 12/16/17 19:00 12/16/17 20:00 12/16/17 21:00 Temperature 98.5 F 98.5 F Pulse Rate 94 H 94 H Respiratory Rate 18 18 Blood Pressure 114/56 L 112/58 L Pulse Oximetry 98 98 98 12/16/17 22:00 12/16/17 23:00 12/17/17 00:00 Temperature 98.4 F Pulse Rate 102 H 101 H Respiratory Rate 18 20 Blood Pressure 114/50 L 124/54 L Pulse Oximetry 99 99 97 12/17/17 02:00 12/17/17 03:00 12/17/17 04:00 Temperature 98.6 F Pulse Rate 99 H 100 H Respiratory Rate 22 Blood Pressure 146/61 H Pulse Oximetry 97 97 99 12/17/17 06:00 12/17/17 07:00 12/17/17 07:32 Temperature Pulse Rate 85 Respiratory Rate Blood Pressure Pulse Oximetry 97 97 98 12/17/17 08:03 12/17/17 08:11 Temperature 97.4 F L Pulse Rate 85 85 Respiratory Rate 18 Blood Pressure 129/51 L Pulse Oximetry 99 Intake & Output 12/16/17 12/17/17 12/17/17 18:59 06:59 18:59 Intake Total 1900 / 1900 1715 / 1715 Output Total 1175 / 1175 2700 / 2700 Balance 725 / 725 -985 / -985 Weight 75 kg Intake: IV 700 / 700 955 / 955 EPINEPHrine (1:1000) Inj 4 MG 370 / 370 In NS Inj 246 ML @ 2 MCG/MIN 7. 5 mls/hr IV.CONT TITRATE PRN Rx #:[id number] Primacor Inj 20 MG In NS Inj 80 100 / 100 160 / 160 ML @ 0.25 MCG/KG/MIN 5.95 mls/ hr IV.CONT .[id number] [facility] Rx#: [id number] Pitressin Inj 40 UNIT In NS Inj 45 / 45 98 ML @ 0.01 UNITS/MIN 1.5 mls /hr IV.CONT TITRATE PRN Rx#: [id number] LR 1000 mL Inj 1,000 ML @ 30 500 / 500 mls/hr IV.SIG .Q24H [facility] Rx#: [id number] NS Inj 1,000 ML @ 30 mls/hr IV. 269 / 269 SIG .Q24H [facility] Rx#:[id number] Flolan (30,000 ng/mL) Neb 87.5 100 / 100 111 / 111 ML In NS Inj 12.5 ML @ 5 mls/hr NEB Q8H [facility] Rx#:[id number] Oral 100 / 100 760 / 760 Anesthesia Amount 1100 / 1100 Output: Urine 1850 / 1850 Estimated Blood Loss 50 / 50 50 / 50 Urine Amount (Catheter) 1125 / 1125 800 / 800 Indwelling Temp Sensing 325 / 325 Catheter Indwelling Urethral Catheter 800 / 800 800 / 800 Other: Date of Last Bowel Movement 12/14/17 12/14/17 12/14/17 # Bowel Movements 0 0 - Constitutional no acute distress - Routine HEENT Exam Head: Present: normocephalic Eye: Present: EOMI, PERRL ENT: Present: mucous membranes moist - Routine Neck Exam Present: JVD - Routine Respiratory Exam Present: CTA bilaterally - Routine Cardiovascular Exam Present: irregularly irregular - Urinary Catheter Management Indwelling Temp Sensing Catheter Cath placed during this visit: yes Reason for continuing: Not indwelling catheter Insertion date: 12/16/17 Insertion time: 08:00 Indwelling Urethral Catheter Cath placed during this visit: yes, but has since been removed by the nurse Reason for continuing: Not indwelling catheter Removal date: 12/16/17 Assessment and Plan - Plan TAVR- doing well. 2d echo acute on chronic systolic/diastolic left and right HF - wean pressor support as tolerated. IV diuretics keep negative. monitor Cr and K+ closely. ACEi being held due to pressors. removed temp pacer removed swan up to chair groins c/d/i afib - occasional RVR. digoxin added. No BB for now since on pressors. May consider CCB for rate control and PHTN. Continue asa 325 plavix 75. will need to discuss +/- transition to oral anticoagulant + plavix timing.
--- NOTE | 2017-12-17 10:22 | P.PNCV ---
- Note Subjective/Hospital Course: 12/17 Doing well status post TAVR yesterday Hemodynamically stable. Greatly appreciate value advisor input Diuresis and inotropic support as dictated by value advisor team. Aggressive pulmonary toiletry Objective: Vital Signs - 24 hr 12/16/17 10:36 12/16/17 11:55 12/16/17 12:00 Temperature Pulse Rate 110 H 107 H Respiratory Rate Blood Pressure 98/48 L Pulse Oximetry 97 12/16/17 12:03 12/16/17 12:04 12/16/17 14:28 Temperature 97.7 F Pulse Rate 108 H Respiratory Rate 14 Blood Pressure 95/43 L Pulse Oximetry 99 98 97 12/16/17 14:29 12/16/17 14:31 12/16/17 15:00 Temperature Pulse Rate 97 H 118 H Respiratory Rate Blood Pressure 115/53 L Pulse Oximetry 98 99 12/16/17 15:14 12/16/17 16:00 12/16/17 17:00 Temperature 97.9 F 99 F 99 F Pulse Rate 117 H 99 H 99 H Respiratory Rate 16 16 Blood Pressure 115/53 L 101/47 L 112/47 L Pulse Oximetry 99 99 12/16/17 18:00 12/16/17 18:34 12/16/17 19:00 Temperature 98 F 98.5 F Pulse Rate 103 H 94 H Respiratory Rate 16 18 Blood Pressure 122/56 L 114/56 L Pulse Oximetry 94 L 94 L 98 12/16/17 20:00 12/16/17 21:00 12/16/17 22:00 Temperature 98.5 F Pulse Rate 94 H Respiratory Rate 18 Blood Pressure 112/58 L Pulse Oximetry 98 98 99 12/16/17 23:00 12/17/17 00:00 12/17/17 02:00 Temperature 98.4 F Pulse Rate 102 H 101 H Respiratory Rate 18 20 Blood Pressure 114/50 L 124/54 L Pulse Oximetry 99 97 97 12/17/17 03:00 12/17/17 04:00 12/17/17 06:00 Temperature 98.6 F Pulse Rate 99 H 100 H Respiratory Rate 22 Blood Pressure 146/61 H Pulse Oximetry 97 99 97 12/17/17 07:00 12/17/17 07:32 12/17/17 08:03 Temperature Pulse Rate 85 85 Respiratory Rate Blood Pressure Pulse Oximetry 97 98 12/17/17 08:11 Temperature 97.4 F L Pulse Rate 85 Respiratory Rate 18 Blood Pressure 129/51 L Pulse Oximetry 99 Labs: Laboratory Results - last 12 hr 12/17/17 12/17/17 12/17/17 01:28 03:29 03:29 WBC 24.9 H RBC 4.43 L Hgb 12.9 L D Hct 39.3 MCV 88.8 MCH 29.0 MCHC 32.7 RDW 16.1 Plt Count 70 L D MPV 9.4 Sodium 138 Potassium 3.9 Chloride 100 Carbon Dioxide 33.5 H Anion Gap 5 BUN 44 H Creatinine 1.14 Estimated GFR 62 L POC Glucose 385 H Random Glucose 344 H Calcium 7.8 L 12/17/17 05:24 WBC RBC Hgb Hct MCV MCH MCHC RDW Plt Count MPV Sodium Potassium Chloride Carbon Dioxide Anion Gap BUN Creatinine Estimated GFR POC Glucose 330 H Random Glucose Calcium Result Diagrams: 12/17/17 03:29 12/17/17 03:29 - Plan (1) Aortic stenosis (2) CAD (coronary artery disease) (3) Combined systolic and diastolic congestive heart failure, NYHA class 4 (4) Diabetes mellitus (6) COPD (chronic obstructive pulmonary disease) (7) Atrial fibrillation (1) Aortic stenosis Qualifiers: Cardiac valve disease etiology: etiology unspecified Qualified Code(s): I35.0 - Nonrheumatic aortic (valve) stenosis (2) CAD (coronary artery disease) Qualifiers: Coronary Disease-Associated Artery/Lesion type: [place] artery [place] vs. transplanted heart: [place] heart Associated angina: with other forms of angina Qualified Code(s): I25.118 - Atherosclerotic heart disease of [place] coronary artery with other forms of angina pectoris (3) Combined systolic and diastolic congestive heart failure, NYHA class 4 Qualifiers: Congestive heart failure chronicity: acute on chronic Qualified Code(s): I50.43 - Acute on chronic combined systolic (congestive) and diastolic ( congestive) heart failure (4) Diabetes mellitus Qualifiers: Diabetes mellitus type: type 2 Diabetes mellitus complication status: with hyperglycemia (6) 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 (7) Atrial fibrillation Qualifiers: Atrial fibrillation type: chronic Qualified Code(s): I48.2 - Chronic atrial fibrillation
[2017-12-17] MEDS: Sod Chloride 0.9% Inj 1,000 ML IV.SIG SCH (12:11)
--- NOTE | 2017-12-17 15:13 | ECG ---
Date Performed: 12/16/2017 Time Performed: 10:29:34 PTAGE: 77 years EKG: Atrial fibrillation Indeterminate axis Right bundle branch block Since previous tracing, no significant change noted Abnormal ECG PREVIOUS TRACING : 12/15/2017 18.01.32 DOCTOR: Damian Kim Interpretating Date/Time 12/17/2017 15:11:49
--- NOTE | 2017-12-17 15:14 | ECG ---
Date Performed: 12/17/2017 Time Performed: 05:52:00 PTAGE: 77 years EKG: Sinus rhythm with PAC(s) Indeterminate axis Poor R wave progression - probable normal variant Right ventricular h ypertrophy Since previous tracing, no significant change noted Abnormal ECG PREVIOUS TRACING : 12/16/2017 10.29 DOCTOR: Damian Kim Interpretating Date/Time 12/17/2017 15:12:01
[2017-12-17] MEDS ORDERED: Potassium Phosphate Inj 30 MMOL in Sodium Chlor 0.9% Inj 250 ML IV.SIG PRN (16:52)
[2017-12-17] MEDS ORDERED: Potassium Phosphate 500 MG Soluble Tablet PO PRN ×2 (16:52)
[2017-12-17] MEDS ORDERED: Potassium Chlor 40 mEq Premix 40 MEQ/100 ML PIGGYBACK IV.SIG PRN (16:52)
[2017-12-17] MEDS ORDERED: Sodium Phosphate Inj 30 MMOL in Sodium Chlor 0.9% Inj 250 ML IV.SIG PRN (16:52)
[2017-12-17] MEDS ORDERED: Magnesium Sulfate Inj 4 GM in Sodium Chlor 0.9% Inj 92 ML IV.SIG PRN (16:52)
[2017-12-17] MEDS ORDERED: Magnesium Oxide 400 MG Tablet PO PRN (16:52)
[2017-12-17] MEDS ORDERED: Potassium Chloride 25 MEQ Effervescent Tablet PO PRN (16:52)
[2017-12-17] MEDS ORDERED: Magnesium Sulfate Inj 2 GM in Sodium Chlor 0.9% Inj 96 ML IV.SIG PRN (16:52)
[2017-12-17] MEDS ORDERED: Potassium Chlor 20 mEq Premix 20 MEQ/100 ML PIGGYBACK IV.SIG PRN (16:52)
[2017-12-17 17:24] LABS: Calcium 7.7 mg/dL (8.5-10.1); Magnesium 2.2 mg/dL (1.5-2.5); Potassium 3.5 meq/L (3.5-5.1)
[2017-12-18] MEDS: Oral Hygiene Kit OROPHARYNG SCH ×4 (00:35→15:32)
[2017-12-18] MEDS: EPOPROSTENOL NEB SCH (04:00)
[2017-12-18] MEDS: SODIUM CHLOR NEB SCH (04:00)
[2017-12-18 04:47] LABS: Hemoglobin 11.7 gm/dL (13.0-17.0); Mean Corpuscular HGB Conc 32.4 % (32.0-36.0); Mean Corpuscular Hemoglobin 28.7 pg (27.0-34.0); Mean Corpuscular Volume 88.7 fL (80.0-100.0); Platelet Count 44 th/mm3 (150-450); Red Blood Count 4.06 mil/mm3 (4.50-5.90); Red Cell Distribution Width 15.5 % (11.6-17.2); White Blood Count 19.2 th/mm3 (4.0-11.0)
[2017-12-18 05:10] LABS: Carbon Dioxide 29.2 meq/L (21.0-32.0); Magnesium 2.3 mg/dL (1.5-2.5); Potassium 3.6 meq/L (3.5-5.1)
[2017-12-18] MEDS: Insulin NovoLOG Aspart Correctional Sugar Inj SQ SCH ×4 (06:00→17:20)
[2017-12-18] MEDS: MethylPREDNISolone Sod Succinate Inj 40 MG/ML Vial IV.PUSH SCH (06:14)
--- NOTE | 2017-12-18 06:55 | P.PNCC ---
Subjective Subjective Remarks/Hospital Course: This 77-year-old gentleman with coronary artery disease, chronic heart failure, glucose intolerance, recent pneumonia, and status post lobectomy for lung cancer develop respiratory acidosis culminating in brief cardiac arrest after transport to the [facility] emergency department. He was rapidly resuscitated after 1 amp of epinephrine but did require intubation and mechanical ventilation. He is been on home oxygen following his lobectomy and has underlying COPD which was likely exacerbated prior to this event. At the outside hospital troponin was minimally elevated at 0.15 and initial pH was arterial 7.16. He was transported to the [facility] at [facility] and I met him on his arrival. 12/05: Sitting up in bed extubated yesterday breathing comfortably. WBC count is elevated most likely stress related. No arrhythmias reported overnight This is a 77-year-old male with a history of oxygen dependent COPD on 3 L nasal cannula at home. In addition, he has a diagnosis of stage IV lung cancer that he was diagnosed with 4 years ago and is now status post left upper lobectomy. Of note, his left upper lobectomy thoracotomy operation was complicated by a pulmonary artery injury and emergent repair with significant blood loss at that time. After his operation he underwent chemotherapy. Although he carries a diagnosis of stage IV lung cancer, it is been for years and he has had no progression of his pulmonary nodules or infiltrates, and is very likely that the radiographic findings were not consistent with metastatic disease, and that he is in remission. He was visiting us from [place] where he had a cardiac arrest/ventricular fibrillation episode and was brought into the emergency department. 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 In addition, the patient has low flow/low gradient aortic stenosis which on dobutamine stress echo proves to be critical aortic stenosis with a peak velocity greater than 4 m/s and a calculated valve area less than 0.5. 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 This was unknown to the patient had never been diagnosed with this before. The patient has severe dyspnea symptoms at rest which have been unchanged over many days despite forced diuresis. Structural heart team met and recommends him for transcatheter aortic valve replacement, however our recommendations also that he be medically optimized prior to undertaking such an operation. I was asked to evaluate the patient and additionally to perform right heart catheterization to evaluate central pressures and medically optimized patient. The patient was taken to the Drug Safety Scientist where I performed right heart catheterization, please see separate procedure note for the details of this operation. From here the PA catheter was left in place and the patient was taken to the cardiovascular intensive care unit for further optimization. I started the patient on milrinone 0.25 mcg/kg/min IV and inhaled Flolan at 50 ng/kg/min through a facemask. Patient has no additional symptoms or complaints and his review of systems is unchanged from prior days. 12/16: no changes in PVR with initiation of milrinone or inhaled flolan. successfully underwent TAVR. extubated at the conclusion of the case. hemodynamics appear to be back to baseline, however, in the perioperative period , now on epinephrine at 3mcg/min, vasopressin at 0.02 units/min, milrinone 0.25 mcg/kg/min. received 40mg lasix iv in the OR. 12/17: PA port clotted from swan, unable to evaluate PA pressures. patient symptomatically continues to improve. positive fluid balance yesterday, which is necessary POD 0 s/p TAVR to ensure adequate LV cavity filling immediately s/ p TAVR. now need to start additional forced diuresis. CVP 2 this AM. remains on epi, vaso, milrinone, inhaled flolan. will need to start slowly weaning these off. 12/18: PA removed. good diuresis yesterday. off epi. off flolan. more hypoxic today requiring 6L NC and spo2 only 91%. still very volume overloaded. increased lasix to q6h dosing from q8h. subjectively continues to feel better. denies complaints. Objective Vital Signs / I&O: Vital Signs 12/17/17 07:00 12/17/17 07:32 12/17/17 08:03 Temperature Pulse Rate 85 85 Respiratory Rate Blood Pressure Pulse Oximetry 97 98 12/17/17 08:11 12/17/17 11:00 12/17/17 12:03 Temperature 36.3 C L 36.3 C L Pulse Rate 85 98 H 85 Respiratory Rate 18 21 Blood Pressure 129/51 L 116/49 L Pulse Oximetry 99 95 98 12/17/17 15:00 12/17/17 15:04 12/17/17 16:01 Temperature 36.4 C Pulse Rate 90 86 Respiratory Rate 21 Blood Pressure 119/64 Pulse Oximetry 98 98 12/17/17 20:00 12/18/17 00:00 12/18/17 04:00 Temperature 36.6 C 36.7 C 36.6 C Pulse Rate 97 H 77 78 Respiratory Rate 18 16 20 Blood Pressure 133/62 121/54 L 110/50 L Pulse Oximetry 99 99 95 12/18/17 04:28 Temperature Pulse Rate 90 Respiratory Rate Blood Pressure Pulse Oximetry Intake & Output 12/17/17 12/17/17 12/18/17 06:59 18:59 06:59 Intake Total 1715 / 1715 1647 / 1647 Output Total 2700 / 2700 2700 / 2700 Balance -985 / -985 -1053 / -1053 Weight 75 kg Intake: IV 955 / 955 647 / 647 EPINEPHrine (1:1000) Inj 4 MG 370 / 370 187 / 187 In NS Inj 246 ML @ 2 MCG/MIN 7. 5 mls/hr IV.CONT TITRATE PRN Rx #:[id number] Primacor Inj 20 MG In NS Inj 80 160 / 160 ML @ 0.25 MCG/KG/MIN 5.95 mls/ hr IV.CONT [id number] Rx#: [id number] Pitressin Inj 40 UNIT In NS Inj 45 / 45 30 / 30 98 ML @ 0.01 UNITS/MIN 1.5 mls /hr IV.CONT TITRATE PRN Rx#: [id number] NS Inj 1,000 ML @ 30 mls/hr IV. 269 / 269 300 / 300 SIG .Q24H [facility] Rx#:[id number] Flolan (30,000 ng/mL) Neb 87.5 111 / 111 130 / 130 ML In NS Inj 12.5 ML @ 5 mls/hr NEB Q8H [facility] Rx#:[id number] Oral 760 / 760 1000 / 1000 Output: Urine 1850 / 1850 2700 / 2700 Estimated Blood Loss 50 / 50 Urine Amount (Catheter) 800 / 800 Indwelling Urethral Catheter 800 / 800 Other: Date of Last Bowel Movement 12/14/17 12/14/17 12/14/17 # Bowel Movements 0 0 Result Diagrams: 12/18/17 04:00 12/18/17 04:00 Objective Remarks: GENERAL: Elderly male, lying in bed, awake and alert. HEENT: Normocephalic. Atraumatic. Pupils equal, round, reactive, conjugate. Mucous membranes are moist NECK: Trachea is midline. Slight JVD. Right IJ 9 [place] introdu[address] sheath in place, site clean dry and intact. CHEST: nc o2. Evidence of right chest wall port in place, not currently accessed. 6 L nasal cannula oxygen. SPO2 91%. CARDIOVASCULAR: Normal rate, irregularly irregular rhythm. A. flutter this AM by telemetry. milrinone at 0.25mcg/kg/min ABDOMEN: Soft, nontender, nondistended. No guarding. MUSCULOSKELETAL: Pulses 2+. 1+ edema. bilateral groin sites with dressings intact, no evidence of hematoma. NEUROLOGICAL: RASS 0. CAM -. Follows commands. Assessment and Plan - Problem List (1) Cardiorespiratory arrest Code(s): I46.9 - Cardiac arrest, cause unspecified Status: Acute (2) COPD (chronic obstructive pulmonary disease) Code(s): J44.9 - Chronic obstructive pulmonary disease, unspecified Status: Acute (3) Lung cancer Code(s): C34.90 - Malignant neoplasm of unspecified part of unspecified bronchus or lung Status: Chronic (4) Elevated troponin I level Code(s): R74.8 - Abnormal levels of other serum enzymes Status: Acute (5) Leukocytosis Code(s): D72.829 - Elevated white blood cell count, unspecified Status: Acute - Assessment and Plan Plan: Assessment: 77-year-old male with critical aortic stenosis which is complicated by a depressed left ventricular systolic function and severe right ventricular dysfunction with dilation. POD 2 s/p TAVR, complicated by ongoing right ventricular dysfunction and cor pulmonale. highly complex and high risk. Unclear if patient really has any reversibility in his PVR, but he may gain some benefit from sildenafil and will start very low-dose at this point to see. leave milrinone today while more hypoxic and will continue forced diuresis today. needs to remain in ICU. Plan: near-Systemic severe Pulmonary Hypertension severe Right heart dysfunction Cor pulmonale - milrinone 0.25 mcg/kg/min: keep today during diuresis. - s/p flolan inhaled - increase lasix to 40mg iv q6h. - start sildenafil 10mg po q8h. - may be forced to use concentrated albumin to assist with intravascular volume expansion - keep right IJ sheath today. can look to d/c possibly tomorrow. Metabolic alkalosis - likely secondary to contraction - one more dose of diamox. Severe aortic stenosis s/p TAVR 12/16 - anticoagulation per Dr. Lorenzana - diuresis as above - OOB - frequent neurovascular checks LV systolic dysfunction - diuresis as above Atrial fibrillation/flutter - rate controlled - anticoagulation per Dr. Lorenzana Hypokalemia Hypomagnesemia - ICU electrolyte protocol - check afternoon BMP, Mg - Daily BMP, Mg COPD - o2 as needed for goal spo2 > 90% - nebs cardiac diet as tolerated. SCDs Discussed at length with the entire structural heart team. Dispo: remain in ICU today. (2) 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
[2017-12-18] MEDS: Pantoprazole Sodium 20 MG DR Tablet PO SCH (09:24)
[2017-12-18] MEDS: Milrinone Inj 20 MG in Sodium Chlor 0.9% Inj 80 ML IV.CONT SCH (09:24)
[2017-12-18] MEDS: Chlorhexidine 0.12% Oral Kit 15 ML UDC OROPHARYNG SCH ×2 (09:25→20:52)
[2017-12-18] MEDS: Senna/Docusate Sodium 8.6/50 MG Tablet PO SCH ×2 (09:25→20:53)
[2017-12-18] MEDS: Nystatin Liq 500,000 UNIT/5 ML UDC SWISH-SWAL SCH ×4 (09:25→20:51)
[2017-12-18] MEDS: Digoxin 250 MCG Tablet PO SCH (09:25)
[2017-12-18] MEDS: Famotidine PF Inj 20 MG/2 ML Vial IV.PUSH SCH ×2 (09:25→20:53)
[2017-12-18] MEDS: Folic Acid 1 MG Tablet PO SCH (09:25)
[2017-12-18] MEDS: guaiFENesin 600 MG ER Tablet PO SCH ×2 (09:25→20:52)
[2017-12-18] MEDS: Lisinopril 10 MG Tablet PO SCH (09:26)
--- NOTE | 2017-12-18 09:58 | P.PNCV ---
- Note Subjective/Hospital Course: 12/17 Doing well status post TAVR yesterday Hemodynamically stable. Greatly appreciate crusher operator input Diuresis and inotropic support as dictated by crusher operator team. Aggressive pulmonary toiletry 12/18 Clinically and hemodynamically stable. Diuresing well with current regimen. Weaning oxygen as tolerated. Objective: Vital Signs - 24 hr 12/17/17 11:00 12/17/17 12:03 12/17/17 15:00 Temperature 97.4 F L Pulse Rate 98 H 85 90 Respiratory Rate 21 Blood Pressure 116/49 L Pulse Oximetry 95 98 12/17/17 15:04 12/17/17 16:01 12/17/17 20:00 Temperature 97.6 F 97.8 F Pulse Rate 86 97 H Respiratory Rate 21 18 Blood Pressure 119/64 133/62 Pulse Oximetry 98 98 99 12/18/17 00:00 12/18/17 04:00 12/18/17 04:28 Temperature 98.0 F 97.8 F Pulse Rate 77 78 90 Respiratory Rate 16 20 Blood Pressure 121/54 L 110/50 L Pulse Oximetry 99 95 12/18/17 09:38 Temperature Pulse Rate Respiratory Rate Blood Pressure Pulse Oximetry 94 L Labs: Laboratory Results - last 12 hr 12/15/17 12/18/17 12/18/17 15:45 04:00 04:00 WBC 19.2 H RBC 4.06 L Hgb 11.7 L Hct 36.0 L MCV 88.7 MCH 28.7 MCHC 32.4 RDW 15.5 Plt Count 44 L D MPV 10.0 Sodium 140 Potassium 3.6 Chloride 105 Carbon Dioxide 29.2 Anion Gap 6 BUN 42 H Creatinine 0.86 Estimated GFR 86 L Random Glucose 207 H Calcium 8.0 L Magnesium 2.3 MTS Gel Crossmatch See Detail Result Diagrams: 12/18/17 04:00 12/18/17 04:00 - Plan (1) Aortic stenosis (2) CAD (coronary artery disease) (3) Combined systolic and diastolic congestive heart failure, NYHA class 4 (4) Diabetes mellitus (6) COPD (chronic obstructive pulmonary disease) (7) Atrial fibrillation (1) Aortic stenosis Qualifiers: Cardiac valve disease etiology: etiology unspecified Qualified Code(s): I35.0 - Nonrheumatic aortic (valve) stenosis (2) CAD (coronary artery disease) Qualifiers: Coronary Disease-Associated Artery/Lesion type: [place] artery [place] vs. transplanted heart: [place] heart Associated angina: with other forms of angina Qualified Code(s): I25.118 - Atherosclerotic heart disease of [place] coronary artery with other forms of angina pectoris (3) Combined systolic and diastolic congestive heart failure, NYHA class 4 Qualifiers: Congestive heart failure chronicity: acute on chronic Qualified Code(s): I50.43 - Acute on chronic combined systolic (congestive) and diastolic ( congestive) heart failure (4) Diabetes mellitus Qualifiers: Diabetes mellitus type: type 2 Diabetes mellitus complication status: with hyperglycemia (6) 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 (7) Atrial fibrillation Qualifiers: Atrial fibrillation type: chronic Qualified Code(s): I48.2 - Chronic atrial fibrillation
--- NOTE | 2017-12-18 11:31 | P.PNCA ---
Subjective Interval history: up to chair today breathing stable. decreased O2 sat with ambulation on milrinone gtt IV Physical Exam Vital signs: Vital Signs 12/17/17 12:03 12/17/17 15:00 12/17/17 15:04 Temperature 97.4 F L Pulse Rate 85 90 Respiratory Rate 21 Blood Pressure 116/49 L Pulse Oximetry 98 98 12/17/17 16:01 12/17/17 20:00 12/18/17 00:00 Temperature 97.6 F 97.8 F 98.0 F Pulse Rate 86 97 H 77 Respiratory Rate 21 18 16 Blood Pressure 119/64 133/62 121/54 L Pulse Oximetry 98 99 99 12/18/17 04:00 12/18/17 04:28 12/18/17 07:00 Temperature 97.8 F Pulse Rate 78 90 98 H Respiratory Rate 20 Blood Pressure 110/50 L Pulse Oximetry 95 12/18/17 09:38 Temperature Pulse Rate Respiratory Rate Blood Pressure Pulse Oximetry 94 L Intake & Output 12/17/17 12/18/17 12/18/17 18:59 06:59 18:59 Intake Total 1747 / 1747 240 / 240 Output Total 2700 / 2700 1500 / 1500 Balance -953 / -953 -1260 / -1260 Weight 72.5 kg Intake: IV 747 / 747 EPINEPHrine (1:1000) Inj 4 MG 187 / 187 In NS Inj 246 ML @ 2 MCG/MIN 7. 5 mls/hr IV.CONT TITRATE PRN Rx #:[id number] Primacor Inj 20 MG In NS Inj 80 100 / 100 ML @ 0.25 MCG/KG/MIN 5.95 mls/ hr IV.CONT .[id number] [facility] Rx#: [id number] Pitressin Inj 40 UNIT In NS Inj 30 / 30 98 ML @ 0.01 UNITS/MIN 1.5 mls /hr IV.CONT TITRATE PRN Rx#: [id number] NS Inj 1,000 ML @ 30 mls/hr IV. 300 / 300 SIG .Q24H [facility] Rx#:[id number] Flolan (30,000 ng/mL) Neb 87.5 130 / 130 ML In NS Inj 12.5 ML @ 5 mls/hr NEB Q8H [facility] Rx#:[id number] Oral 1000 / 1000 240 / 240 Output: Urine 2700 / 2700 1500 / 1500 Other: # Voids 3 Date of Last Bowel Movement 12/14/17 12/14/17 12/14/17 # Bowel Movements 0 0 - Constitutional mild distress - Routine HEENT Exam Eye: Present: EOMI, PERRL - Routine Neck Exam Present: JVD - Routine Respiratory Exam Present: decreased breath sounds, CTA bilaterally - Routine Cardiovascular Exam Present: irregularly irregular. Absent: murmur - Routine Abdominal Exam Present: soft - Routine Extremities Exam Absent: edema - Routine Neurological Exam Absent: sensory deficit, motor deficit - Urinary Catheter Management Indwelling Temp Sensing Catheter Cath placed during this visit: yes Reason for continuing: Not indwelling catheter Insertion date: 12/16/17 Insertion time: 08:00 Indwelling Urethral Catheter Cath placed during this visit: yes, but has since been removed by the nurse Reason for continuing: Not indwelling catheter Removal date: 12/16/17 Assessment and Plan - Plan s/p TAVR - doing well PHTN - on sidenafil. no nitrates. cardiomyopathy CAD with coronary aneurysm needs continued diuresis. Cr stable. change to continuous intravenous lasix. replete K+ DC aspirin start eliquis tomorrow wean milrinone gtt CM for DC planning to snf digoxin for afib and rate control low dose ACEi for cardiomyopathy transfer to intermediate level of care
[2017-12-18] MEDS: Sod Chloride 0.9% Inj 1,000 ML IV.SIG SCH (12:20)
--- NOTE | 2017-12-18 13:08 | P.PNCA ---
Subjective Interval history: alert in nad Physical Exam Vital signs: Vital Signs 12/17/17 15:00 12/17/17 15:04 12/17/17 16:01 Temperature 97.6 F Pulse Rate 90 86 Respiratory Rate 21 Blood Pressure 119/64 Pulse Oximetry 98 98 12/17/17 20:00 12/18/17 00:00 12/18/17 04:00 Temperature 97.8 F 98.0 F 97.8 F Pulse Rate 97 H 77 78 Respiratory Rate 18 16 20 Blood Pressure 133/62 121/54 L 110/50 L Pulse Oximetry 99 99 95 12/18/17 04:28 12/18/17 07:00 12/18/17 08:00 Temperature 97.4 F L Pulse Rate 90 98 H 94 H Respiratory Rate 16 Blood Pressure 138/58 L Pulse Oximetry 85 L 12/18/17 09:38 12/18/17 11:00 12/18/17 12:00 Temperature 98.0 F Pulse Rate 92 H 93 H Respiratory Rate 20 Blood Pressure 132/59 L Pulse Oximetry 94 L 88 L Intake & Output 12/17/17 12/18/17 12/18/17 18:59 06:59 18:59 Intake Total 1747 / 1747 240 / 240 Output Total 2700 / 2700 1500 / 1500 Balance -953 / -953 -1260 / -1260 Weight 72.5 kg Intake: IV 747 / 747 EPINEPHrine (1:1000) Inj 4 MG 187 / 187 In NS Inj 246 ML @ 2 MCG/MIN 7. 5 mls/hr IV.CONT TITRATE PRN Rx #:[id number] Primacor Inj 20 MG In NS Inj 80 100 / 100 ML @ 0.25 MCG/KG/MIN 5.95 mls/ hr IV.CONT .[id number] [facility] Rx#: [id number] Pitressin Inj 40 UNIT In NS Inj 30 / 30 98 ML @ 0.01 UNITS/MIN 1.5 mls /hr IV.CONT TITRATE PRN Rx#: [id number] NS Inj 1,000 ML @ 30 mls/hr IV. 300 / 300 SIG .Q24H [facility] Rx#:[id number] Flolan (30,000 ng/mL) Neb 87.5 130 / 130 ML In NS Inj 12.5 ML @ 5 mls/hr NEB Q8H [facility] Rx#:[id number] Oral 1000 / 1000 240 / 240 Output: Urine 2700 / 2700 1500 / 1500 Other: # Voids 3 Date of Last Bowel Movement 12/14/17 12/14/17 12/14/17 # Bowel Movements 0 0 - Urinary Catheter Management Indwelling Temp Sensing Catheter Cath placed during this visit: yes Reason for continuing: Not indwelling catheter Insertion date: 12/16/17 Insertion time: 08:00 Indwelling Urethral Catheter Cath placed during this visit: yes, but has since been removed by the nurse Reason for continuing: Not indwelling catheter Removal date: 12/16/17 Assessment and Plan - Assessment (1) Aortic stenosis Code(s): I35.0 - Nonrheumatic aortic (valve) stenosis Status: Acute (2) Cardiomyopathy Code(s): I42.9 - Cardiomyopathy, unspecified Status: Acute (3) CHF (congestive heart failure) Code(s): I50.9 - Heart failure, unspecified Status: Acute (4) Atrial fibrillation Code(s): I48.91 - Unspecified atrial fibrillation Status: Acute (5) NSTEMI (non-ST elevated myocardial infarction) Code(s): I21.4 - Non-ST elevation (NSTEMI) myocardial infarction Status: Acute (6) COPD (chronic obstructive pulmonary disease) Code(s): J44.9 - Chronic obstructive pulmonary disease, unspecified Status: Acute (7) Cardiorespiratory arrest Code(s): I46.9 - Cardiac arrest, cause unspecified Status: Acute (8) Elevated troponin I level Code(s): R74.8 - Abnormal levels of other serum enzymes Status: Acute (9) Lung cancer Code(s): C34.90 - Malignant neoplasm of unspecified part of unspecified bronchus or lung Status: Chronic - Plan s/p TAVR - doing well PHTN - on sidenafil. no nitrates. cardiomyopathy CAD with coronary aneurysm needs continued diuresis. Cr stable. change to continuous intravenous lasix. replete K+ DC aspirin start eliquis tomorrow wean milrinone gtt CM for DC planning to snf digoxin for afib and rate control low dose ACEi for cardiomyopathy transfer to intermediate level of care (1) Aortic stenosis Qualifiers: Cardiac valve disease etiology: etiology unspecified Qualified Code(s): I35.0 - Nonrheumatic aortic (valve) stenosis (4) Atrial fibrillation Qualifiers: Atrial fibrillation type: chronic Qualified Code(s): I48.2 - Chronic atrial fibrillation (6) 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
[2017-12-18] MEDS: Furosemide Inj 100 MG in Sodium Chlor 0.9% Inj 90 ML IV.CONT SCH (13:20)
--- NOTE | 2017-12-18 13:20 | ECHRPT ---
Indication: Heart failure, unspecified CONCLUSIONS The left ventricular systolic function is low normal with an estimated ejection fraction in the rang e of 50- 55%. Wall thickness is normal. Normal left ventricular size. The right ventricle is dilated. The right ventricular systoilc function is decreased. The right atrium is dilated. Status-post percutaneous aortic valve replacement. There is moderate tricuspid regurgitation. The estimated pulmonary arterial pressure is 68.1 mmHg. Moderate pulmonary valve regurgitation. There is a small pericardial effusion present. BP: / HR: Rhythm: MEASUREMENTS (Male / Female) Normal Values Technical Quality: 2D ECHO LV Diastolic Diameter PLAX 4.2 cm 4.2 - 5.9 / 3.9 - 5.3 cm LV Systolic Diameter PLAX 3.2 cm IVS Diastolic Thickness 1.2 cm 0.6 - 1.0 / 0.6 - 0.9 cm LVPW Diastolic Thickness 1.1 cm 0.6 - 1.0 / 0.6 - 0.9 cm LV Relative Wall Thickness 0.5 RV Internal Dim ED PLAX 4.0 cm LA Systolic Diameter LX 3.9 cm 3.0 - 4.0 / 2.7 - 3.8 cm DOPPLER AV Peak Velocity 150.0 cm/s AV Peak Gradient 9.0 mmHg AV Mean Gradient 4.0 mmHg AV Velocity Time Integral 17.1 cm LVOT Peak Velocity 77.5 cm/s LVOT Peak Gradient 2.4 mmHg LVOT Velocity Time Integral 10.4 cm TR Peak Velocity 381.0 cm/s TR Peak Gradient 58.1 mmHg Right Atrial Pressure 10.0 mmHg Pulmonary Artery Systolic Pressu 68.1 mmHg Right Ventricular Systolic Press 68.1 mmHg FINDINGS LEFT VENTRICLE The left ventricular systolic function is low normal with an estimated ejection fraction in the rang e of 50- 55%. Wall thickness is normal. Normal left ventricular size. RIGHT VENTRICLE The right ventricle is dilated. The right ventricular systoilc function is decreased. RIGHT ATRIUM The right atrium is dilated. AORTIC VALVE Status-post percutaneous aortic valve replacement. no aortic regurgitation TRICUSPID VALVE There is moderate tricuspid regurgitation. The estimated pulmonary arterial pressure is 68.1 mmHg. PULMONARY VALVE Moderate pulmonary valve regurgitation. PERICARDIUM There is a small pericardial effusion present. Jasvir Lorenzana MD, FACC (Electronically Signed) Final Date:18 December 2017 13:19
[2017-12-18 18:44] LABS: Calcium 8.3 mg/dL (8.5-10.1); Carbon Dioxide 29.2 meq/L (21.0-32.0); Magnesium 2.1 mg/dL (1.5-2.5); Potassium 3.3 meq/L (3.5-5.1)
[2017-12-18] MEDS: Potassium Chlor 40 mEq Premix 40 MEQ/100 ML PIGGYBACK IV.SIG PRN (20:51)
[2017-12-19] MEDS: Insulin NovoLOG Aspart Correctional Sugar Inj SQ SCH ×4 (02:20→18:00)
[2017-12-19] MEDS: Oral Hygiene Kit OROPHARYNG SCH ×5 (02:21→23:31)
[2017-12-19] MEDS: Milrinone Inj 20 MG in Sodium Chlor 0.9% Inj 80 ML IV.CONT SCH (02:27)
[2017-12-19 04:33] LABS: Hematocrit 35.1 % (39.0-51.0); Hemoglobin 11.5 gm/dL (13.0-17.0); Mean Corpuscular HGB Conc 32.8 % (32.0-36.0); Mean Corpuscular Hemoglobin 28.6 pg (27.0-34.0); Mean Corpuscular Volume 87.1 fL (80.0-100.0); Mean Platelet Volume 9.9 fL (7.0-11.0); Platelet Count 50 th/mm3 (150-450); Red Blood Count 4.03 mil/mm3 (4.50-5.90); Red Cell Distribution Width 15.5 % (11.6-17.2); White Blood Count 16.1 th/mm3 (4.0-11.0)
[2017-12-19 04:58] LABS: Calcium 8.1 mg/dL (8.5-10.1); Carbon Dioxide 31.6 meq/L (21.0-32.0); Magnesium 2.1 mg/dL (1.5-2.5); Potassium 3.2 meq/L (3.5-5.1)
--- NOTE | 2017-12-19 07:36 | P.PNCC ---
Subjective Subjective Remarks/Hospital Course: This 77-year-old gentleman with coronary artery disease, chronic heart failure, glucose intolerance, recent pneumonia, and status post lobectomy for lung cancer develop respiratory acidosis culminating in brief cardiac arrest after transport to the [facility] emergency department. He was rapidly resuscitated after 1 amp of epinephrine but did require intubation and mechanical ventilation. He is been on home oxygen following his lobectomy and has underlying COPD which was likely exacerbated prior to this event. At the outside hospital troponin was minimally elevated at 0.15 and initial pH was arterial 7.16. He was transported to the [facility] at [facility] and I met him on his arrival. 12/05: Sitting up in bed extubated yesterday breathing comfortably. WBC count is elevated most likely stress related. No arrhythmias reported overnight This is a 77-year-old male with a history of oxygen dependent COPD on 3 L nasal cannula at home. In addition, he has a diagnosis of stage IV lung cancer that he was diagnosed with 4 years ago and is now status post left upper lobectomy. Of note, his left upper lobectomy thoracotomy operation was complicated by a pulmonary artery injury and emergent repair with significant blood loss at that time. After his operation he underwent chemotherapy. Although he carries a diagnosis of stage IV lung cancer, it is been for years and he has had no progression of his pulmonary nodules or infiltrates, and is very likely that the radiographic findings were not consistent with metastatic disease, and that he is in remission. He was visiting us from [place] where he had a cardiac arrest/ventricular fibrillation episode and was brought into the emergency department. 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 In addition, the patient has low flow/low gradient aortic stenosis which on dobutamine stress echo proves to be critical aortic stenosis with a peak velocity greater than 4 m/s and a calculated valve area less than 0.5. 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 This was unknown to the patient had never been diagnosed with this before. The patient has severe dyspnea symptoms at rest which have been unchanged over many days despite forced diuresis. Structural heart team met and recommends him for transcatheter aortic valve replacement, however our recommendations also that he be medically optimized prior to undertaking such an operation. I was asked to evaluate the patient and additionally to perform right heart catheterization to evaluate central pressures and medically optimized patient. The patient was taken to the [facility] where I performed right heart catheterization, please see separate procedure note for the details of this operation. From here the PA catheter was left in place and the patient was taken to the cardiovascular intensive care unit for further optimization. I started the patient on milrinone 0.25 mcg/kg/min IV and inhaled Flolan at 50 ng/kg/min through a facemask. Patient has no additional symptoms or complaints and his review of systems is unchanged from prior days. 12/16: no changes in PVR with initiation of milrinone or inhaled flolan. successfully underwent TAVR. extubated at the conclusion of the case. hemodynamics appear to be back to baseline, however, in the perioperative period , now on epinephrine at 3mcg/min, vasopressin at 0.02 units/min, milrinone 0.25 mcg/kg/min. received 40mg lasix iv in the OR. 12/17: PA port clotted from swan, unable to evaluate PA pressures. patient symptomatically continues to improve. positive fluid balance yesterday, which is necessary POD 0 s/p TAVR to ensure adequate LV cavity filling immediately s/ p TAVR. now need to start additional forced diuresis. CVP 2 this AM. remains on epi, vaso, milrinone, inhaled flolan. will need to start slowly weaning these off. 12/18: PA removed. good diuresis yesterday. off epi. off flolan. more hypoxic today requiring 6L NC and spo2 only 91%. still very volume overloaded. increased lasix to q6h dosing from q8h. subjectively continues to feel better. denies complaints. 12/19: oob to chair this AM. symptomatically continues to improve. o2 requirement increasing, however. now on 6LPM simple facemask. adequate diuresis overnight with lasix drip. CVP remains elevated at 14 mmHg this AM. Objective Vital Signs / I&O: Vital Signs 12/18/17 08:00 12/18/17 09:38 12/18/17 11:00 Temperature 36.3 C L Pulse Rate 94 H 92 H Respiratory Rate 16 Blood Pressure 138/58 L Pulse Oximetry 85 L 94 L 12/18/17 12:00 12/18/17 15:00 12/18/17 16:00 Temperature 36.7 C 36.4 C Pulse Rate 93 H 80 94 H Respiratory Rate 20 18 Blood Pressure 132/59 L 140/62 Pulse Oximetry 88 L 97 12/18/17 17:00 12/18/17 20:00 12/18/17 21:46 Temperature 36.4 C L Pulse Rate 83 Respiratory Rate 18 Blood Pressure 124/55 L Pulse Oximetry 94 L 95 99 12/19/17 00:00 12/19/17 01:00 12/19/17 04:00 Temperature Pulse Rate 82 77 Respiratory Rate 18 Blood Pressure 126/59 L 112/53 L Pulse Oximetry 99 97 12/19/17 05:00 12/19/17 06:30 Temperature Pulse Rate 82 Respiratory Rate 20 Blood Pressure Pulse Oximetry 93 L Intake & Output 12/18/17 12/19/17 12/19/17 18:59 06:59 18:59 Intake Total 480 / 480 100 / 100 Output Total 1675 / 1675 Balance -1195 / -1195 100 / 100 Intake: IV 100 / 100 Primacor Inj 20 MG In NS Inj 80 100 / 100 ML @ 0.25 MCG/KG/MIN 5.95 mls/ hr IV.CONT .[id number] [facility] Rx#: [id number] Oral 480 / 480 Output: Urine 1675 / 1675 Other: Date of Last Bowel Movement 12/14/17 12/14/17 # Bowel Movements 0 Result Diagrams: 12/19/17 04:00 12/19/17 04:00 Objective Remarks: GENERAL: Elderly male, sitting in a chair, awake and alert. HEENT: Normocephalic. Atraumatic. Pupils equal, round, reactive, conjugate. Mucous membranes are moist NECK: Trachea is midline. Slight JVD. Right IJ [address], site clean dry and intact. CHEST: nc o2. Evidence of right chest wall port in place, not currently accessed. 6 L nasal cannula oxygen. SPO2 97%. CARDIOVASCULAR: Normal rate, irregularly irregular rhythm. afib/flutter intermittently by telemetry. milrinone at 0.25mcg/kg/min ABDOMEN: Soft, nontender, nondistended. No guarding. MUSCULOSKELETAL: Pulses 2+. 1+ edema. bilateral groin sites with dressings intact, no evidence of hematoma. NEUROLOGICAL: RASS 0. CAM -. Follows commands. Assessment and Plan - Problem List (1) Cardiorespiratory arrest Code(s): I46.9 - Cardiac arrest, cause unspecified Status: Acute (2) COPD (chronic obstructive pulmonary disease) Code(s): J44.9 - Chronic obstructive pulmonary disease, unspecified Status: Acute (3) Lung cancer Code(s): C34.90 - Malignant neoplasm of unspecified part of unspecified bronchus or lung Status: Chronic (4) Elevated troponin I level Code(s): R74.8 - Abnormal levels of other serum enzymes Status: Acute (5) Leukocytosis Code(s): D72.829 - Elevated white blood cell count, unspecified Status: Acute - Assessment and Plan Plan: Assessment: 77-year-old male with critical aortic stenosis which is complicated by a depressed left ventricular systolic function and severe right ventricular dysfunction with dilation. POD 3 s/p TAVR, complicated by ongoing right ventricular dysfunction and cor pulmonale. highly complex and high risk. will continue forced diuresis today. increase sildenafil to 20mg po q8h. will d/c milrinone and make sure he continues to diurese off inotropic therapy. needs aggressive PT. Plan: near-Systemic severe Pulmonary Hypertension severe Right heart dysfunction Cor pulmonale - d/c milrinone. - s/p flolan inhaled - increase lasix drip to 10mg/hr. - increase sildenafil to 20mg po q8h. - may be forced to use concentrated albumin to assist with intravascular volume expansion - d/c sheath. can use port if needed for central access for inotropic therapy if we need in the future. Metabolic alkalosis - likely secondary to contraction - one more dose of diamox today. Severe aortic stenosis s/p TAVR 12/16 - anticoagulation per Dr. Lorenzana - diuresis as above - OOB - frequent neurovascular checks LV systolic dysfunction - diuresis as above Atrial fibrillation/flutter - rate controlled - anticoagulation per Dr. Lorenzana Hypokalemia Hypomagnesemia - ICU electrolyte protocol - check afternoon BMP, Mg - Daily BMP, Mg COPD - o2 as needed for goal spo2 > 90% - nebs cardiac diet as tolerated. SCDs Discussed at length with the entire structural heart team. (2) 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
[2017-12-19] MEDS: Nystatin Liq 500,000 UNIT/5 ML UDC SWISH-SWAL SCH ×4 (09:36→20:59)
[2017-12-19] MEDS: Potassium Chlor 20 mEq Premix 20 MEQ/100 ML PIGGYBACK IV.SIG PRN ×2 (09:36→12:09)
[2017-12-19] MEDS: Digoxin 250 MCG Tablet PO SCH (09:37)
[2017-12-19] MEDS: Famotidine PF Inj 20 MG/2 ML Vial IV.PUSH SCH ×2 (09:37→20:59)
[2017-12-19] MEDS: Pantoprazole Sodium 20 MG DR Tablet PO SCH (09:37)
[2017-12-19] MEDS: guaiFENesin 600 MG ER Tablet PO SCH ×2 (09:37→21:00)
[2017-12-19] MEDS: Lisinopril 5 MG Tablet PO SCH (09:38)
[2017-12-19] MEDS: Senna/Docusate Sodium 8.6/50 MG Tablet PO SCH ×2 (09:38→23:31)
[2017-12-19] MEDS: predniSONE 20 MG Tablet PO SCH (09:39)
[2017-12-19] MEDS: Chlorhexidine 0.12% Oral Kit 15 ML UDC OROPHARYNG SCH ×2 (09:39→23:31)
[2017-12-19] MEDS: Folic Acid 1 MG Tablet PO SCH (09:40)
--- NOTE | 2017-12-19 09:44 | P.PNCV ---
- Note Subjective/Hospital Course: 12/17 Doing well status post TAVR yesterday Hemodynamically stable. Greatly appreciate heat and frost insulator helper input Diuresis and inotropic support as dictated by heat and frost insulator helper team. Aggressive pulmonary toiletry 12/18 Clinically and hemodynamically stable. Diuresing well with current regimen. Weaning oxygen as tolerated. 12/19 remains on simple mask , on lasix gtt on Revatio , also plavix and eliquis ( PLT 50) up from [address] Lorenzana on po prednisone / has some insp and exp wheezing weak , feels fair Objective: Vital Signs - 24 hr 12/18/17 11:00 12/18/17 12:00 12/18/17 15:00 Temperature 98.0 F Pulse Rate 92 H 93 H 80 Respiratory Rate 20 Blood Pressure 132/59 L Pulse Oximetry 88 L 12/18/17 16:00 12/18/17 17:00 12/18/17 19:00 Temperature 97.6 F Pulse Rate 94 H 71 Respiratory Rate 18 Blood Pressure 140/62 Pulse Oximetry 97 94 L 12/18/17 20:00 12/18/17 21:46 12/18/17 23:00 Temperature 97.5 F L Pulse Rate 83 77 Respiratory Rate 18 Blood Pressure 124/55 L Pulse Oximetry 95 99 12/19/17 00:00 12/19/17 01:00 12/19/17 03:00 Temperature Pulse Rate 82 71 Respiratory Rate 18 Blood Pressure 126/59 L Pulse Oximetry 99 97 12/19/17 04:00 12/19/17 05:00 12/19/17 06:30 Temperature 97.5 F L Pulse Rate 83 82 Respiratory Rate 18 20 Blood Pressure 124/55 L Pulse Oximetry 95 93 L 12/19/17 07:00 12/19/17 08:00 12/19/17 08:30 Temperature 98.0 F Pulse Rate 96 H 96 H Respiratory Rate 18 Blood Pressure 102/47 L Pulse Oximetry 96 95 12/19/17 08:40 12/19/17 09:03 Temperature Pulse Rate Respiratory Rate Blood Pressure Pulse Oximetry 98 96 GENERAL: A&Ox 3 , up in chair SKIN: Warm and dry. HEAD: Normocephalic. EYES: No scleral icterus. No injection or drainage. NECK: Supple, trachea midline. No JVD or lymphadenopathy. CARDIOVASCULAR: Regular rate and rhythm without murmurs, gallops, or rubs. RESPIRATORY: Breath sounds equal bilaterally. insp and exp wheezing No accessory muscle use. GASTROINTESTINAL: Abdomen soft, non-tender, nondistended. MUSCULOSKELETAL: No cyanosis, or edema. BACK: Nontender without obvious deformity. No CVA tenderness. Labs: Laboratory Results - last 12 hr 12/18/17 12/19/17 12/19/17 23:14 04:00 04:00 WBC 16.1 H RBC 4.03 L Hgb 11.5 L Hct 35.1 L MCV 87.1 MCH 28.6 MCHC 32.8 RDW 15.5 Plt Count 50 L MPV 9.9 Sodium 139 Potassium 3.2 L Chloride 101 Carbon Dioxide 31.6 Anion Gap 6 BUN 40 H Creatinine 0.88 Estimated GFR 84 L POC Glucose 148 H Random Glucose 170 H Calcium 8.1 L Magnesium 2.1 Result Diagrams: 12/19/17 04:00 12/19/17 04:00 - Plan (1) Aortic stenosis (2) CAD (coronary artery disease) (3) Combined systolic and diastolic congestive heart failure, NYHA class 4 Plan: lasix gtt (4) Diabetes mellitus (5) Pulmonary hypertension Plan: on revatio ( sildenafil) (6) COPD (chronic obstructive pulmonary disease) (7) Atrial fibrillation Plan: on eliquis on digoxin (1) Aortic stenosis Qualifiers: Cardiac valve disease etiology: etiology unspecified Qualified Code(s): I35.0 - Nonrheumatic aortic (valve) stenosis (2) CAD (coronary artery disease) Qualifiers: Coronary Disease-Associated Artery/Lesion type: [place] artery [place] vs. transplanted heart: [place] heart Associated angina: with other forms of angina Qualified Code(s): I25.118 - Atherosclerotic heart disease of [place] coronary artery with other forms of angina pectoris (3) Combined systolic and diastolic congestive heart failure, NYHA class 4 Qualifiers: Congestive heart failure chronicity: acute on chronic Qualified Code(s): I50.43 - Acute on chronic combined systolic (congestive) and diastolic ( congestive) heart failure (4) Diabetes mellitus Qualifiers: Diabetes mellitus type: type 2 Diabetes mellitus complication status: with hyperglycemia (6) 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 (7) Atrial fibrillation Qualifiers: Atrial fibrillation type: chronic Qualified Code(s): I48.2 - Chronic atrial fibrillation
[2017-12-19] MEDS: Furosemide Inj 100 MG in Sodium Chlor 0.9% Inj 90 ML IV.CONT SCH ×2 (10:14→17:09)
--- NOTE | 2017-12-19 11:11 | P.PNCA ---
Subjective Interval history: breathing is stable lasix gtt milrinone off Physical Exam Vital signs: Vital Signs 12/18/17 12:00 12/18/17 15:00 12/18/17 16:00 Temperature 98.0 F 97.6 F Pulse Rate 93 H 80 94 H Respiratory Rate 20 18 Blood Pressure 132/59 L 140/62 Pulse Oximetry 88 L 97 12/18/17 17:00 12/18/17 19:00 12/18/17 20:00 Temperature 97.5 F L Pulse Rate 71 83 Respiratory Rate 18 Blood Pressure 124/55 L Pulse Oximetry 94 L 95 12/18/17 21:46 12/18/17 23:00 12/19/17 00:00 Temperature Pulse Rate 77 82 Respiratory Rate 18 Blood Pressure 126/59 L Pulse Oximetry 99 99 12/19/17 01:00 12/19/17 03:00 12/19/17 04:00 Temperature 97.5 F L Pulse Rate 71 83 Respiratory Rate 18 Blood Pressure 124/55 L Pulse Oximetry 97 95 12/19/17 05:00 12/19/17 06:30 12/19/17 07:00 Temperature Pulse Rate 82 96 H Respiratory Rate 20 Blood Pressure Pulse Oximetry 93 L 12/19/17 08:00 12/19/17 08:30 12/19/17 08:40 Temperature 98.0 F Pulse Rate 96 H Respiratory Rate 18 Blood Pressure 102/47 L Pulse Oximetry 96 95 98 12/19/17 09:03 Temperature Pulse Rate Respiratory Rate Blood Pressure Pulse Oximetry 96 Intake & Output 12/18/17 12/19/17 12/19/17 18:59 06:59 18:59 Intake Total 480 / 480 340 / 340 100 / 100 Output Total 1675 / 1675 2155 / 2155 Balance -1195 / -1195 -1815 / -1815 100 / 100 Intake: IV 100 / 100 100 / 100 Lasix Inj 100 MG In NS Inj 90 100 / 100 ML @ 10 mls/hr IV.CONT .Q10H [facility] Rx#:[id number] Primacor Inj 20 MG In NS Inj 80 100 / 100 ML @ 0.25 MCG/KG/MIN 5.95 mls/ hr IV.CONT .[id number] [facility] Rx#: [id number] Oral 480 / 480 240 / 240 Output: Urine 1675 / 1675 2155 / 2155 Other: Date of Last Bowel Movement 12/14/17 12/14/17 12/14/17 # Bowel Movements 0 - Constitutional mild distress - Routine HEENT Exam Head: Present: normocephalic ENT: Present: mucous membranes moist - Routine Neck Exam Present: JVD - Routine Respiratory Exam Present: CTA bilaterally - Routine Cardiovascular Exam Present: irregularly irregular - Routine Abdominal Exam Present: soft, normoactive bowel sounds - Urinary Catheter Management Indwelling Temp Sensing Catheter Cath placed during this visit: yes Reason for continuing: Not indwelling catheter Insertion date: 12/16/17 Insertion time: 08:00 Indwelling Urethral Catheter Cath placed during this visit: yes, but has since been removed by the nurse Reason for continuing: Not indwelling catheter Removal date: 12/16/17 Assessment and Plan - Plan s/p TAVR - doing well. on plavix. no asa PHTN - on sidenafil. no nitrates. cardiomyopathy CAD with coronary aneurysm Continue diuresis. Cr stable. -5L over last two days. weight down 10 Kg since admit off milrinone and pressors plan is for [facility] afib - rate control and anticoagulation low dose ACEi for cardiomyopathy ambulate DC planning
[2017-12-19] MEDS: Sod Chloride 0.9% Inj 1,000 ML IV.SIG SCH (13:07)
--- NOTE | 2017-12-19 13:40 | P.PNCA ---
Subjective Interval history: alert in nad Physical Exam Vital signs: Vital Signs 12/18/17 15:00 12/18/17 16:00 12/18/17 17:00 Temperature 97.6 F Pulse Rate 80 94 H Respiratory Rate 18 Blood Pressure 140/62 Pulse Oximetry 97 94 L 12/18/17 19:00 12/18/17 20:00 12/18/17 21:46 Temperature 97.5 F L Pulse Rate 71 83 Respiratory Rate 18 Blood Pressure 124/55 L Pulse Oximetry 95 99 12/18/17 23:00 12/19/17 00:00 12/19/17 01:00 Temperature Pulse Rate 77 82 Respiratory Rate 18 Blood Pressure 126/59 L Pulse Oximetry 99 97 12/19/17 03:00 12/19/17 04:00 12/19/17 05:00 Temperature 97.5 F L Pulse Rate 71 83 Respiratory Rate 18 Blood Pressure 124/55 L Pulse Oximetry 95 93 L 12/19/17 06:30 12/19/17 07:00 12/19/17 08:00 Temperature 98.0 F Pulse Rate 82 96 H 96 H Respiratory Rate 20 18 Blood Pressure 102/47 L Pulse Oximetry 96 12/19/17 08:30 12/19/17 08:40 12/19/17 09:03 Temperature Pulse Rate Respiratory Rate Blood Pressure Pulse Oximetry 95 98 96 12/19/17 11:00 12/19/17 11:56 12/19/17 12:00 Temperature 97.3 F L Pulse Rate 79 92 H 91 H Respiratory Rate 28 H Blood Pressure 90/52 L Pulse Oximetry 96 12/19/17 13:00 Temperature Pulse Rate 96 H Respiratory Rate Blood Pressure Pulse Oximetry Intake & Output 12/18/17 12/19/17 12/19/17 18:59 06:59 18:59 Intake Total 480 / 480 340 / 340 900 / 900 Output Total 1675 / 1675 2155 / 2155 710 / 710 Balance -1195 / -1195 -1815 / -1815 190 / 190 Intake: IV 100 / 100 200 / 200 Lasix Inj 100 MG In NS Inj 90 100 / 100 ML @ 10 mls/hr IV.CONT .Q10H [facility] Rx#:[id number] Primacor Inj 20 MG In NS Inj 80 100 / 100 ML @ 0.25 MCG/KG/MIN 5.95 mls/ hr IV.CONT .[id number] [facility] Rx#: [id number] KCl 20 mEq Premix Inj 20 meq In 100 / 100 100 ml @ 50 mls/hr IV.SIG Q2H [facility] Rx#:[id number] Oral 480 / 480 240 / 240 700 / 700 Output: Urine 1675 / 1675 2155 / 2155 710 / 710 Other: Date of Last Bowel Movement 12/14/17 12/14/17 12/14/17 # Bowel Movements 0 0 - Urinary Catheter Management Indwelling Temp Sensing Catheter Cath placed during this visit: yes Reason for continuing: Not indwelling catheter Insertion date: 12/16/17 Insertion time: 08:00 Indwelling Urethral Catheter Cath placed during this visit: yes, but has since been removed by the nurse Reason for continuing: Not indwelling catheter Removal date: 12/16/17 Assessment and Plan - Assessment (1) Aortic stenosis Code(s): I35.0 - Nonrheumatic aortic (valve) stenosis Status: Acute (2) Cardiomyopathy Code(s): I42.9 - Cardiomyopathy, unspecified Status: Acute (3) CHF (congestive heart failure) Code(s): I50.9 - Heart failure, unspecified Status: Acute (4) Atrial fibrillation Code(s): I48.91 - Unspecified atrial fibrillation Status: Acute (5) NSTEMI (non-ST elevated myocardial infarction) Code(s): I21.4 - Non-ST elevation (NSTEMI) myocardial infarction Status: Acute (6) COPD (chronic obstructive pulmonary disease) Code(s): J44.9 - Chronic obstructive pulmonary disease, unspecified Status: Acute (7) Cardiorespiratory arrest Code(s): I46.9 - Cardiac arrest, cause unspecified Status: Acute (8) Elevated troponin I level Code(s): R74.8 - Abnormal levels of other serum enzymes Status: Acute (9) Lung cancer Code(s): C34.90 - Malignant neoplasm of unspecified part of unspecified bronchus or lung Status: Chronic - Plan s/p TAVR - doing well. on plavix. no asa PHTN - on sidenafil. no nitrates. cardiomyopathy CAD with coronary aneurysm Continue diuresis. Cr stable. -5L over last two days. weight down 10 Kg since admit off milrinone and pressors plan is for [facility] afib - rate control and anticoagulation low dose ACEi for cardiomyopathy ambulate DC planning (1) Aortic stenosis Qualifiers: Cardiac valve disease etiology: etiology unspecified Qualified Code(s): I35.0 - Nonrheumatic aortic (valve) stenosis (4) Atrial fibrillation Qualifiers: Atrial fibrillation type: chronic Qualified Code(s): I48.2 - Chronic atrial fibrillation (6) 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
[2017-12-19 15:45] LABS: Calcium 7.9 mg/dL (8.5-10.1); Carbon Dioxide 31.4 meq/L (21.0-32.0); Magnesium 2.1 mg/dL (1.5-2.5); Potassium 3.2 meq/L (3.5-5.1)
[2017-12-19] MEDS ORDERED: Potassium Chloride 25 MEQ Effervescent Tablet PO ONE (17:00)
[2017-12-19] MEDS ORDERED: Potassium Chlor 40 mEq Premix 40 MEQ/100 ML PIGGYBACK IV.SIG ONE (17:00)
[2017-12-19] MEDS: Potassium Chlor 40 mEq Premix 40 MEQ/100 ML PIGGYBACK IV.SIG PRN (17:55)
--- NOTE | 2017-12-19 18:57 | P.PNPL ---
Subjective Interval history: 77 YOWM from [place] with cardiac arrest,ca lung Breathing better Mild sob No CP Family at PFT Severe COPD Had TAVR On Sildenifil, Lasix drip Physical Exam Vital signs: Vital Signs 12/18/17 19:00 12/18/17 20:00 12/18/17 21:46 Temperature 97.5 F L Pulse Rate 71 83 Respiratory Rate 18 Blood Pressure 124/55 L Pulse Oximetry 95 99 12/18/17 23:00 12/19/17 00:00 12/19/17 01:00 Temperature Pulse Rate 77 82 Respiratory Rate 18 Blood Pressure 126/59 L Pulse Oximetry 99 97 12/19/17 03:00 12/19/17 04:00 12/19/17 05:00 Temperature 97.5 F L Pulse Rate 71 83 Respiratory Rate 18 Blood Pressure 124/55 L Pulse Oximetry 95 93 L 12/19/17 06:30 12/19/17 07:00 12/19/17 08:00 Temperature 98.0 F Pulse Rate 82 96 H 96 H Respiratory Rate 20 18 Blood Pressure 102/47 L Pulse Oximetry 96 12/19/17 08:30 12/19/17 08:40 12/19/17 09:03 Temperature Pulse Rate Respiratory Rate Blood Pressure Pulse Oximetry 95 98 96 12/19/17 11:00 12/19/17 11:56 12/19/17 12:00 Temperature 97.3 F L Pulse Rate 79 92 H 91 H Respiratory Rate 28 H Blood Pressure 90/52 L Pulse Oximetry 96 12/19/17 13:00 12/19/17 14:00 12/19/17 14:01 Temperature Pulse Rate 96 H 94 H 92 H Respiratory Rate Blood Pressure Pulse Oximetry 12/19/17 15:00 12/19/17 15:13 12/19/17 16:00 Temperature 96.4 F L Pulse Rate 77 78 81 Respiratory Rate 24 Blood Pressure 101/55 L Pulse Oximetry 96 12/19/17 17:00 12/19/17 18:13 Temperature Pulse Rate 90 78 Respiratory Rate Blood Pressure Pulse Oximetry Intake & Output 12/18/17 12/19/17 12/19/17 18:59 06:59 18:59 Intake Total 480 / 480 440 / 440 2322 / 2322 Output Total 1675 / 1675 2155 / 2155 1959 / 1959 Balance -1195 / -1195 -1715 / -1715 362 / 362 Intake: IV 200 / 200 400 / 400 Lasix Inj 100 MG In NS Inj 90 200 / 200 ML @ 10 mls/hr IV.CONT .Q10H [facility] Rx#:[id number] Primacor Inj 20 MG In NS Inj 80 100 / 100 ML @ 0.25 MCG/KG/MIN 5.95 mls/ hr IV.CONT .[id number] [facility] Rx#: [id number] KCl 20 mEq Premix Inj 20 meq In 200 / 200 100 ml @ 50 mls/hr IV.SIG Q2H [facility] Rx#:[id number] KCl 40 mEq Premix Inj 40 meq In 100 / 100 100 ml @ 25 mls/hr IV.SIG UNSCH PRN Rx#:[id number] Oral 480 / 480 240 / 240 192 / 192 Output: Urine 1675 / 1675 2155 / 2155 1959 / 1959 Other: Date of Last Bowel Movement 12/14/17 12/14/17 12/19/17 # Bowel Movements 0 0 GENERAL: [place] WM, mild sob SKIN: Warm and dry. HEAD: Normocephalic. EYES: No scleral icterus. No injection or drainage. NECK: Supple, trachea midline. No JVD or lymphadenopathy. CARDIOVASCULAR: Regular rate and rhythm without murmurs, gallops, or rubs. RESPIRATORY: Breath sounds equal bilaterally. No accessory muscle use. GASTROINTESTINAL: Abdomen soft, non-tender, nondistended. MUSCULOSKELETAL: No cyanosis, or edema. BACK: Nontender without obvious deformity. No CVA tenderness. - Urinary Catheter Management Indwelling Temp Sensing Catheter Cath placed during this visit: yes Reason for continuing: Not indwelling catheter Insertion date: 12/16/17 Insertion time: 08:00 Indwelling Urethral Catheter Cath placed during this visit: yes, but has since been removed by the nurse Reason for continuing: Not indwelling catheter Removal date: 12/16/17 Assessment and Plan - Plan IMPRESSION: 1. Chronic obstructive pulmonary disease . 2. Coronary artery disease, status post cardiac arrest. 3. Carcinoma of the lung with metastasis. 4. Recent pleural effusion, status post thoracentesis. 5. Atrial fibrillation. 6. Aortic Stenosis PLAN: Aerosol nebs Supplement [address] eff Lasix drip Monitor Lytes
[2017-12-20] MEDS: Insulin NovoLOG Aspart Correctional Sugar Inj SQ SCH ×3 (00:11→11:56)
[2017-12-20] MEDS: Furosemide Inj 100 MG in Sodium Chlor 0.9% Inj 90 ML IV.CONT SCH ×2 (03:07→07:18)
[2017-12-20] MEDS ORDERED: Atropine Inj 1 MG/10 ML Syringe IV.PUSH ONE ×2 (05:00)
[2017-12-20] MEDS ORDERED: Magnesium Sulfate Inj 40 MEQ/10 ML Vial IV.SIG ONE (05:00)
[2017-12-20] MEDS ORDERED: Lidocaine 2% 100 MG/5 ML Syringe IV.PUSH ONE (05:00)
[2017-12-20] MEDS ORDERED: Sodium Bicarbonate 8.4% Inj 50 MEQ/50 ML Syringe IV.PUSH ONE ×2 (05:00)
[2017-12-20] MEDS ORDERED: DOPamine 800 MG/500 ML Premix 800 MG/500 ML PLAST..BAG IV.CONT ONE (05:00)
[2017-12-20] MEDS ORDERED: Calcium Chloride Inj 1 GM/10 ML Syringe IV.PUSH ONE ×2 (05:00)
[2017-12-20] MEDS ORDERED: Lidocaine/D5W 2000 mg/500 mL 2,000 MG/500 ML BAG IV.SIG ONE (05:00)
[2017-12-20 06:21] LABS: Hematocrit 39.4 % (39.0-51.0); Hemoglobin 12.8 gm/dL (13.0-17.0); Mean Corpuscular HGB Conc 32.5 % (32.0-36.0); Mean Corpuscular Hemoglobin 28.7 pg (27.0-34.0); Mean Corpuscular Volume 88.4 fL (80.0-100.0); Mean Platelet Volume 10.1 fL (7.0-11.0); Platelet Count 59 th/mm3 (150-450); Red Blood Count 4.46 mil/mm3 (4.50-5.90); Red Cell Distribution Width 15.8 % (11.6-17.2)
[2017-12-20 06:41] LABS: Anion Gap 9 meq/L (5-15); Blood Urea Nitrogen 33 mg/dL (7-18); Calcium 8.2 mg/dL (8.5-10.1); Carbon Dioxide 35.1 meq/L (21.0-32.0); Chloride 96 meq/L (98-107); Glomerular Filtration Rate Greater Than 89 mL/min (>89); Glucose,Random 117 mg/dL (74-106); Magnesium 2.1 mg/dL (1.5-2.5); Sodium 140 meq/L (136-145)
[2017-12-20] MEDS: Oral Hygiene Kit OROPHARYNG SCH ×2 (07:09→11:49)
[2017-12-20] MEDS: predniSONE 20 MG Tablet PO SCH (08:27)
[2017-12-20] MEDS: Pantoprazole Sodium 20 MG DR Tablet PO SCH (08:27)
[2017-12-20] MEDS: Senna/Docusate Sodium 8.6/50 MG Tablet PO SCH (08:27)
[2017-12-20] MEDS: Digoxin 250 MCG Tablet PO SCH (08:28)
[2017-12-20] MEDS: Famotidine PF Inj 20 MG/2 ML Vial IV.PUSH SCH (08:28)
[2017-12-20] MEDS: Nystatin Liq 500,000 UNIT/5 ML UDC SWISH-SWAL SCH ×2 (08:28→12:01)
[2017-12-20] MEDS: guaiFENesin 600 MG ER Tablet PO SCH (08:28)
[2017-12-20] MEDS: Folic Acid 1 MG Tablet PO SCH (08:28)
[2017-12-20] MEDS: Lisinopril 5 MG Tablet PO SCH (08:28)
[2017-12-20] MEDS: Chlorhexidine 0.12% Oral Kit 15 ML UDC OROPHARYNG SCH (08:29)
--- NOTE | 2017-12-20 10:14 | P.PNCC ---
Subjective Subjective Remarks/Hospital Course: This 77-year-old gentleman with coronary artery disease, chronic heart failure, glucose intolerance, recent pneumonia, and status post lobectomy for lung cancer develop respiratory acidosis culminating in brief cardiac arrest after transport to the [facility] emergency department. He was rapidly resuscitated after 1 amp of epinephrine but did require intubation and mechanical ventilation. He is been on home oxygen following his lobectomy and has underlying COPD which was likely exacerbated prior to this event. At the outside hospital troponin was minimally elevated at 0.15 and initial pH was arterial 7.16. He was transported to the [facility] at [facility] and I met him on his arrival. 12/05: Sitting up in bed extubated yesterday breathing comfortably. WBC count is elevated most likely stress related. No arrhythmias reported overnight This is a 77-year-old male with a history of oxygen dependent COPD on 3 L nasal cannula at home. In addition, he has a diagnosis of stage IV lung cancer that he was diagnosed with 4 years ago and is now status post left upper lobectomy. Of note, his left upper lobectomy thoracotomy operation was complicated by a pulmonary artery injury and emergent repair with significant blood loss at that time. After his operation he underwent chemotherapy. Although he carries a diagnosis of stage IV lung cancer, it is been for years and he has had no progression of his pulmonary nodules or infiltrates, and is very likely that the radiographic findings were not consistent with metastatic disease, and that he is in remission. He was visiting us from [place] where he had a cardiac arrest/ventricular fibrillation episode and was brought into the emergency department. 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 In addition, the patient has low flow/low gradient aortic stenosis which on dobutamine stress echo proves to be critical aortic stenosis with a peak velocity greater than 4 m/s and a calculated valve area less than 0.5. 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 This was unknown to the patient had never been diagnosed with this before. The patient has severe dyspnea symptoms at rest which have been unchanged over many days despite forced diuresis. Structural heart team met and recommends him for transcatheter aortic valve replacement, however our recommendations also that he be medically optimized prior to undertaking such an operation. I was asked to evaluate the patient and additionally to perform right heart catheterization to evaluate central pressures and medically optimized patient. The patient was taken to the [facility] where I performed right heart catheterization, please see separate procedure note for the details of this operation. From here the PA catheter was left in place and the patient was taken to the cardiovascular intensive care unit for further optimization. I started the patient on milrinone 0.25 mcg/kg/min IV and inhaled Flolan at 50 ng/kg/min through a facemask. Patient has no additional symptoms or complaints and his review of systems is unchanged from prior days. 12/16: no changes in PVR with initiation of milrinone or inhaled flolan. successfully underwent TAVR. extubated at the conclusion of the case. hemodynamics appear to be back to baseline, however, in the perioperative period , now on epinephrine at 3mcg/min, vasopressin at 0.02 units/min, milrinone 0.25 mcg/kg/min. received 40mg lasix iv in the OR. 12/17: PA port clotted from swan, unable to evaluate PA pressures. patient symptomatically continues to improve. positive fluid balance yesterday, which is necessary POD 0 s/p TAVR to ensure adequate LV cavity filling immediately s/ p TAVR. now need to start additional forced diuresis. CVP 2 this AM. remains on epi, vaso, milrinone, inhaled flolan. will need to start slowly weaning these off. 12/18: PA removed. good diuresis yesterday. off epi. off flolan. more hypoxic today requiring 6L NC and spo2 only 91%. still very volume overloaded. increased lasix to q6h dosing from q8h. subjectively continues to feel better. denies complaints. 12/19: oob to chair this AM. symptomatically continues to improve. o2 requirement increasing, however. now on 6LPM simple facemask. adequate diuresis overnight with lasix drip. CVP remains elevated at 14 mmHg this AM. 12/20: continues to do well. diuresed well with 4L urine output overnight, however, patient had nearly 3L PO intake. have now place 1L fluid restriction. developing alkalosis, so will increase diamox to counteract this. also at this point will transition back to intermittent lasix dosing. still on 6L o2 by NC. Objective Vital Signs / I&O: Vital Signs 12/19/17 11:00 12/19/17 11:56 12/19/17 12:00 Temperature 36.3 C L Pulse Rate 79 92 H 91 H Respiratory Rate 28 H Blood Pressure 90/52 L Pulse Oximetry 96 12/19/17 13:00 12/19/17 14:00 12/19/17 14:01 Temperature Pulse Rate 96 H 94 H 92 H Respiratory Rate Blood Pressure Pulse Oximetry 12/19/17 15:00 12/19/17 15:13 12/19/17 16:00 Temperature 35.8 C L Pulse Rate 77 78 81 Respiratory Rate 24 Blood Pressure 101/55 L Pulse Oximetry 96 12/19/17 17:00 12/19/17 18:13 12/19/17 19:00 Temperature 36.6 C Pulse Rate 90 78 80 Respiratory Rate 24 Blood Pressure 104/58 L Pulse Oximetry 94 L 12/19/17 19:39 12/19/17 20:00 12/19/17 21:00 Temperature Pulse Rate 77 74 Respiratory Rate Blood Pressure Pulse Oximetry 97 12/19/17 22:00 12/19/17 23:00 12/20/17 00:00 Temperature 36.3 C L Pulse Rate 81 83 83 Respiratory Rate 22 Blood Pressure 109/57 L Pulse Oximetry 95 12/20/17 01:00 12/20/17 02:00 12/20/17 03:00 Temperature 36.6 C Pulse Rate 72 69 88 Respiratory Rate 18 Blood Pressure 103/55 L Pulse Oximetry 92 L 12/20/17 04:00 12/20/17 04:47 12/20/17 05:57 Temperature Pulse Rate 79 81 72 Respiratory Rate Blood Pressure Pulse Oximetry 12/20/17 07:00 12/20/17 08:00 12/20/17 09:00 Temperature 36.6 C Pulse Rate 95 H 92 H 91 H Respiratory Rate 22 Blood Pressure 108/60 Pulse Oximetry 93 L 12/20/17 09:37 Temperature Pulse Rate 85 Respiratory Rate Blood Pressure Pulse Oximetry Intake & Output 12/19/17 12/20/17 12/20/17 18:59 06:59 18:59 Intake Total 2322 / 2322 820 / 820 430 / 430 Output Total 1959 / 1959 Balance 362 / 362 -1180 / -1180 430 / 430 Weight 72.5 kg Intake: IV 400 / 400 100 / 100 430 / 430 Lasix Inj 100 MG In NS Inj 90 200 / 200 100 / 100 100 / 100 ML @ 10 mls/hr IV.CONT .Q10H SAJI Rx#:[id number] KCl 20 mEq Premix Inj 20 meq In 200 / 200 100 ml @ 50 mls/hr IV.SIG Q2H PRN Rx#:[id number] KCl 40 mEq Premix Inj 40 meq In 100 / 100 100 ml @ 25 mls/hr IV.SIG NOW ONE Rx#:[id number] Oral 1921 / 1921 720 / 720 Output: Urine 1959 / 1959 Other: # Voids 7 Date of Last Bowel Movement 12/19/17 12/19/17 12/20/17 # Bowel Movements 0 0 Result Diagrams: 12/20/17 04:32 12/20/17 04:32 Objective Remarks: GENERAL: Elderly male, sitting in a chair, awake and alert. HEENT: Normocephalic. Atraumatic. Pupils equal, round, reactive, conjugate. Mucous membranes are moist NECK: Trachea is midline. Slight JVD. CHEST: nc o2. Evidence of right chest wall port in place, not currently accessed. 6 L nasal cannula oxygen. CARDIOVASCULAR: Normal rate, irregularly irregular rhythm. afib/flutter intermittently by telemetry. ABDOMEN: Soft, nontender, nondistended. No guarding. MUSCULOSKELETAL: Pulses 2+. 1+ edema. bilateral groin sites with dressings intact, no evidence of hematoma. NEUROLOGICAL: RASS 0. CAM -. Follows commands. Assessment and Plan - Problem List (1) Cardiorespiratory arrest Code(s): I46.9 - Cardiac arrest, cause unspecified Status: Acute (2) COPD (chronic obstructive pulmonary disease) Code(s): J44.9 - Chronic obstructive pulmonary disease, unspecified Status: Acute (3) Lung cancer Code(s): C34.90 - Malignant neoplasm of unspecified part of unspecified bronchus or lung Status: Chronic (4) Elevated troponin I level Code(s): R74.8 - Abnormal levels of other serum enzymes Status: Acute (5) Leukocytosis Code(s): D72.829 - Elevated white blood cell count, unspecified Status: Acute - Assessment and Plan Plan: Assessment: 77-year-old male with critical aortic stenosis which is complicated by a depressed left ventricular systolic function and severe right ventricular dysfunction with dilation. POD 4 s/p TAVR, complicated by ongoing right ventricular dysfunction and cor pulmonale. highly complex and high risk. will continue forced diuresis today. needs aggressive PT. Plan: near-Systemic severe Pulmonary Hypertension severe Right heart dysfunction Cor pulmonale - s/p milrinone - s/p flolan inhaled - d/c lasix drip - restart lasix 60mg iv q6h - continue sildenafil 20mg po q8h. Metabolic alkalosis - likely secondary to contraction - increase diamox to 500mg iv q8h x 3 doses. Severe aortic stenosis s/p TAVR 12/16 - anticoagulation per Dr. Lorenzana - diuresis as above - OOB - frequent neurovascular checks LV systolic dysfunction - diuresis as above Atrial fibrillation/flutter - rate controlled - anticoagulation per Dr. Lorenzana Hypokalemia Hypomagnesemia - ICU electrolyte protocol - check afternoon BMP, Mg - Daily BMP, Mg COPD - o2 as needed for goal spo2 > 90% - nebs cardiac diet as tolerated. SCDs Discussed at length with the entire structural heart team. Critical care medicine will sign off and hand-off care of the patient to the cardiovascular surgical team and the structural heart team. Please re-consult as needed. (2) 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
--- NOTE | 2017-12-20 12:34 | P.PNCA ---
Subjective Interval history: c/o severe sharp chest pain this am, resolved, currently in nad Physical Exam Vital signs: Vital Signs 12/19/17 13:00 12/19/17 14:00 12/19/17 14:01 Temperature Pulse Rate 96 H 94 H 92 H Respiratory Rate Blood Pressure Pulse Oximetry 12/19/17 15:00 12/19/17 15:13 12/19/17 16:00 Temperature 96.4 F L Pulse Rate 77 78 81 Respiratory Rate 24 Blood Pressure 101/55 L Pulse Oximetry 96 12/19/17 17:00 12/19/17 18:13 12/19/17 19:00 Temperature 97.8 F Pulse Rate 90 78 80 Respiratory Rate 24 Blood Pressure 104/58 L Pulse Oximetry 94 L 12/19/17 19:39 12/19/17 20:00 12/19/17 21:00 Temperature Pulse Rate 77 74 Respiratory Rate Blood Pressure Pulse Oximetry 97 12/19/17 22:00 12/19/17 23:00 12/20/17 00:00 Temperature 97.3 F L Pulse Rate 81 83 83 Respiratory Rate 22 Blood Pressure 109/57 L Pulse Oximetry 95 12/20/17 01:00 12/20/17 02:00 12/20/17 03:00 Temperature 97.9 F Pulse Rate 72 69 88 Respiratory Rate 18 Blood Pressure 103/55 L Pulse Oximetry 92 L 12/20/17 04:00 12/20/17 04:47 12/20/17 05:57 Temperature Pulse Rate 79 81 72 Respiratory Rate Blood Pressure Pulse Oximetry 12/20/17 07:00 12/20/17 08:00 12/20/17 09:00 Temperature 97.8 F Pulse Rate 95 H 92 H 91 H Respiratory Rate 22 Blood Pressure 108/60 Pulse Oximetry 93 L 12/20/17 09:37 12/20/17 11:00 12/20/17 11:37 Temperature 97.7 F Pulse Rate 85 89 79 Respiratory Rate 20 Blood Pressure 98/56 L Pulse Oximetry 96 Intake & Output 12/19/17 12/20/17 12/20/17 18:59 06:59 18:59 Intake Total 2322 / 2322 820 / 820 430 / 430 Output Total 1959 Balance 362 / 362 -1180 / -1180 430 / 430 Weight 72.5 kg Intake: IV 400 / 400 100 / 100 430 / 430 Lasix Inj 100 MG In NS Inj 90 200 / 200 100 / 100 100 / 100 ML @ 10 mls/hr IV.CONT .Q10H SAJI Rx#:[id number] KCl 20 mEq Premix Inj 20 meq In 200 / 200 100 ml @ 50 mls/hr IV.SIG Q2H PRN Rx#:[id number] KCl 40 mEq Premix Inj 40 meq In 100 / 100 100 ml @ 25 mls/hr IV.SIG NOW ONE Rx#:[id number] Oral 1921 / 1921 720 / 720 Output: Urine 1959 / 1960 1999 Other: # Voids 7 Date of Last Bowel Movement 12/19/17 12/19/17 12/20/17 # Bowel Movements 0 0 - Urinary Catheter Management Indwelling Temp Sensing Catheter Cath placed during this visit: yes Reason for continuing: Not indwelling catheter Insertion date: 12/16/17 Insertion time: 08:00 Indwelling Urethral Catheter Cath placed during this visit: yes, but has since been removed by the nurse Reason for continuing: Not indwelling catheter Removal date: 12/16/17 Assessment and Plan - Assessment (1) Aortic stenosis Code(s): I35.0 - Nonrheumatic aortic (valve) stenosis Status: Acute (2) Cardiomyopathy Code(s): I42.9 - Cardiomyopathy, unspecified Status: Acute (3) CHF (congestive heart failure) Code(s): I50.9 - Heart failure, unspecified Status: Acute (4) Atrial fibrillation Code(s): I48.91 - Unspecified atrial fibrillation Status: Acute (5) NSTEMI (non-ST elevated myocardial infarction) Code(s): I21.4 - Non-ST elevation (NSTEMI) myocardial infarction Status: Acute (6) COPD (chronic obstructive pulmonary disease) Code(s): J44.9 - Chronic obstructive pulmonary disease, unspecified Status: Acute (7) Cardiorespiratory arrest Code(s): I46.9 - Cardiac arrest, cause unspecified Status: Acute (8) Elevated troponin I level Code(s): R74.8 - Abnormal levels of other serum enzymes Status: Acute (9) Lung cancer Code(s): C34.90 - Malignant neoplasm of unspecified part of unspecified bronchus or lung Status: Chronic - Plan s/p TAVR - doing well. on plavix. no asa PHTN - on sidenafil. no nitrates. cardiomyopathy CAD with coronary aneurysm Continue diuresis. Cr stable. -5L over last two days. weight down 10 Kg since admit off milrinone and pressors plan is for [facility] afib - rate control and anticoagulation low dose ACEi for cardiomyopathy ambulate DC planning f/u trop/ekg, trends in symptoms (1) Aortic stenosis Qualifiers: Cardiac valve disease etiology: etiology unspecified Qualified Code(s): I35.0 - Nonrheumatic aortic (valve) stenosis (4) Atrial fibrillation Qualifiers: Atrial fibrillation type: chronic Qualified Code(s): I48.2 - Chronic atrial fibrillation (6) 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
--- NOTE | 2017-12-20 14:35 | P.PNCV ---
- Note Subjective/Hospital Course: 12/17 Doing well status post TAVR yesterday Hemodynamically stable. Greatly appreciate youth director input Diuresis and inotropic support as dictated by youth director team. Aggressive pulmonary toiletry 12/18 Clinically and hemodynamically stable. Diuresing well with current regimen. Weaning oxygen as tolerated. 12/19 remains on simple mask , on lasix gtt on Revatio , also plavix and eliquis ( PLT 50) up from [address] Lorenzana on po prednisone / has some insp and exp wheezing weak , feels fair 12/20 now on 4 liter nasal cannula on fluid restriction / discussed case with Dr Bhatti continues on sildenafil / would need repeat right heart cath 6-8 weeks continues on diuretics / goal at least 40mg tid [facility] following / continue PT/OT wean 02 for sat > 90% Objective: Vital Signs - 24 hr 12/19/17 15:00 12/19/17 15:13 12/19/17 16:00 Temperature 96.4 F L Pulse Rate 77 78 81 Respiratory Rate 24 Blood Pressure 101/55 L Pulse Oximetry 96 12/19/17 17:00 12/19/17 18:13 12/19/17 19:00 Temperature 97.8 F Pulse Rate 90 78 80 Respiratory Rate 24 Blood Pressure 104/58 L Pulse Oximetry 94 L 12/19/17 19:39 12/19/17 20:00 12/19/17 21:00 Temperature Pulse Rate 77 74 Respiratory Rate Blood Pressure Pulse Oximetry 97 12/19/17 22:00 12/19/17 23:00 12/20/17 00:00 Temperature 97.3 F L Pulse Rate 81 83 83 Respiratory Rate 22 Blood Pressure 109/57 L Pulse Oximetry 95 12/20/17 01:00 12/20/17 02:00 12/20/17 03:00 Temperature 97.9 F Pulse Rate 72 69 88 Respiratory Rate 18 Blood Pressure 103/55 L Pulse Oximetry 92 L 12/20/17 04:00 12/20/17 04:47 12/20/17 05:57 Temperature Pulse Rate 79 81 72 Respiratory Rate Blood Pressure Pulse Oximetry 12/20/17 07:00 12/20/17 08:00 12/20/17 09:00 Temperature 97.8 F Pulse Rate 95 H 92 H 91 H Respiratory Rate 22 Blood Pressure 108/60 Pulse Oximetry 93 L 12/20/17 09:37 12/20/17 11:00 12/20/17 11:37 Temperature 97.7 F Pulse Rate 85 89 79 Respiratory Rate 20 Blood Pressure 98/56 L Pulse Oximetry 96 12/20/17 13:00 12/20/17 13:38 Temperature Pulse Rate 82 82 Respiratory Rate Blood Pressure Pulse Oximetry GENERAL: awake and alert SKIN: Warm and dry. HEAD: Normocephalic. EYES: No scleral icterus. No injection or drainage. NECK: Supple, trachea midline. No JVD or lymphadenopathy. CARDIOVASCULAR: Regular rate and rhythm without murmurs, gallops, or rubs. soft SM RESPIRATORY: Breath sounds equal bilaterally. No accessory muscle use. diminished in bases, few basiliar crackles GASTROINTESTINAL: Abdomen soft, non-tender, nondistended. MUSCULOSKELETAL: No cyanosis, or edema. BACK: Nontender without obvious deformity. No CVA tenderness. Labs: Laboratory Results - last 12 hr 12/20/17 12/20/17 12/20/17 04:32 04:32 11:31 WBC 14.0 H RBC 4.46 L Hgb 12.8 L Hct 39.4 MCV 88.4 MCH 28.7 MCHC 32.5 RDW 15.8 Plt Count 59 L MPV 10.1 Sodium 140 Potassium 3.0 L Chloride 96 L Carbon Dioxide 35.1 H Anion Gap 9 BUN 33 H Creatinine 0.83 Estimated GFR Greater than 89 POC Glucose 286 H Random Glucose 117 H D Calcium 8.2 L Magnesium 2.1 Troponin I Digoxin 12/20/17 12/20/17 12:00 12:00 WBC RBC Hgb Hct MCV MCH MCHC RDW Plt Count MPV Sodium Potassium Chloride Carbon Dioxide Anion Gap BUN Creatinine Estimated GFR POC Glucose Random Glucose Calcium Magnesium Troponin I 0.15 H Digoxin 2.0 Result Diagrams: 12/20/17 04:32 12/20/17 04:32 Telemetry: NSR - Plan (1) Aortic stenosis (2) CAD (coronary artery disease) (3) Combined systolic and diastolic congestive heart failure, NYHA class 4 Plan: on scheduled lasix plan to dc on 40mg tid / bid right sided Heart failure/ continue sildenafil ( will need repeat right heart cath 6-8 weeks / when back at home (4) Diabetes mellitus (5) Pulmonary hypertension Plan: on revatio ( sildenafil) (6) COPD (chronic obstructive pulmonary disease) (7) Atrial fibrillation Plan: on eliquis on digoxin now in NSR (9) S/P TAVR (transcatheter aortic valve replacement) Plan: on eliquis, diuresis (1) Aortic stenosis Qualifiers: Cardiac valve disease etiology: etiology unspecified Qualified Code(s): I35.0 - Nonrheumatic aortic (valve) stenosis (2) CAD (coronary artery disease) Qualifiers: Coronary Disease-Associated Artery/Lesion type: [place] artery [place] vs. transplanted heart: [place] heart Associated angina: with other forms of angina Qualified Code(s): I25.118 - Atherosclerotic heart disease of [place] coronary artery with other forms of angina pectoris (3) Combined systolic and diastolic congestive heart failure, NYHA class 4 Qualifiers: Congestive heart failure chronicity: acute on chronic Qualified Code(s): I50.43 - Acute on chronic combined systolic (congestive) and diastolic ( congestive) heart failure (4) Diabetes mellitus Qualifiers: Diabetes mellitus type: type 2 Diabetes mellitus complication status: with hyperglycemia (6) 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 (7) Atrial fibrillation Qualifiers: Atrial fibrillation type: chronic Qualified Code(s): I48.2 - Chronic atrial fibrillation
[2017-12-20 15:08] VITALS: BP 97/52; TEMP 98.2
[2017-12-20] MEDS ORDERED: Insulin NovoLOG Aspart Correctional Sugar Inj SQ SCH (17:00)
[2017-12-20 17:29] VITALS: PULSE 92
--- NOTE | 2017-12-20 17:41 | CATHPROC ---
JustBook HIS Report Study Information Study Number Admission Scheduled Start Study Start [id number] Dec 04 2017 1:41PM 12/15/2017 Dec 15 2017 12:19PM [place] Service Cardiac Catheterization Admit Source Facility Department Other [facility] - It Support Manager Physician and Clinical Staff Initial MD Bhatti, Joaquin Engraving Patternmaker Bi Merida,TEO Other cathlab, cathlab Recorder Ilda Thompson,CHILDREN'S COUNSELOR TECH2 Scrub Naty Zaragoza,RT(R) (BS) Equipment Time Snack Stewardess Description Size Mfg Part Number Used/Scraped [id number] 12:54 [employer] WIRE, NITONOL 80CM 80CM Used *[id number] TRANSDUCER, TRUWAVE [id number] 12:22 BRUSH MACK * Used W/STOCKCOCK *[id number] 12:22 [employer] BLANKET,WARM AIR CCL * Used *[id number] 12:22 [employer] PACK, CCL CUSTOM * Used *[id number] 12:22 [employer] PACER PEN, SKIN DUAL W/ RULER * Used *[id number] 12:22 NAMIC MANIFOLD, 4 PORT * Used *[id number] 12:22 [employer] OMNIPAQUE, 350 MG, 150ML 150ML [id number] Used [id number] 12:50 [employer] SHEATH, FR7 TERUMO (10CM) FR 7 Used *[id number] Equipment Model, Serial, Lot Number and Expiration Data Description Model Number Serial Number Lot Number Expiration Date WIRE, NITONOL 80CM [id number] 03-21-2022 History: Current Medications Medication Dosage/Unit Route Frequency Last Date/Time Taken Insulin LISINOPRIL Statins (any) LASIX History: Risk Factors Family History of Hypertension Dyslipidemia Previous AL Previous Heart Failure Premature CAD Yes No No No No Prior Valve Prior PCI Prior CABG Surgery No Yes No Cerebrovascular Peripheral Artery Chronic Lung On Dialysis Diabetes Diabetes Therapy Disease Disease Disease No No No Yes Yes Insulin History: CV Disease Selection Items Cardiomyopathy Known CAD History: Arrhythmias Selection Items Atrial fibrillation Labs Hgb (g/dl) 11.60-17.00 15.0 Glucose (mg/dl) BUN (mg/dl) Creatinine (mg/dl) BUN:Creatinine (1:x) 74.00-106.00 7.00-18.00 0.50-1.30 10.00-20.00 198 47 0.9 52.2 Na (meq/l) K (meq/l) Cl (meq/l) CO2 (mmol/L) Ca (mg/dl) 136.00-145.00 3.50-5.10 98.00-107.00 21.00-32.00 8.50-10.10 141 4.2 105 28.3 8.1 Medication Medication Total Dose (Bolus/Oral) Medication Total Dosage/Unit 1% XYLOCAINE 20 mL OXYGEN 2 l/min Medications (Bolus/Oral) Medication Time Given Dosage/Unit Administered By Reason OXYGEN 12/15/2017 12:09:16 PM 2 l/min Joaquin Bhatti Patient arrived on 2 l/min OXYGEN given by Joaquin Bhatti via Nasal. Ordered by Joaquin Bhatti. 1% XYLOCAINE 12/15/2017 12:44:58 PM 20 mL Joaquin Bhatti 20 mL 1% XYLOCAINE given in lab by Joaquin Bhatti via Subcutaneous. Ordered by Joaquin Bhatti. RIGHT IJ Medication (Drip) Medication Time Given Dosage/Unit Concentration/Unit Diluent (ml) Solution IV Solutions 12/15/2017 12:19:00 PM 0 mL (IV) 500 NaCl .9 Patient arrived on IV Solutions given by Bi Merida, TEO in Right Antecubital via Peripheral IV. Pump/Drip Flow = 20 ml/hr using NaCl .9. Ordered by Joaquin Bhatti. Initial Case Assessment Cardiovascular HR NIBP 80 128/88 Edema Present Skin color Skin None Normal Warm Dry Respiration - General Respiration Rate SpO2 (%) O2 (lpm) (B/min) 14 93 2 Initial Case Assessment Cardiovascular HR NIBP 80 169/97 Edema Present Skin color Skin None Normal Warm Dry Respiration - General Respiration Rate SpO2 (%) O2 (lpm) (B/min) 14 96 2 Chronological Log Time Study Chronological Log 12:08:36 Patient arrived via Bed. 12:09:16 Patient arrived on 2 l/min OXYGEN given by Joaquin Bhatti via Nasal. Ordered by Lauren Bhatti 12:18:42 Patient Name, D.O.B, / Armband Verified By R.N. 12:18:43 Consent signed by the physician and the patient and verified by the It Support Manager staff. 12:18:44 Pre-op and post- op instructions given; patient acknowledges understanding of instruction s. 12:18:48 Patient has been NPO for More than 6Hrs. 12:18:51 Skin Breakdown- bruising on right side 12:18:56 Disposable Defibrillator Pads Placed On Patient. 12:18:57 Pradip Prominences Protected 12:18:59 A # 20 IV was noted in the Antecubital (right). Grade = 0 Patient arrived on IV Solutions given by Bi Merida RN in Right Antecubital via Periphe ral IV. Pump/Drip Flow = 12:19:00 20 ml/hr using NaCl .9. Ordered by Joaquin Bhatti. 12:19:01 History and physical on the chart or being dictated. Vitals capture started with the following parameters, Patient=Adult, Interval=5 min, Initial Goyjfjdo=236 mmHg, 12::38 Deflation Rate=5 mmHg, Cuff placed on Left Arm 12:27:48 Reference ECG taken 12:28:09 HR=80 bpm, JNPS=781/88 mmhg, SpO2=93 %, Resp=14 B/min, Pain=0, Steffi=10, Moncada=2 Assessment: Initial Case, HR=80 BPM, DQDF=586/88 mmhg, Edema=None, Color=Normal, Skin = Warm, D ry 12:29:05 Respiration: Resp=14 B/min, SpO2=93 %, O2=2 lpm 12:29:42 Right Upper Chest and neck Prepped Times Two. 12:33:10 ME=631 bpm, MLTZ=740/86 mmhg, SpO2=96.0 %, Resp=14 B/min, Pain=0, Steffi=10, Moncada=2 12:36:26 Pressure channel 1 zeroed. 12:38:07 HR=87 bpm, FSJB=358/90 mmhg, SpO2=98.0 %, Resp=30 B/min 12:43:12 HR=96 bpm, PAJI=879/81 mmhg, SpO2=98.0 %, Resp=15 B/min, Pain=0, Steffi=10, Moncada=2 Time Out. Correct patient, correct procedure, correct physician, labs, allergies, and equipment verified with union laborer 12:44:07 team present. Fire risk assesment completed (see hard stop sheet for coding). Time Out Conc urred by MD and individual staff in procedure. 12:44:38 Case Start 12:44:58 20 mL 1% XYLOCAINE given in lab by Joaquin Bhatti via Subcutaneous. Ordered by Joaquin Bhatti. RIGHT IJ 12:46:54 Access site was ~ACCESS SITE~. RIGHT IJ 12:48:08 A sheath was advanced into the 1 using the Modified Seldinger technique. RIGHT IJ 12:48:11 HR=83 bpm, HLHP=392/83 mmhg, SpO2=97.0 %, Resp=15 B/min, Pain=0, Stefif=10, Moncada=2 12:53:10 HR=80 bpm, HWXR=375/87 mmhg, SpO2=98.0 %, Resp=13 B/min, Pain=0, Steffi=10, Moncada=2 12:57:42 In the Jugular Vein (right) the sheath was sutured in place by Joaquni Bhatti. 12:58:16 HR=74 bpm, WIYE=221/83 mmhg, SpO2=98.0 %, Resp=14 B/min, Pain=0, Steffi=10, Moncada=2 Recorded Pressure: Ao, HR=71, Condition=Condition 1 12:58:22 (Aorta) Ao 119/83/95* 13:00:40 A catheter was inserted via Jugular Vein (right) 13:03:15 HR=69 bpm, TXIJ=712/87 mmhg, SpO2=98.0 %, Resp=25 B/min, Pain=0, Steffi=10, Moncada=2 Recorded Pressure: RA, HR=75, Condition=Condition 1 13:03:18 (Right Atrium) RA -/12/11 Recorded Pressure: RV, HR=83, Condition=Condition 1 13:04:04 (Right Ventricle) RV 76/7/11 Recorded Pressure: MPA, HR=89, Condition=Condition 1 13:04:52 (Main Pulmonary Artery) MPA 76/29/47 Recorded Pressure: PCW, HR=93, Condition=Condition 1 13:05:28 (Pulmonary Capillary Wedge) PCW -/18/16 13:06:48 Saturation: Site=Ao (Aorta) , O2=99 %, Hgb=15 gm/dl, Condition=Condition 1. Used in calcula tion. 13:07:00 Saturation: Site=PA (Pulmonary Artery) , O2=64 %, Hgb=15 gm/dl, Condition=Condition 1. Used in calculation. 13:08:12 HR=89 bpm, WRAI=536/84 mmhg, SpO2=99.0 %, Resp=14 B/min, Pain=0, Steffi=10, Moncada=2 13:08:29 Saturation: Site=RA (Right Atrium) , O2=65.3 %, Hgb=15 gm/dl, Condition=Condition 1. Used i n calculation. 13:10:46 JASPAL SURVEY TECHNICIAN AWARE OF THERMALS AT BEDSIDE BY BI MERIDA RN 13:13:13 HR=91 bpm, CGRD=289/83 mmhg, OuD4=633.0 %, Resp=13 B/min, Pain=0, Steffi=10, Moncada=2 13:13:20 Case End (Physician broke scrub) 13:19:25 HR=80 bpm, HCBQ=540/97 mmhg, SpO2=96.0 %, Resp=14 B/min, Pain=0, Steffi=10, Moncada=2 13:21:35 Sterile dressing applied to site Assessment: Initial Case, HR=80 BPM, UYOS=554/97 mmhg, Edema=None, Color=Normal, Skin = Warm, D ry 13:21:50 Respiration: Resp=14 B/min, SpO2=96 %, O2=2 lpm 13:22:41 Vitals capture stopped. 13:23:25 Patient moved to stretcher 13:33:18 Cine recording checked. End Study - Contrast Media Used In Study Contrast Total Opened (mL) Total Used (mL) Total Wasted (mL) Omnipaque 0 0 0 End Study - Maximum Contrast Load Max Contrast Load (mL) 441.9 End Study - Radiation Exposure Fluoro Time (minutes) 1.5 End Study - Patient Disposition Complications Transferred To No Critical Care Bed
--- NOTE | 2017-12-20 18:55 | P.PNPL ---
Subjective Interval history: 77 YOWM from [place] with cardiac arrest,ca lung Breathing better Mild sob No CP Family at PFT Severe COPD Had TAVR Was on Oxymask, weaned to 3LNC Physical Exam Vital signs: Vital Signs 12/19/17 19:00 12/19/17 19:39 12/19/17 20:00 Temperature 97.8 F Pulse Rate 80 77 Respiratory Rate 24 Blood Pressure 104/58 L Pulse Oximetry 94 L 97 12/19/17 21:00 12/19/17 22:00 12/19/17 23:00 Temperature 97.3 F L Pulse Rate 74 81 83 Respiratory Rate 22 Blood Pressure 109/57 L Pulse Oximetry 95 12/20/17 00:00 12/20/17 01:00 12/20/17 02:00 Temperature Pulse Rate 83 72 69 Respiratory Rate Blood Pressure Pulse Oximetry 12/20/17 03:00 12/20/17 04:00 12/20/17 04:47 Temperature 97.9 F Pulse Rate 88 79 81 Respiratory Rate 18 Blood Pressure 103/55 L Pulse Oximetry 92 L 12/20/17 05:57 12/20/17 07:00 12/20/17 08:00 Temperature 97.8 F Pulse Rate 72 95 H 92 H Respiratory Rate 22 Blood Pressure 108/60 Pulse Oximetry 93 L 12/20/17 09:00 12/20/17 09:37 12/20/17 11:00 Temperature 97.7 F Pulse Rate 91 H 85 89 Respiratory Rate 20 Blood Pressure 98/56 L Pulse Oximetry 96 12/20/17 11:37 12/20/17 13:00 12/20/17 13:38 Temperature Pulse Rate 79 82 82 Respiratory Rate Blood Pressure Pulse Oximetry 12/20/17 15:00 12/20/17 15:30 12/20/17 16:00 Temperature 98.2 F Pulse Rate 73 74 Respiratory Rate 20 Blood Pressure 97/52 L Pulse Oximetry 100 100 12/20/17 16:31 12/20/17 17:28 Temperature Pulse Rate 76 92 H Respiratory Rate Blood Pressure Pulse Oximetry Intake & Output 12/19/17 12/20/17 12/20/17 18:59 06:59 18:59 Intake Total 2322 / 2322 820 / 820 820 / 820 Output Total 1959 / 1959 193 / 193 Balance 362 / 362 -1180 / -1180 -1110 / -1110 Weight 72.5 kg Intake: IV 400 / 400 100 / 100 580 / 580 Lasix Inj 100 MG In NS Inj 90 200 / 200 100 / 100 150 / 150 ML @ 10 mls/hr IV.CONT .Q10H SAJI Rx#:[id number] KCl 20 mEq Premix Inj 20 meq In 200 / 200 100 ml @ 50 mls/hr IV.SIG Q2H PRN Rx#:[id number] KCl 40 mEq Premix Inj 40 meq In 200 / 200 100 ml @ 25 mls/hr IV.SIG Q2H PRN Rx#:[id number] Oral 1922 / 1922 720 / 720 240 / 240 Output: Urine 1959 / 1959 Other: # Voids 7 Date of Last Bowel Movement 12/19/17 12/19/17 12/20/17 # Bowel Movements 0 0 1 GENERAL: Elderly wm mild sob SKIN: Warm and dry. HEAD: Normocephalic. EYES: No scleral icterus. No injection or drainage. NECK: Supple, trachea midline. No JVD or lymphadenopathy. CARDIOVASCULAR: Regular rate and rhythm without murmurs, gallops, or rubs. RESPIRATORY: Breath sounds equal bilaterally. No accessory muscle use. GASTROINTESTINAL: Abdomen soft, non-tender, nondistended. MUSCULOSKELETAL: No cyanosis, or edema. BACK: Nontender without obvious deformity. No CVA tenderness. - Urinary Catheter Management Indwelling Temp Sensing Catheter Cath placed during this visit: yes Reason for continuing: Not indwelling catheter Insertion date: 12/16/17 Insertion time: 08:00 Indwelling Urethral Catheter Cath placed during this visit: yes, but has since been removed by the nurse Reason for continuing: Not indwelling catheter Removal date: 12/16/17 Assessment and Plan - Plan IMPRESSION: 1. Chronic obstructive pulmonary disease . 2. Coronary artery disease, status post cardiac arrest. 3. Carcinoma of the lung with metastasis. 4. Recent pleural effusion, status post thoracentesis. 5. Atrial fibrillation. 6. Aortic Stenosis PLAN: Aerosol nebs Supplement 02, 3LNC monitor pl eff Lasix 60 mg bid Monitor Lytes
[2017-12-20] MEDS ORDERED: Sodium Bicarbonate 8.4% Inj 50 MEQ/50 ML Syringe ONE ×2 (19:27→20:32)
[2017-12-20 19:45] LABS: ABG Base Excess -0.3 mmol/L (-2-2); ABG PCO2 69 mmHg (38-42); ABG PO2 75 mmHG (61-120)
[2017-12-20 19:56] VITALS: RESP 32; O2SAT 90
[2017-12-20] MEDS ORDERED: fentaNYL Citrate Inj 100 MCG/2 ML Ampul ONE ×2 (19:57→20:04)
[2017-12-20] MEDS ORDERED: Midazolam Inj 5 MG/ML 1 ML Vial ONE (20:00)
[2017-12-20] MEDS ORDERED: fentaNYL 10 mcg/mL Premix Drip 2,500 MCG/250 ML BAG IV.SIG PRN ×2 (20:05→20:18)
[2017-12-20] MEDS ORDERED: Midazolam 50 MG/50 ML Inj 50 MG/50 ML BAG IV.CONT PRN ×2 (20:05→20:15)
[2017-12-20] MEDS ORDERED: Famotidine 20 MG Tablet PO SCH (21:00)
[2017-12-20] MEDS ORDERED: Melatonin 5 MG Tablet PO SCH (21:00)
--- NOTE | 2017-12-20 22:43 | P.PCN ---
Date of procedure: 12/20/17 Procedure: Date: 12/20/17 Procedure: Cardiopulmonary resucitation Indication: Cardiac arrest Details of procedure: Responded to CODE BLUE. Patient with recent TAVR, Near systemic pulmonary hypertension with RV dysfunction. R IJ line was removed and patient developed respiratory distress and PEA arrest. CPR was commenced. Patient was intubated by RT. After 14 min PEA, went into Vfib and was shocked with 200 J and cpr resumed. Given lidocaine 50 mg IV. Was then in asystole. ACLS continued and then in PEA. Jay blood in ETT was suctioned, still achieving adequate chest rise. Performed bedside ultrasound. Noted RV dilation some scattered flecks of thrombus biventricular. Did observe reasonable degree of contractility with very slow [place]aloon rhythm. Atropine 1mg IV and began pacing and had good sonographic capture. Then had ROSC after 30 minutes of CPR. He had received epi x9 mg, bicarb 6 amps, lidocaine 50 mg IV, Vasopressin 40 mg IV (pulm HTN). His hgb was 10.7. No evidence of PTX by u/s. Transferred to CVICU for further stabilization. Placed in left lateral decub position after ROSC due to concern for air embolism. On dopamine drip 20 mcg/kg/ min. Epinephrine added. He was placed on vent, TV 650 for compensation of metabolic acidosis. Having purposeful movements, not following commands. Sedated with versed, fentanyl, then rocuronium to facilitate line placement and vent synchrony. Placed R radial art line. Had conferred with Dr. Lorenzana, plan for CT imaging when lines complete, appropriate drips initiated. Lost pulse again. Refer to next code note.
--- NOTE | 2017-12-20 22:43 | P.PCN ---
Date of procedure: 12/20/17 Procedure: DATE: 12/20/17 PROCEDURE: Right radial arterial catheter placement INDICATION: Shock DETAILS OF PROCEDURE Initially attempt at art line placement by RT was unsuccessful. Amando test was performed and adequate collateral perfusion was confirmed. The wrist was positioned in mild extension. The skin was cleansed with Chloraprep. Additional barrier precautions included large sterile drape, sterile gloves, sterile gown, face mask, and hat. Under direct ultrasound guidance and on the second attempt, the artery was accessed with 20 gauge Cook radial art line kit. The wire was advanced and the catheter was advanced over the wire. The wire and needle apparatus was removed. The catheter was connected to a transducer line and flushed with saline. The video monitor displayed normal arterial wave forms. The catheter was secured with 2-0 silk. A sterile dressing with antibiotic disc was applied. ESTIMATED BLOOD LOSS: minimal COMPLICATIONS: None
--- NOTE | 2017-12-20 22:43 | P.PCN ---
Date of procedure: 12/20/17 Procedure: DATE: 12/20/17 CENTRAL LINE PLACEMENT: Right femoral vein. Ultrasound-guided INDICATION: Central venous access CONSENT Procedure was performed emergently as patient is in cardiac arrest and in need of additional central access. DESCRIPTION OF THE PROCEDURE The patient was placed in supine position. The skin was cleansed with Chloraprep. Additional barrier precautions included large sterile drape, sterile gloves, sterile gown, face mask, and hat. 1 % lidocaine was used for local anesthesia. Under direct ultrasound guidance and on second attempt, the vein was accessed with an introducer needle. The guide wire was advanced and the tract was dilated. Using Seldinger technique a 7 Portuguese 20 cm antimicrobial coated triple-lumen catheter was advanced to a depth of 19 centimeters. The guide wire was removed. All ports had good return of dark venous blood and flushed easily with saline. The central line was secured with 2.0 silk. A sterile dressing with antibiotic disc was applied. ESTIMATED BLOOD LOSS: Minimal COMPLICATIONS: No apparent complications.
--- NOTE | 2017-12-20 22:44 | P.PCN ---
Date of procedure: 12/20/17 Procedure: Date: 12/20/17. Procedure: Cardiopulmonary resucitation Indication: cardiac arrest Details of procedure: Noted lack of capture on telemetry, pt in PEA cardiac arrest. Per ACLS protocol pt received CPR, manual bag-valve ventilation via ETT, epinephrine x7, bicarb x4 amps, calcium CaCl2 1 amp, atropine 1 mg. Shocked twice for course V fib at 200 Joules, gave lidocaine 100 mg IV. Developed large hemoptysis and spontaneous active bleeding from prior line sites. After 26 minutes of additional ACLS, bedside u/s showed complete cardiac standstill and diffuse intracardiac thrombus. Pt was pronounced at 20:50 hours. I notified the patient's who expressed appreciation to TAVR team, nurses, and providers at [facility] for their efforts.
--- NOTE | 2017-12-21 10:27 | ECG ---
Date Performed: 12/20/2017 Time Performed: 11:07:10 PTAGE: 77 years EKG: Sinus rhythm Indeterminate axis Right ventricular hypertrophy Nonspecific ST T wave changes Since the previous tr acing, no significant change noted Abnormal ECG PREVIOUS TRACING : 12/17/2017 05.52 DOCTOR: Heidy Warren Interpretating Date/Time 12/21/2017 10:26:43
--- NOTE | 2017-12-22 13:07 | ECHRPT ---
Indication: CONCLUSIONS Severe aortic valve stenosis s/p TAVR. BP: / HR: Rhythm: Technical Quality: Medications Complications Proc. Components The patient was brought to the diagnostic imaging area in a fasting state after o btaining an informed consent. The patient was premedicated with IV Versed and IV Fentanyl. The insurance plan specialist ior pharynx was sprayed with Cetacaine spray and the patient was administered viscous Xylocaine 2 %. The HILTON probe was passed into the posterior pharynx , mid-esophagus, distal esophagus, and gastric fundus. HILTON was performed at multiple levels. The patient tolerated the procedure well and there were no complications. The patient was transferred to the floor in satisfactory condition.. FINDINGS LEFT VENTRICLE Normal left ventricular size. The left ventricular systolic function is normal with an estimated ejection fraction in the range of 60-65%. RIGHT VENTRICLE The right ventricle is severely dilated. The right ventricular systoilc function is moderately decreased. RIGHT ATRIUM The right atrial size is moderately dilated. AORTIC VALVE Severe aortic valve stenosis s/p TAVR Jasvir Lorenzana MD, FACC (Electronically Signed) Final Date:22 December 2017 13:05
--- NOTE | 2018-01-11 15:06 | P.DN ---
Discharge Sum: Prov - Provider Primary care physician: UNKNOWN Attending physician on admission: Connor Batista Consults: 12/06/17 12:22 Consult to Pulmonology Routine Consulting Provider: Lino Dykes Preferred Engine Hostler:: Lino Dykes Reason for Consultation: LUNG DISEASE COPD/CHF/HX OF LUNG CANCER Notified:: Office Spoke with:: mo Date Notified:: 12/06/17 Time Notified:: 12:48 Ordering Provider: FUENTES 12/06/17 12:23 Consult to Cardiology Routine Consulting Provider: Damian Kim Does the patient have a Safety Advisor who follows them?: No Preferred Structural Steel Shop Supervisor:: Professor Of Nursing Physician Reason for Consultation: SP CARDIAC ARREST/CPR AND ELEVATED TROPONINS Notified:: Physician Spoke with:: ana Date Notified:: 12/06/17 Time Notified:: 12:54 Ordering Provider: FUENTES 12/06/17 15:37 Consult to Hematology Routine Consulting Provider: Nazario Newman Reason for Consultation: lung cancer, severe as, assess prognosis for lung ca Notified:: Office Spoke with:: miguel angel Date Notified:: 12/06/17 Time Notified:: 15:50 Comments:: Ordering Provider: [facility] 12/08/17 17:21 Consult to Cardiothoracic Surgery Routine Consulting Provider: Venus Newsome Reason for Consultation: 70% prox lad, 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, s/p asystolic event, mod as, ef45-50% Notified:: Physician Spoke with:: Dr Newsome Date Notified:: 12/08/17 Time Notified:: 17:30 Ordering Provider: DEMARCOTX 12/16/17 09:37 Consult to Cardiology Routine Consulting Provider: Michelle Park Does the patient have a Safety Advisor who follows them?: Yes Preferred Structural Steel Shop Supervisor:: Michelle Park Reason for Consultation: Post TAVR Notified:: Office Spoke with:: Rachel Date Notified:: 12/16/17 Time Notified:: 10:34 Ordering Provider: DINO Consult to Online Advertising Manager Stat Consulting Provider: Josh Rosas For STAT consult, spoke directly to:: Online Advertising Manager Reason for Consultation: Post TAVR. Consult must be with Mehdi Yin or Ralph. Notified:: Office Spoke with:: Enma Date Notified:: 12/16/17 Time Notified:: 10:59 Ordering Provider: DINO Pronouncing clinician: Masha Nguyễn Discharge Sum: Diag - PCOD Cause of : Cardiac arrest Discharge Sum: Summary - Date and Time Date of admission: 12/04/17 13:41 Date of : 12/20/17 Time of : 20:50 - Summary Details: This is a 77-year-old male with a history of oxygen dependent COPD on 3 L nasal cannula at home. In addition, he has a diagnosis of stage IV lung cancer that he was diagnosed with 4 years ago and is now status post left upper lobectomy. Of note, his left upper lobectomy thoracotomy operation was complicated by a pulmonary artery injury and emergent repair with significant blood loss at that time. After his operation he underwent chemotherapy. Although he carries a diagnosis of stage IV lung cancer, it is been for years and he has had no progression of his pulmonary nodules or infiltrates, and is very likely that the radiographic findings were not consistent with metastatic disease, and that he is in remission. He was visiting us from [place] where he had a cardiac arrest/ventricular fibrillation episode and was brought into the emergency department. 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 In addition, the patient has low flow/low gradient aortic stenosis which on dobutamine stress echo proves to be critical aortic stenosis with a peak velocity greater than 4 m/s and a calculated valve area less than 0.5. 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 This was unknown to the patient had never been diagnosed with this before. The patient has severe dyspnea symptoms at rest which have been unchanged over many days despite forced diuresis. Structural heart team met and recommends him for transcatheter aortic valve replacement, however our recommendations also that he be medically optimized prior to undertaking such an operation. I was asked to evaluate the patient and additionally to perform right heart catheterization to evaluate central pressures and medically optimized patient. The patient was taken to the [facility] where I performed right heart catheterization, please see separate procedure note for the details of this operation. From here the PA catheter was left in place and the patient was taken to the cardiovascular intensive care unit for further optimization. I started the patient on milrinone 0.25 mcg/kg/min IV and inhaled Flolan at 50 ng/kg/min through a facemask. Patient has no additional symptoms or complaints and his review of systems is unchanged from prior days. 12/16: no changes in PVR with initiation of milrinone or inhaled flolan. successfully underwent TAVR. extubated at the conclusion of the case. hemodynamics appear to be back to baseline, however, in the perioperative period , now on epinephrine at 3mcg/min, vasopressin at 0.02 units/min, milrinone 0.25 mcg/kg/min. received 40mg lasix iv in the OR. 12/17: PA port clotted from swan, unable to evaluate PA pressures. patient symptomatically continues to improve. positive fluid balance yesterday, which is necessary POD 0 s/p TAVR to ensure adequate LV cavity filling immediately s/ p TAVR. now need to start additional forced diuresis. CVP 2 this AM. remains on epi, vaso, milrinone, inhaled flolan. will need to start slowly weaning these off. 12/18: PA removed. good diuresis yesterday. off epi. off flolan. more hypoxic today requiring 6L NC and spo2 only 91%. still very volume overloaded. increased lasix to q6h dosing from q8h. subjectively continues to feel better. denies complaints. 12/19: oob to chair this AM. symptomatically continues to improve. o2 requirement increasing, however. now on 6LPM simple facemask. adequate diuresis overnight with lasix drip. CVP remains elevated at 14 mmHg this AM. 12/20: continues to do well. diuresed well with 4L urine output overnight, however, patient had nearly 3L PO intake. have now place 1L fluid restriction. developing alkalosis, so will increase diamox to counteract this. also at this point will transition back to intermittent lasix dosing. still on 6L o2 by NC. On the evening of 12/20, patient's central venous catheter was pulled. immediately after removal, patient had sudden onset of acute dypsnea which progressed rapidly to cardiac arrest. ACLS was initiated, however, durable ROSC was not obtained. please see documentation in the chart for further details. the family was notified. - Additional Data Attending physician: Connor Batista MD
== END 2017-12-20 20:50 | disposition expired ==
LOC: NEDDLT 09:25 → N03 13:41 → N04 12-05 12:28 → HCVI 12-15 16:10 → N07 12-15 16:12 → HCVI 12-15 16:14 → HCPC 12-19 12:46 → HCVI 12-20 19:50
PROVIDERS: ADMIT Thoracic Surgery (Cardiothoracic Vascular Surgery); ATTEND Thoracic Surgery (Cardiothoracic Vascular Surgery)
PROC: TAVRHYB (ICD-10-PCS; 2017-12-16 07:47)